=== PATIENT | female | born 2000 | race Caucasian/White ===

== ENCOUNTER → 2022-07-16 | Outpatient (CLI) | payer SELFPAY ==
[2022-07-16 16:18] LABS: Amphetamine Urine VISTA NEGATIVE (<1000 ng/mL); Barbiturate Urine VISTA NEGATIVE (< 200 ng/mL); Benzodiazepine Urine VISTA NEGATIVE (< 200 ng/mL); Cocaine Urine VISTA NEGATIVE (< 300 ng/mL); Ecstacy Urine VISTA NEGATIVE (< 500 ng/mL); Methadone Urine VISTA NEGATIVE (< 300 ng/mL); PCP Urine VISTA NEGATIVE (< 25 ng/mL); THC Urine VISTA NEGATIVE (< 50 ng/mL); Vista UDS pH Range 5
[2022-07-18 22:07] LABS: Chlamydia By Nucleic Acid AMP Negative (Negative)
[2022-07-19 08:54] LABS: Gonococcus By Nucleic Acid AMP Negative (Negative)
[2022-07-24 11:44] LABS: HPV Reflexed? NOT INDICATED
== END | disposition home or self-care (01) ==
LOC: LABSPEC 15:18
PROVIDERS: Referring Provider Obstetrics & Gynecology; Visit Provider Obstetrics & Gynecology
DX: Z34.90 Encounter for supervision of normal pregnancy, unspecified, unspecified trimester (principal)
CPT/HCPCS: 80307; 87086; 87088; 87491; 87591; 88175; G0145

== ENCOUNTER → 2022-07-27 | Outpatient (CLI) | payer SELFPAY ==
[2022-07-27 10:16] LABS: Absolute Neutrophil Count 6.4 X10^3/uL (2.0-7.7); Basophil# 0.04 X10^3/uL; Basophil% 0.4 % (0-1); Eosinophil# 0.06 X10^3/uL; Eosinophils% 0.6 % (0-5); Hematocrit 39.5 % (37-47); Hemoglobin 13.6 g/dL (12.0-15.0); Lymphocyte % 24.2 % (19-41); Mean Corp Hgb Conc 34.4 g/dL (32-36); Mean Corpuscular Hgb 31.3 pg (27.0-32.0); Mean Platelet Vol. 9.3 fl (6.2-12.0); Monocyte# 0.71 X10^3/uL; Monocyte% 7.5 % (0-10); NRBC Flagged by Analyzer 0 % (0-5); Neutrophil # 6.36 X10^3/uL (2.7-7.7); Neutrophil % 67.1 % (47-70); Platelet Count 326 K/mm3 (150-450); RBC Distribution Width CV 11.7 % (11.6-14.6); RBC Distribution Width SD 39.1 fl (35.1-43.9); Red Blood Count 4.34 M/mm3 (4.2-5.4); White Blood Count 9.5 K/mm3 (4.4-11.0)
[2022-07-27 10:27] LABS: NATERA MAILED SPECIMEN
[2022-07-27 11:17] LABS: HIV - WCH Non-Reactive (Nonreactive); Hepatitis B Surface Antigen Non-Reactive (Nonreactive); Hepatitis C Antibody Non-Reactive (Nonreactive); Rubella IgG Non-Reactive (Nonreactive); Syphilis Antibodies Non-reactive
== END | disposition home or self-care (01) ==
LOC: LAB 09:24
PROVIDERS: Referring Provider Obstetrics & Gynecology; Visit Provider Obstetrics & Gynecology
DX: Z34.81 Encounter for supervision of other normal pregnancy, first trimester (principal)
CPT/HCPCS: 36415; 85025; 86703; 86762; 86780; 86803; 86850; 86900; 86901; 87340

== ENCOUNTER → 2022-09-27 | Outpatient (CLI) | payer SELFPAY ==
--- NOTE | 2022-09-27 13:27 | US_ITS ---
EXAM: US SECOND OR THIRD TRIMESTER , TRANSABDOMINAL CLINICAL INDICATION: anatomy scan -- anatomy scan TECHNIQUE: Transabdominal obstetrical ultrasound of the maternal pelvis and a second or third trimester with image documentation. This report was created using [employer] report generation technology. COMPARISON: None. FINDINGS: FETUS: There is an intrauterine gestation. HEART RATE: heart rate is 157 bpm. PRESENTATION: The fetus is in variable position. PLACENTA: Placenta is fundal. No placenta previa. No abruption. AMNIOTIC FLUID: Largest fluid pocket is 3.8 cm. ANATOMY: Lateral ventricles, choroid plexus, cerebellum, cisterna magna and face were visualized. 4 chamber heart, diaphragm, stomach, three-vessel cord, cord insertion, kidneys and bladder, spine and extremities were all visualized. BIOMETRICS GESTATIONAL AGE: Gestational age is 19 weeks 0 days. XUAN: XUAN 02/21/2023. EFW: Estimated weight is 279 g, 56th percentile. BPD: Biparietal diameter 4.3 cm age 19 weeks 0 days, 49th percentile. HC: Head circumference 16.5 cm age 19 weeks 2 days, 55th percentile. AC: Abdominal circumference 14.1 cm age 19 weeks 3 days, 61st percentile. FL: Femur length 2.9 cm age 18 weeks 6 days, 41st percentile. MATERNAL: UTERUS: Unremarkable. No myometrial mass. CERVIX: Cervix measures 3.6 cm. ADNEXA: Unremarkable. No adnexal masses. FREE FLUID: None. US/OB Anatomy Scan IMPRESSION: Intrauterine gestation with an average ultrasound age 19 weeks 1 day and ultrasound estimated due date of 02/20/2023. heart rate is 157 bpm. Electronically Signed: Sarthak Kingston MD at 16:37 EST ,
== END | disposition home or self-care (01) ==
PROVIDERS: Referring Provider Obstetrics & Gynecology; Visit Provider Obstetrics & Gynecology
DX: Z34.90 Encounter for supervision of normal pregnancy, unspecified, unspecified trimester (principal)
CPT/HCPCS: 76805; 76817

== ENCOUNTER → 2022-11-29 | Outpatient (CLI) | payer SELFPAY ==
[2022-11-29 15:35] LABS: Absolute Lymphocyte Count 2.21 X10^3/uL (0.83-4.51); Absolute Neutrophil Count 10.1 X10^3/uL (2.0-7.7); Basophil# 0.04 X10^3/uL; Basophil% 0.3 % (0-1); Eosinophil# 0.09 X10^3/uL; Eosinophils% 0.7 % (0-5); Hematocrit 37.6 % (37-47); Hemoglobin 12.7 g/dL (12.0-15.0); Lymphocyte # 2.21 X10^3/ul (0.83-4.51); Lymphocyte % 16.4 % (19-41); Mean Corp Hgb Conc 33.8 g/dL (32-36); Mean Corpuscular Hgb 31.9 pg (27.0-32.0); Mean Corpuscular Volume 94.5 fL (81-99); Mean Platelet Vol. 9.1 fl (6.2-12.0); Monocyte% 6.7 % (0-10); NRBC Flagged by Analyzer 0 % (0-5); Neutrophil # 10.13 X10^3/uL (2.7-7.7); Neutrophil % 75.1 % (47-70); Platelet Count 309 K/mm3 (150-450); RBC Distribution Width SD 41.5 fl (35.1-43.9); Red Blood Count 3.98 M/mm3 (4.2-5.4); White Blood Count 13.5 K/mm3 (4.4-11.0)
[2022-11-29 16:02] LABS: Glucose Challenge Gest 1H 50g 125 mg/dL (70-140)
[2022-11-29 17:34] LABS: HIV - WCH Non-Reactive (Nonreactive); Syphilis Antibodies Non-reactive
== END | disposition home or self-care (01) ==
PROVIDERS: Referring Provider Registered Nurse; Visit Provider Registered Nurse
DX: Z34.01 Encounter for supervision of normal first pregnancy, first trimester (principal)
CPT/HCPCS: 36415; 82950; 85025; 86703; 86780

== ENCOUNTER → 2023-01-29 | Outpatient (CLI) | payer SELFPAY | END | disposition home or self-care (01) | PROVIDERS: Referring Provider Registered Nurse; Visit Provider Registered Nurse | DX: Z34.90 Encounter for supervision of normal pregnancy, unspecified, unspecified trimester (principal) | CPT/HCPCS: 87081 ==

== ENCOUNTER 2023-02-16 11:35 | Inpatient (IN) | payer SELFPAY ==
[2023-02-16] VITALS (53 sets, daily range): BP systolic 105–147; BP diastolic 58–94; PULSE 91–214; TEMP 36.2–37.3; O2SAT 97–100; BMI 32.9
[2023-02-16] MEDS: Lactated Ringers 1,000 ML 50 ML IV (11:20)
[2023-02-16] MEDS: LACTATED RINGERS 500 ML 999 ML IV (12:36)
[2023-02-16 12:52] LABS: Absolute Lymphocyte Count 1.68 X10^3/uL (0.83-4.51); Absolute Neutrophil Count 10.7 X10^3/uL (2.0-7.7); Basophil# 0.03 X10^3/uL; Basophil% 0.2 % (0-1); Eosinophil# 0.01 X10^3/uL; Eosinophils% 0.1 % (0-5); Hematocrit 37.7 % (37-47); Lymphocyte # 1.68 X10^3/ul (0.83-4.51); Lymphocyte % 12.7 % (19-41); Mean Corp Hgb Conc 34.5 g/dL (32-36); Mean Corpuscular Hgb 31.8 pg (27.0-32.0); Mean Corpuscular Volume 92.2 fL (81-99); Monocyte# 0.82 X10^3/uL; Monocyte% 6.2 % (0-10); NRBC Flagged by Analyzer 0 % (0-5); Neutrophil # 10.68 X10^3/uL (2.7-7.7); Neutrophil % 80.5 % (47-70); Platelet Count 266 K/mm3 (150-450); RBC Distribution Width CV 12.5 % (11.6-14.6); RBC Distribution Width SD 42.2 fl (35.1-43.9); Red Blood Count 4.09 M/mm3 (4.2-5.4); White Blood Count 13.3 K/mm3 (4.4-11.0)
--- NOTE | 2023-02-16 12:55 | HP.PCM.OB_ITS ---
HPI - General General Date of Admission: 02/16/23 Date of Service: 02/16/23 HPI Narrative DINORAH DOBBINS, is a 22 F at 39 weeks 2 days who presents in spontaneous labor. Maternal Data Information XUAN Calculator Estimated Delivery Date Method Current WG Current Estimate 02/21/23 LMP (Certain) 39w 2d Final XUAN: 02/21/23 Final XUAN Source: US >20 weeks Gestational age: 39 weeks 2 days PFSH PFSH Medical History no medical history no medical history Home Medications vits no.10-ferrous fumarate 65 mg iron-folic acid 1 mg tablet 1 tab PO DAILY 07/11/22 [History Last Taken 02/15/23 21:00 2 tablets] Allergy/AdvReac Type Severity Reaction Status Date / Time No Known Allergies Allergy Verified 02/12/23 09:56 no significant family history Surgical History no surgical history no surgical history Social History adopted: No household members: spouse housing: house current occupational status: employed current occupation: [employer] current occupational exposures/hazards: No pets and animals: No history of recent travel: No sexually active: Yes Smoking Status: Never smoker alcohol intake: never substance use type: does not use well-balanced diet: daily or most days caffeine: No eating out: rarely or never during the past year weight has: remained stable what type of physical activity do you participate in: walking frequency: 1-2 times per week duration: 15-30 minutes/day prabhu/samaritan: None seatbelt use: always do you feel safe at home: Yes additional social history: Spouse- [employer] History 1 Elective abortions Hx Para 0 Spontaneous abortions Hx # Term Pregnancies Ectopic pregnancies Hx # Pregnancies Multiple births # of living children Visit Details Expected Delivery Route/Plan Labor Preferences- CB/BF classes: [facility] labor support person: Ford( gets woozy) , and mom labor intervention preferences: limited intervention pain management options preferred: unmedicated cut cord/dad catch: will decline : plans PP control planned:NFP/ROBERTS/condoms discussed possible routes of delivery and associated risks: [] special requests: [] Plans Covid status: discussed Flu vaccine: discussed Tdap vaccine: declined Rhogam: n/a LARC form signed:completed Problem list reviewed and updated with the most current plan of care details and appropriate orders placed. Relevant counseling for the gestational age provided. Continue routine care and follow up unless otherwise noted in visit n otes/problem list details OB Flowsheet Initial Weight: Not Recorded Date -?-?-?-?-?-?-?-?-?-?--?-?- EGA Weight BP Urine Prot -?-?-?-?-?-?-?-?-?-?-?-?- Glucose FHR FuHt Pres Dilation -?-?-?-?-?-?-?-?-?-?-?-?- Effaced St Visit Note 07/16/22 -?-?-?-?-?-?-?-?-?-?-?-?- 8w 4d 134 lb 110/72 -?-?-?-?-?-?-?-?-?-?-?-?- 180 -?-?-?-?-?-?-?-?-?-?-?-?- SM- CRL cons wit h LMP SM- CRL 2.26cm cons with LMP 08/14/22 -?-?-?-?-?-?-?-?-?-?-?-?- 12w 5d 141 lb 123/76 Negative -?-?-?-?-?-?-?-?-?-?-?-?- Negative 155 -?-?-?-?-?-?-?-?-?-?-?-?- Sm- no vb cramp ing 09/11/22 -?-?-?-?-?-?-?-?-?-?-?-?- 16w 5d 150 lb 120/80 -?-?-?-?-?-?-?-?-?-?-?-?- 154 -?-?-?-?-?-?-?-?-?-?-?-?- Lc- no vb/crampi ng. discussed afp, declines. normal nob labs. has anatomy scan scheduled 09/27. 10/02/22 -?-?-?-?-?-?-?-?-?-?-?-?- 19w 5d 154 lb 109/72 109/72 Negative -?-?-?-?-?-?-?-?-?-?-?-?- Negative 150 20 -?-?-?-?-?-?-?-?-?-?-?-?- LC-no vb/crampin g. normal anatomy scan. feels well, denies complaints or concerns. 10/23/22 -?-?-?-?-?-?-?-?-?-?-?-?- 22w 5d 158 lb 114/79 Negative -?-?-?-?-?-?-?-?-?-?-?-?- Negative 143 23 -?-?-?-?-?-?-?-?-?-?-?-?- LC-no concerns. no vb/cramping.reviewed normal anatomy. 28 week labs ordered. 11/29/22 -?-?-?-?-?-?-?-?-?-?-?-?- 28w 0d 170 lb 126/83 Negative -?-?-?-?-?-?-?-?-?-?-?-?- Negative 165 28 -?-?-?-?-?-?-?-?-?-?-?-?- JV- normal cbc, glucola pending. no concerns or complaints. 12/13/22 -?-?-?-?-?-?-?-?-?-?-?-?- 30w 0d 172 lb 110/76 Negative -?-?-?-?-?-?-?-?-?-?-?-?- Negative 140 30 -?-?-?-?-?-?-?-?-?-?-?-?- LC- no concerns. no vb/ctx/lof. good fm. larc signed. passed glucola. 12/25/22 -?-?-?-?-?-?-?-?-?-?-?-?- 31w 5d 173 lb 134/87 122/78 Negative -?-?-?-?-?-?-?-?-?-?-?-?- Negative 140 31 -?-?-?-?-?-?-?-?-?-?-?-?- LC- no concerns. no lof/vb/ctx. good FM. 01/10/23 -?-?-?-?-?-?-?-?-?-?-?-?- 34w 0d 176 lb 118/80 118/80 Negative -?-?-?-?-?-?-?-?-?-?-?-?- Negative 135 33 -?-?-?-?-?-?-?--?-?-?-?-?- KW-no concerns. Good FM. no lof/vb/ctx. labor precautions discussed. declines Tdap. 01/22/23 -?-?-?-?-?-?-?-?-?-?-?-?- 35w 5d 178 lb 138/80 127/84 -?-?-?-?-?-?-?-?-?-?-?-?- 150 35 Cephalic -?-?-?-?-?-?-?-?-?-?-?-?- LC-had a tick bi te over the weekend, pulled out very quickly. small red area 2 inches 7oclock from umbilicus. no fevers. good fm, no ctx/lof/vb. is no longer working. LC-had a tick bite over the weekend, pulled out very quickly. small red area 2 inches 7oclock from umbilicus. no fevers. no erythema migrans. good fm, no ctx/lof/vb. is no longer working. 01/29/23 -?-?-?-?-?-?-?-?-?-?-?-?- 36w 5d 175 lb 110/78 Negative -?-?-?-?-?-?-?-?-?-?-?-?- Negative 140 36 Cephalic -?-?-?-?-?-?-?-?-?-?-?-?- LC- no lof/vb/ct x. good fm. tick bite has resolved. LC- no lof/vb/ctx. good fm. tick bite has resolved.gbs obtained today 02/05/23 -?-?-?-?-?-?-?-?-?-?-?-?- 37w 5d 182 lb 117/80 Negative -?-?-?-?-?-?-?-?-?-?-?-?- Negative 138 37 Cephalic -?-?-?-?-?-?-?-?-?-?-?-?- LC- no lof/vb/ct x. good fm. early labor comforts reviewed. declines VE. GBS neg 02/12/23 -?-?-?-?-?-?-?-?-?-?-?-?- 38w 5d 182 lb 120/86 Trace -?-?-?-?-?-?-?-?-?-?-?-?- Negative 140 38 Cephalic -?-?-?-?-?-?-?-?-?-?-?-?- LC- no lof/vb/ct x. good fm. reviewed r/b/a for membrane strip, will consider at next visit.ready for baby 02/16/23 -?-?-?-?-?-?-?-?-?-?-?-?- 39w 2d 180 lb 1.883 oz 142/ 94 142/94 119/79 119/79 119/72 119/72 -?-?-?-?-?-?-?-?-?-?-?-?- -?-?-?-?-?-?-?-?-?-?-?-?- NST FHR Rate Baby A Baseline: 140 Variability:: Moderate Accelerations:: 15 x 15 Decelerations:: None NST Reactive:: Yes FHR Category:: Category I Uterine Activity:: q4-5 minutes palpating moderate ROS Constitutional Constitutional: Denies change in weight, fatigue, fever(s), headache(s), poor appetite or weakness Eyes Eyes: Denies blurry vision, change in vision, floaters, seeing flashes or spots in vision ENT HEENT: Denies dizziness, headache(s), loss taste/smell or sore throat Cardiovascular Cardiovascular: Denies chest pain, dizziness, dyspnea, irregular heart rhythm, lightheadedness, palpitations or rapid heart rate Respiratory/Chest Respiratory/Chest: Denies change in mental status, chest tightness, cough, dyspnea or breast pain Gastrointestinal Gastrointestinal: Denies anorexia, chewing difficulty, constipation, diarrhea or weight changes Genitourinary Genitourinary: Denies difficulty urinating, dysuria, flank pain, genital pain, urinary frequency or urinary urgency Musculoskeletal Musculoskeletal: Denies back pain, difficulty walking, extremity pain, joint pain, muscle cramps or muscle weakness Integumentary Integumentary: Denies lesions or unusual bruising Neurologic Neurologic: Denies abnormal movements, abnormal speech, dizziness, numbness, seizure-like activity, syncope or weakness Psychiatric Psychiatric: Denies behavioral changes, change in appetite, confusion, depression, homicidal ideation, suicidal ideation or suicidal thoughts Endocrine Endocrinology: Denies excessive sweating, polydipsia or polyuria Hematologic/Lymphatic Hematologic/Lymphatic: Denies anemia Allergic/Immunologic Allergic/Immunologic: Denies itchy eyes, lip swelling, throat swelling, tongue swelling or wheezing Vital Signs Vital Signs Vital Signs: 02/16/23 10:02 02/16/23 10:02 02/16/23 10:00 Temperature Temperature Source Temporal Pulse Rate 110 H Blood Pressure 142/94 H BP Systolic 142 BP Diastolic 94 Pulse Ox 02/16/23 10:00 02/16/23 10:00 02/16/23 11:09 Temperature 99.0 F Temperature Source Pulse Rate Blood Pressure 142/94 H 119/79 BP Systolic 142 119 BP Diastolic 94 79 Pulse Ox 02/16/23 11:09 02/16/23 11:10 02/16/23 11:10 Temperature Temperature Source Pulse Rate 100 107 H Blood Pressure BP Systolic BP Diastolic Pulse Ox 97 02/16/23 11:10 02/16/23 11:10 02/16/23 11:10 Temperature Temperature Source Temporal Pulse Rate 102 H Blood Pressure 119/79 BP Systolic 119 BP Diastolic 79 Pulse Ox 02/16/23 11:10 02/16/23 11:10 02/16/23 12:39 Temperature 97.9 F Temperature Source Pulse Rate Blood Pressure 119/72 BP Systolic 119 BP Diastolic 72 Pulse Ox 98 02/16/23 12:39 02/16/23 12:39 02/16/23 12:39 Temperature Temperature Source Pulse Rate 113 H 117 H Blood Pressure BP Systolic BP Diastolic Pulse Ox 97 02/16/23 12:39 02/16/23 12:39 02/16/23 12:39 Temperature Temperature Source Temporal Pulse Rate 108 H Blood Pressure 119/72 BP Systolic 119 BP Diastolic 72 Pulse Ox 02/16/23 12:39 02/16/23 12:39 Temperature 97.9 F Temperature Source Pulse Rate Blood Pressure BP Systolic BP Diastolic Pulse Ox 97 Weight Weight: 180 lb 1.883 oz Body Mass Index (BMI) 32.9 Physical Exam Const alert, oriented x3 and no apparent distress General Appearance: cooperative Orientation / Consciousness: awake HEENT normocephalic Neck full ROM Lymph Lymphatic: no lymphadenopathy noted Resp normal respiratory effort and normal air movement Effort and Inspection: able to speak in complete sentences and symmetric chest movement GI soft to palpation and non-tender Inspection: gravid Palpation: soft; Negative for tender external exam normal Back/Spine normal to inspection Extremity normal to inspection and full ROM Skin no rashes or lesions noted Psych mental status grossly normal Appearance: grossly normal Speech: normal speech Labs Labs Labs: Blood Type A POSITIVE Antibody Screen NEGATIVE Hct 37.7 % (37-47) Hgb 13.0 g/dL (12.0-15.0) Obstetrics US Syphilis Total Ab Non-reactive Rubella IgG Antibody Non-Reactive (Nonreactive) Hep Bs Antigen Non-Reactive (Nonreactive) Chlamydia DNA (BRANDON) Negative (Negative) Neisseria gonorrhoeae DNA (BRANDON) Negative (Negative) HIV 1&2 Antibody Non-Reactive (Nonreactive) Glucose 1 Hr 50 gm 125 mg/dL (70-140) Assessment & Plan (1) Spontaneous onset of labor: PLAN: Patient presents IAL, plan expectant management for , pitocin/AROM PRN if needed. Pain management: plans epidural. GBS negative. Management of any complications: none I have reviewed the [facility] and made any clinically relevant updates. Reviewed plan with Dr. Lagunas, agrees with plan of care. (2) Supervision of normal first : QUALIFIERS: Trimester: first trimester Qualified Code(s): Z34.01 - Encounter for supervision of normal first , first trimester COMMENT: PRR , XUAN 02/21/23, boy! Ion Spouse Ford (3) : QUALIFIERS: Weeks of gestation: 32 weeks Qualified Code(s): Z3A.32 - 32 weeks gestation of COMMENT: GBS negative. nl anatomy, low risk NIPT & carrier neg. for 274/274
[2023-02-16 13:40] LABS: Syphilis Antibodies Non-reactive
[2023-02-16] MEDS: fentaNYL-bupivacaine (epidural) 100 ML BAG EPIDURAL ×2 (14:00→18:33)
--- NOTE | 2023-02-16 15:31 | PCM.PN.OB ---
Subjective Subjective Patient comfortable with epidural current tracing: FHT: 135 Moderate variability reactive no decelerations category I tracing [place]: Contractions q 4-6 minutes palpating moderate to strong AROM at 1503 for meconium fluid, peds notified and to be at delivery. SVE: /1 reviewed tracing abnormalities since last note: none noted, Cat 1 A/P: Continue current POC Continue position changes Anticipate Objective Data Objective Data Vital Signs: Vital Signs Temp Pulse BP Pulse Ox 97.1 F L 93 112/77 100 02/16/23 14:30 02/16/23 15:17 02/16/23 15:17 02/16/23 15:09 Weight: 180 lb 1.883 oz Body Mass Index (BMI) 32.9 Intake & Output: Intake and Output for Last 24 Hours 02/14/23 02/15/23 02/16/23 23:59 23:59 23:59 Intake Total 790.83 / 790.83 Output Total 100 / 100 Balance 690.83 / 690.83 Lab / Micro Data Result Diagrams: 02/16/23 11:20 Labs: Laboratory Results - last 24 hr 02/16/23 11:20: WBC 13.3 H, RBC 4.09 L, Hgb 13.0, Hct 37.7, MCV 92.2, MCH 31.8, MCHC 34.5, RDW Std Deviation 42.2, RDW Coeff of Bear 12.5, Plt Count 266, MPV 10.0, Immature Gran % (Auto) 0.300, Neut % (Auto) 80.5 H, Lymph % (Auto) 12.7 L, [place] % (Auto) 6.2, Eos % (Auto) 0.1, Baso % (Auto) 0.2, Absolute Neuts (auto) 10.7 H, Absolute Lymphs (auto) 1.68, Nucleated RBC % 0 02/16/23 11:20: Blood Type A POSITIVE, Antibody Screen NEGATIVE 02/16/23 11:20: Syphilis Total Ab Non-reactive Physical Exam Cardio regular rate and regular rhythm Cardio Narrative: orders for IV fluid bolus, consult anesthesia, EKG if needed Rate: tachycardic GI soft to palpation and non-tender Bladder / Kidney Exam: catheter in place urethral Amniotic Fluid: meconium-stained Charges/Coding Procedures Urinary/Genital [id number]: No Charge
[2023-02-16] MEDS: Oxytocin 15 Units/NS 250ml 15 UNITS/250 ML IV.SOLN 2 UNITS IV (16:21)
--- NOTE | 2023-02-16 17:27 | PCM.PN.OB ---
Subjective Subjective Patient comfortable with epidural current tracing: FHT: 145 Moderate variability reactive no decelerations category I tracing [place]: Contractions palpating moderate to strong q 3-5 minutes. AROM at 1503 for meconium SVE 5/-1 Pitocin augmentation -4mu reviewed tracing abnormalities since last note: Cat 1 A/P: continue POC frequent position changes increase pitocin per protocol Anticipate Objective Data Objective Data Vital Signs: Vital Signs Temp Pulse BP Pulse Ox 98.1 F 115 H 122/73 H 99 02/16/23 17:03 02/16/23 17:03 02/16/23 17:03 02/16/23 17:03 Weight: 180 lb 1.883 oz Body Mass Index (BMI) 32.9 Intake & Output: Intake and Output for Last 24 Hours 02/14/23 02/15/23 02/16/23 23:59 23:59 23:59 Intake Total 792.43 / 792.43 Output Total 100 / 100 Balance 692.43 / 692.43 Lab / Micro Data Result Diagrams: 02/16/23 11:20 Labs: Laboratory Results - last 24 hr 02/16/23 11:20: WBC 13.3 H, RBC 4.09 L, Hgb 13.0, Hct 37.7, MCV 92.2, MCH 31.8, MCHC 34.5, RDW Std Deviation 42.2, RDW Coeff of Bear 12.5, Plt Count 266, MPV 10.0, Immature Gran % (Auto) 0.300, Neut % (Auto) 80.5 H, Lymph % (Auto) 12.7 L, [place] % (Auto) 6.2, Eos % (Auto) 0.1, Baso % (Auto) 0.2, Absolute Neuts (auto) 10.7 H, Absolute Lymphs (auto) 1.68, Nucleated RBC % 0 02/16/23 11:20: Blood Type A POSITIVE, Antibody Screen NEGATIVE 02/16/23 11:20: Syphilis Total Ab Non-reactive Charges/Coding Procedures Urinary/Genital 52xxx-[id number]: No Charge
[2023-02-16] MEDS: Lactated Ringers 1,000 ML 200 ML IV (18:32)
--- NOTE | 2023-02-16 23:27 | OP.PCM_ITS ---
Assessment & Plan (1) Vaginal delivery: COMMENT: KW/SM 39.2 Active labor Boy Ion Maternal Data Information XUAN Calculator Estimated Delivery Date Method Current WG Current Estimate 02/21/23 LMP (Certain) 39w 2d Final XUAN: 02/21/23 Final XUAN Source: US >20 weeks Gestational age: 39 weeks 2 days Vaginal Delivery Maternal Presentation Maternal Presentation: Active Labor Operative Information Pre-Operative Diagnosis: Active labor Post-Operative Diagnosis: active labor Surgery / Procedure Performed: Spontaneous Vaginal Delivery bill board poster #1: Petra Lagunas Type of Anesthesia: Epidural Estimated Blood Loss: 300 Time of Delivery: 22:56 Findings Description of Procedure: Patient began pushing and delivered the head in the EVELYN presentation. The head was delivered atraumatically and no loose nuchal cord was identified. The ant erior and posterior shoulders delivered without complication followed by the rest of the infant and the infant was placed on the maternal abdomen. Delayed cord clamping was employed for approximately 90 seconds. Cord was clamped and cut and gentle traction was applied to the cord and the placenta delivered spontaneously immediately following it was noted to be intact with three-vessel cord. The perineum and vagina were inspected and noted to have second degree laceration. EBL was 300. Patient and tolerated delivery well. Apgars 8/9 Presentation: Vertex Amniotic Membrane Rupture Type: Artificial Time of Membrane Rupture: 1500 Amniotic Fluid Description: Lightly stained meconium Placental Delivery Description: Spontaneous Placenta Disposition: [facility] Cord Vessel Description: 3 Vessels Cord Entanglement: None Nuchal Cord Compression: Without compression Infant A Gender: Male (1 minute): 8 (5 minute): 9 Delayed Cord Clamping: Yes Post Vaginal Delivery Medications Given After Delivery: IV Pitocin Episiotomy Description: None Laceration: Perineal Extension/lac, Vaginal Extension/lac and 2nd degree Complication Complications: None Procedures Urinary/Genital [id number]: [id number] Vaginal Delivery [facility]
[2023-02-16] MEDS: Oxytocin 15 Units/NS 250ml 15 UNITS/250 ML IV.SOLN 83 UNITS IV (23:37)
--- NOTE | 2023-02-16 23:47 | DCINST_ITS ---
Discharge Instructions Diet Discharge Diet: No restrictions Activity Discharge Activity: Return to Normal Activity May resume sexual activity in: 6-8 weeks Weight Bearing Status: Weight bearing as tolerated Dressing / Incision Call your doctor if you observe: Fever of 101 or Higher, Coldness, Increased Pain, Change in Color, Inability to urinate, Inability to have a bowel movement, Using more than 1 pad per hour, Shortness of breath, Dizziness, Fainting spells, Swelling in the ankles, Chest pain, Calf discomfort and Uncontrolled pain Follow Up Care Please Follow Up With: Natividad Davenport CNM When: Please call to set up your check up in 6 weeks. If you have had high blood pressure, please call to set up a blood pressure check in 2 weeks Test Results: Test results from this visit will be discussed in further detail at your follow- up appointment, if applicable. Discharge Plan Admission Admit Date/Time: 02/16/23 11:35 Primary Reason for Your Visit: vaginal delivery Attending Provider: Natividad Davenport Primary Care Provider: Care Physician,No Primary Instructions Patient Instructions: After a Vaginal Discharge Orders/Prescriptions Prescriptions: No Action vit 10-iron fum-folic 65-1 mg tablet 1 tab PO DAILY Referrals / Follow Up: Care Physician,No Primary [Primary Care Provider] - Disposition Disposition (needs filled in before D/C Order can be placed): Home, Self Care
[2023-02-17] VITALS (29 sets, daily range): BP systolic 109–122; BP diastolic 65–84; PULSE 78–157; RESP 16–20; TEMP 36.3–37.1; O2SAT 96–98
[2023-02-17] MEDS: Naproxen 500 MG Tablet PO ×2 (02:27→13:09)
--- NOTE | 2023-02-17 08:22 | PCM.PN.OB ---
Subjective Subjective Patient doing well without complaints. Tolerating PO. Ambulating and voiding without difficulty. Feeding well. Denies chest pain, shortness of breath, calf pain/swelling, fevers, chills, lightheadedness. Objective Data Objective Data Vital Signs: Vital Signs Temp Pulse Resp BP Pulse Ox O2 Del Method 97.6 F L 115 H 16 111/67 96 Room Air 02/17/23 03:10 02/17/23 03:11 02/17/23 03:10 02/17/23 03:11 02/17/23 03:10 02/17/23 03:10 Oxygen Delivery Method Room Air Weight: 180 lb 1.883 oz Body Mass Index (BMI) 32.9 Intake & Output: Intake and Output for Last 24 Hours 02/15/23 02/16/23 02/17/23 23:59 23:59 23:59 Intake Total 2857.50 / 2857.50 250 / 250 Output Total 950 / 950 200 / 200 Balance 1907.50 / 1907.50 50 / 50 Lab / Micro Data Attestation: I reviewed the patient's lab results. Result Diagrams: 02/16/23 11:20 Labs: Laboratory Results - last 24 hr 02/16/23 11:20: WBC 13.3 H, RBC 4.09 L, Hgb 13.0, Hct 37.7, MCV 92.2, MCH 31.8, MCHC 34.5, RDW Std Deviation 42.2, RDW Coeff of Bear 12.5, Plt Count 266, MPV 10.0, Immature Gran % (Auto) 0.300, Neut % (Auto) 80.5 H, Lymph % (Auto) 12.7 L, [place] % (Auto) 6.2, Eos % (Auto) 0.1, Baso % (Auto) 0.2, Absolute Neuts (auto) 10.7 H, Absolute Lymphs (auto) 1.68, Nucleated RBC % 0 02/16/23 11:20: Blood Type A POSITIVE, Antibody Screen NEGATIVE 02/16/23 11:20: Syphilis Total Ab Non-reactive ROS Constitutional Constitutional: Reports systems reviewed and no addt'l complaints, except as documented; Denies anorexia or headache(s) Cardiovascular Cardiovascular: Reports systems reviewed and no addt'l complaints, except as documented; Denies dizziness, dyspnea, nausea or tachypnea Respiratory/Chest Respiratory/Chest: Reports systems reviewed and no addt'l complaints, except as documented; Denies cough, dyspnea, shortness of breath at rest or tachypnea Gastrointestinal Gastrointestinal: Reports systems reviewed and no addt'l complaints, except as documented; Denies abdominal pain, constipation or nausea Genitourinary Genitourinary: Reports systems reviewed and no addt'l complaints, except as documented; Denies burning urination, difficulty urinating, dysuria, urinary frequency or urinary incontinence Musculoskeletal Musculoskeletal: Reports systems reviewed and no addt'l complaints, except as documented Integumentary Integumentary: Reports systems reviewed and no addt'l complaints, except as documented Neurologic Neurologic: Reports systems reviewed and no addt'l complaints, except as documented; Denies abnormal speech, dizziness or headache(s) Psychiatric Psychiatric: Reports systems reviewed and no addt'l complaints, except as documented Endocrine Endocrinology: Reports systems reviewed and no addt'l complaints, except as documented Hematologic/Lymphatic Hematologic/Lymphatic: Reports systems reviewed and no addt'l complaints, except as documented Physical Exam Const alert, oriented x3 and no apparent distress Neck full ROM Chest inspection of chest normal Nipple/Areola: nipples/areola normal Resp normal respiratory effort, normal air movement and no retractions Effort and Inspection: able to speak in complete sentences and symmetric chest movement GI soft to palpation Bladder / Kidney Exam: bladder normal to palpation Uterus Palpation: uterus fundus firm (U1) Extremity normal to inspection and full ROM Psych mental status grossly normal, thought process normal and cooperative Assessment & Plan (1) Vaginal delivery: COMMENT: KW/SM 39.2 Active labor Boy [place] PLAN: s/p PPD # 1 1. routine post delivery care 2. breast feeding- support given 3. rh positive 4. rubella immune Charges/Coding Multi Select Codes Urinary/Genital Urinary/Genital CPT Codes: No Charge
[2023-02-17] MEDS: Prenatal Vits Tablet 1 TABLET PO (09:42)
[2023-02-17] MEDS: Acetaminophen 500 MG Tablet 1000 MG PO ×2 (09:42→18:18)
--- NOTE | 2023-02-17 21:01 | NURSING ---
Pt declines MMR vaccine for rubella nonimmune status.
[2023-02-18 03:00] VITALS: BP 118/76; PULSE 95; RESP 20; TEMP 36.2; O2SAT 96
[2023-02-18] MEDS: Naproxen 500 MG Tablet PO (06:21)
[2023-02-18 08:00] VITALS: BP 120/75; PULSE 90; RESP 16; TEMP 36.4
[2023-02-18 09:00] VITALS: PULSE 90; RESP 16
[2023-02-18] MEDS: Acetaminophen 500 MG Tablet 1000 MG PO (09:08)
[2023-02-18] MEDS: Prenatal Vits Tablet 1 TABLET PO (09:30)
[2023-02-18 14:00] VITALS: BP 113/69; PULSE 90; RESP 16; TEMP 36.8
== END 2023-02-18 14:30 | disposition home or self-care (01) | DRG 807 ==
LOC: WPOUT 11:38 → WP 11:39
PROVIDERS: Admitting Provider Advanced Practice Midwife; Referring Provider Advanced Practice Midwife; Visit Provider Advanced Practice Midwife
DX: O77.0 Labor and delivery complicated by meconium in amniotic fluid (principal); Z37.0 Single live birth; O70.1 Second degree perineal laceration during delivery; Z3A.39 39 weeks gestation of pregnancy
CPT/HCPCS: 59025; 59050; 85025; 86780; 86850; 86900; 86901; 99221; J7120; G0378

== ENCOUNTER → 2024-11-26 | Outpatient (CLI) | payer SELFPAY ==
[2024-11-30 06:06] LABS: Chlamydia By Nucleic Acid AMP Negative (Negative); Gonococcus By Nucleic Acid AMP Negative (Negative)
== END | disposition home or self-care (01) ==
LOC: LABSPEC 13:53
PROVIDERS: Referring Provider Advanced Practice Midwife; Visit Provider Advanced Practice Midwife
DX: Z34.90 Encounter for supervision of normal pregnancy, unspecified, unspecified trimester (principal)
CPT/HCPCS: 87086; 87088; 87491; 87591

== ENCOUNTER → 2024-12-07 | Outpatient (CLI) | payer SELFPAY ==
[2024-12-07 12:27] LABS: Absolute Lymphocyte Count 2.65 X10^3/uL (0.83-4.51); Absolute Neutrophil Count 6.3 X10^3/uL (2.0-7.7); Basophil# 0.04 X10^3/uL; Basophil% 0.4 % (0-1); Eosinophil# 0.07 X10^3/uL; Eosinophils% 0.7 % (0-5); Hematocrit 41.4 % (37-47); Hemoglobin 14.3 g/dL (12.0-15.0); Lymphocyte # 2.65 X10^3/ul (0.83-4.51); Lymphocyte % 26.6 % (19-41); Mean Corp Hgb Conc 34.5 g/dL (32-36); Mean Corpuscular Hgb 31.5 pg (27.0-32.0); Mean Corpuscular Volume 91.2 fL (81-99); Mean Platelet Vol. 9.6 fl (6.2-12.0); Monocyte# 0.87 X10^3/uL; Monocyte% 8.7 % (0-10); NRBC Flagged by Analyzer 0 % (0-5); Neutrophil # 6.29 X10^3/uL (2.7-7.7); Neutrophil % 63.3 % (47-70); Platelet Count 373 K/mm3 (150-450); RBC Distribution Width CV 11.9 % (11.6-14.6); RBC Distribution Width SD 39.3 fl (35.1-43.9); Red Blood Count 4.54 M/mm3 (4.2-5.4)
[2024-12-07 13:52] LABS: HIV - WCH Non-Reactive (Nonreactive); Hepatitis B Surface Antigen Non-Reactive (Nonreactive); Hepatitis C Antibody Non-Reactive (Nonreactive); Rubella IgG Non-Reactive (Nonreactive); Syphilis Antibodies Non-reactive
== END | disposition home or self-care (01) ==
LOC: BWCLAB 11:09
PROVIDERS: Referring Provider Advanced Practice Midwife; Visit Provider Advanced Practice Midwife
DX: Z34.90 Encounter for supervision of normal pregnancy, unspecified, unspecified trimester (principal)
CPT/HCPCS: 36415; 85025; 86703; 86762; 86780; 86803; 86850; 86900; 86901; 87340

== ENCOUNTER → 2025-02-10 | Outpatient (CLI) | payer SELFPAY ==
--- NOTE | 2025-02-10 15:37 | US_ITS ---
PROCEDURE: OB ANATOMY W/ TRANSVAGINAL 02/10/2025 REASON FOR EXAM: CERVICAL LENGTH/ANATOMY TECHNIQUE: High resolution obstetric ultrasound performed using a 2D transducer. Standard views obtained, including biometry, anatomy survey, and Doppler studies. FINDINGS Number: 1 Position: Cephalic presentation Placental Position: Anterior Placental Abnormalities: No abnormalities. No low-lying placenta or marginal previa DIMENSIONS: Biparietal Diameter: 4.95/21 weeks, 0 days Head Circumference: 17.99/20 weeks, 3 days Abdominal Circumference: 18.62/20 weeks, 5 days Femur Length: The 03/06 weeks, 5 days ESTIMATED WEIGHT: 351 g +/-53 g ESTIMATED WEIGHT PERCENTILE (24+ weeks): 68% ESTIMATED GESTATIONAL AGE: Baseline: 20 weeks, 0 days By Ultrasound: 20 weeks, 3 days ESTIMATED DATE OF DELIVERY: Baseline: 06/30/2025 By Ultrasound: 06/27/2025 BIOPHYSICAL ASSESSMENT: Amniotic Fluid Volume: Subjectively normal Amniotic Fluid Index: Subjectively normal. (8-24 cm normal range) Cardiac Motion: 158 beats per minute (average) Trunk and Limb Motion: Present. MATERNAL ANATOMY: Adnexa: Neither maternal ovary is successfully identified. Cervical Length (if measured): 4.9 cm ANATOMY: Spine: Visualize Cranium: Visualized Cerebellum: 2.1 cm Cisterna Magna: 0.3 cm Cavum Septum Pellucidi: N/A Lateral Ventricles: 0.66 Choroid Plexus: Visualized Falx: Midline. Upper Lip: Visualized Heart: 4 chambers Stomach: Visualized Kidneys: Visualized Bladder: Visualized Umbilical Cord: Three-vessel visualized Extremities: Upper and lower visualized US/OB Anatomy w/ Transvaginal IMPRESSION: Single live intrauterine and fused with heart rate of 158 beats per minute ESTIMATED GESTATIONAL AGE: Baseline: 20 weeks, 0 days By Ultrasound: 20 weeks, 3 days ESTIMATED DATE OF DELIVERY: Baseline: 06/30/2025 By Ultrasound: 06/27/2025 Reading [facility]
== END | disposition home or self-care (01) ==
LOC: US 15:28
PROVIDERS: Referring Provider Obstetrics & Gynecology; Visit Provider Obstetrics & Gynecology
DX: Z34.90 Encounter for supervision of normal pregnancy, unspecified, unspecified trimester (principal)
CPT/HCPCS: 76805; 76817

== ENCOUNTER → 2025-04-05 | Outpatient (CLI) | payer SELFPAY ==
[2025-04-05 12:44] LABS: Absolute Lymphocyte Count 1.74 X10^3/uL (0.83-4.51); Absolute Neutrophil Count 7.3 X10^3/uL (2.0-7.7); Basophil# 0.04 X10^3/uL; Basophil% 0.4 % (0-1); Eosinophil# 0.04 X10^3/uL; Eosinophils% 0.4 % (0-5); Hematocrit 40.1 % (37-47); Hemoglobin 13.7 g/dL (12.0-15.0); Lymphocyte # 1.74 X10^3/ul (0.83-4.51); Lymphocyte % 17.8 % (19-41); Mean Corp Hgb Conc 34.2 g/dL (32-36); Mean Corpuscular Hgb 32.1 pg (27.0-32.0); Mean Corpuscular Volume 93.9 fL (81-99); Mean Platelet Vol. 9.8 fl (6.2-12.0); Monocyte# 0.65 X10^3/uL; Monocyte% 6.6 % (0-10); NRBC Flagged by Analyzer 0 % (0-5); Neutrophil # 7.27 X10^3/uL (2.7-7.7); Neutrophil % 74.3 % (47-70); Platelet Count 353 K/mm3 (150-450); RBC Distribution Width CV 12.2 % (11.6-14.6); RBC Distribution Width SD 42.2 fl (35.1-43.9); Red Blood Count 4.27 M/mm3 (4.2-5.4); White Blood Count 9.8 K/mm3 (4.4-11.0)
[2025-04-05 13:57] LABS: Glucose Challenge Gest 1H 50g 95 mg/dL (70-140); HIV Nonreactive (Nonreactive); Syphilis Antibodies Nonreactive (Nonreactive)
== END | disposition home or self-care (01) ==
PROVIDERS: Referring Provider Advanced Practice Midwife; Visit Provider Advanced Practice Midwife
DX: Z34.90 Encounter for supervision of normal pregnancy, unspecified, unspecified trimester (principal)
CPT/HCPCS: 36415; 82950; 85025; 86703; 86780

== ENCOUNTER → 2025-06-03 | Outpatient (CLI) | payer SELFPAY ==
[2025-06-03 15:17] LABS: Hematocrit 36.1 % (37-47); Hemoglobin 12.1 g/dL (12.0-15.0); Immature Granulocytes Count 0.070 X10^3/uL (0.0-0.0); Mean Corp Hgb Conc 33.5 g/dL (32-36); Mean Corpuscular Volume 90.0 fL (81-99); Mean Platelet Vol. 9.3 fl (6.2-12.0); NRBC Flagged by Analyzer 0 % (0-5); Platelet Count 313 K/mm3 (150-450); RBC Distribution Width CV 12.3 % (11.6-14.6); RBC Distribution Width SD 40.1 fl (35.1-43.9); Red Blood Count 4.01 M/mm3 (4.2-5.4); White Blood Count 9.9 K/mm3 (4.4-11.0)
== END | disposition home or self-care (01) ==
PROVIDERS: Advanced Practice Midwife; Visit Provider Obstetrics & Gynecology
DX: Z34.93 Encounter for supervision of normal pregnancy, unspecified, third trimester (principal)
CPT/HCPCS: 36415; 85025; 87081

== ENCOUNTER 2025-06-20 16:28 | Inpatient (IN) | payer SELFPAY ==
[2025-06-20] VITALS (43 sets, daily range): BP systolic 107–128; BP diastolic 59–83; PULSE 91–154; RESP 16; TEMP 36.8–37.2; O2SAT 87–100; BMI 33.5
--- OUTSIDE RECORDS SUMMARY | 2025-06-20 15:24 | XMS RPT_ITS | CCD ---
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 Petra Lagunas Attending Provider [phone] Care Physician, No Primary Primary Care Provider Unavailable Care Physician, No Primary Referring Provider Un available Dr. Petra Lagunas Attending Provider [phone] LOUIS Alicia Attending Provider [phone] Care Physician, No Primary Primary Care Provider Unavailable Care Physician, No Primary Referring Provider Un available Dr. Petra Lagunas Attending Provider [phone] Dr. Rama Grant Attending Provider [phone] Care Physician, No Primary Primary Care Provider Unavailable Care Physician, No Primary Referring Provider Un available LOUIS Alicia Attending Provider [phone] Dr. Rama Grant Attending Provider [phone] LOUIS Davenport Attending Provider [phone] LOUIS Davenport Admit Provider [phone] LOUIS Davenport Referring Provider [phone] LOUIS Davenport Other Provider [phone] ROSALINDA TURCIOS Admitting Unavailable KAROLINAROSALINDA WOOD Attending Unavailable KAROLINAROSALINDA WOOD Primary Care Unavailable Care Physician, No Primary Primary Care Provider Unavailable Lexi Mendoza RN Attending Provider Unavailabl e Care Physician, No Primary Referring Provider Un available Natividad Davenport CNM Attending Provider [phone] Natividad Davenport CNM Referring Provider [phone] Dr. Petra Lagunas MD Attending Provider [phone] Dr. Rama Grant DO Attending Provider Dr. Rama Grant DO Referring Provider Care Physician, No Primary Primary Care Provider Unavailable Issac CNM, Natividad Attending Provider [phone] Issac CNM, Natividad Referring Provider [phone] Care Physician, No Primary Referring Provider Un available Care Physician, No Primary Primary Care Provider Unavailable Issac CNM, Natividad Attending Provider [phone] Issac CNM, Natividad Referring Provider [phone] Care Physician, No Primary Primary Care Provider Unavailable Care Physician, No Primary Referring Provider Un available Care Physician, No Primary Primary Care Provider Unavailable Care Physician, No Primary Referring Provider Un available Issac CNM, Natividad Attending Provider [phone] Care Physician, No Primary Primary Care Provider Unavailable Barydon Mata DO, Dr. Ontiveros Attending Provider Care Physician, No Primary Primary Care Unava ilable Natividad Davenport Referring Unavailable Natividad Davenport Attending Unavailable Care Physician, No Primary Primary Care Unava ilable Natividad Davenport Referring Unavailable Natividad Davenport Attending Unavailable Care Physician, No Primary Primary Care Unava ilable Care Physician, No Primary Referring Unava ilable Natividad Davenport Attending Unavailable Care Physician, No Primary Primary Care Unava ilable Care Physician, No Primary Referring Unava ilable Natividad Davenport Attending Unavailable Care Physician, No Primary Primary Care Unava ilable Rama Grant Attending Unavailabl e Care Physician, No Primary Primary Care Unava ilable Natividad Davenport Referring Unavailable Natividad Davenport Attending Unavailable Care Physician, No Primary Primary Care Unava ilable Rama Grant Referring Unavailabl e Rama Grant Attending Unavailabl e Care Physician, No Primary Primary Care Unava ilable Care Physician, No Primary Referring Unava ilable Natividad Davenport Attending Unavailable Care Physician, No Primary Primary Care Unava ilable Care Physician, No Primary Referring Unava ilable Natividad Davenport Attending Unavailable Care Physician, No Primary Primary Care Unava ilable Care Physician, No Primary Referring Unava ilable Natividad Davenport Attending Unavailable Care Physician, No Primary Referring Unava ilable Care Physician, No Primary Primary Care Unava ilable Natividad Davenport Attending Unavailable Care Physician, No Primary Referring Unava ilable Care Physician, No Primary Primary Care Unava ilable Rama Grant Attending [facility] Care Physician, No Primary Primary Care Unava ilable Care Physician, No Primary Referring Unava Natividad Avina Attending Unavailable Care Physician, No Primary Primary Care Unava ilable Lexi Mendoza Attending Unavailable Care Physician, No Primary Primary Care Unava ilable Care Physician, No Primary Referring Unava Natividad Avina Attending Unavailable Care Physician, No Primary Primary Care Unava ilable Care Physician, No Primary Referring Unava ilable Petra Lagunas Attending Unavailable Care Physician, No Primary Primary Care Unava ilable Care Physician, No Primary Referring Unava audiable Natividad Davenport Attending Unavailable Medications Current Medications Medication Drug Class(es) Dates Sig (Normalized) Sig (Original) Vit 10-Iron Fum-Folic (6 sources) Start: 07-11-2022 take 1 tablet by mouth once daily Vit 10-Iron Fum-Folic Active 1 TABLET PO DAILY July 10, 2022 11:00pm Start: 07-11-2022 take 1 tablet by michelle th once daily Vit 10-Iron Fum-Folic Active 1 TABLET PO DAILY July 11, 2022 12:00am Vit 10-Iron Fum-Fol ic 65-1 mg tablet (9 sources) Start: 07-11-2022 Vit 1 0-Iron Fum-Folic 65-1 mg tablet Active 1 {tbl} PO DAILY July 11, 2022 12:00am Completed/Discontinued Medications Medication Drug Class(es) Dates Sig (Normalized) Sig (Original) Desogestrel-Ethiny l Estradiol (9 sources) Progestin, Estrogen Start: 04-02-2023 End: 11-17-2024 take 0.15 tablet by mouth once daily Desogestrel-Ethinyl Estradiol (Apri) 0.15-0.03 mg tablet Discontinued 1 {tbl} PO DAILY 84 April 02, 2023 12:00am November 17, 2024 10:45am Encounter for contraceptive management Encounter for contraceptive management, unspecified Start: 04-02-2023 End: 11-17-2024 take 0.15 tablet by mouth once daily Desogestrel-Ethinyl Estradiol (Apri) 0.15-0.03 mg tablet Discontinued 1 {tbl} PO DAILY April 02, 2023 12:00am November 17, 2024 10:45am Problems Active Problems Problem Classification Problem Date Documented Date Episodic/Chronic Contraceptive and procreative management (9 sources) Patient encounter status; Translations: [Encounter for contraceptive management, unspecified] 11-17-2024 Episodic Other complications of (20 sources) Rubella non-immune; Translations: [Supervision of other high risk pregnancies, unspecified trimester] 12-07-2024 Episodic Comment on above: offer MMR pp Other complications of (1 source) Supervision of other high risk pregnancies, unspecified trimester; Translations: [Supervision of other high risk pregnancies, unspecified trimester] Onset: 06-16-2025 Episodic Other and delivery including normal (20 sources) Normal ; Translations: [Encounter for supervision of normal first , unspecified trimester] Onset: 06-08-2025 Episodic Comment on above: KW/SM 39.2 Active la bor Boy Una PRR , XUAN 02/21/23 , boy! Ion Spouse Ford PRR , XUAN , PC: Una, : Ford NIPT low risk (previ ously done carrier testing) GBS negative. nl debra audra, low risk NIPT & carrier neg. for 274/274 offer MMR pp neg GBS PRR , ED D 06/30/25, PC: Ion, : Ofrd neg GBS PRR , ED D 06/30/25, boy Vamshi PC: Ion, : Ford Residual codes; unclassified (1 source) 38 weeks gestation of ; Translations: [38 weeks gestation of ] Onset: 06-16-2025 Episodic Residual codes; unclassified (1 source) 37 weeks gestation of ; Translations: [37 weeks gestation of ] Onset: 06-09-2025 Episodic Residual codes; unclassified (1 source) 34 weeks gestation of ; Translations: [34 weeks gestation of ] Onset: 06-03-2025 Episodic Residual codes; unclassified (1 source) 30 weeks gestation of ; Translations: [30 weeks gestation of ] Onset: 04-21-2025 Episodic Residual codes; unclassified (1 source) 27 weeks gestation of ; Translations: [27 weeks gestation of ] Onset: 04-05-2025 Episodic Superficial injury; contusion (13 sources) Tick bite; Translations: [Insect bite (nonvenomous) of abdominal wall, initial encounter] 01-22-2023 Episodic Comment on above: no s/sx of lyme dise ase. reviewed symptoms. would treat if symptoms occur. Unclassified (1 source) Other underimmunization status; Translations: [Other underimmunization status] Onset: 06-16-2025 Past or Other Problems Problem Classification Problem Date Documented Da te Episodic/Chronic Immunizations and screening for infectious disease (3 sources) Contact with and (suspected) exposure to other viral communicable diseases; Translations: [Contact with and (suspected) exposure to other viral communicable diseases] Onset: 05-19-2020 Episodic Residual codes; unclassified (1 source) 22 weeks gestation of ; Translations: [22 weeks gestation of ] Onset: 02-24-2025 Episodic Residual codes; unclassified (1 source) 17 weeks gestation of ; Translations: [17 weeks gestation of ] Onset: 01-27-2025 Episodic Residual codes; unclassified (1 source) 9 weeks gestation of ; Translations: [9 weeks gestation of ] Onset: 11-26-2024 Episodic Unclassified (11 sources) Spontaneous onset of labor; Translations: [Spontaneous onset of labor] 02-16-2023 Results Test Name Value Interpretation Reference Range Facility Light Industrial Supervisor Office Visit Reporton 06-16-2025 Light Industrial Supervisor Office Visit Report [facility] [address], [address] [place] [address] OFFICE VISIT Date of Service: 06/16/25 MR#: [id number] Acct: [id number] Name: DINORAH DOBBINS Rep #: [id number] : 2000 Provider: LOUIS Freeman ams Age/Sex: 24/F Location: [facility] Status: Signed Intake Vital Signs 05/19/25 10:53 06/09/25 10:54 06/16/25 10:44 06/16/25 10:48 Height 5 ft 2 in 5 ft 2 in 5 ft 2 in 5 ft 2 in Weight: 184 lb BMI 33.6 BP 105/73 Intake Visit Reasons: 38 WK OB Gunite Mixer Required: No Is patient in pain?: No Allergies No Known Allergies Allergy (Verified 06/16/25 10:43) Medications ???Medication ???Instructions ???Recorded ???Confirmed ???Type vits no.10-ferrous 1 tab PO DAILY 07/11/22 06/16/25 H istory fumarate 65 mg iron-folic acid 1 mg tablet Last Menstrual Period: 09/23/24 : No PFSH PFSH Medical History Supervision of normal first Tick bite of abdomen Spontaneous onset of labor Vaginal delivery care and examination Contraception management Social History adopted: No household members: spouse and children housing: house number of children: 1 current occupational status: unemployed current occupation: [employer] current occupational exposures/hazards: No pets and animals: No history of recent travel: No sexually active: Yes Smoking Status: Never smoker alcohol intake: never substance use type: does not use well-balanced diet: about half the time caffeine: No eating out: 1-3 times/week during the past year weight has: increased > 10 lbs what type of physical activity do you participate in: walking and weight training frequency: 1-2 times per week duration: 15-30 minutes/day prabhu/nondenominational: Scientology seatbelt use: always do you feel safe at home: Yes 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 Date Name GA/Weeks Outcome Route Bth Weight Gen Labor Lgth Anesthesia Del Locatn Provider FOB 02/26/23 Una 39 live - full term 7lbs 6oz Male epidural [facility] Natividad Youngblood Delivery Date: 02/26/23 Last Updated by: Lexi Mendoza, RN See problem list for complications HPI 38 WK OB Details: DINORAH DOBBINS is a 24 year old who presents for routine OB visit. OB Visit XUAN Calculator Estimated Delivery Date Method Current WG Current Estimate 06/30/25 LMP (Certain) 38w 0d Other Estimates 06/30/25 Ultrasound #1 38w 0d Expected Delivery Route/Plan Labor Preferences- CB/BF classes: declines labor support person: mom and Ford labor intervention preferences: [] pain management options preferred: [] cut cord/dad catch: NO : [] PP control planned: [] discussed possible routes of delivery and associated risks: [] special requests: [] Specific Issue/Plans Covid status: [] Flu vaccine: [] Tdap vaccine: [] Rhogam: [] LARC form signed: [] Problem list reviewed and updated with the most current plan of care details and appropriate orders placed. Relevant counseling for the gestational age provided. Continue routine care and follow up unless otherwise noted in visit notes/problem list details Initial Weight: 153 lb Date -???-???-???-???-???-?? ?-???-???-???-???-???-? ??- EGA Weight BP Urine Prot -???-???-???-???-???-?? ?-???-???-???-???-???-? ??- Glucose FHR FuHt Pres Dilation -???-???-???-???-???-?? ?-???-???-???-???-???-? ??- Effaced St Visit Note 11/26/24 -???-???-???-???-???-?? ?-???-???-???-???-???-? ??- 9w 1d 153 lb (+0 oz) 121/84 -???-???-???-???-???-?? ?-???-???-???-???-???-? ??- 176 -???-???-???-???-???-?? ?-???-???-???-???-???-? ??- KW-CRL cons with dates. accepts NIPT. WOuld like wv hope appts 12/29/24 -???-???-???-???-???-?? ?-???-???-???-???-???-? ??- 13w 6d 157 lb 8 oz (+4 lb 8 oz) 127/88 Negative -???-???-???-???-???-?? ?-???-???-???-???-???-? ??- Negative 160 -???-???-???-???-???-?? ?-???-???-???-???-???-? ??- SM- no vb lo f cramping 01/27/25 -???-???-???-???-???-?? ?-???-???-???-???-???-? ??- 18w 0d 157 lb 8 oz (+4 lb 8 oz) 127/88 Negative -???-???-???-???-???-?? ?-???-???-???-???-???-? ??- Negative 150 -???-???-???-???-???-?? ?-???-???-???-???-???-? ??- KW- no vb/cr amping. + flutters. US for 02/10. 02/24/25 -???-???-???-???-???-?? ?-???-???-???-???-???-? ??- 22w 0d 166 lb (+13 lb) 103/66 Negative -???-???-???-???-???-?? ?-???-???-???-???-? (more content not included)... Normal [facility] Laboratory - Chemistry and C hemistry - challengeOrdered By: Natividad Davenport on 06-09-2025 Glucose Ql (U) Negative [facility] Laboratory - UrinalysisOrder ed By: Natividad Davenport on 06-09-2025 Protein Ql (U) Negative [facility] Light Industrial Supervisor Office Visit Reporton 06-09-2025 Light Industrial Supervisor Office Visit Report [facility] [address], [address] [place] [address] OFFICE VISIT Date of Service: 06/09/25 MR#: [id number] Acct: [id number] Name: DINORAH DOBBINS Rep #: [id number] : 2000 Provider: LOUIS Freeman ams Age/Sex: 24/F Location: [facility] Status: Signed Intake Vital Signs 06/03/25 15:07 06/09/25 10:53 06/09/25 10:54 Height 5 ft 2 in 5 ft 2 in 5 ft 2 in Weight: 184 lb 6 oz BMI 33.7 BP 112/75 Intake Visit Reasons: 37wk ob Gunite Mixer Required: No Is patient in pain?: No Allergies No Known Allergies Allergy (Verified 06/09/25 10:53) Medications ???Medication ???Instructions ???Recorded ???Confirmed ???Type vits no.10-ferrous 1 tab PO DAILY 07/11/22 06/09/25 H istory fumarate 65 mg iron-folic acid 1 mg tablet Last Menstrual Period: 09/23/24 : No PFSH PFSH Medical History Supervision of normal first Tick bite of abdomen Spontaneous onset of labor Vaginal delivery care and examination Contraception management Social History adopted: No household members: spouse and children housing: house number of children: 1 current occupational status: unemployed current occupation: [employer] current occupational exposures/hazards: No pets and animals: No history of recent travel: No sexually active: Yes Smoking Status: Never smoker alcohol intake: never substance use type: does not use well-balanced diet: about half the time caffeine: No eating out: 1-3 times/week during the past year weight has: increased > 10 lbs what type of physical activity do you participate in: walking and weight training frequency: 1-2 times per week duration: 15-30 minutes/day prabhu/nondenominational: Scientology seatbelt use: always do you feel safe at home: Yes 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 Date Name GA/Weeks Outcome Route Bth Weight Gen Labor Lgth Anesthesia Del Locatn Provider FOB 02/26/23 Una 39 live - full term 7lbs 6oz Male epidural [facility] Natividad Youngblood Delivery Date: 02/26/23 Last Updated by: Lexi Mendoza RN See problem list for complications HPI 37wk ob Details: DINORAH DOBBINS is a 24 year old who presents for routine OB visit. OB Visit XUAN Calculator Estimated Delivery Date Method Current WG Current Estimate 06/30/25 LMP (Certain) 37w 0d Other Estimates 06/30/25 Ultrasound #1 37w 0d Expected Delivery Route/Plan Labor Preferences- CB/BF classes: declines labor support person: mom and Ford labor intervention preferences: [] pain management options preferred: [] cut cord/dad catch: NO : [] PP control planned: [] discussed possible routes of delivery and associated risks: [] special requests: [] Specific Issue/Plans Covid status: [] Flu vaccine: [] Tdap vaccine: [] Rhogam: [] LARC form signed: [] Problem list reviewed and updated with the most current plan of care details and appropriate orders placed. Relevant counseling for the gestational age provided. Continue routine care and follow up unless otherwise noted in visit notes/problem list details Initial Weight: 153 lb Date -???-???-???-???-???-?? ?-???-???-???-???-???-? ??- EGA Weight BP Urine Prot -???-???-???-???-???-?? ?-???-???-???-???-???-? ??- Glucose FHR FuHt Pres Dilation -???-???-???-???-???-?? ?-???-???-???-???-???-? ??- Effaced St Visit Note 11/26/24 -???-???-???-???-???-?? ?-???-???-???-???-???-? ??- 9w 1d 153 lb (+0 oz) 121/84 -???-???-???-???-???-?? ?-???-???-???-???-???-? ??- 176 -???-???-???-???-???-?? ?-???-???-???-???-???-? ??- KW-CRL cons with dates. accepts NIPT. WOuld like mt hope appts 12/29/24 -???-???-???-???-???-?? ?-???-???-???-???-???-? ??- 13w 6d 157 lb 8 oz (+4 lb 8 oz) 127/88 Negative -???-???-???-???-???-?? ?-???-???-???-???-???-? ??- Negative 160 -???-???-???-???-???-?? ?-???-???-???-???-???-? ??- SM- no vb lo f cramping 01/27/25 -???-???-???-???-???-?? ?-???-???-???-???-???-? ??- 18w 0d 157 lb 8 oz (+4 lb 8 oz) 127/88 Negative -???-???-???-???-???-?? ?-???-???-???-???-???-? ??- Negative 150 -???-???-???-???-???-?? ?-???-???-???-???-???-? ??- KW- no vb/cr amping. + flutters. US for 02/10. /08/12 -???-???-???-???-???-?? ?-???-???-???-???-???-? ??- 22w 0d 166 lb (+13 lb) 103/66 Negative -???-???-???-???-???-?? ?-???-???-???-???-???-? ??- Negative 160 (more content not included)... Normal [facility] Rule out Beta Strep (Grp. B) on 06-05-2025 GERRI Group B Beta Streptococcus is not isolated. Normal [facility] Comment on above: Performed By: #### M 100.3400 ####[facility] [address] [place], [address] Absolute lymphocyte countOrd ered By: Natividad Davenport on 06-03-2025 Lymphocytes Auto (Unsp spec) [#/Vol] 2.00 10*3/uL 0.83-4.51 [facility] Absolute neutrophil countOrd ered By: Natividad Davenport on 06-03-2025 Neutrophils (Bld) [#/Vol] 7.1 10*3/uL 2.0-7.7 [facility] Automated lymphocyte count a s percentage of total leukocytesOrdered By: Natividad Davenport on 06-03-2025 Lymphocytes/100 WBC Auto (Unsp spec) 20.1 % 19-41 [facility] Basophil percentageOrdered B y: Naitvidad Davenport on 06-03-2025 Basophils/100 WBC (Bld) 0.3 % 0-1 [facility] CBC W/Diff, Automatedon 05-18 Absolute Lymph 2.00 X10 3/uL Normal 0.83-4.51 [facility] Comment on above: Performed By: #### L 100.0100 ####[facility] [address] [place], [address] Absolute Neut 7.1 X10 3/uL Normal 2.0-7.7 [facility] Comment on above: Performed By: #### L 100.0100 ####[facility] [address] [place], [address] Basophils/100 WBC (Bld) 0.3 % Normal 0-1 [facility] Comment on above: Performed By: #### L 100.0100 ####[facility] [address] [place], [address] Eosinophils/100 WBC (Bld) 0.4 % Normal 0-5 [facility] Comment on above: Performed By: #### L 100.0100 ####[facility] [address] [place], [address] Erythrocyte distribution width (RBC) [Ratio] 12.3 % Normal 11.6-14.6 [facility] Comment on above: Performed By: #### L 100.0100 ####[facility] [address] [place], [address] Hematocrit (Bld) [Volume fraction] 36.1 % Low 37-47 [facility] Comment on above: Performed By: #### L 100.0100 ####[facility] [address] [place], [address] Hemoglobin (Bld) [Mass/Vol] 12.1 g/dL Normal 12.0-15.0 [facility] Comment on above: Performed By: #### L 100.0100 ####[facility] [address] [place], [address] IG% 0.700 Normal 0.0-0.9 [facility] Comment on above: Result Comment: IG% - Immature Granulocytes (promyelocytes, myelocytes and metamyelocytes) > 1% indicates that a LEFT SHIFT is Present. Performed By: #### L 100.0100 ####[facility] [address] [place], [address] Lymphocytes/100 WBC (Bld) 20.1 % Normal 19-41 [facility] Comment on above: Performed By: #### L 100.0100 ####[facility] [address] [place], [address] MCH (RBC) [Entitic mass] 30.2 pg Normal 27.0-32.0 [facility] Comment on above: Performed By: #### L 100.0100 ####[facility] [address] [place], [address] MCHC (RBC) [Mass/Vol] 33.5 g/dL Normal 32-36 [facility] Comment on above: Performed By: #### L 100.0100 ####[facility] [address] [place], [address] MCV (RBC) [Entitic vol] 90.0 fL Normal 81-99 [facility] Comment on above: Performed By: #### L 100.0100 ####[facility] [address] [place], [address] Monocytes/100 WBC (Bld) 7.3 % Normal 0-10 [facility] Comment on above: Performed By: #### L 100.0100 ####[facility] [address] [place], [address] Neutrophils/100 WBC (Bld) 71.2 % High 47-70 [facility] Comment on above: Performed By: #### L 100.0100 ####[facility] [address] [place], [address] Nucleated RBC (Bld) [#/Vol] 0 10*3/uL Normal 0-5 [facility] Comment on above: Performed By: #### L 100.0100 ####[facility] [address] [place], [address] Platelet mean volume (Bld) [Entitic vol] 9.3 fL Normal 6.2-12.0 [facility] Comment on above: Performed By: #### L 100.0100 ####[facility] [address] [place], [address] Platelets (Bld) [#/Vol] 313 10*3/uL Normal 150-450 [facility] Comment on above: Performed By: #### L 100.0100 ####[facility] [address] [place], [address] RBC (Bld) [#/Vol] 4.01 10*6/uL Low 4.2-5.4 [facility] Comment on above: Performed By: #### L 100.0100 ####[facility] [address] [place], [address] RDW SD 40.1 fl Normal 35.1-43.9 [facility] Comment on above: Performed By: #### L 100.0100 ####[facility] [address] [place], [address] WBC (Bld) [#/Vol] 9.9 10*3/uL Normal 4.4-11.0 [facility] Comment on above: Performed By: #### L 100.0100 ####[facility] [id number] [place], [address] Eosinophil percentageOrdered By: Natividad Davenport on 06-03-2025 Eosinophils/100 WBC (Bld) 0.4 % 0-5 [facility] Erythrocyte distribution wid th ratioOrdered By: Natividad Davenport on 06-03-2025 Erythrocyte distribution width (RBC) [Ratio] 12.3 % 11.6-14.6 [facility] Erythrocyte distribution wid th standard deviationOrdered By: Natividad Davenport on 06-03-2025 Erythrocyte distribution width (RBC) [Ratio] 40.1 fl 35.1-43.9 [facility] Hematocrit Auto (Bld) [Volum e fraction]Ordered By: Natividad Davenport on 06-03-2025 Hematocrit (Bld) [Volume fraction] 36.1 % Low 37-47 [facility] Hemoglobin measurementOrdere d By: Natividad Davenport on 06-03-2025 Hemoglobin (Bld) [Mass/Vol] 12.1 g/dL 12.0-15.0 [facility] Immature granulocytes/100 WB C Auto (Bld)Ordered By: Natividad Davenport on 06-03-2025 Immature granulocytes/100 WBC (Bld) 0.700 % 0.0-0.9 [facility] Comment on above: IG% - Immature Granu locytes (promyelocytes, myelocytes and metamyelocytes) > 1% indicates that a LEFT SHIFT is Present. Laboratory - Chemistry and C hemistry - challengeOrdered By: Rama Mata on 06-03-2025 Glucose Ql (U) Negative [facility] Laboratory - UrinalysisOrder ed By: Rama Mata on 06-03-2025 Protein Ql (U) Negative [facility] MCV (mean corpuscular volume ) determinationOrdered By: Natividad Davenport on 06-03-2025 MCV (RBC) [Entitic vol] 90.0 fL 81-99 [facility] Mean corpuscular hemoglobin (MCH) determinationOrdered By: Natividad Davenport on 06-03-2025 MCH (RBC) [Entitic mass] 30.2 pg 27.0-32.0 [facility] Mean corpuscular hemoglobin concentration (MCHC) determinationOrdered By: Natividad Davenport on 06-03-2025 MCHC (RBC) [Mass/Vol] 33.5 g/dL 32-36 [facility] Mean platelet volume determi nationOrdered By: Natividad Davenport on 06-03-2025 Platelet mean volume (Bld) [Entitic vol] 9.3 fL 6.2-12.0 [facility] Monocyte percentageOrdered B y: Natividad Davenport on 06-03-2025 Monocytes/100 WBC (Bld) 7.3 % 0-10 [facility] Neutrophil percentageOrdered By: Natividad Davenport on 06-03-2025 Neutrophils/100 WBC (Bld) 71.2 % High 47-70 [facility] Nucleated red blood cell per centageOrdered By: Natividad Davenport on 06-03-2025 Nucleated RBC/100 WBC (Bld) [Ratio] 0 % 0-5 [facility] [employer] Office Visit Reporton 06-03-2025 [employer] Office Visit Report [facility] [address], [address] [place] [address] OFFICE VISIT Date of Service: 06/03/25 MR#: [id number] Acct: [id number] Name: DINORAH DOBBINS Rep #: [id number] : 2000 Provider: Dr. Rama Sotelo DO Age/Sex: 24/F Location: [facility] Status: Signed Intake Vital Signs 05/19/25 10:53 06/03/25 15:07 Height 5 ft 2 in 5 ft 2 in Weight: 184 lb 2 oz BMI 33.6 BP 122/82 H Intake Visit Reasons: 36 WK OB *NEEDS TO SCHEDULE 37 WK Gunite [employer]er Required: No Is patient in pain?: No Allergies No Known Allergies Allergy (Verified 06/03/25 15:06) Medications ???Medication ???Instructions ???Recorded ???Confirmed ???Type vits no.10-ferrous 1 tab PO DAILY 07/11/22 06/03/25 H istory fumarate 65 mg iron-folic acid 1 mg tablet Last Menstrual Period: 09/23/24 : No PFSH PFSH Medical History Supervision of normal first Tick bite of abdomen Spontaneous onset of labor Vaginal delivery care and examination Contraception management Social History adopted: No household members: spouse and children housing: house number of children: 1 current occupational status: unemployed current occupation: [employer] current occupational exposures/hazards: No pets and animals: No history of recent travel: No sexually active: Yes Smoking Status: Never smoker alcohol intake: never substance use type: does not use well-balanced diet: about half the time caffeine: No eating out: 1-3 times/week during the past year weight has: increased > 10 lbs what type of physical activity do you participate in: walking and weight training frequency: 1-2 times per week duration: 15-30 minutes/day prabhu/nondenominational: Scientology seatbelt use: always do you feel safe at home: Yes 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 Date Name GA/Weeks Outcome Route Bth Weight Gen Labor Lgth Anesthesia Del Locatn Provider FOB 02/26/23 Ion 39 live - full term 7lbs 6oz Male epidural [facility] Natividad Youngblood Delivery Date: 02/26/23 Last Updated by: Lexi Mendoza, RN See problem list for complications HPI 36 WK OB *NEEDS TO SCHEDULE 37 WK Details: DINORAH DOBBINS is a 24 year old who presents for routine OB visit. OB Visit XUAN Calculator Estimated Delivery Date Method Current WG Current Estimate 06/30/25 LMP (Certain) 36w 1d Other Estimates 06/30/25 Ultrasound #1 36w 1d Expected Delivery Route/Plan Labor Preferences- CB/BF classes: declines labor support person: mom and Ford labor intervention preferences: [] pain management options preferred: [] cut cord/dad catch: NO : [] PP control planned: [] discussed possible routes of delivery and associated risks: [] special requests: [] Specific Issue/Plans Covid status: [] Flu vaccine: [] Tdap vaccine: [] Rhogam: [] LARC form signed: [] Problem list reviewed and updated with the most current plan of care details and appropriate orders placed. Relevant counseling for the gestational age provided. Continue routine care and follow up unless otherwise noted in visit notes/problem list details Initial Weight: 153 lb Date -???-???-???-???-???-?? ?-???-???-???-???-???-? ??- EGA Weight BP Urine Prot -???-???-???-???-???-?? ?-???-???-???-???-???-? ??- Glucose FHR FuHt Pres Dilation -???-???-???-???-???-?? ?-???-???-???-???-???-? ??- Effaced St Visit Note 11/26/24 -???-???-???-???-???-?? ?-???-???-???-???-???-? ??- 9w 1d 153 lb (+0 oz) 121/84 -???-???-???-???-???-?? ?-???-???-???-???-???-? ??- 176 -???-???-???-???-???-?? ?-???-???-???-???-???-? ??- KW-CRL cons with dates. accepts NIPT. WOuld like mt hope appts 12/29/24 -???-???-???-???-???-?? ?-???-???-???-???-???-? ??- 13w 6d 157 lb 8 oz (+4 lb 8 oz) 127/88 Negative -???-???-???-???-???-?? ?-???-???-???-???-???-? ??- Negative 160 -???-???-???-???-???-?? ?-???-???-???-???-???-? ??- SM- no vb lo f cramping 01/27/25 -???-???-???-???-???-?? ?-???-???-???-???-???-? ??- 18w 0d 157 lb 8 oz (+4 lb 8 oz) 127/88 Negative -???-???-???-???-???-?? ?-???-???-???-???-???-? ??- Negative 150 -???-???-???-???-???-?? ?-???-???-???-???-???-? ??- KW- no vb/cr amping. + flutters. US for 02/10. /08/12 -???-???-???-???-???-?? ?-???-???-???-???-???-? ??- 22w 0d 166 lb (+13 lb) 103/66 Negative -???-???-???-???-???-?? ?-???- (more content not included)... Normal [facility] Platelet countOrdered By: Vadim Davenport on 06-03-2025 Platelets (Bld) [#/Vol] 313 10*3/uL 150-450 [facility] RBC Auto (Bld) [#/Vol]Ordere d By: Natividad Davenport on 06-03-2025 RBC (Bld) [#/Vol] 4.01 10*6/uL Low 4.2-5.4 [facility] Screening beta-hemolytic Str eptococcus cultureOrdered By: Rama Mata on 06-03-2025 Beta-hemolytic Streptococcus culture Group B Beta Streptococcus is not isolated. [facility] White blood cell (WBC) count Ordered By: Natividad Davenport on 06-03-2025 WBC (Bld) [#/Vol] 9.9 10*3/uL 4.4-11.0 [facility] Laboratory - Chemistry and C hemistry - challengeOrdered By: Natividad Davenport on 05-19-2025 Glucose Ql (U) Negative [facility] Laboratory - UrinalysisOrder ed By: Natividad Davenport on 05-19-2025 Protein Ql (U) Negative [facility] [employer] Super[employer] Office Visit Reporton 05-19-2025 Light [employer] Supervisor Office Visit Report [address], [address] [place] [address] OFFICE VISIT Date of Service: 05/19/25 MR#: [id number] Acct: [id number] Name: DINORAH DOBBINS Rep #: [id number] : 2000 Provider: LOUIS Freeman ams Age/Sex: 24/F Location: [facility] Status: Signed Intake Vital Signs 04/05/25 11:07 05/05/25 11:25 05/19/25 10:49 05/19/25 10:53 Height 5 ft 2 in 5 ft 2 in 5 ft 2 in 5 ft 2 in Weight: 180 lb 8 oz BMI 33.0 BP 111/78 Intake Visit Reasons: 32 wk ob Gunite Mixer Required: No Is patient in pain?: No Allergies No Known Allergies Allergy (Verified 05/19/25 10:48) Medications ???Medication ???Instructions ???Recorded ???Confirmed ???Type vits no.10-ferrous 1 tab PO DAILY 07/11/22 05/19/25 H istory fumarate 65 mg iron-folic acid 1 mg tablet Last Menstrual Period: 09/23/24 : No PFSH PFSH Medical History Supervision of normal first Tick bite of abdomen Spontaneous onset of labor Vaginal delivery care and examination Contraception management Social History adopted: No household members: spouse and children housing: house number of children: 1 current occupational status: unemployed current occupation: [employer] current occupational exposures/hazards: No pets and animals: No history of recent travel: No sexually active: Yes Smoking Status: Never smoker alcohol intake: never substance use type: does not use well-balanced diet: about half the time caffeine: No eating out: 1-3 times/week during the past year weight has: increased > 10 lbs what type of physical activity do you participate in: walking and weight training frequency: 1-2 times per week duration: 15-30 minutes/day prabhu/nondenominational: Scientology seatbelt use: always do you feel safe at home: Yes 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 Date Name GA/Weeks Outcome Route Bth Weight Gen Labor Lgth Anesthesia Del Locatn Provider FOB 02/26/23 Una 39 live - full term 7lbs 6oz Male epidural [facility] Natividad Youngblood Delivery Date: 02/26/23 Last Updated by: Lexi Mendoza RN See problem list for complications HPI 32 wk ob Details: DINORAH DOBBINS is a 24 year old who presents for routine OB visit. OB Visit XUAN Calculator Estimated Delivery Date Method Current WG Current Estimate 06/30/25 LMP (Certain) 34w 0d Other Estimates 06/30/25 Ultrasound #1 34w 0d Expected Delivery Route/Plan Labor Preferences- CB/BF classes: declines labor support person: mom and [employer] labor intervention preferences: [] pain management options preferred: [] cut cord/dad catch: NO : [] PP control planned: [] discussed possible routes of delivery and associated risks: [] special requests: [] Specific Issue/Plans Covid status: [] Flu vaccine: [] Tdap vaccine: [] Rhogam: [] LARC form signed: [] Problem list reviewed and updated with the most current plan of care details and appropriate orders placed. Relevant counseling for the gestational age provided. Continue routine care and follow up unless otherwise noted in visit notes/problem list details Initial Weight: 153 lb Date -???-???-???-???-???-?? ?-???-???-???-???-???-? ??- EGA Weight BP Urine Prot -???-???-???-???-???-?? ?-???-???-???-???-???-? ??- Glucose FHR FuHt Pres Dilation -???-???-???-???-???-?? ?-???-???-???-???-???-? ??- Effaced St Visit Note 11/26/24 -???-???-???-???-???-?? ?-???-???-???-???-???-? ??- 9w 1d 153 lb (+0 oz) 121/84 -???-???-???-???-???-?? ?-???-???-???-???-???-? ??- 176 -???-???-???-???-???-?? ?-???-???-???-???-???-? ??- KW-CRL cons with dates. accepts NIPT. WOuld like mt hope appts 12/29/24 -???-???-???-???-???-?? ?-???-???-???-???-???-? ??- 13w 6d 157 lb 8 oz (+4 lb 8 oz) 127/88 Negative -???-???-???-???-???-?? ?-???-???-???-???-???-? ??- Negative 160 -???-???-???-???-???-?? ?-???-???-???-???-???-? ??- SM- no vb lo f cramping 01/27/25 -???-???-???-???-???-?? ?-???-???-???-???-???-? ??- 18w 0d 157 lb 8 oz (+4 lb 8 oz) 127/88 Negative -???-???-???-???-???-?? ?-???-???-???-???-???-? ??- Negative 150 -???-???-???-???-???-?? ?-???-???-???-???-???-? ??- KW- no vb/cr amping. + flutters. US for 02/10. 02/24/25 -???-???-???-???-???-?? ?-???-???-???-???-???-? ??- 22w 0d 166 lb (+13 lb) 103/66 Negative -???-???-???-???-???-?? ?-???-???-???- (more content not included)... Normal [facility] Laboratory - Chemistry and C hemistry - challengeOrdered By: Natividad Davenport on 05-05-2025 Glucose Ql (U) Negative [facility] Laboratory - UrinalysisOrder ed By: Natividad Davenport on 05-05-2025 Protein Ql (U) Trace [facility] [employer] Supervisor Office Visit Reporton 05-05-2025 Light Industrial Supervisor Office Visit Report [facility] [address], [address] [place] [address] OFFICE VISIT Date of Service: 05/05/25 MR#: [id number] Acct: [id number] Name: DINORAH DOBBINS Rep #: [id number] : 2000 Provider: LOUIS Freeman ams Age/Sex: 24/F Location: [facility] Status: Signed Intake Vital Signs 04/05/25 11:07 04/21/25 09:49 05/05/25 11:21 05/05/25 11:25 Height 5 ft 2 in 5 ft 2 in 5 ft 2 in 5 ft 2 in Weight: 179 lb BMI 32.7 BP 111/74 Intake Visit Reasons: 30 wk ob Gunite Mixer Required: No Is patient in pain?: No Allergies No Known Allergies Allergy (Verified 05/05/25 11:20) Medications ???Medication ???Instructions ???Recorded ???Confirmed ???Type vits no.10-ferrous 1 tab PO DAILY 07/11/22 05/05/25 H istory fumarate 65 mg iron-folic acid 1 mg tablet Last Menstrual Period: 09/23/24 : No PFSH PFSH Medical History Supervision of normal first Tick bite of abdomen Spontaneous onset of labor Vaginal delivery care and examination Contraception management Social History adopted: No household members: spouse and children housing: house number of children: 1 current occupational status: unemployed current occupation: [employer] current occupational exposures/hazards: No pets and animals: No history of recent travel: No sexually active: Yes Smoking Status: Never smoker alcohol intake: never substance use type: does not use well-balanced diet: about half the time caffeine: No eating out: 1-3 times/week during the past year weight has: increased > 10 lbs what type of physical activity do you participate in: walking and weight training frequency: 1-2 times per week duration: 15-30 minutes/day prabhu/nondenominational: Scientology seatbelt use: always do you feel safe at home: Yes 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 Date Name GA/Weeks Outcome Route Bth Weight Gen Labor Lgth Anesthesia Del Locatn Provider FOB 02/26/23 Ion 39 live - full term 7lbs 6oz Male epidural WC Natividad Davenport [place] Delivery Date: 02/26/23 Last Updated by: Lexi Mendoza RN See problem list for complications HPI 30 wk ob Details: DINORAH DOBBINS is a 24 year old who presents for routine OB visit. OB Visit XUAN Calculator Estimated Delivery Date Method Current WG Current Estimate 06/30/25 LMP (Certain) 32w 0d Other Estimates 06/30/25 Ultrasound #1 32w 0d Expected Delivery Route/Plan Labor Preferences- CB/BF classes: declines labor support person: mom and Ford labor intervention preferences: [] pain management options preferred: [] cut cord/dad catch: NO : [] PP control planned: [] discussed possible routes of delivery and associated risks: [] special requests: [] Specific Issue/Plans Covid status: [] Flu vaccine: [] Tdap vaccine: [] Rhogam: [] LARC form signed: [] Problem list reviewed and updated with the most current plan of care details and appropriate orders placed. Relevant counseling for the gestational age provided. Continue routine care and follow up unless otherwise noted in visit notes/problem list details Initial Weight: 153 lb Date -???-???-???-???-???-?? ?-???-???-???-???-???-? ??- EGA Weight BP Urine Prot -???-???-???-???-???-?? ?-???-???-???-???-???-? ??- Glucose FHR FuHt Pres Dilation -???-???-???-???-???-?? ?-???-???-???-???-???-? ??- Effaced St Visit Note 11/26/24 -???-???-???-???-???-?? ?-???-???-???-???-???-? ??- 9w 1d 153 lb (+0 oz) 121/84 -???-???-???-???-???-?? ?-???-???-???-???-???-? ??- 176 -???-???-???-???-???-?? ?-???-???-???-???-???-? ??- KW-CRL cons with dates. accepts NIPT. WOuld like wv hope appts 12/29/24 -???-???-???-???-???-?? ?-???-???-???-???-???-? ??- 13w 6d 157 lb 8 oz (+4 lb 8 oz) 127/88 Negative -???-???-???-???-???-?? ?-???-???-???-???-???-? ??- Negative 160 -???-???-???-???-???-?? ?-???-???-???-???-???-? ??- SM- no vb lo f cramping 01/27/25 -???-???-???-???-???-?? ?-???-???-???-???-???-? ??- 18w 0d 157 lb 8 oz (+4 lb 8 oz) 127/88 Negative -???-???-???-???-???-?? ?-???-???-???-???-???-? ??- Negative 150 -???-???-???-???-???-?? ?-???-???-???-???-???-? ??- KW- no vb/cr amping. + flutters. US for 02/10. 02/24/25 -???-???-???-???-???-?? ?-???-???-???-???-???-? ??- 22w 0d 166 lb (+13 lb) 103/66 Negative -???-???-???-???-???-?? ?-???-???-???-???-? (more content not included)... Normal [facility] Laboratory - Chemistry and C hemistry - challengeOrdered By: Natividad Davenport on 04-21-2025 Glucose Ql (U) Negative [facility] Laboratory - UrinalysisOrder ed By: Natividad Davenport on 04-21-2025 Protein Ql (U) Negative [facility] [employer] Supervisor Office Visit Reporton 04-21-2025 Light Industrial Supervisor Office Visit Report [address], [address] [place] [address] OFFICE VISIT Date of Service: 04/21/25 MR#: [id number] Acct: [id number] Name: DINORAH DOBBINS Rep #: [id number] : 2000 Provider: LOUIS Freeman ams Age/Sex: 24/F Location: [facility] Status: Signed Intake Vital Signs 04/05/25 11:07 04/21/25 09:49 Height 5 ft 2 in 5 ft 2 in Weight: 175 lb 4 oz BMI 32.0 BP 106/71 Intake Visit Reasons: 28 wk ob Gunite Mixer Required: No Is patient in pain?: No Allergies No Known Allergies Allergy (Verified 04/21/25 09:48) Medications ???Medication ???Instructions ???Recorded ???Confirmed ???Type vits no.10-ferrous 1 tab PO DAILY 07/11/22 04/21/25 H istory fumarate 65 mg iron-folic acid 1 mg tablet Last Menstrual Period: 09/23/24 Zika: Zika virus screening: Negative : No PFSH PFSH Medical History Supervision of normal first Tick bite of abdomen Spontaneous onset of labor Vaginal delivery care and examination Contraception management Social History adopted: No household members: spouse and children housing: house number of children: 1 current occupational status: unemployed current occupation: [employer] current occupational exposures/hazards: No pets and animals: No history of recent travel: No sexually active: Yes Smoking Status: Never smoker alcohol intake: never substance use type: does not use well-balanced diet: about half the time caffeine: No eating out: 1-3 times/week during the past year weight has: increased > 10 lbs what type of physical activity do you participate in: walking and weight training frequency: 1-2 times per week duration: 15-30 minutes/day prabhu/nondenominational: Scientology seatbelt use: always do you feel safe at home: Yes 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 Date Name GA/Weeks Outcome Route Bth Weight Infant Gen Labor Lgth Anesthesia Del Locatn Provider FOB 02/26/23 Ion 39 live - full term 7lbs 6oz Male epidural [facility] Natividad Youngblood Delivery Date: 02/26/23 Last Updated by: Lexi Mendoza RN See problem list for complications HPI 28 wk ob Details: DINORAH DOBBINS is a 24 year old who presents for routine OB visit. OB Visit XUAN Calculator Estimated Delivery Date Method Current WG Current Estimate 06/30/25 LMP (Certain) 30w 0d Other Estimates 06/30/25 Ultrasound #1 30w 0d Expected Delivery Route/Plan Labor Preferences- CB/BF classes: [] labor support person: [] labor intervention preferences: [] pain management options preferred: [] cut cord/dad catch: [] : [] PP control planned: [] discussed possible routes of delivery and associated risks: [] special requests: [] Specific Issue/Plans Covid status: [] Flu vaccine: [] Tdap vaccine: [] Rhogam: [] LARC form signed: [] Problem list reviewed and updated with the most current plan of care details and appropriate orders placed. Relevant counseling for the gestational age provided. Continue routine care and follow up unless otherwise noted in visit notes/problem list details Initial Weight: 153 lb Date -???-???-???-???-???-?? ?-???-???-???-???-???-? ??- EGA Weight BP Urine Prot -???-???-???-???-???-?? ?-???-???-???-???-???-? ??- Glucose FHR FuHt Pres Dilation -???-???-???-???-???-?? ?-???-???-???-???-???-? ??- Effaced St Visit Note 11/26/24 -???-???-???-???-???-?? ?-???-???-???-???-???-? ??- 9w 1d 153 lb (+0 oz) 121/84 -???-???-???-???-???-?? ?-???-???-???-???-???-? ??- 176 -???-???-???-???-???-?? ?-???-???-???-???-???-? ??- KW-CRL cons with dates. accepts NIPT. WOuld like wv hope appts 12/29/24 -???-???-???-???-???-?? ?-???-???-???-???-???-? ??- 13w 6d 157 lb 8 oz (+4 lb 8 oz) 127/88 Negative -???-???-???-???-???-?? ?-???-???-???-???-???-? ??- Negative 160 -???-???-???-???-???-?? ?-???-???-???-???-???-? ??- SM- no vb lo f cramping 01/27/25 -???-???-???-???-???-?? ?-???-???-???-???-???-? ??- 18w 0d 157 lb 8 oz (+4 lb 8 oz) 127/88 Negative -???-???-???-???-???-?? ?-???-???-???-???-???-? ??- Negative 150 -???-???-???-???-???-?? ?-???-???-???-???-???-? ??- KW- no vb/cr amping. + flutters. US for 02/10. 02/24/25 -???-???-???-???-???-?? ?-???-???-???-???-???-? ??- 22w 0d 166 lb (+13 lb) 103/66 Negative -???-???-???-???-???-?? ?-???-???-???-???-???-? ??- Negative 160 - (more content not included)... Normal [facility] Absolute lymphocyte countOrd ered By: Natividad Davenport on 04-05-2025 Lymphocytes Auto (Unsp spec) [#/Vol] 1.74 10*3/uL 0.83-4.51 [facility] Absolute neutrophil countOrd ered By: Natividad Davenport on 04-05-2025 Neutrophils (Bld) [#/Vol] 7.3 10*3/uL 2.0-7.7 [facility] Automated lymphocyte count a s percentage of total leukocytesOrdered By: Natividad Davenport on 04-05-2025 Lymphocytes/100 WBC Auto (Unsp spec) 17.8 % Low - [facility] Basophil percentageOrdered B y: Natividad Davenport on 04-05-2025 Basophils/100 WBC (Bld) 0.4 % 0-1 [facility] CBC W/Diff, Automatedon 03-18 Absolute Lymph 1.74 X10 3/uL Normal 0.83-4.51 [facility] Comment on above: Performed By: #### L 501.0250, L100.0100, L3890.6006, L509.8002 ####[facility] [id number] [place], [address] Absolute Neut 7.3 X10 3/uL Normal 2.0-7.7 [facility] Comment on above: Performed By: #### L 501.0250, L100.0100, L3890.6006, L509.8002 ####[facility] [id number] [place], [address] Basophils/100 WBC (Bld) 0.4 % Normal 0-1 [facility] Comment on above: Performed By: #### L 501.0250, L100.0100, L3890.6006, L509.8002 ####[facility] [id number] [place], [place], [id number] Eosinophils/100 WBC (Bld) 0.4 % Normal 0-5 [facility] Comment on above: Performed By: #### L 501.0250, L100.0100, L3890.6006, L509.8002 ####[facility] [address] [place], [address] Erythrocyte distribution width (RBC) [Ratio] 12.2 % Normal 11.6-14.6 [facility] Comment on above: Performed By: #### L 501.0250, L100.0100, L3890.6006, L509.8002 ####[facility] [address] [place], [address] Hematocrit (Bld) [Volume fraction] 40.1 % Normal 37-47 [facility] Comment on above: Performed By: #### L 501.0250, L100.0100, L3890.6006, L509.8002 ####[facility] [address] [place], [address] Hemoglobin (Bld) [Mass/Vol] 13.7 g/dL Normal 12.0-15.0 [facility] Comment on above: Performed By: #### L 501.0250, L100.0100, L3890.6006, L509.8002 ####[facility] [address] [place], [address] IG% 0.500 Normal 0.0-0.9 [facility] Comment on above: Result Comment: IG% - Immature Granulocytes (promyelocytes, myelocytes and metamyelocytes) > 1% indicates that a LEFT SHIFT is Present. Performed By: #### L 501.0250, L100.0100, L3890.6006, L509.8002 ####[facility] [address] [place], [address] Lymphocytes/100 WBC (Bld) 17.8 % Low 19-41 [facility] Comment on above: Performed By: #### L 501.0250, L100.0100, L3890.6006, L509.8002 ####[facility] [address] [place], [address] MCH (RBC) [Entitic mass] 32.1 pg High 27.0-32.0 [facility] Comment on above: Performed By: #### L 501.0250, L100.0100, L3890.6006, L509.8002 ####[facility] [address] [place], [address] MCHC (RBC) [Mass/Vol] 34.2 g/dL Normal 32-36 [facility] Comment on above: Performed By: #### L 501.0250, L100.0100, L3890.6006, L509.8002 ####[facility] [address] [place], [address] MCV (RBC) [Entitic vol] 93.9 fL Normal 81-99 [facility] Comment on above: Performed By: #### L 501.0250, L100.0100, L3890.6006, L509.8002 ####[facility] [address] [place], [address] Monocytes/100 WBC (Bld) 6.6 % Normal 0-10 [facility] Comment on above: Performed By: #### L 501.0250, L100.0100, L3890.6006, L509.8002 ####[facility] [address] [place], [address] Neutrophils/100 WBC (Bld) 74.3 % High 47-70 [facility] Comment on above: Performed By: #### L 501.0250, L100.0100, L3890.6006, L509.8002 ####[facility] [address] [place], [address] Nucleated RBC (Bld) [#/Vol] 0 10*3/uL Normal 0-5 [facility] Comment on above: Performed By: #### L 501.0250, L100.0100, L3890.6006, L509.8002 ####[facility] [address] [place], [address] Platelet mean volume (Bld) [Entitic vol] 9.8 fL Normal 6.2-12.0 [facility] Comment on above: Performed By: #### L 501.0250, L100.0100, L3890.6006, L509.8002 ####[facility] [address] [place], [address] Platelets (Bld) [#/Vol] 353 10*3/uL Normal 150-450 [facility] Comment on above: Performed By: #### L 501.0250, L100.0100, L3890.6006, L509.8002 ####[facility] [address] [place], [address] RBC (Bld) [#/Vol] 4.27 10*6/uL Normal 4.2-5.4 [facility] Comment on above: Performed By: #### L 501.0250, L100.0100, L3890.6006, L509.8002 ####[facility] [address] [place], [address] RDW SD 42.2 fl Normal 35.1-43.9 [facility] Comment on above: Performed By: #### L 501.0250, L100.0100, L3890.6006, L509.8002 ####[facility] [address] [place], [place], [id number] WBC (Bld) [#/Vol] 9.8 10*3/uL Normal 4.4-11.0 [facility] Comment on above: Performed By: #### L 501.0250, L100.0100, L3890.6006, L509.8002 ####[facility] [address] [place], [place], [id number] Eosinophil percentageOrdered By: Natividad Davenport on 04-05-2025 Eosinophils/100 WBC (Bld) 0.4 % 0-5 [facility] Erythrocyte distribution wid th ratioOrdered By: Natividad Davenport on 04-05-2025 Erythrocyte distribution width (RBC) [Ratio] 12.2 % 11.6-14.6 [facility] Erythrocyte distribution wid th standard deviationOrdered By: Natividad Davenport on 04-05-2025 Erythrocyte distribution width (RBC) [Ratio] 42.2 fl 35.1-43.9 [facility] Glucose Challenge Gest 1H 50 tiffanie 04-05-2025 GLU GEST 50g 1H 95 mg/dL Normal 70-140 [facility] Comment on above: Performed By: #### L 501.0250, L100.0100, L3890.6006, L509.8002 ####[facility] [address] [place], [place], [id number] Glucose measurement at 2 tiffany rs post-dose gestational glucose tolerance testOrdered By: Natividad Davenport on 04-05-2025 Glucose [Mass/Vol] 95 mg/dL 70-140 [facility] HIVon 04-05-2025 HIV Non-Reactive Normal Nonreactive [facility] Comment on above: Result Comment: Non- Reactive Reactive Repeatedly reactive samples must be confirmed according to CDC recommended confirmatory algorithms. The subresults for either HIVAG or AHIV can be used as an aid in the selection of the confirmation algorithm for reactive samples. Send out specimens with Reactive results to [facility] for confirmation. Order the HIV antibody detection and differentiation: lc#[id number] Performed By: #### L 501.0250, L100.0100, L3890.6006, L509.8002 ####[facility] [address] [place], [address] Hematocrit Auto (Bld) [Volum e fraction]Ordered By: Natividad Davenport on 04-05-2025 Hematocrit (Bld) [Volume fraction] 40.1 % 37-47 [facility] Hemoglobin measurementOrdere d By: Natividad Davenport on 04-05-2025 Hemoglobin (Bld) [Mass/Vol] 13.7 g/dL 12.0-15.0 [facility] Immature granulocytes/100 WB C Auto (Bld)Ordered By: Natividad Davenport on 04-05-2025 Immature granulocytes/100 WBC (Bld) 0.500 % 0.0-0.9 [facility] Comment on above: IG% - Immature Granu locytes (promyelocytes, myelocytes and metamyelocytes) > 1% indicates that a LEFT SHIFT is Present. Laboratory - Chemistry and C hemistry - challengeOrdered By: Natividad Davenport on 04-05-2025 Glucose Ql (U) Negative [facility] Laboratory - UrinalysisOrder ed By: Natividad Davenport on 04-05-2025 Protein Ql (U) Negative [facility] MCV (mean corpuscular volume ) determinationOrdered By: Natividad Davenport on 04-05-2025 MCV (RBC) [Entitic vol] 93.9 fL 81-99 [facility] Mean corpuscular hemoglobin (MCH) determinationOrdered By: Natividad Davenport on 04-05-2025 MCH (RBC) [Entitic mass] 32.1 pg High 27.0-32.0 [facility] Mean corpuscular hemoglobin concentration (MCHC) determinationOrdered By: Natividad Davenport on 04-05-2025 MCHC (RBC) [Mass/Vol] 34.2 g/dL 32-36 [facility] Mean platelet volume determi nationOrdered By: Natividad Davenport on 04-05-2025 Platelet mean volume (Bld) [Entitic vol] 9.8 fL 6.2-12.0 [facility] Monocyte percentageOrdered B y: Natividad Davenport on 04-05-2025 Monocytes/100 WBC (Bld) 6.6 % 0-10 [facility] Neutrophil percentageOrdered By: Natividad Davenport on 04-05-2025 Neutrophils/100 WBC (Bld) 74.3 % High 47-70 [facility] No Panel InformationOrdered By: Natividad Davenport on 04-05-2025 HIV (1&2) Antibody Non-Reactive Nonreactive [facility] Comment on above: Non-ReactiveReactive Repeatedly reactive samples must be confirmed according to CDC recommended confirmatory algorithms. The subresults for either HIVAG or AHIV can be used as an aid in the selection of the confirmation algorithm for reactive samples.Send out specimens with Reactive results to [facility] for confirmation.Order the HIV antibody detection and differentiation: #[id number] Nucleated red blood cell per centageOrdered By: Natividad Davenport on 04-05-2025 Nucleated RBC/100 WBC (Bld) [Ratio] 0 % 0-5 [facility] [employer] Office Visit Reporton 04-05-2025 Light [employer] Supervisor Office Visit Report [facility] [address], [address] [place] [address] OFFICE VISIT Date of Service: 04/05/25 MR#: [id number] Acct: [id number] Name: DINORAH DOBBINS Rep #: [id number] : 2000 Provider: LOUIS Freeman ams Age/Sex: 24/F Location: [facility] Status: Signed Intake Vital Signs 02/24/25 09:50 04/05/25 11:07 Height 5 ft 2 in 5 ft 2 in Weight: 171 lb 6 oz BMI 31.3 BP 120/81 H Intake Visit Reasons: 26 wk ob Chief Complaint: 26wk OB Gunite Mixer Required: No Is patient in pain?: No Allergies No Known Allergies Allergy (Verified 04/05/25 11:04) Medications ???Medication ???Instructions ???Recorded ???Confirmed ???Type vits no.10-ferrous 1 tab PO DAILY 07/11/22 04/05/25 H istory fumarate 65 mg iron-folic acid 1 mg tablet Last Menstrual Period: 09/23/24 : No PFSH PFSH Medical History Supervision of normal first Tick bite of abdomen Spontaneous onset of labor Vaginal delivery care and examination Contraception management Social History adopted: No household members: spouse and children housing: house number of children: 1 current occupational status: unemployed current occupation: [employer] current occupational exposures/hazards: No pets and animals: No history of recent travel: No sexually active: Yes Smoking Status: Never smoker alcohol intake: never substance use type: does not use well-balanced diet: about half the time caffeine: No eating out: 1-3 times/week during the past year weight has: increased > 10 lbs what type of physical activity do you participate in: walking and weight training frequency: 1-2 times per week duration: 15-30 minutes/day prabhu/nondenominational: Scientology seatbelt use: always do you feel safe at home: Yes 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 Date Name GA/Weeks Outcome Route Bth Weight Gen Labor Lgth Anesthesia Del Locatn Provider FOB 02/26/23 Ion 39 live - full term 7lbs 6oz Male epidural [facility] Natividad Youngblood Delivery Date: 02/26/23 Last Updated by: Lexi Mendoza RN See problem list for complications HPI 26 wk ob Details: DINORAH DOBBINS is a 24 year old who presents for routine OB visit. OB Visit XUAN Calculator Estimated Delivery Date Method Current Current Estimate 06/30/25 LMP (Certain) 27w 5d Other Estimates 06/30/25 Ultrasound #1 27w 5d Expected Delivery Route/Plan Labor Preferences- CB/BF classes: [] labor support person: [] labor intervention preferences: [] pain management options preferred: [] cut cord/dad catch: [] : [] PP control planned: [] discussed possible routes of delivery and associated risks: [] special requests: [] Specific Issue/Plans Covid status: [] Flu vaccine: [] Tdap vaccine: [] Rhogam: [] LARC form signed: [] Problem list reviewed and updated with the most current plan of care details and appropriate orders placed. Relevant counseling for the gestational age provided. Continue routine care and follow up unless otherwise noted in visit notes/problem list details Initial Weight: 153 lb Date -???-???-???-???-???-?? ?-???-???-???-???-???-? ??- EGA Weight BP Urine Prot -???-???-???-???-???-?? ?-???-???-???-???-???-? ??- Glucose FHR FuHt Pres Dilation -???-???-???-???-???-?? ?-???-???-???-???-???-? ??- Effaced St Visit Note 11/26/24 -???-???-???-???-???-?? ?-???-???-???-???-???-? ??- 9w 1d 153 lb (+0 oz) 121/84 -???-???-???-???-???-?? ?-???-???-???-???-???-? ??- 176 -???-???-???-???-???-?? ?-???-???-???-???-???-? ??- KW-CRL cons with dates. accepts NIPT. WOuld like wv hope appts 12/29/24 -???-???-???-???-???-?? ?-???-???-???-???-???-? ??- 13w 6d 157 lb 8 oz (+4 lb 8 oz) 127/88 Negative -???-???-???-???-???-?? ?-???-???-???-???-???-? ??- Negative 160 -???-???-???-???-???-?? ?-???-???-???-???-???-? ??- SM- no vb lo f cramping 01/27/25 -???-???-???-???-???-?? ?-???-???-???-???-???-? ??- 18w 0d 157 lb 8 oz (+4 lb 8 oz) 127/88 Negative -???-???-???-???-???-?? ?-???-???-???-???-???-? ??- Negative 150 -???-???-???-???-???-?? ?-???-???-???-???-???-? ??- KW- no vb/cr amping. + flutters. US for 02/10. 02/24/25 -???-???-???-???-???-?? ?-???-???-???-???-???-? ??- 22w 0d 166 lb (+13 lb) 103/66 Negative -???-???-???-???-???-?? ?-???-???-???-???-???-? ??- Negative 160 -???-???-?? (more content not included)... Normal [facility] Platelet countOrdered By: Vadim Davenport on 04-05-2025 Platelets (d) [#/Vol] 353 10*3/uL 150-450 [facility] RBC Auto (d) [#/Vol]Ordere d By: Natividad Davenport on 04-05-2025 RBC (Bld) [#/Vol] 4.27 10*6/uL 4.2-5.4 [facility] Syphilis Antibodieson 2024 Syphilis Abs Non-Reactive Normal Nonreactive [facility] Comment on above: Performed By: #### L 501.0250, L100.0100, L3890.6006, L509.8002 ####[facility] [address] [place], [address] White blood cell (WBC) count Ordered By: Natividad Davenport on 04-05-2025 WBC (Bld) [#/Vol] 9.8 10*3/uL 4.4-11.0 [facility] Laboratory - Chemistry and C hemistry - challengeOrdered By: Natividad Davenport on 02-24-2025 Glucose Ql (U) Negative [facility] Laboratory - UrinalysisOrder ed By: Natividad Davenport on 02-24-2025 Protein Ql (U) Negative [facility] Light [employer] Supervisor Office Visit Reporton 02-24-2025 Light Industrial Supervisor Office Visit Report [facility] [address], [address] [place] [address] OFFICE VISIT Date of Service: 02/24/25 MR#: [id number] Acct: [id number] Name: DINORAH DOBBINS Rep #: [id number] : 2000 Provider: LOUIS Freeman ams Age/Sex: 24/F Location: [facility] Status: Signed Intake Vital Signs 01/27/25 11:35 02/24/25 09:49 02/24/25 09:50 Height 5 ft 2 in 5 ft 2 in 5 ft 2 in Weight: 166 lb BMI 30.3 BP 103/66 Intake Visit Reasons: 22 WEEK OB Gunite Mixer Required: No Is patient in pain?: No Allergies No Known Allergies Allergy (Verified 02/24/25 09:50) Medications ???Medication ???Instructions ???Recorded ???Confirmed ???Type vits no.10-ferrous 1 tab PO DAILY 07/11/22 02/24/25 H istory fumarate 65 mg iron-folic acid 1 mg tablet Last Menstrual Period: 09/23/24 Zika: Zika virus screening: Negative : No PFSH PFSH Medical History Supervision of normal first Tick bite of abdomen Spontaneous onset of labor Vaginal delivery care and examination Contraception management Social History adopted: No household members: spouse and children housing: house number of children: 1 current occupational status: unemployed current occupation: [employer] current occupational exposures/hazards: No pets and animals: No history of recent travel: No sexually active: Yes Smoking Status: Never smoker alcohol intake: never substance use type: does not use well-balanced diet: about half the time caffeine: No eating out: 1-3 times/week during the past year weight has: increased > 10 lbs what type of physical activity do you participate in: walking and weight training frequency: 1-2 times per week duration: 15-30 minutes/day prabhu/nondenominational: Scientology seatbelt use: always do you feel safe at home: Yes 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 Date Name GA/Weeks Outcome Route Bth Weight Infant Gen Labor Lgth Anesthesia Del Locatn Provider FOB 02/26/23 Ion 39 live - full term 7lbs 6oz Male epidural [facility] Natividad Youngblood Delivery Date: 02/26/23 Last Updated by: Lexi Mendoza RN See problem list for complications HPI 22 WEEK OB Details: DINORAH DOBBINS is a 24 year old who presents for routine OB visit. OB Visit XUAN Calculator Estimated Delivery Date Method Current WG Current Estimate 06/30/25 LMP (Certain) 22w 0d Other Estimates 06/30/25 Ultrasound #1 22w 0d Expected Delivery Route/Plan Labor Preferences- CB/BF classes: [] labor support person: [] labor intervention preferences: [] pain management options preferred: [] cut cord/dad catch: [] : [] PP control planned: [] discussed possible routes of delivery and associated risks: [] special requests: [] Specific Issue/Plans Covid status: [] Flu vaccine: [] Tdap vaccine: [] Rhogam: [] LARC form signed: [] Problem list reviewed and updated with the most current plan of care details and appropriate orders placed. Relevant counseling for the gestational age provided. Continue routine care and follow up unless otherwise noted in visit notes/problem list details Initial Weight: 153 lb Date -???-???-???-???-???-?? ?-???-???-???-???-???-? ??- EGA Weight BP Urine Prot -???-???-???-???-???-?? ?-???-???-???-???-???-? ??- Glucose FHR FuHt Pres Dilation -???-???-???-???-???-?? ?-???-???-???-???-???-? ??- Effaced St Visit Note 11/26/24 -???-???-???-???-???-?? ?-???-???-???-???-???-? ??- 9w 1d 153 lb (+0 oz) 121/84 -???-???-???-???-???-?? ?-???-???-???-???-???-? ??- 176 -???-???-???-???-???-?? ?-???-???-???-???-???-? ??- KW-CRL cons with dates. accepts NIPT. WOuld like wv hope appts 12/29/24 -???-???-???-???-???-?? ?-???-???-???-???-???-? ??- 13w 6d 157 lb 8 oz (+4 lb 8 oz) 127/88 Negative -???-???-???-???-???-?? ?-???-???-???-???-???-? ??- Negative 160 -???-???-???-???-???-?? ?-???-???-???-???-???-? ??- SM- no vb lo f cramping 01/27/25 -???-???-???-???-???-?? ?-???-???-???-???-???-? ??- 18w 0d 157 lb 8 oz (+4 lb 8 oz) 127/88 Negative -???-???-???-???-???-?? ?-???-???-???-???-???-? ??- Negative 150 -???-???-???-???-???-?? ?-???-???-???-???-???-? ??- KW- no vb/cr amping. + flutters. US for 02/10. 02/24/25 -???-???-???-???-???-?? ?-???-???-???-???-???-? ??- 22w 0d 166 lb (+13 lb) 103/66 Negative -???-???-???-???-???-?? ?-???-???-???-???-? (more content not included)... Normal [facility] OB Anatomy w/ Transvaginalon 02-10-2025 OB Anatomy w/ Transvaginal [facility] Imaging Services [address] [place] [address] OB Anatomy w/ Transvaginal MR#: [id number] Acct: [id number] Name: DINORAH DOBBINS Rep #: [id number] : 2000 F 24 From: Vince Causey DO PCP: Care Physician,No Primary Status: DEP CLI Study: OB Anatomy w/ Transvaginal Date of Exam: 02/10 Exam# [id number] Ordering Dr: Rama Grant DO PROCEDURE: OB ANATOMY W/ TRANSVAGINAL 02/10/2025 REASON FOR EXAM: CERVICAL LENGTH/ANATOMY TECHNIQUE: High resolution obstetric ultrasound performed using a 2D transducer. Standard views obtained, including biometry, anatomy survey, and Doppler studies. FINDINGS Number: 1 Position: Cephalic presentation Placental Position: Anterior Placental Abnormalities: No abnormalities. No low-lying placenta or marginal previa DIMENSIONS: Biparietal Diameter: 4.95/21 weeks, 0 days Head Circumference: 17.99/20 weeks, 3 days Abdominal Circumference: 18.62/20 weeks, 5 days Femur Length: The 4/19 weeks, 5 days ESTIMATED WEIGHT: 351 g +/-53 g ESTIMATED WEIGHT PERCENTILE (24+ weeks): 68% ESTIMATED GESTATIONAL AGE: Baseline: 20 weeks, 0 days By Ultrasound: 20 weeks, 3 days ESTIMATED DATE OF DELIVERY: Baseline: 06/30/2025 By Ultrasound: 06/27/2025 BIOPHYSICAL ASSESSMENT: Amniotic Fluid Volume: Subjectively normal Amniotic Fluid Index: Subjectively normal. (8-24 cm normal range) Cardiac Motion: 158 beats per minute (average) Trunk and Limb Motion: Present. MATERNAL ANATOMY: Adnexa: Neither maternal ovary is successfully identified. Cervical Length (if measured): 4.9 cm ANATOMY: Spine: Visualize Cranium: Visualized Cerebellum: 2.1 cm Cisterna Magna: 0.3 cm Cavum Septum Pellucidi: N/A Lateral Ventricles: 0.66 Choroid Plexus: Visualized Falx: Midline. Upper Lip: Visualized Heart: 4 chambers Stomach: Visualized Kidneys: Visualized Bladder: Visualized Umbilical Cord: Three-vessel visualized Extremities: Upper and lower visualized US/OB Anatomy w/ Transvaginal IMPRESSION: Single live intrauterine and fused with heart rate of 158 beats per minute ESTIMATED GESTATIONAL AGE: Baseline: 20 weeks, 0 days By Ultrasound: 20 weeks, 3 days ESTIMATED DATE OF DELIVERY: Baseline: 06/30/2025 By Ultrasound: 06/27/2025 [facility] CC: Dr. Rama Grant DO; No Primary Care Physician Web Design Instructor: Signed Normal [facility] Laboratory - Chemistry and C hemistry - challengeOrdered By: Natividad Davenport on 01-27-2025 Glucose Ql (U) Negative [facility] Laboratory - UrinalysisOrder ed By: Natividad Davenport on 01-27-2025 Protein Ql (U) Negative [facility] Light Industrial Supervisor Office Visit Reporton 01-27-2025 Light Industrial Supervisor Office Visit Report [facility] [place] [facility] [address], [address] [place] [address] OFFICE VISIT Date of Service: 01/27/25 MR#: [id number] Acct: [id number] Name: DINORAH DOBBINS Rep #: [id number] : 2000 Provider: LOUIS Freeman ams Age/Sex: 24/F [facility] Status: Signed Intake Vital Signs 12/29/24 13:04 01/27/25 11:33 01/27/25 11:35 Height 5 ft 2 in 5 ft 2 in 5 ft 2 in Weight: 157 lb 8 oz BMI 28.8 BP 127/88 H Intake Visit Reasons: 18 WK OB Gunite Mixer Required: No Is patient in pain?: No Allergies No Known Allergies Allergy (Verified 01/27/25 11:34) Medications ???Medication ???Instructions ???Recorded ???Confirmed ???Type vits no.10-ferrous 1 tab PO DAILY 07/11/22 01/27/25 H istory fumarate 65 mg iron-folic acid 1 mg tablet Last Menstrual Period: 09/23/24 Zika: Zika virus screening: Negative : No PFSH PFSH Medical History Supervision of normal first Tick bite of abdomen Spontaneous onset of labor Vaginal delivery care and examination Contraception management Social History adopted: No household members: spouse and children housing: house number of children: 1 current occupational status: unemployed current occupation: [employer] current occupational exposures/hazards: No pets and animals: No history of recent travel: No sexually active: Yes Smoking Status: Never smoker alcohol intake: never substance use type: does not use well-balanced diet: about half the time caffeine: No eating out: 1-3 times/week during the past year weight has: increased > 10 lbs what type of physical activity do you participate in: walking and weight training frequency: 1-2 times per week duration: 15-30 minutes/day prabhu/nondenominational: Scientology seatbelt use: always do you feel safe at home: Yes 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 Date Name GA/Weeks Outcome Route Bth Weight Infant Gen Labor Lgth Anesthesia Del Locatn Provider FOB 02/26/23 Ion 39 live - full term 7lbs 6oz Male epidural [facility] Natividad Issac [place] Delivery Date: 02/26/23 Last Updated by: Lexi Mendoza RN See problem list for complications HPI 18 WK OB Details: DINORAH DOBBINS is a 24 year old who presents for routine OB visit. OB Visit XUAN Calculator Estimated Delivery Date Method Current WG Current Estimate 06/30/25 LMP (Certain) 18w 0d Other Estimates 06/30/25 Ultrasound #1 18w 0d Expected Delivery Route/Plan Labor Preferences- CB/BF classes: [] labor support person: [] labor intervention preferences: [] pain management options preferred: [] cut cord/dad catch: [] : [] PP control planned: [] discussed possible routes of delivery and associated risks: [] special requests: [] Specific Issue/Plans Covid status: [] Flu vaccine: [] Tdap vaccine: [] Rhogam: [] LARC form signed: [] Problem list reviewed and updated with the most current plan of care details and appropriate orders placed. Relevant counseling for the gestational age provided. Continue routine care and follow up unless otherwise noted in visit notes/problem list details Initial Weight: 153 lb Date -???-???-???-???-???-?? ?-???-???-???-???-???-? ??- EGA Weight BP Urine Prot -???-???-???-???-???-?? ?-???-???-???-???-???-? ??- Glucose FHR FuHt Pres Dilation -???-???-???-???-???-?? ?-???-???-???-???-???-? ??- Effaced St Visit Note 11/26/24 -???-???-???-???-???-?? ?-???-???-???-???-???-? ??- 9w 1d 153 lb (+0 oz) 121/84 -???-???-???-???-???-?? ?-???-???-???-???-???-? ??- 176 -???-???-???-???-???-?? ?-???-???-???-???-???-? ??- KW-CRL cons with dates. accepts NIPT. WOuld like mt hope appts 12/29/24 -???-???-???-???-???-?? ?-???-???-???-???-???-? ??- 13w 6d 157 lb 8 oz (+4 lb 8 oz) 127/88 Negative -???-???-???-???-???-?? ?-???-???-???-???-???-? ??- Negative 160 -???-???-???-???-???-?? ?-???-???-???-???-???-? ??- SM- no vb lo f cramping 01/27/25 -???-???-???-???-???-?? ?-???-???-???-???-???-? ??- 18w 0d 157 lb 8 oz (+4 lb 8 oz) 127/88 -???-???-???-???-???-?? ?-???-???-???-???-???-? ??- 150 -???-???-???-???-???-?? ?-???-???-???-???-???-? ??- KW- no vb/cr amping. + flutters. US for 02/10. ACOG First Trimester First Trimester: Desire for , Alcohol, Tobacco Cessation, Illicit/Recreational Drug/Substance Use, Intimate Partn (more content not included)... Normal [facility] Laboratory - Chemistry and C hemistry - challengeOrdered By: Petra Lagunas on 12-29-2024 Glucose Ql (U) Negative [facility] Laboratory - UrinalysisOrder ed By: Petra Lagunas on 12-29-2024 Protein Ql (U) Negative [facility] [employer] Office Visit Reporton 12-29-2024 Light Industrial Supervisor Office Visit Report [facility]'s [address], [address] [place] [address] OFFICE VISIT Date of Service: 12/29/24 MR#: [id number] Acct: [id number] Name: DINORAH DOBBINS Rep #: [id number] : 2000 Provider: Dr. Petra avila MD Age/Sex: 24/F Location: [facility] Status: Signed Intake Vital Signs 04/02/23 11:41 11/26/24 12:57 12/29/24 13:02 12/29/24 13:04 Height 5 ft 2 in 5 ft 2 in 5 ft 2 in 5 ft 2 in Weight: 157 lb 8 oz BMI 28.8 BP 127/88 H Intake Visit Reasons: 13wk OB Gunite Mixer Required: No Is patient in pain?: No Allergies No Known Allergies Allergy (Verified 12/29/24 13:01) Medications ???Medication ???Instructions ???Recorded ???Confirmed ???Type vits no.10-ferrous 1 tab PO DAILY 07/11/22 12/29/24 H istory fumarate 65 mg iron-folic acid 1 mg tablet Last Menstrual Period: 09/23/24 Zika: Zika virus screening: Negative : No PFSH PFSH Medical History Supervision of normal first Tick bite of abdomen Spontaneous onset of labor Vaginal delivery care and examination Contraception management Social History adopted: No household members: spouse and children housing: house number of children: 1 current occupational status: unemployed current occupation: [employer] current occupational exposures/hazards: No pets and animals: No history of recent travel: No sexually active: Yes Smoking Status: Never smoker alcohol intake: never substance use type: does not use well-balanced diet: about half the time caffeine: No eating out: 1-3 times/week during the past year weight has: increased > 10 lbs what type of physical activity do you participate in: walking and weight training frequency: 1-2 times per week duration: 15-30 minutes/day prabhu/nondenominational: [employer] seatbelt use: always do you feel safe at home: Yes 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 Date Name GA/Weeks Outcome Route Bth Weight Infant Gen Labor Lgth Anesthesia Del Locatn Provider FOB 02/26/23 Una 39 live - full term 7lbs 6oz Male epidural WC Nativiadd [place]en[place] Delivery Date: 02/26/23 Last Updated by: Lexi Mendoza RN See problem list for complications HPI 13wk OB Details: DINORAH DOBBINS is a 24 year old who presents for routine OB visit. OB Visit XUAN Calculator Estimated Delivery Date Method Current WG Current Estimate 06/30/25 LMP (Certain) 13w 6d Other Estimates 06/30/25 Ultrasound #1 13w 6d Expected Delivery Route/Plan Labor Preferences- CB/BF classes: [] labor support person: [] labor intervention preferences: [] pain management options preferred: [] cut cord/dad catch: [] : [] PP control planned: [] discussed possible routes of delivery and associated risks: [] special requests: [] Specific Issue/Plans Covid status: [] Flu vaccine: [] Tdap vaccine: [] Rhogam: [] LARC form signed: [] Problem list reviewed and updated with the most current plan of care details and appropriate orders placed. Relevant counseling for the gestational age provided. Continue routine care and follow up unless otherwise noted in visit notes/problem list details Initial Weight: 153 lb Date -???-???-???-???-???-?? ?-???-???-???-???-???-? ??- EGA Weight BP Urine Prot -???-???-???-???-???-?? ?-???-???-???-???-???-? ??- Glucose FHR FuHt Pres Dilation -???-???-???-???-???-?? ?-???-???-???-???-???-? ??- Effaced St Visit Note 11/26/24 -???-???-???-???-???-?? ?-???-???-???-???-???-? ??- 9w 1d 153 lb (+0 oz) 121/84 -???-???-???-???-???-?? ?-???-???-???-???-???-? ??- 176 -???-???-???-???-???-?? ?-???-???-???-???-???-? ??- KW-CRL cons with dates. accepts NIPT. WOuld like wv hope appts 12/29/24 -???-???-???-???-???-?? ?-???-???-???-???-???-? ??- 13w 6d 157 lb 8 oz (+4 lb 8 oz) 127/88 Negative -???-???-???-???-???-?? ?-???-???-???-???-???-? ??- Negative 160 -???-???-???-???-???-?? ?-???-???-???-???-???-? ??- SM- no vb lo f cramping ACOG First Trimester First Trimester: Desire for , Alcohol, Tobacco Cessation, Illicit/Recreational Drug/Substance Use, Intimate Partner Violence, Barriers to care, Unstable Housing, Communication Barriers, Environmental/Work Hazards, Anticipated Course of Care, Toxoplasmosis Precations, Use of Any medications, Sexual activity, Exercise, Dental Care, Melody (more content not included)... Normal [facility] Absolute lymphocyte countOrd ered By: Natividad Davenport on 12-07-2024 Lymphocytes Auto (Unsp spec) [#/Vol] 2.65 10*3/uL 0.83-4.51 [facility] Absolute neutrophil countOrd ered By: Natividad Davenport on 12-07-2024 Neutrophils (Bld) [#/Vol] 6.3 10*3/uL 2.0-7.7 [facility] Automated lymphocyte count a s percentage of total leukocytesOrdered By: Natividad Davenport on 12-07-2024 Lymphocytes/100 WBC Auto (Unsp spec) 26.6 % 19-41 [facility] Basophil percentageOrdered B y: Natividad Davenport on 12-07-2024 Basophils/100 WBC (Bld) 0.4 % 0-1 [facility] CBC W/Diff, Automatedon 11-19 Absolute Lymph 2.65 X10 3/uL Normal 0.83-4.51 [facility] Comment on above: Performed By: #### L 3890.6100, L3890.6005, L100.0100, L3890.6300, BTS, L509.8000, L509.4005 #### [facility] Laboratory [address] [place], [address] Absolute Neut 6.3 X10 3/uL Normal 2.0-7.7 [facility] Comment on above: Performed By: #### L 3890.6100, L3890.6005, L100.0100, L3890.6300, BTS, L509.8000, L509.4005 #### [facility] [address] [place], [address] Basophils/100 WBC (Bld) 0.4 % Normal 0-1 [facility] Comment on above: Performed By: #### L 3890.6100, L3890.6005, L100.0100, L3890.6300, BTS, L509.8000, L509.4005 #### [facility] [address] [place], [address] Eosinophils/100 WBC (Bld) 0.7 % Normal 0-5 [facility] Comment on above: Performed By: #### L 3890.6100, L3890.6005, L100.0100, L3890.6300, BTS, L509.8000, L509.4005 #### [facility] [address] [place], [address] Erythrocyte distribution width (RBC) [Ratio] 11.9 % Normal 11.6-14.6 [facility] Comment on above: Performed By: #### L 3890.6100, L3890.6005, L100.0100, L3890.6300, BTS, L509.8000, L509.4005 #### [facility] [address] [place], [address] Hematocrit (Bld) [Volume fraction] 41.4 % Normal 37-47 [facility] Comment on above: Performed By: #### L 3890.6100, L3890.6005, L100.0100, L3890.6300, BTS, L509.8000, L509.4005 #### [facility] [address] [place], [address] Hemoglobin (Bld) [Mass/Vol] 14.3 g/dL Normal 12.0-15.0 [facility] Comment on above: Performed By: #### L 3890.6100, L3890.6005, L100.0100, L3890.6300, BTS, L509.8000, L509.4005 #### [facility] [address] [place], [address] IG% 0.300 Normal 0.0-0.9 [facility] Comment on above: Result Comment: IG% - Immature Granulocytes (promyelocytes, myelocytes and metamyelocytes) > 1% indicates that a LEFT SHIFT is Present. Performed By: #### L 3890.6100, L3890.6005, L100.0100, L3890.6300, BTS, L509.8000, L509.4005 #### [facility] [address] [place], [address] Lymphocytes/100 WBC (Bld) 26.6 % Normal 19-41 [facility] Comment on above: Performed By: #### L 3890.6100, L3890.6005, L100.0100, L3890.6300, BTS, L509.8000, L509.4005 #### [facility] [address] [place], [address] MCH (RBC) [Entitic mass] 31.5 pg Normal 27.0-32.0 [facility] Comment on above: Performed By: #### L 3890.6100, L3890.6005, L100.0100, L3890.6300, BTS, L509.8000, L509.4005 #### [facility] [address] [place], [address] MCHC (RBC) [Mass/Vol] 34.5 g/dL Normal 32-36 [facility] Comment on above: Performed By: #### L 3890.6100, L3890.6005, L100.0100, L3890.6300, BTS, L509.8000, L509.4005 #### [facility] [address] [place], [address] MCV (RBC) [Entitic vol] 91.2 fL Normal 81-99 [facility] Comment on above: Performed By: #### L 3890.6100, L3890.6005, L100.0100, L3890.6300, BTS, L509.8000, L509.4005 #### [facility] [address] [place], [address] Monocytes/100 WBC (Bld) 8.7 % Normal 0-10 [facility] Comment on above: Performed By: #### L 3890.6100, L3890.6005, L100.0100, L3890.6300, BTS, L509.8000, L509.4005 #### [facility] [address] [place], [address] Neutrophils/100 WBC (Bld) 63.3 % Normal 47-70 [facility] Comment on above: Performed By: #### L 3890.6100, L3890.6005, L100.0100, L3890.6300, BTS, L509.8000, L509.4005 #### [facility] [address] [place], [address] Nucleated RBC (Bld) [#/Vol] 0 10*3/uL Normal 0-5 [facility] Comment on above: Performed By: #### L 3890.6100, L3890.6005, L100.0100, L3890.6300, BTS, L509.8000, L509.4005 #### [facility] [address] [place], [address] Platelet mean volume (Bld) [Entitic vol] 9.6 fL Normal 6.2-12.0 [facility] Comment on above: Performed By: #### L 3890.6100, L3890.6005, L100.0100, L3890.6300, BTS, L509.8000, L509.4005 #### [facility] [address] [place], [address] Platelets (Bld) [#/Vol] 373 10*3/uL Normal 150-450 [facility] Comment on above: Performed By: #### L 3890.6100, L3890.6005, L100.0100, L3890.6300, BTS, L509.8000, L509.4005 #### [facility] [address] [place], [address] RBC (Bld) [#/Vol] 4.54 10*6/uL Normal 4.2-5.4 [facility] Comment on above: Performed By: #### L 3890.6100, L3890.6005, L100.0100, L3890.6300, BTS, L509.8000, L509.4005 #### [facility] [address] [place], [address] RDW SD 39.3 fl Normal 35.1-43.9 [facility] Comment on above: Performed By: #### L 3890.6100, L3890.6005, L100.0100, L3890.6300, BTS, L509.8000, L509.4005 #### [facility] [address] [place], [address] WBC (Bld) [#/Vol] 10.0 10*3/uL Normal 4.4-11.0 [facility] Comment on above: Performed By: #### L 3890.6100, L3890.6005, L100.0100, L3890.6300, BTS, L509.8000, L509.4005 #### [facility] [address] [place], [address] Eosinophil percentageOrdered By: Natividad Davenport on 12-07-2024 Eosinophils/100 WBC (Bld) 0.7 % 0-5 [facility] Erythrocyte distribution wid th ratioOrdered By: Natividad Davenport on 12-07-2024 Erythrocyte distribution width (RBC) [Ratio] 11.9 % 11.6-14.6 [facility] Erythrocyte distribution wid th standard deviationOrdered By: Natividad Davenport on 12-07-2024 Erythrocyte distribution width (RBC) [Entitic vol] 39.3 fL 35.1-43.9 [facility] Erythrocyte distribution width (RBC) [Ratio] 39.3 fl 35.1-43.9 [facility] HIV - WCHon 12-07-2024 HIV Non-Reactive Normal Nonreactive [facility] Comment on above: Order Comment: Reaso n for Exam: Performed By: #### L 3890.6100, L3890.6005, L100.0100, L3890.6300, BTS, L509.8000, L509.4005 ####[facility] [id number] [place], [place], [id number] HIV 1 and HIV-2 antibody ass ay with HIV-1 p24 antigen detectionOrdered By: Natividad Davenport on 12-07-2024 HIV 1+2 Ab+HIV1 p24 Ag IA Ql Non-Reactive Nonreactive [facility] HIV 1+2 Ab+HIV1 p24 Ag IA Ql Ordered By: Natividad Davenport on 12-07-2024 HIV (1&2) Antibody Non-Reactive Nonreactive [facility] Hematocrit Auto (Bld) [Volum e fraction]Ordered By: Natividad Davenport on 12-07-2024 Hematocrit (Bld) [Volume fraction] 41.4 % 37-47 [facility] Hemoglobin measurementOrdere d By: Natividad Davenport on 12-07-2024 Hemoglobin (Bld) [Mass/Vol] 14.3 g/dL 12.0-15.0 [facility] Hepatitis B Surface Antigeno n 12-07-2024 HEP B Surf Ag Non-Reactive Normal Nonreactive [facility] Comment on above: Order Comment: Reaso n for Exam: Performed By: #### L 3890.6100, L3890.6005, L100.0100, L3890.6300, BTS, L509.8000, L509.4005 ####[facility] [address] [place], [address] Hepatitis B surface antigen detectionOrdered By: Natividad Davenport on 12-07-2024 Hepatitis B Surface Antigen Non-Reactive Nonreactive [facility] Hepatitis C Antibodyon 12-07 Hepatitis C AB Non-Reactive Normal Nonreactive [facility] Comment on above: Order Comment: Reaso n for Exam: Result Comment: Non Reactive: < 0.8 Equivocal: >/= 0.8 to < 1.0 Reactive: >/= 1.0 The [facility] requires that a reactive/equivocal HCV antibody result be sent out for confirmation. HCV Quant by PCR testing. Performed By: #### L 3890.6100, L3890.6005, L100.0100, L3890.6300, BTS, L509.8000, L509.4005 ####[facility] [address] [place], [address] Hepatitis C virus antibody a ssayOrdered By: Natividad Davenport on 12-07-2024 Hepatitis C Antibody Non-Reactive Nonreactive [facility] Comment on above: Non Reactive: < 0.8 Equivocal: >/= 0.8 to < 1.0 Reactive: >/= 1.0The [facility] requires that a reactive/equivocal HCV antibody result be sent out for confirmation. HCV Quant by PCR testing. Immature granulocytes/100 WB C Auto (Bld)Ordered By: Natividad Davenport on 12-07-2024 Immature granulocytes/100 WBC (Bld) 0.300 % 0.0-0.9 [facility] Comment on above: IG% - Immature Granu locytes (promyelocytes, myelocytes and metamyelocytes) > 1% indicates that a LEFT SHIFT is Present. L509.8000on 12-07-2024 Syphilis Abs Non-Reactive Normal [facility] Comment on above: Order Comment: Reaso n for Exam: Performed By: #### L 3890.6100, L3890.6005, L100.0100, L3890.6300, BTS, L509.8000, L509.4005 ####[facility] [address] [place], [address] Lymphocytes Auto (Unsp spec) [#/Vol]Ordered By: Natividad Davenport on 12-07-2024 Lymphocytes (Bld) [#/Vol] 2.65 10*3/uL 0.83-4.51 [facility] Lymphocytes/100 WBC Auto (Un sp spec)Ordered By: Natividad Davenport on 12-07-2024 Lymphocytes/100 WBC (Bld) 26.6 % 19-41 [facility] MCV (mean corpuscular volume ) determinationOrdered By: Natividad Davenport on 12-07-2024 MCV (RBC) [Entitic vol] 91.2 fL 81-99 [facility] Mean corpuscular hemoglobin (MCH) determinationOrdered By: Natividad Davenport on 12-07-2024 MCH (RBC) [Entitic mass] 31.5 pg 27.0-32.0 [facility] Mean corpuscular hemoglobin concentration (MCHC) determinationOrdered By: Natividad Davenport on 12-07-2024 MCHC (RBC) [Mass/Vol] 34.5 g/dL 32-36 [facility] Mean platelet volume determi nationOrdered By: Natividad Davenport on 12-07-2024 Platelet mean volume (Bld) [Entitic vol] 9.6 fL 6.2-12.0 [facility] Miscellaneous procedureOrder ed By: Natividad Davenport on 12-07-2024 Miscellaneous Test Comment SEE SCANNED REPORT [facility] Monocyte percentageOrdered B y: Natividad Davenport on 12-07-2024 Monocytes/100 WBC (Bld) 8.7 % 0-10 [facility] NATERAon 12-07-2024 NATURA SEE SCANNED REPORT Normal [facility] Comment on above: Performed By: #### L 900.0098 ####[facility] [address] [place], [address] Neutrophil percentageOrdered By: Natividad Davenport on 12-07-2024 Neutrophils/100 WBC (Bld) 63.3 % 47-70 [facility] Nucleated red blood cell per centageOrdered By: Natividad Davenport on 12-07-2024 Nucleated RBC/100 WBC (Bld) [Ratio] 0 % 0-5 [facility] Platelet countOrdered By: Vadim Davenport on 12-07-2024 Platelets (Bld) [#/Vol] 373 10*3/uL 150-450 [facility] RBC Auto (Bld) [#/Vol]Ordere d By: Natividad Davenport on 12-07-2024 RBC (Bld) [#/Vol] 4.54 10*6/uL 4.2-5.4 [facility] Rubella IgGon 12-07-2024 Rubella IgG Non-Reactive Normal Nonreactive [facility] Comment on above: Order Comment: Reaso n for Exam: Result Comment: Anti body Results Interpretation of Immune Status Non Reactive Presumed Non-Immune Equivocal Equivocal Reactive Presumed Immune Performed By: #### L 3890.6100, L3890.6005, L100.0100, L3890.6300, BTS, L509.8000, L509.4005 ####[facility] [id number] [place], [place], [id number] Rubella immune status IgGOrd ered By: Natividad Davenport on 12-07-2024 Rubella IgG Antibody Non-Reactive Nonreactive [facility] Comment on above: Antibody Results Int erpretation of Immune Status Non Reactive Presumed Non-Immune Equivocal Equivocal Reactive Presumed Immune Serum Treponema species anti body detectionOrdered By: Natividad Davenport on 12-07-2024 Treponema sp Ab Ql (S) Non-Reactive [facility] Treponema sp Ab Ql (S)Ordere d By: Natividad Davenport on 12-07-2024 Syphilis Total Antibody Non-Reactive [facility] Type AND Screenon 12-07-2024 Ab SCREEN GEL Negative Normal [facility] Comment on above: Order Comment: PN Performed By: #### L 3890.6100, L3890.6005, L100.0100, L3890.6300, BTS, L509.8000, L509.4005 #### [facility] [address] [place], [address] (425) White blood cell (WBC) count Ordered By: Natividad Davenport on 12-07-2024 WBC (Bld) [#/Vol] 10.0 10*3/uL 4.4-11.0 [facility] Chlamydia/GC BRANDON aptimaon CHLAMY,NUC ACID Negative Normal Negative [facility] Comment on above: Performed By: #### M 100.2200, L7000.1800 #### [facility] [address] [place], [address] GC BY NUC ACID Negative Normal Negative [facility] Comment on above: Result Comment: Perf ormed at: =G - [facility] [address] [id number] [employer] Professional: Serene De Leon MD, Phone: [phone] Performed By: #### M 100.2200, L7000.1800 #### [facility] [address] [place], [address] Urine Cultureon 11-28-2024 [facility] Mixed Gram Positive Organisms [place] Count 11,000-25,000 [facility] Mixed contaminants. Submit a new specimen if indicated. Normal [facility] Comment on above: Performed By: #### M 100.2200, L7000.1800 #### [facility] [address] [place], [address] C. trachomatis rRNA BRANDON+prob e Ql (Unsp spec)Ordered By: Natividad Davenport on 11-26-2024 Chlamydia DNA (BRANDON) Negative Negative [facility] Neisseria gonorrhoeae nuclei c acid detection by amplified probe techniqueOrdered By: Natividad Davenport on 11-26-2024 N. gonorrhoeae DNA BRANDON+probe Ql (Unsp spec) Negative Negative [facility] Comment on above: Performed at: =G - [facility] [address] [id number] Director: Serene De Leon MD, Phone: [phone] [employer] Office Visit Reporton 11-26-2024 [employer] Supervisor Office Visit Report [facility] [address], [address] [place] [address] OFFICE VISIT Date of Service: 11/26/24 MR#: [id number] Acct: [id number] Name: DEBORA DOBBINSA Rep #: [id number] : 2000 Provider: LOUIS Freeman ams Age/Sex: 24/F Location: [facility] Status: Signed Intake Vital Signs 04/02/23 11:41 11/26/24 12:57 Height 5 ft 2 in 5 ft 2 in Weight: 153 lb BMI 28.0 BP 121/84 H Intake Visit Reasons: New OB, LMP 09/23 XUAN 06/30 [employer] Required: No Is patient in pain?: No Allergies No Known Allergies Allergy (Verified 11/26/24 12:59) Medications ???Medication ???Instructions ???Recorded ???Confirmed ???Type vits no.10-ferrous 1 tab PO DAILY 07/11/22 11/26/24 History fumarate 65 mg iron-folic acid 1 mg tablet Last Menstrual Period: 09/23/24 Zika: Zika virus screening: Negative : No Have you fallen in the past year?: No PFSH [facility] Medical History Supervision of normal first Tick bite of abdomen Spontaneous onset of labor Vaginal delivery care and examination Contraception management Social History adopted: No household members: spouse and children housing: house number of children: 1 current occupational status: unemployed current occupation: [employer] current occupational exposures/hazards: No pets and animals: No history of recent travel: No sexually active: Yes Smoking Status: Never smoker alcohol intake: never substance use type: does not use well-balanced diet: about half the time caffeine: No eating out: 1-3 times/week during the past year weight has: increased > 10 lbs what type of physical activity do you participate in: walking and weight training frequency: 1-2 times per week duration: 15-30 minutes/day prabhu/nondenominational: Scientology seatbelt use: always do you feel safe at home: Yes 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 Date Name GA/Weeks Outcome Route Bth Weight Gen Labor Lgth Anesthesia Del Locatn Provider FOB 02/26/23 Ion 39 live - full term 7lbs 6oz Male epidural [facility] Natividad Davenport [place] Delivery Date: 02/26/23 Last Updated by: Lexi Mendoza, RN See problem list for complications HPI New OB, LMP 09/23 XUAN 06/30 Details: DINORAH DOBBINS is a 24 year old who presents for New OB visit. OB Visit XUAN Calculator Estimated Delivery Date Method Current WG Current Estimate 06/30/25 LMP (Certain) 9w 1d Other Estimates 06/30/25 Ultrasound #1 9w 1d Estimated Due Date: 06/30/25 Expected Delivery Route/Plan Labor Preferences- CB/BF classes: [] labor support person: [] labor intervention preferences: [] pain management options preferred: [] cut cord/dad catch: [] : [] PP control planned: [] discussed possible routes of delivery and associated risks: [] special requests: [] Specific Issue/Plans Covid status: [] Flu vaccine: [] Tdap vaccine: [] Rhogam: [] LARC form signed: [] Problem list reviewed and updated with the most current plan of care details and appropriate orders placed. Relevant counseling for the gestational age provided. Continue routine care and follow up unless otherwise noted in visit notes/problem list details Initial Weight: 153 lb Date -???-???-???-???-???-?? ?-???-???-???-???-???-? ??- EGA Weight BP Urine Prot -???-???-???-???-???-?? ?-???-???-???-???-???-? ??- Glucose FHR FuHt Pres Dilation -???-???-???-???-???-?? ?-???-???-???-???-???-? ??- Effaced St Visit Note 11/26/24 -???-???-???-???-???-?? ?-???-???-???-???-???-? ??- 9w 1d 153 lb (+0 oz) 121/84 -???-???-???-???-???-?? ?-???-???-???-???-???-? ??- 176 -???-???-???-???-???-?? ?-???-???-???-???-???-? ??- KW-CRL cons with dates. accepts NIPT. WOuld like mt hope appts Menstrual History Last Menstrual Period: 09/23/24 Reported LMP: definite Normal amount/duration: Yes Frequency in days: 25 On hormonal BC at conception: No hCG+: 10/21/24 Antepartum Record Genetic Screening: Congenital Heart Defect: Other, Neural Tube Defect: Other, Hemoglobinopathy Or Carrier: Other, Cystic Fibrosis: Other, Chromosome Abnormality: Other, Floyd-Sachs: Other, Hemophilia: Other, Intellectual Disability/Autism: Other, Recurrent Loss/Stillbirth: Other, Other Structural Defect: Other, Other Genetic Disease: Other and Maternal Metabolic Disorder: Other Infec (more content not included)... Normal [facility] Urine cultureOrdered By: Eduardo Davenport on 11-26-2024 Bacteria identified Cx Nom (U) Positive Abnormal [facility] LYME DISEASE AB W/REFL TO BL OT (IGG, IGM)on 03-07-2023 LYME AB SCREEN <0.90 Normal [facility] Comment on above: Result Comment: Inde x Interpretation ----- < 0.90 Negative 0.90-1.09 Equivocal > 1.09 Positive As recommended by the Food and Drug Administration (FDA), all samples with positive or equivocal results in a Borrelia burgdorferi antibody screen will be tested using a blot method. Positive or equivocal screening test results should not be interpreted as truly positive until verified as such using a supplemental assay (e.g., B. burgdorferi blot). The screening test and/or blot for B. burgdorferi antibodies may be falsely negative in early stages of Lyme disease, including the period when erythema migrans is apparent. Performed By: #### [id number] #### [facility] [address], [address] [place] [id number] Milking Machine Mechanic: Richie Gamboa MD Absolute lymphocyte countOrd ered By: Natividad Davenport on 02-16-2023 Lymphocytes Auto (Unsp spec) [#/Vol] 1.68 10*3/uL 0.83-4.51 [facility] Basophil percentageOrdered B y: Natividad Davenport on 02-16-2023 Basophils/100 WBC (Bld) 0.2 % 0-1 [facility] Eosinophils/100 WBC (Bld) 0.1 % 0-5 [facility] Neutrophils (Bld) [#/Vol] 10.7 10*3/uL 2.0-7.7 [facility] Neutrophils/100 WBC (Bld) 80.5 % 47-70 [facility] WBC (Bld) [#/Vol] 13.3 10*3/uL 4.4-11.0 [facility] Blood erythrocytes count (nu mber/volume)Ordered By: Natividad Davenport on 02-16-2023 RBC (Bld) [#/Vol] 4.09 10*6/uL 4.2-5.4 [facility] Blood hemoglobin measurement (mass/volume)Ordered By: Natividad Davenport on 02-16-2023 Hemoglobin (Bld) [Mass/Vol] 13.0 g/dL 12.0-15.0 [facility] Blood lymphocytes/100 leukoc ytesOrdered By: Natividad Davenport on 02-16-2023 Lymphocytes/100 WBC (Bld) 12.7 % 19-41 [facility] Blood monocytes/100 leukocyt esOrdered By: Natividad Davenport on 02-16-2023 Monocytes/100 WBC (Bld) 6.2 % 0-10 [facility] Blood platelet mean volumeOr dered By: Natividad Davenport on 02-16-2023 Platelet mean volume (Bld) [Entitic vol] 10.0 fL 6.2-12.0 [facility] Determination of erythrocyte mean corpuscular volume (MCV)Ordered By: Natividad Davenport on 02-16-2023 MCV (RBC) [Entitic vol] 92.2 fL 81-99 [facility] Hematocrit Auto (Bld) [Volum e fraction]Ordered By: Natividad Davenport on 02-16-2023 Hematocrit (Bld) [Volume fraction] 37.7 % 37-47 [facility] Laboratory - Hematology and Cell countsOrdered By: Natividad Davenport on 02-16-2023 Erythrocyte distribution width (RBC) [Entitic vol] 42.2 fL 35.1-43.9 [facility] Erythrocyte distribution width (RBC) [Ratio] 12.5 % 11.6-14.6 [facility] Immature granulocytes/100 WBC (Bld) 0.300 % 0.0-0.9 [facility] Comment on above: IG% - Immature Granu locytes (promyelocytes, myelocytes and metamyelocytes) > 1% indicates that a LEFT SHIFT is Present. MCH (RBC) [Entitic mass] 31.8 pg 27.0-32.0 [facility] Nucleated RBC/100 WBC (Bld) [Ratio] 0 % 0-5 [facility] MCHC Auto (RBC) [Mass/Vol]Or dered By: Natividad Davenport on 02-16-2023 MCHC (RBC) [Mass/Vol] 34.5 g/dL 32-36 [facility] Platelets bldOrdered By: Eduardo Davenport on 02-16-2023 Platelets (Bld) [#/Vol] 266 10*3/uL 150-450 [facility] Serum Treponema species anti body detectionOrdered By: Natividad Davenport on 02-16-2023 Treponema sp Ab Ql (S) Non-Reactive [facility] Laboratory - Chemistry and C hemistry - challengeon 02-12-2023 Glucose Ql (U) Negative [facility] Laboratory - Urinalysison Protein Ql (U) Trace [facility] Laboratory - Chemistry and C hemistry - challengeon 02-05-2023 Glucose Ql (U) Negative [facility] Laboratory - Urinalysison Protein Ql (U) Negative [facility] No Panel InformationOrdered By: Bria Alicia on 02-01-2023 Group B Streptococcus Culture Group B Beta Streptococcus is not isolated. [facility] Laboratory - Chemistry and C hemistry - challengeon 01-29-2023 Glucose Ql (U) Negative [facility] Laboratory - Urinalysison Protein Ql (U) Negative [facility] Laboratory - Chemistry and C hemistry - challengeon 01-10-2023 Glucose Ql (U) Negative [facility] Laboratory - Urinalysison Protein Ql (U) Negative [facility] Laboratory - Chemistry and C hemistry - challengeon 12-25-2022 Glucose Ql (U) Negative [facility] Laboratory - Urinalysison Protein Ql (U) Negative [facility] Laboratory - Chemistry and C hemistry - challengeon 12-13-2022 Glucose Ql (U) Negative [facility] Laboratory - Urinalysison Protein Ql (U) Negative [facility] Absolute lymphocyte countOrd ered By: Bria Alicia on 11-29-2022 Lymphocytes Auto (Unsp spec) [#/Vol] 2.21 10*3/uL 0.83-4.51 [facility] Basophil percentageOrdered B y: Bria Alicia on 11-29-2022 Basophils/100 WBC (Bld) 0.3 % 0-1 [facility] Eosinophils/100 WBC (Bld) 0.7 % 0-5 [facility] Neutrophils (Bld) [#/Vol] 10.1 10*3/uL 2.0-7.7 [facility] Neutrophils/100 WBC (Bld) 75.1 % 47-70 [facility] WBC (Bld) [#/Vol] 13.5 10*3/uL 4.4-11.0 [facility] Blood erythrocytes count (nu mber/volume)Ordered By: Bria Alicia on 11-29-2022 RBC (Bld) [#/Vol] 3.98 10*6/uL 4.2-5.4 [facility] Blood hemoglobin measurement (mass/volume)Ordered By: Bria Alicia on 11-29-2022 Hemoglobin (Bld) [Mass/Vol] 12.7 g/dL 12.0-15.0 [facility] Blood lymphocytes/100 leukoc ytesOrdered By: Bria Alicia on 11-29-2022 Lymphocytes/100 WBC (Bld) 16.4 % 19-41 [facility] Blood monocytes/100 leukocyt esOrdered By: Bria Alicia on 11-29-2022 Monocytes/100 WBC (Bld) 6.7 % 0-10 [facility] Blood platelet mean volumeOr dered By: Bria Alicia on 11-29-2022 Platelet mean volume (Bld) [Entitic vol] 9.1 fL 6.2-12.0 [facility] Determination of erythrocyte mean corpuscular volume (MCV)Ordered By: Bria Alicia on 11-29-2022 MCV (RBC) [Entitic vol] 94.5 fL 81-99 [facility] Gestational diabetes screen 1-hour screen with 50g oral glucose loadOrdered By: Bria Alicia on 11-29-2022 Glucose 1 Hr post 50 g glucose PO [Mass/Vol] 125 mg/dL 70-140 [facility] HIV 1 and HIV-2 antibody ass ay with HIV-1 p24 antigen detectionOrdered By: Bria Alicia on 11-29-2022 HIV 1+2 Ab+HIV1 p24 Ag IA Ql Non-Reactive Nonreactive [facility] Hematocrit Auto (Bld) [Volum e fraction]Ordered By: Bria Alicia on 11-29-2022 Hematocrit (Bld) [Volume fraction] 37.6 % 37-47 [facility] Laboratory - Chemistry and C hemistry - challengeon 11-29-2022 Glucose Ql (U) Negative [facility] Laboratory - Hematology and Cell countsOrdered By: Bria Alicia on 11-29-2022 Erythrocyte distribution width (RBC) [Entitic vol] 41.5 fL 35.1-43.9 [facility] Erythrocyte distribution width (RBC) [Ratio] 12.0 % 11.6-14.6 [facility] Immature granulocytes/100 WBC (Bld) 0.800 % 0.0-0.9 [facility] Comment on above: IG% - Immature Granu locytes (promyelocytes, myelocytes and metamyelocytes) > 1% indicates that a LEFT SHIFT is Present. MCH (RBC) [Entitic mass] 31.9 pg 27.0-32.0 [facility] Nucleated RBC/100 WBC (Bld) [Ratio] 0 % 0-5 [facility] Laboratory - Urinalysison Protein Ql (U) Negative [facility] MCHC Auto (RBC) [Mass/Vol]Or dered By: Bria Alicia on 11-29-2022 MCHC (RBC) [Mass/Vol] 33.8 g/dL 32-36 [facility] Platelets bldOrdered By: Gricelda Alicia on 11-29-2022 Platelets (Bld) [#/Vol] 309 10*3/uL 150-450 [facility] Serum Treponema species anti body detectionOrdered By: Bria Alicia on 11-29-2022 Treponema sp Ab Ql (S) Non-Reactive [facility] Laboratory - Chemistry and C hemistry - challengeon 10-23-2022 Glucose Ql (U) Negative [facility] Laboratory - Urinalysison Protein Ql (U) Negative [facility] Laboratory - Chemistry and C hemistry - challengeon 10-02-2022 Glucose Ql (U) Negative [facility] Laboratory - Urinalysison Protein Ql (U) Negative [facility] Laboratory - Chemistry and C hemistry - challengeon 08-14-2022 Glucose Ql (U) Negative [facility] Laboratory - Urinalysison Protein Ql (U) Negative [facility] Absolute lymphocyte counton 07-27-2022 Lymphocytes Auto (Unsp spec) [#/Vol] 2.30 10*3/uL 0.83-4.51 [facility] Work Phone: Basophil percentageon 2021 Basophils/100 WBC (Bld) 0.4 % 0-1 [facility] Work Phone: Eosinophils/100 WBC (Bld) 0.6 % 0-5 [facility] Work Phone: Neutrophils (Bld) [#/Vol] 6.4 10*3/uL 2.0-7.7 [facility] Work Phone: Neutrophils/100 WBC (Bld) 67.1 % 47-70 [facility] Work Phone: WBC (Bld) [#/Vol] 9.5 10*3/uL 4.4-11.0 [facility] Work Phone: Blood erythrocytes count (nu mber/volume)on 07-27-2022 RBC (Bld) [#/Vol] 4.34 10*6/uL 4.2-5.4 [facility] Work Phone: Blood hemoglobin measurement (mass/volume)on 07-27-2022 Hemoglobin (Bld) [Mass/Vol] 13.6 g/dL 12.0-15.0 [facility] Work Phone: Blood lymphocytes/100 leukoc yteson 07-27-2022 Lymphocytes/100 WBC (Bld) 24.2 % 19-41 [facility] Work Phone: Blood monocytes/100 leukocyt eson 07-27-2022 Monocytes/100 WBC (Bld) 7.5 % 0-10 [facility] Work Phone: [phone] Blood platelet mean volumeon 07-27-2022 Platelet mean volume (Bld) [Entitic vol] 9.3 fL 6.2-12.0 [facility] Work Phone: Determination of erythrocyte mean corpuscular volume (MCV)on 07-27-2022 MCV (RBC) [Entitic vol] 91.0 fL 81-99 [facility] Work Phone: HIV 1 and HIV-2 antibody ass ay with HIV-1 p24 antigen detectionon 07-27-2022 HIV 1+2 Ab+HIV1 p24 Ag IA Ql Non-Reactive Nonreactive [facility] Work Phone: [phone] Hematocrit Auto (Bld) [Volum e fraction]on 07-27-2022 Hematocrit (Bld) [Volume fraction] 39.5 % 37-47 [facility] Work Phone: Laboratory - Hematology and Cell countson 07-27-2022 Erythrocyte distribution width (RBC) [Entitic vol] 39.1 fL 35.1-43.9 [facility] Work Phone: [phone] Erythrocyte distribution width (RBC) [Ratio] 11.7 % 11.6-14.6 [facility] Work Phone: [phone] Immature granulocytes/100 WBC (Bld) 0.200 % 0.0-0.9 [facility] Work Phone: Comment on above: IG% - Immature Granu locytes (promyelocytes, myelocytes and metamyelocytes) > 1% indicates that a LEFT SHIFT is Present. MCH (RBC) [Entitic mass] 31.3 pg 27.0-32.0 [facility] Work Phone: [phone] Nucleated RBC/100 WBC (Bld) [Ratio] 0 % 0-5 [facility] Work Phone: [phone] MCHC Auto (RBC) [Mass/Vol]on 07-27-2022 MCHC (RBC) [Mass/Vol] 34.4 g/dL 32-36 [facility] Work Phone: [phone] No Panel Informationon 07-27 Miscellaneous Test Comment MAILED SPECIMEN [facility] Work Phone: [phone] Hepatitis B Surface Antigen Non-Reactive Nonreactive [facility] Work Phone: [phone] Hepatitis C Antibody Non-Reactive Nonreactive [facility] Work Phone: [phone] Comment on above: Non Reactive: < 0.8 Equivocal: >/= 0.8 to < 1.0 Reactive: >/= 1.0The CDC recommends that a reactive/equivocal HCV antibody result be followed up by the HCV Nucleic Acid Amplificationtest (027878) Rubella IgG Antibody Non-Reactive Nonreactive [facility] Work Phone: [phone] Comment on above: Antibody Results Int erpretation of Immune Status Non Reactive Presumed Non-Immune Equivocal Equivocal Reactive Presumed Immune Platelets bldon 07-27-2022 Platelets (Bld) [#/Vol] 326 10*3/uL 150-450 [facility] Work Phone: [phone] Serum Treponema species anti body detectionon 07-27-2022 Treponema sp Ab Ql (S) Non-Reactive [facility] Work Phone: [phone] Cervical or vagninal specime n microscopic examination by cytology stain (reported ason 07-16-2022 Cytology report Cyto stain Doc (Cvx/Vag) Comment . [facility] Work Phone: [phone] Comment on above: The Pap smear is a s creening test designed to aid in thedetection of premalignant and malignant conditions of theuterine cervix. It is not a diagnostic procedure andshould not be used as the sole means of detecting cervicalcancer. Both false-positive and false-negative reports dooccur. Chlamydia trachomatis rRNA d etection by probe and target amplification methodon 07-16-2022 C. trachomatis rRNA BRANDON+probe Ql (Unsp spec) Negative Negative [facility] Work Phone: Laboratory - Cytologyon 06-19 Tire Stripper Cyto stain Nom (Cvx/Vag) [ID] Comment . [facility] Work Phone: Comment on above: Laurita Woodruff Cyto technologist (ASCP) Laboratory - Drug toxicology on 07-16-2022 Amphetamines Ql (U) Negative <1000 ng/mL [facility] Work Phone: [phone] Benzodiazepines Ql (U) Negative < 200 ng/mL [facility] Work Phone: [phone] Cannabinoids Screen Ql (U) Negative < 50 ng/mL [facility] Work Phone: [phone] Cocaine Ql (U) Negative < 300 ng/mL [facility] Work Phone: [phone] Opiates Ql (U) Negative < 300 ng/mL [facility] Work Phone: [phone] Laboratory - Microbiology an d Antimicrobial susceptibilityon 07-16-2022 N. gonorrhoeae DNA BRANDON+probe Ql (Unsp spec) Negative Negative [facility] Work Phone: Comment on above: Performed at: =[address] [id number] Director: Serene De Leon MD, Phone: [phone] Laboratory - Miscellaneous t estson 07-16-2022 Service comment (Unsp spec) [Interp] Comment . [facility] Work Phone: Comment on above: This liquid based Th inPrep(R) pap test was screened withthe use of an image guided system. Service comment (Unsp spec) [Interp] . . [facility] Work Phone: No Panel Informationon 07-16 Human Papillomavirus Screen Comment . [facility] Work Phone: Comment on above: The HPV DNA reflex c riteria were not met with this specimenresult therefore, no HPV testing was performed.Performed at: [address] [place] [id number] Director: Serene De Leon MD, Phone: [phone] MDMA (Ecstasy) Screen Negative < 500 ng/mL [facility] Work Phone: [phone] Pathology report final diagnosis Narrative Comment . [facility] Work Phone: Comment on above: NEGATIVE FOR INTRAEP ITHELIAL LESION OR MALIGNANCY. Urine Barbiturates Screen Negative < 200 ng/mL [facility] Work Phone: Urine Drug Screen Comment [facility] Work Phone: [phone] Comment on above: CONFIRMATORY TESTING FOR ALL POSITIVE URINE DRUG SCREENRESULTS WILL ONLY BE SENT OUT UPON PHYSICIAN ORDER. VISTA Urine Drug Screen methods provide only preliminaryanalytical test results. A more specific alternate chemicalmethod must be used in order to obtain a confirmedanalytical result. Gas chromatography/mass spectrometery(GC/MS) is the preferred confirmatory method. Clinicalconsideration and professional judgement should be appliedto any drug of abuse test result, particularly whenpreliminary positive results are used. URINE TCA TESTING MUST BE ORDERED SEPARATELY. USE TESTMNEMONIC: [facility] Urine Methadone Screen Negative < 300 ng/mL [facility] Work Phone: Urine phencyclidine (PCP) de tectionon 07-16-2022 Phencyclidine Ql (U) Negative < 25 ng/mL [facility] Work Phone: Coronavirus 2019on 0 COVID 19 Result CREDIT COUNSELOR Normal Negative for COVID19 (SARS CoV2) by PCR. [facility] Comment on above: Result Comment: Nega tikitty for This test was developed and its performance characteristics determined by [facility]'s [facility] [place]. This test has been authorized by FDA under an Emergency Use Authorization (EUA). This test has been validated in accordance with the FDA's Guidance Document "Policy for Diagnostics Testing in Laboratories Certified to Perform High Complexity Testing under CLIA prior to Emergency use Authorization for Coronavirus Disease 2019 during the Public Health Emergency" issued on January 16, 2020. COVID19 (SARS This test was developed and its performance characteristics determined by [facility]'s [facility] [place]. This test has been authorized by FDA under an Emergency Use Authorization (EUA). This test has been validated in accordance with the FDA's Guidance Document "Policy for Diagnostics Testing in Laboratories Certified to Perform High Complexity Testing under CLIA prior to Emergency use Authorization for Coronavirus Disease 2019 during the Public Health Emergency" issued on January 16, 2020. CoV2) by PCR. This test was developed and its performance characteristics determined by [facility]'s [facility] [place]. This test has been authorized by FDA under an Emergency Use Authorization (EUA). This test has been validated in accordance with the FDA's Guidance Document "Policy for Diagnostics Testing in Laboratories Certified to Perform High Complexity Testing under CLIA prior to Emergency use Authorization for Coronavirus Disease 2019 during the Public Health Emergency" issued on January 16, 2020. COVID 19 Source CREDIT COUNSELOR Normal [facility] Comment on above: Result Comment: Naso pharyngeal Corrected on 05/20 AT 0003: Previously reported as CREDIT COUNSELOR SWAB Swab Corrected on 05/20 AT 0003: Previously reported as CREDIT COUNSELOR SWAB Culture, urine Bacteria identified Cx Nom (U) Positive [facility] Work Phone: Vital Signs Date Time Vital Sign Value Performing Clinician Jhony luu 06-16-2025 10:48-0400 Body height 157.48 cm No Primary Care Physician [facility] 06-16-2025 10:44-0400 Body mass index (BMI) [Ratio] 33.6 kg/m2 No Primary Care Physician [facility] 06-16-2025 10:44-0400 Body weight 83.46 kg No Primary Care Physician [facility] 06-16-2025 10:44-0400 Diastolic blood pressure 73 mm[Hg] No Primary Care Physician [facility] 06-16-2025 10:44-0400 Systolic blood pressure 105 mm[Hg] No Primary Care Physician [facility] 06-09-2025 10:54-0400 Body height 157.48 cm No Primary Care Physician [facility] 06-09-2025 10:53-0400 Body mass index (BMI) [Ratio] 33.7 kg/m2 No Primary Care Physician [facility] 06-09-2025 10:53-0400 Body weight 83.63 kg No Primary Care Physician [facility] 06-09-2025 10:53-0400 Diastolic blood pressure 75 mm[Hg] No Primary Care Physician [facility] 06-09-2025 10:53-0400 Systolic blood pressure 112 mm[Hg] No Primary Care Physician [facility] 06-03-2025 15:07-0400 Body height 157.48 cm No Primary Care Physician [facility] 06-03-2025 15:07-0400 Body mass index (BMI) [Ratio] 33.6 kg/m2 No Primary Care Physician [facility] 06-03-2025 15:07-0400 Body weight 83.51 kg No Primary Care Physician [facility] 06-03-2025 15:07-0400 Diastolic blood pressure 82 mm[Hg] No Primary Care Physician [facility] 06-03-2025 15:07-0400 Systolic blood pressure 122 mm[Hg] No Primary Care Physician [facility] 05-19-2025 10:53-0400 Body height 157.48 cm No Primary Care Physician [facility] 05-19-2025 10:49-0400 Body mass index (BMI) [Ratio] 33 kg/m2 No Primary Care Physician [facility] 05-19-2025 10:49-0400 Body weight 81.87 kg No Primary Care Physician [facility] 05-19-2025 10:49-0400 Diastolic blood pressure 78 mm[Hg] No Primary Care Physician [facility] 05-19-2025 10:49-0400 Systolic blood pressure 111 mm[Hg] No Primary Care Physician [facility] 05-05-2025 11:25-0400 Body height 157.48 cm No Primary Care Physician [facility] 05-05-2025 11:21-0400 Body mass index (BMI) [Ratio] 32.7 kg/m2 No Primary Care Physician [facility] 05-05-2025 11:21-0400 Body weight 81.19 kg No Primary Care Physician [facility] 05-05-2025 11:21-0400 Diastolic blood pressure 74 mm[Hg] No Primary Care Physician [facility] 05-05-2025 11:21-0400 Systolic blood pressure 111 mm[Hg] No Primary Care Physician [facility] 04-21-2025 09:49-0400 Body height 157.48 cm No Primary Care Physician [facility] 04-21-2025 09:49-0400 Body mass index (BMI) [Ratio] 32 kg/m2 No Primary Care Physician [facility] 04-21-2025 09:49-0400 Body weight 79.49 kg No Primary Care Physician [facility] 04-21-2025 09:49-0400 Diastolic blood pressure 71 mm[Hg] No Primary Care Physician [facility] 04-21-2025 09:49-0400 Systolic blood pressure 106 mm[Hg] No Primary Care Physician [facility] 04-05-2025 11:07-0400 Body height 157.48 cm No Primary Care Physician [facility] 04-05-2025 11:07-0400 Body mass index (BMI) [Ratio] 31.3 kg/m2 No Primary Care Physician [facility] 04-05-2025 11:07-0400 Body weight 77.73 kg No Primary Care Physician [facility] 04-05-2025 11:07-0400 Diastolic blood pressure 81 mm[Hg] No Primary Care Physician [facility] 04-05-2025 11:07-0400 Systolic blood pressure 120 mm[Hg] No Primary Care Physician [facility] 02-24-2025 09:49-0400 Body mass index (BMI) [Ratio] 30.3 kg/m2 No Primary Care Physician [facility] 02-24-2025 09:49-0400 Body weight 75.29 kg No Primary Care Physician [facility] 02-24-2025 09:49-0400 Diastolic blood pressure 66 mm[Hg] No Primary Care Physician [facility] 02-24-2025 09:49-0400 Systolic blood pressure 103 mm[Hg] No Primary Care Physician [facility] 01-27-2025 11:35-0400 Body height 157.48 cm No Primary Care Physician [facility] 01-27-2025 11:33-0400 Body mass index (BMI) [Ratio] 28.8 kg/m2 No Primary Care Physician [facility] 01-27-2025 11:33-0400 Body weight 71.44 kg No Primary Care Physician [facility] 01-27-2025 11:33-0400 Diastolic blood pressure 88 mm[Hg] No Primary Care Physician [facility] 01-27-2025 11:33-0400 Systolic blood pressure 127 mm[Hg] No Primary Care Physician [facility] 12-29-2024 13:02-0500 Body mass index (BMI) [Ratio] 28.8 kg/m2 No Primary Care Physician [facility] 12-29-2024 13:02-0500 Body weight 71.44 kg No Primary Care Physician [facility] 12-29-2024 13:02-0500 Diastolic blood pressure 88 mm[Hg] No Primary Care Physician [facility] 12-29-2024 13:02-0500 Systolic blood pressure 127 mm[Hg] No Primary Care Physician [facility] 11-26-2024 12:57-0500 Body mass index (BMI) [Ratio] 28 kg/m2 No Primary Care Physician [facility] 11-26-2024 12:57-0500 Body weight 69.39 kg No Primary Care Physician [facility] 11-26-2024 12:57-0500 Diastolic blood pressure 84 mm[Hg] No Primary Care Physician [facility] 11-26-2024 12:57-0500 Systolic blood pressure 121 mm[Hg] No Primary Care Physician [facility] 02-18-2023 14:00-0400 Body temperature 98.3 [degF] No Primary Care Physician [facility] 02-18-2023 14:00-0400 Diastolic blood pressure 69 mm[Hg] No Primary Care Physician [facility] 02-18-2023 14:00-0400 Heart rate 90 /min No Primary Care Physician [facility] 02-18-2023 14:00-0400 Respiratory rate 16 /min No Primary Care Physician [facility] 02-18-2023 14:00-0400 Systolic blood pressure 113 mm[Hg] No Primary Care Physician [facility] 02-18-2023 03:00-0400 SaO2% (BldA) [Mass fraction] 96 % No Primary Care Physician [facility] 02-16-2023 10:13-0400 Body height 157.48 cm No Primary Care Physician [facility] 02-16-2023 10:13-0400 Body mass index (BMI) [Ratio] 32.9 kg/m2 No Primary Care Physician [facility] 02-16-2023 10:13-0400 Body weight 81.7 kg No Primary Care Physician [facility] 02-12-2023 09:55-0400 Body mass index (BMI) [Ratio] 33.3 kg/m2 No Primary Care Physician [facility] 02-12-2023 09:55-0400 Body weight 82.55 kg No Primary Care Physician [facility] 02-12-2023 09:55-0400 Diastolic blood pressure 86 mm[Hg] No Primary Care Physician [facility] 02-12-2023 09:55-0400 Heart rate 103 /min No Primary Care Physician [facility] 02-12-2023 09:55-0400 Systolic blood pressure 120 mm[Hg] No Primary Care Physician [facility] 02-05-2023 08:53-0400 Body weight 82.55 kg No Primary Care Physician [facility] 02-05-2023 08:53-0400 Diastolic blood pressure 80 mm[Hg] No Primary Care Physician [facility] 02-05-2023 08:53-0400 Systolic blood pressure 117 mm[Hg] No Primary Care Physician [facility] 01-29-2023 10:07-0400 Body height 157.48 cm No Primary Care Physician [facility] 01-29-2023 10:07-0400 Body mass index (BMI) [Ratio] 32 kg/m2 No Primary Care Physician [facility] 01-29-2023 10:07-0400 Body weight 79.37 kg No Primary Care Physician [facility] 01-29-2023 10:07-0400 Diastolic blood pressure 78 mm[Hg] No Primary Care Physician [facility] 01-29-2023 10:07-0400 Heart rate 94 /min No Primary Care Physician [facility] 01-29-2023 10:07-0400 Systolic blood pressure 110 mm[Hg] No Primary Care Physician [facility] 01-22-2023 09:13-0500 Diastolic blood pressure 84 mm[Hg] No Primary Care Physician [facility] 01-22-2023 09:13-0500 Systolic blood pressure 127 mm[Hg] No Primary Care Physician [facility] 01-22-2023 08:55-0500 Body mass index (BMI) [Ratio] 32.5 kg/m2 No Primary Care Physician [facility] 01-22-2023 08:55-0500 Body weight 80.73 kg No Primary Care Physician [facility] 01-10-2023 08:27-0500 Body mass index (BMI) [Ratio] 32.1 kg/m2 No Primary Care Physician [facility] 01-10-2023 08:27-0500 Diastolic blood pressure 80 mm[Hg] No Primary Care Physician [facility] 01-10-2023 08:27-0500 Systolic blood pressure 118 mm[Hg] No Primary Care Physician [facility] 01-10-2023 07:54-0500 Body weight 79.83 kg No Primary Care Physician [facility] 12-25-2022 08:22-0500 Diastolic blood pressure 78 mm[Hg] No Primary Care Physician [facility] 12-25-2022 08:22-0500 Systolic blood pressure 122 mm[Hg] No Primary Care Physician [facility] 12-25-2022 07:59-0500 Body mass index (BMI) [Ratio] 31.6 kg/m2 No Primary Care Physician [facility] 12-25-2022 07:59-0500 Body weight 78.47 kg No Primary Care Physician [facility] 12-25-2022 07:59-0500 Heart rate 90 /min No Primary Care Physician [facility] 12-13-2022 09:58-0500 Body mass index (BMI) [Ratio] 31.4 kg/m2 No Primary Care Physician [facility] 12-13-2022 09:58-0500 Body weight 78.01 kg No Primary Care Physician [facility] 12-13-2022 09:58-0500 Diastolic blood pressure 76 mm[Hg] No Primary Care Physician [facility] 12-13-2022 09:58-0500 Heart rate 80 /min No Primary Care Physician [facility] 12-13-2022 09:58-0500 Systolic blood pressure 110 mm[Hg] No Primary Care Physician [facility] 11-29-2022 15:40-0500 Body height 157.48 cm No Primary Care Physician [facility] 11-29-2022 15:39-0500 Body mass index (BMI) [Ratio] 31.1 kg/m2 No Primary Care Physician [facility] 11-29-2022 15:39-0500 Body weight 77.11 kg No Primary Care Physician [facility] 11-29-2022 15:39-0500 Diastolic blood pressure 83 mm[Hg] No Primary Care Physician [facility] 11-29-2022 15:39-0500 Systolic blood pressure 126 mm[Hg] No Primary Care Physician [facility] 10-29-2022 08:39-0500 Body mass index (BMI) [Ratio] 28.1 kg/m2 No Primary Care Physician [facility] 10-29-2022 08:39-0500 Diastolic blood pressure 72 mm[Hg] No Primary Care Physician [facility] 10-29-2022 08:39-0500 Systolic blood pressure 109 mm[Hg] No Primary Care Physician [facility] 10-23-2022 10:33-0500 Body mass index (BMI) [Ratio] 28.9 kg/m2 No Primary Care Physician [facility] 10-23-2022 10:33-0500 Body weight 71.66 kg No Primary Care Physician [facility] 10-23-2022 10:33-0500 Diastolic blood pressure 79 mm[Hg] No Primary Care Physician [facility] 10-23-2022 10:33-0500 Heart rate 87 /min No Primary Care Physician [facility] 10-23-2022 10:33-0500 Systolic blood pressure 114 mm[Hg] No Primary Care Physician [facility] 10-02-2022 10:23-0500 Body weight 69.85 kg No Primary Care Physician [facility] 10-02-2022 10:23-0500 Heart rate 81 /min No Primary Care Physician [facility] 09-11-2022 13:05-0400 Body height 157.48 cm No Primary Care Physician [facility] Work Phone: 09-11-2022 13:05-0400 Body temperature 99 [degF] No Primary Care Physician [facility] 09-11-2022 13:05-0400 Body weight 68.03 kg No Primary Care Physician [facility] 09-11-2022 13:05-0400 Diastolic blood pressure 80 mm[Hg] No Primary Care Physician [facility] 09-11-2022 13:05-0400 Heart rate 82 /min No Primary Care Physician [facility] 09-11-2022 13:05-0400 Respiratory rate 12 /min No Primary Care Physician [facility] 09-11-2022 13:05-0400 Systolic blood pressure 120 mm[Hg] No Primary Care Physician [facility] 08-14-2022 08:41-0400 Body mass index (BMI) [Ratio] 25.7 kg/m2 No Primary Care Physician [facility] 08-14-2022 08:41-0400 Body weight 63.95 kg No Primary Care Physician [facility] 08-14-2022 08:41-0400 Diastolic blood pressure 76 mm[Hg] No Primary Care Physician [facility] 08-14-2022 08:41-0400 Systolic blood pressure 123 mm[Hg] No Primary Care Physician [facility] 07-16-2022 13:16-0400 Body height 157.48 cm No Primary Care Physician [facility] Work Phone: 07-16-2022 13:16-0400 Body mass index (BMI) [Ratio] 24.5 kg/m2 No Primary Care Physician [facility] Work Phone: 07-16-2022 13:16-0400 Body weight 60.78 kg No Primary Care Physician [facility] Work Phone: 07-16-2022 13:16-0400 Diastolic blood pressure 72 mm[Hg] No Primary Care Physician [facility] Work Phone: 07-16-2022 13:16-0400 Systolic blood pressure 110 mm[Hg] No Primary Care Physician [facility] Work Phone: Encounters Encounter Date Encounter Type Care Provider Facility Start: 06-16-2025 End: 06-16-2025 Patient encounter procedure Natividad Davenport CNM -[facility] @ Start: 06-16-2025 End: 06-16-2025 ambulatory No Primary Care Physician -[facility] @ Start: 06-09-2025 End: 06-09-2025 Patient encounter procedure Natividad Davenport CNM [facility] @ Start: 06-09-2025 End: 06-09-2025 ambulatory No Primary Care Physician -[facility] @ Start: 06-03-2025 End: 06-03-[address] Rama Grant DO -[facility] Work Phone: Start: 06-03-2025 End: 06-03-2025 ambulatory No Primary Care Physician -[facility] Start: 06-03-2025 End: 06-03-2025 ambulatory No Primary Care Physician Facility:[facility] Start: 05-19-2025 End: 05-19-2025 Patient encounter procedure Natividad ROSEN -[facility] @ Start: 05-19-2025 End: 05-19-2025 ambulatory No Primary Care Physician -[facility] @ Start: 05-05-2025 End: 05-05-2025 ambulatory No Primary Care Physician [facility] Work Phone: Start: 05-05-2025 End: 05-05-2025 Patient encounter procedure Natividad ROSEN -[facility] @ Start: 04-21-2025 End: 04-21-2025 Patient encounter procedure Natividad ROSEN -[facility] @ Start: 04-21-2025 End: 04-21-2025 ambulatory No Primary Care Physician [facility] Work Phone: Start: 04-05-2025 End: 04-05-2025 [facility] Work Phone: Start: 04-05-2025 End: 04-05-2025 ambulatory No Primary Care Physician [facility] Work Phone: Start: 04-05-2025 End: 04-05-2025 ambulatory No Primary Care Physician Facility:[facility] Start: 02-24-2025 End: 02-24-2025 Patient encounter procedure Natividad ROSEN -[facility] @ Start: 02-24-2025 End: 02-24-2025 ambulatory No Primary Care Physician Facility:[facility] Start: 02-10-2025 End: 02-10-2025 ambulatory No Primary Care Physician [facility] Work Phone: Start: 02-10-2025 End: 02-10-[address] Rama Grant DO -Ultrasound, [facility] Work Phone: Start: 02-10-2025 End: 02-10-2025 ambulatory No Primary Care Physician Facility:[facility] Start: 01-27-2025 End: 01-27-2025 Patient encounter procedure Natividad Davenport CNM -[facility] @ Start: 01-27-2025 End: 01-27-2025 ambulatory No Primary Care Physician Facility:[facility] Start: 12-29-2024 End: 12-29-[address] Petra Lagunas MD -[facility] Work Phone: Start: 12-29-2024 End: 12-29-2024 ambulatory No Primary Care Physician Facility:[facility] Start: 12-07-2024 End: 12-07-2024 Patient encounter procedure Natividad Davenport CNM -Lab, [facility] Start: 12-07-2024 End: 12-07-2024 ambulatory No Primary Care Physician Facility:[facility] Start: 11-26-2024 End: 11-26-2024 Patient encounter procedure Natividad Davenport CNM -Laboratory, [facility] Work Phone: Start: 11-26-2024 End: 11-26-2024 Patient encounter procedure Natividad Davenport CNM -[facility] Work Phone: Start: 11-26-2024 End: 11-26-2024 ambulatory No Primary Care Physician Facility:[facility] Start: 11-26-2024 End: 11-26-2024 ambulatory No Primary Care Physician Facility:[facility] Start: 11-17-2024 Non-patient / Non-visit Lexi Mendoza RN -[facility] Work Phone: Start: 11-17-2024 ambulatory No Primary Car e Physician Facility:[facility] Start: 02-17-2023 Non-patient / Non-visit [facility] Start: 02-16-2023 Non-patient / Non-visit No Primary Care Physician [facility] Start: 02-16-2023 End: 02-18-2023 Evaluation and management of inpatient No Primary Care Physician [facility] Start: 02-12-2023 End: 02-12-2023 Patient encounter procedure No Primary Care Physician [facility] @ Start: 02-05-2023 End: 02-05-2023 Patient encounter procedure No Primary Care Physician [facility] @ Start: 01-29-2023 End: 01-29-2023 ambulatory No Primary Care Physician [facility] Work Phone: Start: 01-29-2023 End: 01-29-2023 Patient encounter procedure No Primary Care Physician [facility]-Laboratory, [facility] Start: 01-29-2023 End: 01-29-2023 Patient encounter procedure No Primary Care Physician [facility] @ Start: 01-22-2023 End: 01-22-2023 Patient encounter procedure No Primary Care Physician [facility] @ Start: 01-10-2023 End: 01-10-2023 Patient encounter procedure No Primary Care Physician [facility] @ Start: 12-25-2022 End: 12-25-2022 Patient encounter procedure No Primary Care Physician [facility] @ Start: 12-13-2022 End: 12-13-2022 Patient encounter procedure No Primary Care Physician [facility] Start: 11-29-2022 End: 11-29-2022 ambulatory No Primary Care Physician [facility] Work Phone: Start: 11-29-2022 End: 11-29-2022 Patient encounter procedure No Primary Care Physician [facility] Start: 10-23-2022 End: 10-23-2022 Patient encounter procedure No Primary Care Physician [facility] @ Start: 10-02-2022 End: 10-02-2022 Patient encounter procedure No Primary Care Physician [facility] @ Start: 09-27-2022 End: 09-27-2022 ambulatory No Primary Care Physician [facility] Work Phone: Start: 09-27-2022 End: 09-27-2022 Patient encounter procedure No Primary Care Physician [facility] Ul[facility]ound Start: 09-11-2022 End: 09-11-2022 Patient encounter procedure No Primary Care Physician [facility] @ Start: 08-14-2022 End: 08-14-2022 Patient encounter procedure No Primary Care Physician [facility] Start: 07-27-2022 End: 07-27-2022 ambulatory No Primary Care Physician [facility] Work Phone: Start: 07-27-2022 End: 07-27-2022 Patient encounter procedure No Primary Care Physician [facility] Start: 07-16-2022 End: 07-16-2022 ambulatory No Primary Care Physician [facility] Work Phone: Start: 07-16-2022 End: 07-16-2022 Patient encounter procedure No Primary Care Physician [facility]Laboratory, Specimen Start: 07-16-2022 End: 07-16-2022 Patient encounter procedure No Primary Care Physician [facility] Start: 05-19-2020 End: 05-19-2020 [facility] Procedures Date Procedure Procedure Detail Performing Clinician Start: 06-03-2025 Beta-hemolytic Strep tococcus culture No Primary Care Physician Start: 04-05-2025 Serologic test for syphilis No Primary Care Physician Start: 02-10-2025 Ultrasonography in f irst trimester No Primary Care Physician Start: 12-07-2024 Procedure No Primary Care Physician Start: 12-07-2024 Hepatitis B surface antigen measurement No Primary Care Physician Start: 12-07-2024 Hepatitis C antibody measurement No Primary Care Physician Comment on above: Non Reactive: < 0.8 Equivocal: >/= 0.8 to < 1.0 Reactive: >/= 1.0The CDC requires that a reactive/equivocal HCV antibody result be sent out for confirmation. HCV Quant by PCR testing. Start: 12-07-2024 Rubella IgG measurement No Primary Care Physician Comment on above: Antibody Results Int erpretation of Immune Status Non Reactive Presumed Non-Immune Equivocal Equivocal Reactive Presumed Immune Start: 11-26-2024 Urine culture No Primar y Care Physician Start: 09-27-2022 anatomy study No Primary Care Physician Group B Streptococcu s Culture No Primary Care Physician Urine culture No Primary Car e Physician Plan of Treatment Date Care Activity Detail Author Start: 04-05-2025 CBC W Auto Differential panel - Blood [facility] Start: 04-05-2025 Measurement of glucose 2 hours after glucose challenge for glucose tolerance test [facility] Start: 04-05-2025 Serologic test for syphilis [facility] Start: 04-05-2025 [facility] Start: 02-10-2025 Ultrasonography in first trimester OB Anatomy w/ Transvaginal [facility] Start: 02-18-2023 Patient discharge [facility] Start: 02-16-2023 Administration of medication [facility] Start: 02-16-2023 Application of ice collar, cap or bag [facility] Start: 02-16-2023 Catheterization of vein [facility] Start: 02-16-2023 Introduction of urinary catheter [facility] Start: 02-16-2023 Measuring intake and output [facility] Start: 02-16-2023 Notification of physician [facility] Start: 02-16-2023 Procedure discontinued [facility] Start: 02-16-2023 Provision of activity privileges [facility] Start: 02-16-2023 Vital signs measurements [facility] Start: 02-16-2023 [facility] Start: 02-16-2023 Admission procedure [facility] Start: 07-16-2022 Liquid based cervical cytology screening [facility] Work Phone: CBC W Auto Different ial panel - Blood [facility] Work Phone: CBC W Auto Different ial panel - Blood [facility] Erythrocyte mean corpuscular volume determination [facility] Hematocrit [Volume Fraction] of Blood [facility] Hemoglobin [Mass/vol ume] in Blood [facility] Hepatitis B surface antigen measurement [facility] Work Phone: Hepatitis C antibody measurement [facility] Work Phone: HIV 1+2 Ab+HIV1 p24 Ag [Presence] in Serum or Plasma by Immunoassay [facility] Work Phone: Leukocytes [#/volume ] in Blood [facility] Mean corpuscular hemoglobin concentration determination [facility] Mean corpuscular hemoglobin determination [facility] Neutrophil count [facility] Neutrophil percent differential count [facility] Path report.final Dx Spec [facility] Work Phone: Patient Education After a Vaginal [facility] Work Phone: Patient referral [facility] Work Phone: Platelets [#/volume] in Blood [facility] Red blood cell count [facility] Red cell distributio n width determination [facility] Rubella IgG measurement [facility] Work Phone: Streptococcus agalac tiae [Presence] in Unspecified specimen by Organism specific culture [facility] Treponema sp Ab [Pre sence] in Serum [facility] Work Phone: [facility] Payers Date Payer Category Payer Unknown [id number] 2024 Self-pay 2024 Unknown [id number] 2000 Unknown [id number] 2.16.84 [id number] Unknown [id number] Unknown [id number] 2.16.8 40.1.626729.3.579.2.462 Unknown [id number] 2.16.8 40.1.249866.3.579.2.462 Unknown [id number] 2.16.8 40.1.803849.3.579.2.462 Unknown [id number] 2.16.8 40.1.204983.3.579.2.462 Unknown [id number] 2.16.8 40.1.414162.3.579.2.462 Unknown [id number] 2.16.8 40.1.524261.3.579.2.462 Unknown [id number] 2.16.8 40.1.546540.3.579.2.462 Unknown [id number] 2.16.8 40.1.650868.3.579.2.462 Unknown [id number] 2.16.8 40.1.447011.3.579.2.462 Unknown [id number] 2.16.8 40.1.384339.3.579.2.462 Unknown [id number] 2.16.8 40.1.961613.3.579.2.462 Unknown [id number] 2.16.8 40.1.415971.3.579.2.462 Unknown [id number] 2.16.8 40.1.473687.3.579.2.462 Unknown [id number] 2.16.8 40.1.483431.3.579.2.462 Unknown [id number] 2.16.8 40.1.067101.3.579.2.462 Unknown [id number] 2.16.8 40.1.449480.3.579.2.462 Unknown [id number] 2.16.8 40.1.948368.3.579.2.462 Social History Date Type Detail Facility Start: 07-16-2022 End: 02-16-2023 Tobacco smoking status NHIS Unknown if ever smoked [facility] Start: 2000 Sex Assigned At Female [facility] Start: 11-17-2024 Tobacco smoking stat us MDIS Never smoked tobacco (finding) [facility] Start: 02-14-2025 Sex Female (finding) [facility] Goals Date Patient Goal Desired Activity /State Mental Status Date Assessment Result Facility 02-18-2023 Cognitive function Awake;Alert;Appropriat e [facility] Work Phone: Clinical Notes 07-16-2022 to 06-16-2025 Note Date & Type Note Facility 06-16-2025 Progress note [facility] 06-09-2025 Progress note [facility] 05-19-2025 Progress note [facility] 05-05-2025 Progress note [facility] 04-21-2025 Progress note [facility] 04-05-2025 Progress note [facility] 02-24-2025 Evaluation note Diagnosis Onset Date Resolution acute February 24 9:34am Rubella non-immune status, antepartum acute February 24 9:34am Supervision of normal acute February 24, 2025 9:34am acute April 05, 2025 11:03am Rubella non-immune status, antepartum acute April 05 11:03am Supervision of normal acute April 05, 2025 11:03am acute April 21, 2025 9:26am Rubella non-immune status, antepartum acute April 21 9:26am Supervision of normal acute April 21, 2025 9 :26am acute May 05 11:13am Rubella non-immune status, antepartum acute May 05 11:13am Supervision of normal acute May 05, 2025 11:13am acute May 19, 2025 10:45am Rubella non-immune status, antepartum acute May 19 10:45am Supervision of normal acute May 19, 2025 10:45am acute June 03 3:02pm Rubella non-immune status, antepartum acute June 03 3:02pm Supervision of normal acute June 03, 2025 3:02pm [facility] Work Phone: 1(111) 419-725904-09-2025 Evaluation note* Diagnosis Onset Date Resolution Status Admit Date acute February 24 9:34am Rubella non-immune status, antepartum acute February 24, 2025 9:34am Supervision of normal acut e February 24, 2025 9:34am acute April 05, 2025 11:03am Rubella non-immune status, antepartum acute April 05, 2025 1 1:03am Supervision of normal acut e April 05, 2025 11:03am acute April 21, 2025 9:26am Rubella non-immune status, antepartum acute April 21, 2025 9 :26am Supervision of normal acut e April 21, 2025 9:26am acute May 05 11:13am Rubella non-immune status, antepartum acute May 05, 2025 11:13am Supervision of normal acut e May 05, 2025 11:13am acute May 19, 2025 10:45am Rubella non-immune status, antepartum acute May 19, 2025 1 0:45am Supervision of normal acut e May 19, 2025 10:45am acute June 03 3:02pm Rubella non-immune status, antepartum acute June 03, 2025 3:02pm Supervision of normal acut e June 03, 2025 3:02pm acute June 09 10:46am Rubella non-immune status, antepartum acute June 09, 2025 10:46am Supervision of normal acut e June 09, 2025 10:46am [facility] Work Phone: 1(113) 370-971904-09-2025 Evaluation note* Diagnosis Onset Date Resolution Status Admit Date acute February 24 9:34am Rubella non-immune status, antepartum acute February 24, 2025 9:34am Supervision of normal acut e February 24, 2025 9:34am acute April 05, 2025 11:03am Rubella non-immune status, antepartum acute April 05, 2025 1 1:03am Supervision of normal acut e April 05, 2025 11:03am acute April 21, 2025 9:26am Rubella non-immune status, antepartum acute April 21, 2025 9 :26am Supervision of normal acut e April 21, 2025 9:26am acute May 05 11:13am Rubella non-immune status, antepartum acute May 05, 2025 11:13am Supervision of normal acut e May 05, 2025 11:13am acute May 19, 2025 10:45am Rubella non-immune status, antepartum acute May 19, 2025 1 0:45am Supervision of normal acut e May 19, 2025 10:45am acute June 03 3:02pm Rubella non-immune status, antepartum acute June 03, 2025 3:02pm Supervision of normal acut e June 03, 2025 3:02pm acute June 09 10:46am Rubella non-immune status, antepartum acute June 09, 2025 10:46am Supervision of normal acut e June 09, 2025 10:46am acute June 16 10:41am Rubella non-immune status, antepartum acute June 16, 2025 10:41am Supervision of normal acut e June 16, 2025 10:41am [place] [address] [facility] Work Phone: 1(395) 862-880703-12-2025 Evaluation note* Diagnosis Onset Date Resolution Status Admit Date acute January 27 11:09am Rubella non-immune status, antepartum acute January 27, 2025 11:09am Supervision of normal acut e January 27, 2025 11:09am acute February 24 9:34am Rubella non-immune status, antepartum acute February 24, 2025 9:34am Supervision of normal acut e February 24, 2025 9:34am acute April 05, 2025 11:03am Rubella non-immune status, antepartum acute April 05, 2025 1 1:03am Supervision of normal acut e April 05, 2025 11:03am acute April 21, 2025 9:26am Rubella non-immune status, antepartum acute April 21, 2025 9 :26am Supervision of normal acut e April 21, 2025 9:26am acute May 05 11:13am Rubella non-immune status, antepartum acute May 05, 2025 11:13am Supervision of normal acut e May 05, 2025 11:13am [place] [employer] Work Phone: 1(928) 412-790503-12-2025 Evaluation note* Diagnosis Onset Date Resolution Status Admit Date acute January 27 11:09am Rubella non-immune status, antepartum acute January 27, 2025 11:09am Supervision of normal acut e January 27, 2025 11:09am acute February 24 9:34am Rubella non-immune status, antepartum acute February 24, 2025 9:34am Supervision of normal acut e February 24, 2025 9:34am acute April 05, 2025 11:03am Rubella non-immune status, antepartum acute April 05, 2025 1 1:03am Supervision of normal acut e April 05, 2025 11:03am acute April 21, 2025 9:26am Rubella non-immune status, antepartum acute April 21, 2025 9 :26am Supervision of normal acut e April 21, 2025 9:26am acute May 05 11:13am Rubella non-immune status, antepartum acute May 05, 2025 11:13am Supervision of normal acut e May 05, 2025 11:13am acute May 19, 2025 10:45am Rubella non-immune status, antepartum acute May 19, 2025 1 0:45am Supervision of normal acut e May 19, 2025 10:45am [facility] Work Phone: 1(455) 215-667102-11-2025 Evaluation note* Diagnosis Onset Date Resolution Status Admit Date acute December 29, 2024 12:54pm Rubella non-immune status, antepartum acute December 29, 025 12:54pm Supervision of normal acute December 29 025 12:54pm acute January 27 11:09am Rubella non-immune status, antepartum acute January 27, 2025 11:09am Supervision of normal acute January 27, 2025 11:09am acute February 24 9:34am Rubella non-immune status, antepartum acute February 24, 2025 9:34am Supervision of normal acute February 24, 2025 9:34am acute April 05, 2025 11:03am Rubella non-immune status, antepartum acute April 05, 2025 1 1:03am Supervision of normal acute April 05, 2025 1 1:03am [facility] Work Phone: 1([phone]) [phone] Evaluation note* Diagnosis Onset Date Resolution Status Admit Date acute December 29, 2024 12:54pm Rubella non-immune status, antepartum acute December 29, 025 12:54pm Supervision of normal acute December 29 025 12:54pm acute January 27 11:09am Rubella non-immune status, antepartum acute January 27, 2025 11:09am Supervision of normal acute January 27, 2025 11:09am acute February 24 9:34am Rubella non-immune status, antepartum acute February 24, 2025 9:34am Supervision of normal acute February 24, 2025 9:34am acute April 05, 2025 11:03am Rubella non-immune status, antepartum acute April 05, 2025 1 1:03am Supervision of normal acute April 05, 2025 1 1:03am acute April 21, 2025 9:26am Rubella non-immune status, antepartum acute April 21, 2025 9 :26am Supervision of normal acute April 21, 2025 9 :26am [facility] Work Phone: 1([phone]) 371-3542757359-43-8701 Evaluation note* Diagnosis Onset Date Resolution Status Admit Date acute November 26, 025 12:43pm Supervision of normal acute November 26 12:43pm acute December 29, 2024 12:54pm Rubella non-immune status, antepartum acute December 29 025 12:54pm Supervision of normal acute December 29 025 12:54pm acute January 27 11:09am Rubella non-immune status, antepartum acute January 27, 2025 11:09am Supervision of normal acute January 27, 2025 11:09am [facility] Work Phone: 1(896) 852-508004-02-2023 Progress note Author Natividad Davenport [facility] February 17, 2023 8:24am Note Date/Time February 17, 2023 8:24 am [facility] Medical Records Department [address] [place] [address] Progress Note - OBGYN 02/17/23 0822 MR#: [id number] Acct: [id number] Name: DINORAH DOBBINS Rep #:[id number] : 2000 From: Natividad Davenport CNM PCP: Care Physician,No Primary Status :ADM IN Location: [place] [address]-1 Subjective Subjective Patient doing well without complaints. Tolerating PO. Ambulating and voiding without difficulty. Feeding well. Denies chest pain, shortness of breath, calf pain/swelling, fevers, chills, lightheadedness. Objective Data Objective Data Vital Signs: Vital Signs Temp Pulse Resp BP Pulse Ox O2 Del Method 97.6 F L 115 H 16 111/67 96 Room Air 02/17/23 03:10 02/17/23 03:11 02/17/23 03:10 02/17/23 03:11 02/17/23 03:10 02/17/23 03:10 Oxygen Delivery Method Room Air Weight: 180 lb 1.883 oz Body Mass Index (BMI) 32.9 Intake & Output: Intake and Output for Last 24 Hours 02/15/23 02/16/23 02/17/23 23:59 23:59 23:59 Intake Total 2857.50 / 2857.50 250 / 250 Output Total 950 / 950 200 / 200 Balance 1907.50 / 1907.50 50 / 50 Lab / Micro Data Attestation: I reviewed the patient's lab results. Result Diagrams: 02/16/23 11:20 Labs: Laboratory Results - last 24 hr 02/16/23 11:20: WBC 13.3 H, RBC 4.09 L, Hgb 13.0, Hct 37.7, MCV 92.2, MCH 31.8, MCHC 34.5, RDW Std Deviation 42.2, RDW Coeff of Bear 12.5, Plt Count 266, MPV 10.0, Immature Gran % (Auto) 0.300, Neut % (Auto) 80.5 H, Lymph % (Auto) 12.7 L,Dakota % (Auto) 6.2, Eos % (Auto) 0.1, Baso % (Auto) 0.2, Absolute Neuts (auto) 10.7 H, Absolute Lymphs (auto) 1.68, Nucleated RBC % 0 02/16/23 11:20: Blood Type A POSITIVE, Antibody Screen NEGATIVE 02/16/23 11:20: Syphilis Total Ab Non-reactive ROS Constitutional Constitutional: Reports systems reviewed and no addt'l complaints, except as documented; Denies anorexia or headache(s) Cardiovascular Cardiovascular: Reports systems reviewed and no addt'l complaints, except as documented; Denies dizziness, dyspnea, nausea or tachypnea Respiratory/Chest Respiratory/Chest: Reports systems reviewed and no addt'l complaints, except as documented; Denies cough, dyspnea, shortness of breath at rest or tachypnea Gastrointestinal Gastrointestinal: Reports systems reviewed and no addt'l complaints, except as documented; Denies abdominal pain, constipation or nausea Genitourinary Genitourinary: Reports systems reviewed and no addt'l complaints, except as documented; Denies burning urination, difficulty urinating, dysuria, urinary frequency or urinary incontinence Musculoskeletal Musculoskeletal: Reports systems reviewed and no addt'l complaints, except as documented Integumentary Integumentary: Reports systems reviewed and no addt'l complaints, except as documented Neurologic Neurologic: Reports systems reviewed and no addt'l complaints, except as documented; Denies abnormal speech, dizziness or headache(s) Psychiatric Psychiatric: Reports systems reviewed and no addt'l complaints, except as documented Endocrine Endocrinology: Reports systems reviewed and no addt'l complaints, except as documented Hematologic/Lymphatic Hematologic/Lymphatic: Reports systems reviewed and no addt'l complaints, exceptas documented Physical Exam Const alert, oriented x3 and no apparent distress Neck full ROM Chest inspection of chest normal Nipple/Areola: nipples/areola normal Resp normal respiratory effort, normal air movement and no retractions Effort and Inspection: able to speak in complete sentences and symmetric chest movement GI soft to palpation Bladder / Kidney Exam: bladder normal to palpation Uterus Palpation: uterus fundus firm (U1) Extremity normal to inspection and full ROM Psych mental status grossly normal, thought process normal and cooperative Assessment & Plan (1) Vaginal delivery: COMMENT: KW/SM 39.2 Active labor Boy Una PLAN: s/p PPD # 1 1. routine post delivery care 2. breast feeding- support given 3. rh positive 4. rubella immune Charges/Coding Multi Select Codes Urinary/Genital Urinary/Genital CPT Codes: No Charge 02/17/23 4300 <Electronically signed by Natividad Davenport CNM> Cosigner Signature (if applicable): CC: ~ Signed [facility] Work Phone: 1(273) 999-622004-02-2023 Discharge summary Author Natividad Davenport [facility] February 16, 2023 11:50pm Note Date/Time February 16, 2023 11:5 0pm [facility] Medical Records Department [address] [place] [address] Instructions for Home/Discharge Instructions 02/16/23 2347 MR#: [id number] Acct: [id number] Name: DINORAH DOBBINS Rep #:[id number] : 2000 From: Natividad Davenport CNM PCP: Care Physician,No Primary Status :ADM IN Discharge Instructions Diet Discharge Diet: No restrictions Activity Discharge Activity: Return to Normal Activity May resume sexual activity in: 6-8 weeks Weight Bearing Status: Weight bearing as tolerated Dressing / Incision Call your doctor if you observe: Fever of 101 or Higher, Coldness, Increased Pain, Change in Color, Inability to urinate, Inability to have a bowel movement,Using more than 1 pad per hour, Shortness of breath, Dizziness, Fainting spells,Swelling in the ankles, Chest pain, Calf discomfort and Uncontrolled pain Follow Up Care Please Follow Up With: Natividad Davenport CNM When: Please call to set up your check up in 6 weeks. If you have hadhigh blood pressure, please call to set up a blood pressure check in 2 weeks Test Results: Test results from this visit will be discussed in further detail at your follow- up appointment, if applicable. Discharge Plan Admission Admit Date/Time: 02/16/23 11:35 Primary Reason for Your Visit: vaginal delivery Attending Provider: Natividad Davenport Primary Care Provider: Care Physician,No Primary Instructions Patient Instructions: After a Vaginal Discharge Orders/Prescriptions Prescriptions: No Action vit 10-iron fum-folic 65-1 mg tablet 1 tab PO DAILY Referrals / Follow Up: Care Physician,No Primary [Primary Care Provider] - Disposition Disposition (needs filled in before D/C Order can be placed): Home, Self Care 02/16/230<Electronically signed by Natividad Davenport CNM>Natividad Davenport CNM CC: No Primary Care Physician ~ Signed [facility] Work Phone: 1(288) 133-187504-01-2023 Procedure [facility] 02-16-2023 Progress note Author Natividad Issac [facility] February 16, 2023 5:33pm Note Date/Time February 16, 2023 5:[address] [facility] Medical Records Department [address] [place] [address] Progress Note - OBGYN 02/16/23 1727 MR#: [id number] Acct: [id number] Name: DINORAH DOBBINS Rep #:[id number] : 2000 22 From: Natividad Davenport CNHailey PCP: Care Physician,No Primary Status :ADM IN Location: [place] [address]-1 Subjective Subjective Patient comfortable with epidural current tracing: FHT: 145 Moderate variability reactive no decelerations category I tracing [place]: Contractions palpating moderate to strong q 3-5 minutes. AROM at 1503 for meconium SVE /-1 Pitocin augmentation -4mu reviewed tracing abnormalities since last note: Cat 1 A/P: continue POC frequent position changes increase pitocin per protocol Anticipate Objective Data Objective Data Vital Signs: Vital Signs Temp Pulse BP Pulse Ox 98.1 F 115 H 122/73 H 99 02/16/23 17:03 02/16/23 17:03 02/16/23 17:03 02/16/23 17:03 Weight: 180 lb 1.883 oz Body Mass Index (BMI) 32.9 Intake & Output: Intake and Output for Last 24 Hours 02/14/23 02/15/23 02/16/23 23:59 23:59 23:59 Intake Total 792.43 / 792.43 Output Total 100 / 100 Balance 692.43 / 692.43 Lab / Micro Data Result Diagrams: 02/16/23 11:20 Labs: Laboratory Results - last 24 hr 02/16/23 11:20: WBC 13.3 H, RBC 4.09 L, Hgb 13.0, Hct 37.7, MCV 92.2, MCH 31.8, MCHC 34.5, RDW Std Deviation 42.2, RDW Coeff of Bear 12.5, Plt Count 266, MPV 10.0, Immature Gran % (Auto) 0.300, Neut % (Auto) 80.5 H, Lymph % (Auto) 12.7 L,Dakota % (Auto) 6.2, Eos % (Auto) 0.1, Baso % (Auto) 0.2, Absolute Neuts (auto) 10.7 H, Absolute Lymphs (auto) 1.68, Nucleated RBC % 0 02/16/23 11:20: Blood Type A POSITIVE, Antibody Screen NEGATIVE 02/16/23 11:20: Syphilis Total Ab Non-reactive Charges/Coding Procedures Urinary/Genital 52xxx-59xxx: No Charge 02/16/23 1733 <Electronically signed by Natividad Davenport CNM> Cosigner Signature (if applicable): CC: ~ Signed [facility] Work Phone: 1(431) 248-956804-01-2023 Progress note Author Natividad Davenport [facility] February 16, 2023 3:37pm Note Date/Time February 16, 2023 3:37 pm [facility] Medical Records Department [address] [place] [address] Progress Note - OBGYN 02/16/23 1531 MR#: [id number] Acct: [id number] Name: DINORAH DOBBINS Rep #:[id number] : 2000 From: Natividad Davenport CNM PCP: Care Physician,No Primary Status :ADM IN Location: [place] [address] Subjective Subjective Patient comfortable with epidural current tracing: FHT: 135 Moderate variability reactive no decelerations category I tracing [place]: Contractions q 4-6 minutes palpating moderate to strong AROM at 1503 for meconium fluid, peds notified and to be at delivery. SVE: /-1 reviewed tracing abnormalities since last note: none noted, Cat 1 A/P: Continue current POC Continue position changes Anticipate Objective Data Objective Data Vital Signs: Vital Signs Temp Pulse BP Pulse Ox 97.1 F L 93 112/77 100 02/16/23 14:30 02/16/23 15:17 02/16/23 15:17 02/16/23 15:09 Weight: 180 lb 1.883 oz Body Mass Index (BMI) 32.9 Intake & Output: Intake and Output for Last 24 Hours 02/14/23 02/15/23 02/16/23 23:59 23:59 23:59 Intake Total 790.83 / 790.83 Output Total 100 / 100 Balance 690.83 / 690.83 Lab / Micro Data Result Diagrams: 02/16/23 11:20 Labs: Laboratory Results - last 24 hr 02/16/23 11:20: WBC 13.3 H, RBC 4.09 L, Hgb 13.0, Hct 37.7, MCV 92.2, MCH 31.8, MCHC 34.5, RDW Std Deviation 42.2, RDW Coeff of Bear 12.5, Plt Count 266, MPV 10.0, Immature Gran % (Auto) 0.300, Neut % (Auto) 80.5 H, Lymph % (Auto) 12.7 L,Dakota % (Auto) 6.2, Eos % (Auto) 0.1, Baso % (Auto) 0.2, Absolute Neuts (auto) 10.7 H, Absolute Lymphs (auto) 1.68, Nucleated RBC % 0 02/16/23 11:20: Blood Type A POSITIVE, Antibody Screen NEGATIVE 02/16/23 11:20: Syphilis Total Ab Non-reactive Physical Exam Cardio regular rate and regular rhythm Cardio Narrative: orders for IV fluid bolus, consult anesthesia, EKG if needed Rate: tachycardic GI soft to palpation and non-tender Bladder / Kidney Exam: catheter in place urethral Amniotic Fluid: meconium-stained Charges/Coding Procedures Urinary/Genital 52xxx-59xxx: No Charge 02/16/23 1537 <Electronically signed by Natividad Davenport CNM> Cosigner Signature (if applicable): CC: ~ Signed [facility] Work Phone: 1(601) 886-515904-01-2023 History and physical note Author Natividad Davenport [facility] February 16, 2023 1:03pm Note Date/Time February 16, 2023 1:03 pm [facility] Medical Records Department [address] [place] [id number] H&P Exam - 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 Maternal Data Information XUAN Calculator Estimated Delivery Date Method Current WG Current Estimate 02/21/23 LMP (Certain) 39w 2d Final XUAN: 02/21/23 Final XUAN Source: US >20 weeks Gestational age: 39 weeks 2 days PFSH PFSH Medical History no medical history no medical history Home Medications vits no.10-ferrous fumarate 65 mg iron-folic acid 1 mg tablet 1 tab PO DAILY 07/11/22 [History Last Taken 02/15/23 21:00 2 tablets] Allergy/AdvReac Type Severity Reaction Status Date / Time No Known Allergies Allergy Verified 02/12/23 09:56 no significant family history Surgical History no surgical history no surgical history Social History adopted: No household members: spouse housing: house current occupational status: employed current occupation: [employer] current occupational exposures/hazards: No pets and animals: No history of recent travel: No sexually active: Yes Smoking Status: Never smoker alcohol intake: never substance use type: does not use well-balanced diet: daily or most days caffeine: No eating out: rarely or never during the past year weight has: remained stable what type of physical activity do you participate in: walking frequency: 1-2 times per week duration: 15-30 minutes/day prabhu/nondenominational: None seatbelt use: always do you feel safe at home: Yes additional social history: Spouse- [employer] History 1 Elective abortions Hx Para 0 Spontaneous abortions Hx # Term Pregnancies Ectopic pregnancies Hx # Pregnancies Multiple births # of living children Visit Details Expected Delivery Route/Plan Labor Preferences- CB/BF classes: [facility] labor support person: Ford( gets woozy) , and mom labor intervention preferences: limited intervention pain management options preferred: unmedicated cut cord/dad catch: will decline : plans PP control planned:NFP/ROBERTS/condoms discussed possible routes of delivery and associated risks: [] special requests: [] Plans Covid status: discussed Flu vaccine: discussed Tdap vaccine: declined Rhogam: n/a LARC form signed:completed Problem list reviewed and updated with the most current plan of care details and appropriate orders placed. Relevant counseling for the gestational age provided. Continue routine care and follow up unless otherwise noted in visit notes/problem list details OB Flowsheet Initial Weight: Not Recorded Date -?-?-?-?-?-?-?-?-?-?-?-?- EGA Weight BP Urine Prot -?-?-?-?-?-?-?-?-?-?-?-?- Glucose FHR FuHt Pres Dilation -?-?-?-?-?-?-?-?-?-?-?-?- Effaced St Visit Note 07/16/22 -?-?-?-?-?-?-?-?-?-?-?-?- 8w 4d 134 lb 110/72 -?-?-?-?-?-?-?-?-?-?-?-?- 180 -?-?-?-?-?-?-?-?-?-?-?-?- SM- CRL cons wit h LMP SM- CRL 2.26cm cons with LMP 08/14/22 -?-?-?-?-?-?-?-?-?-?-?-?- 12w 5d 141 lb 123/76 Negative -?-?-?-?-?-?-?-?-?-?-?-?- Negative 155 -?-?-?-?-?-?-?-?-?-?-?-?- Sm- no vb cramp ing 09/11/22 -?-?-?-?-?-?-?-?-?-?-?-?- 16w 5d 150 lb 120/80 -?-?-?-?-?-?-?-?-?-?-?-?- 154 -?-?-?-?-?-?-?-?-?-?-?-?- Lc- no vb/crampi ng. discussed afp, declines. normal nob labs. has anatomy scan scheduled 09/27. 10/02/22 -?-?-?-?-?-?-?-?-?-?-?-?- 19w 5d 154 lb 109/72 109/72 Negative -?-?-?-?-?-?-?-?-?-?-?-?- Negative 150 20 -?-?-?-?-?-?-?-?-?-?-?-?- LC-no vb/crampin g. normal anatomy scan. feels well, denies complaints or concerns. 10/23/22 -?-?-?-?-?-?-?-?-?-?-?-?- 22w 5d 158 lb 114/79 Negative -?-?-?-?-?-?-?-?-?-?-?-?- Negative 143 23 -?-?-?-?-?-?-?-?-?-?-?-?- LC-no concerns. no vb/cramping.reviewed normal anatomy. 28 week labs ordered. 11/29/22 -?-?-?-?-?-?-?-?-?-?-?-?- 28w 0d 170 lb 126/83 Negative -?-?-?-?-?-?-?-?-?-?-?-?- Negative 165 28 -?-?-?-?-?-?-?-?-?-?-?-?- JV- normal cbc, glucola pending. no concerns or complaints. 12/13/22 -?-?-?-?-?-?-?-?-?-?-?-?- 30w 0d 172 lb 110/76 Negative -?-?-?-?-?-?-?-?-?-?-?-?- Negative 140 30 -?-?-?-?-?-?-?-?-?-?-?-?- LC- no concerns. no vb/ctx/lof. good fm. larc signed. passed glucola. 12/25/22 -?-?-?-?-?-?-?-?-?-?-?-?- 31w 5d 173 lb 134/87 122/78 Negative -?-?-?-?-?-?-?-?-?-?-?-?- Negative 140 31 -?-?-?-?-?-?-?-?-?-?-?-?- LC- no concerns. no lof/vb/ctx. good FM. 01/10/23 -?-?-?-?-?-?-?-?-?-?-?-?- 34w 0d 176 lb 118/80 118/80 Negative -?-?-?-?-?-?-?-?-?-?-?-?- Negative 135 33 -?-?-?-?-?-?-?-?-?-?--?-?- KW-no concerns. Good FM. no lof/vb/ctx. labor precautions discussed. declines Tdap. 01/22/23 -?-?-?-?-?-?-?-?-?-?-?-?- 35w 5d 178 lb 138/80 127/84 -?-?-?-?-?-?-?-?-?-?-?-?- 150 35 Cephalic -?-?-?-?-?-?-?-?-?-?-?-?- LC-had a tick bi te over the weekend, pulled out very quickly. small red area 2 inches 7oclock from umbilicus. no fevers. good fm, no ctx/lof/vb. is no longer working. LC-had a tick bite over the weekend, pulled out very quickly. small red area 2 inches 7oclock from umbilicus. no fevers. no erythema migrans. good fm, no ctx/lof/vb. is no longer working. 01/29/23 -?-?-?-?-?-?-?-?-?-?-?-?- 36w 5d 175 lb 110/78 Negative -?-?-?-?-?-?-?-?-?-?-?-?- Negative 140 36 Cephalic -?-?-?-?-?-?-?-?-?-?-?-?- LC- no lof/vb/ct x. good fm. tick bite has resolved. LC- no lof/vb/ctx. good fm. tick bite has resolved.gbs obtained today 02/05/23 -?-?-?-?-?-?-?-?-?-?-?-?- 37w 5d 182 lb 117/80 Negative -?-?-?-?-?-?-?-?-?-?-?-?- Negative 138 37 Cephalic -?--?-?-?-?-?-?-?-?-?-?-?- LC- no lof/vb/ct x. good fm. early labor comforts reviewed. declines VE. GBS neg 02/12/23 -?-?-?-?-?-?-?-?-?-?-?-?- 38w 5d 182 lb 120/86 Trace -?-?-?-?-?-?-?-?-?-?-?-?- Negative 140 38 Cephalic -?-?-?-?-?-?-?-?-?-?-?-?- LC- no lof/vb/ct x. good fm. reviewed r/b/a for membrane strip, will consider at next visit.ready for baby 02/16/23 -?-?-?-?-?-?-?-?-?-?-?-?- 39w 2d 180 lb 1.883 oz 142/ 94 142/94 119/79 119/79 119/72 119/72 -?-?-?-?-?-?-?-?-?-?-?-?- -?-?-?-?-?-?-?-?-?-?-?-?- NST FHR Rate Baby A Baseline: 140 Variability:: Moderate Accelerations:: 15 x 15 Decelerations:: None NST Reactive:: Yes FHR Category:: Category I Uterine Activity:: q4-5 minutes palpating moderate ROS Constitutional Constitutional: Denies change in weight, fatigue, fever(s), headache(s), poor appetite or weakness Eyes Eyes: Denies blurry vision, change in vision, floaters, seeing flashes or spots in vision ENT HEENT: Denies dizziness, headache(s), loss taste/smell or sore throat Cardiovascular Cardiovascular: Denies chest pain, dizziness, dyspnea, irregular heart rhythm, lightheadedness, palpitations or rapid heart rate Respiratory/Chest Respiratory/Chest: Denies change in mental status, chest tightness, cough, dyspnea or breast pain Gastrointestinal Gastrointestinal: Denies anorexia, chewing difficulty, constipation, diarrhea or weight changes Genitourinary Genitourinary: Denies difficulty urinating, dysuria, flank pain, genital pain, urinary frequency or urinary urgency Musculoskeletal Musculoskeletal: Denies back pain, difficulty walking, extremity pain, joint pain, muscle cramps or muscle weakness Integumentary Integumentary: Denies lesions or unusual bruising Neurologic Neurologic: Denies abnormal movements, abnormal speech, dizziness, numbness, seizure-like activity, syncope or weakness Psychiatric Psychiatric: Denies behavioral changes, change in appetite, confusion, depression, homicidal ideation, suicidal ideation or suicidal thoughts Endocrine Endocrinology: Denies excessive sweating, polydipsia or polyuria Hematologic/Lymphatic Hematologic/Lymphatic: Denies anemia Allergic/Immunologic Allergic/Immunologic: Denies itchy eyes, lip swelling, throat swelling, tongue swelling or wheezing Vital Signs Vital Signs Vital Signs: 02/16/23 10:02 02/16/23 10:02 02/16/23 10:00 Temperature Temperature Source Temporal Pulse Rate 110 H Blood Pressure 142/94 H BP Systolic 142 BP Diastolic 94 Pulse Ox 02/16/23 10:00 02/16/23 10:00 02/16/23 11:09 Temperature 99.0 F Temperature Source Pulse Rate Blood Pressure 142/94 H 119/79 BP Systolic 142 119 BP Diastolic 94 79 Pulse Ox 02/16/23 11:09 02/16/23 11:10 02/16/23 11:10 Temperature Temperature Source Pulse Rate 100 107 H Blood Pressure BP Systolic BP Diastolic Pulse Ox 97 02/16/23 11:10 02/16/23 11:10 02/16/23 11:10 Temperature Temperature Source Temporal Pulse Rate 102 H Blood Pressure 119/79 BP Systolic 119 BP Diastolic 79 Pulse Ox 02/16/23 11:10 02/16/23 11:10 02/16/23 12:39 Temperature 97.9 F Temperature Source Pulse Rate Blood Pressure 119/72 BP Systolic 119 BP Diastolic 72 Pulse Ox 98 02/16/23 12:39 02/16/23 12:39 02/16/23 12:39 Temperature Temperature Source Pulse Rate 113 H 117 H Blood Pressure BP Systolic BP Diastolic Pulse Ox 97 02/16/23 12:39 02/16/23 12:39 02/16/23 12:39 Temperature Temperature Source Temporal Pulse Rate 108 H Blood Pressure 119/72 BP Systolic 119 BP Diastolic 72 Pulse Ox 02/16/23 12:39 02/16/23 12:39 Temperature 97.9 F Temperature Source Pulse Rate Blood Pressure BP Systolic BP Diastolic Pulse Ox 97 Weight Weight: 180 lb 1.883 oz Body Mass Index (BMI) 32.9 Physical Exam Const alert, oriented x3 and no apparent distress General Appearance: cooperative Orientation / Consciousness: awake HEENT normocephalic Neck full ROM Lymph Lymphatic: no lymphadenopathy noted Resp normal respiratory effort and normal air movement Effort and Inspection: able to speak in complete sentences and symmetric chest movement GI soft to palpation and non-tender Inspection: gravid Palpation: soft; Negative for tender external exam normal Back/Spine normal to inspection Extremity normal to inspection and full ROM Skin no rashes or lesions noted Psych mental status grossly normal Appearance: grossly normal Speech: normal speech Labs Labs Labs: Blood Type A POSITIVE Antibody Screen NEGATIVE Hct 37.7 % (37-47) Hgb 13.0 g/dL (12.0-15.0) Obstetrics US Syphilis Total Ab Non-reactive Rubella IgG Antibody Non-Reactive (Nonreactive) Hep Bs Antigen Non-Reactive (Nonreactive) Chlamydia DNA (BRANDON) Negative (Negative) Neisseria gonorrhoeae DNA (BRANDON) Negative (Negative) HIV 1&2 Antibody Non-Reactive (Nonreactive) Glucose 1 Hr 50 gm 125 mg/dL (70-140) Assessment & Plan (1) Spontaneous onset of labor: PLAN: Patient presents IAL, plan expectant management for , pitocin/AROM PRN if needed. Pain management: plans epidural. GBS negative. Management of any complications: none I have reviewed the [facility] and made any clinically relevant updates. Reviewed plan with Dr. Lagunas, agrees with plan of care. (2) Supervision of normal first : QUALIFIERS: Trimester: first trimester Qualified Code(s): Z34.01 - Encounter for supervision of normal first , first trimester COMMENT: PRR , XUAN 02/21/23, boy! Una Spouse Ford (3) : QUALIFIERS: Weeks of gestation: 32 weeks Qualified Code(s): Z3A.32 - 32 weeks gestation of COMMENT: GBS negative. nl anatomy, low risk NIPT & carrier neg. for 274/274 02/16/23 1303 <Electronically signed by Natividad Davenport CNM> Cosigner Signature (if applicable): CC: LOUIS Davenport; No Primary Care Physician~ Signed [facility] Work Phone: [phone]) 517-693708-29-2022 NotePap Smear Specimen AdequacyAugust 2021 3:57pmComment.Satisfactory for evaluation. No endocervical component is identified.An endocervical component is not commonly seen in the patient.[facility] INTER[facility]ACED A#[id number] Hospitals [facility] Center Work Phone: Comdjru on above:Satisfactory for evaluation. No endocervical component is identified.An endocervical component is not commonly seen in the patient.07-16-2022 NotePap Smear Specimen AdequacyAugust 2021 2:57pmComment.Satisfactory for evaluation. No endocervical component is identified.An endocervical component is not commonly seen in the patient.[facility] A#[id number] [facility]als [facility] Work Phone: comment on above:Satisfactory for evaluation. No endocervical component is identified.An endocervical component is not commonly seen in the patient.Evaluation note* Diagnosis Onset Date Resolution Status acute Supervision of normal first [facility] Work Phone: Evaluation note* Diagnosis Onset Date Resolution Status acute Supervision of normal first acute acute Supervision of normal first acute acute Supervision of normal first [facility] Work Phone: Evaluation note* Diagnosis Onset Date Resolution Status acute Supervision of normal first acute acute Supervision of normal first acute acute Supervision of normal first acute acute Supervision of normal first acute acute Supervision of normal first [facility] Work Phone: Evaluation note* Diagnosis Onset Date Resolution Status acute Supervision of normal first acute acute Supervision of normal first acute acute Supervision of normal first acute acute Supervision of normal first acute acute Supervision of normal first acute acute Supervision of normal first acute Tick bite of abdomen acute acute Supervision of normal first [facility] Work Phone: Evaluation note* Diagnosis Onset Date Resolution Status acute Supervision of normal first acute acute Supervision of normal first acute acute Supervision of normal first acute acute Supervision of normal first acute acute Supervision of normal first acute acute Supervision of normal first acute Tick bite of abdomen acute acute Supervision of normal first acute acute Supervision of normal first acute acute Supervision of normal first acute acute Spontaneous onset of labor a cute Supervision of normal first acute Vaginal delivery acute [facility] Work Phone: Progress note Author Natividad Davenport [facility] Note Date/Time April 05, 2025 11:27 am [facility] [address] [place] [address], [address] [place] [address] OFFICE VISIT Date of Service: 04/05/25 MR#: [id number] Acct: [id number] Name: DINORAH DOBBINS Rep #: [id number] : 2000 Provider: LOUIS Davenport Age/Sex: 24/F Location: [facility] Status: Signed Intake Vital Signs 02/24/25 09:50 04/05/25 11:07 Height 5 ft 2 in 5 ft 2 in Weight: 171 lb 6 oz BMI 31.3 BP 120/81 H Intake Visit Reasons: 26 wk ob Chief Complaint: 26wk OB Gunite Mixer Required: No Is patient in pain?: No Allergies No Known Allergies Allergy (Verified 04/05/25 11:04) Medications ?Medication ?Instructions ?Recorded ?Confirmed ?Type vits no.10-ferrous 1 tab PO DAILY 07/11/22 History fumarate 65 mg iron-folic acid 1 mg tablet Last Menstrual Period: 09/23/24 : No PFSH PFSH Medical History Supervision of normal first Tick bite of abdomen Spontaneous onset of labor Vaginal delivery care and examination Contraception management Social History adopted: No household members: spouse and children housing: house number of children: 1 current occupational status: unemployed current occupation: [employer] current occupational exposures/hazards: No pets and animals: No history of recent travel: No sexually active: Yes Smoking Status: Never smoker alcohol intake: never substance use type: does not use well-balanced diet: about half the time caffeine: No eating out: 1-3 times/week during the past year weight has: increased > 10 lbs what type of physical activity do you participate in: walking and weight training frequency: 1-2 times per week duration: 15-30 minutes/day prabhu/nondenominational: [employer] seatbelt use: always do you feel safe at home: Yes 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 Date Name GA/Weeks Outcome Route Bth Weight Gen Labor Lgth Anesthesia Del Locatn Provider FOB 02/26/23 Ion 39 live - full term 7lbs 6oz Male epidural WC Natividad Davenport Ford Delivery Date: 02/26/23 Last Updated by: Lexi Mendoza RN See problem list for complications HPI 26 wk ob Details: DINORAH DOBBINS is a 24 year old who presents for routine OB visit. OB Visit XUAN Calculator Estimated Delivery Date Method Current WG Current Estimate 06/30/25 LMP (Certain) 27w 5d Other Estimates 06/30/25 Ultrasound #1 27w 5d Expected Delivery Route/Plan Labor Preferences- CB/BF classes: [] labor support person: [] labor intervention preferences: [] pain management options preferred: [] cut cord/dad catch: [] : [] PP control planned: [] discussed possible routes of delivery and associated risks: [] special requests: [] Specific Issue/Plans Covid status: [] Flu vaccine: [] Tdap vaccine: [] Rhogam: [] LARC form signed: [] Problem list reviewed and updated with the most current plan of care details and appropriate orders placed. Relevant counseling for the gestational age provided. Continue routine care and follow up unless otherwise noted in visit notes/problem list details Initial Weight: 153 lb Date -?-?-?-?-?-?-?-?-?-?-?-?- EGA Weight BP Urine Prot -?-?-?-?-?-?-?-?-?-?-?-?- Glucose FHR FuHt Pres Dilation -?-?-?-?-?-?-?-?-?-?-?-?- Effaced St Visit Note 11/26/24 -?-?-?-?-?-?-?-?-?-?-?-?- 9w 1d 153 lb (+0 oz) 121/84 -?-?-?-?-?-?-?-?-?-?-?-?- 176 -?-?-?-?-?-?-?-?-?-?-?-?- KW-CRL cons with dates. accepts NIPT. WOuld like mt hope appts 12/29/24 -?-?-?-?-?-?-?-?-?-?-?-?- 13w 6d 157 lb 8 oz (+4 lb 8 oz) 127/88 Negative -?-?-?-?-?-?-?-?-?-?-?-?- Negative 160 -?-?-?-?-?-?-?-?-?-?-?-?- SM- no vb lof cr amping 01/27/25 -?-?-?-?-?-?-?-?-?-?-?-?- 18w 0d 157 lb 8 oz (+4 lb 8 oz) 127/88 Negative -?-?-?-?-?-?-?-?-?-?-?-?- Negative 150 -?-?-?-?-?-?-?-?-?-?-?-?- KW- no vb/crampi ng. + flutters. US for 02/10. 02/24/25 -?-?-?-?-?-?-?-?-?-?-?-?- 22w 0d 166 lb (+13 lb) 103/66 Negative -?-?-?-?-?-?-?-?-?-?-?-?- Negative 160 -?-?-?-?-?-?-?-?-?-?-?-?- kw- no vb/crampi ng. good fm. normal US. gct next visit in mandy. 04/05/25 -?-?-?-?-?-?-?-?-?-?-?-?- 27w 5d 171 lb 6 oz (+18 lb 6 oz) 120/81 Negative -?-?-?-?-?-?-?-?-?-?-?-?- Negative 155 27 -?-?-?-?-?-?-?-?-?-?-?-?- KW- no vb/lof/ct x. good fm. glucose and LARC today ACOG First Trimester First Trimester: Desire for , Alcohol, Tobacco Cessation, Illicit/Recreational Drug/Substance Use, Intimate Partner Violence, Barriers to care, Unstable Housing, Communication Barriers, Environmental/Work Hazards, Anticipated Course of Care, Toxoplasmosis Precations, Use of Any medications, Sexual activity, Exercise, Dental Care, Sauna/Hot tub use, Seat Belt use, Childbirth classes/Hospital facilities, Travel, Indications for Ultrasound and Screening for Aneuploidy; Discussed Second Trimester Second Trimester: Signs and Symptoms of Labor, Selecting a care provider, Reproductive Life Planning & Contreception, Care Planning and Intimate Partner Violence; Discussed Tobacco Cessation and Discussed Depression/Anxiety Third Trimester Third Trimester: Pain Management Plans, Labor support person(s), Immediate Larc, Movement Monitoring, Signs and Symptoms of Preeclampsia, Labor Signs, Cervical Ripening/Labor Induction Counseling, Postterm Counseling, Education, Depression, Depression and Intimate Partner Violence; Discussed Trial of Labor after Counseling, Discussed Family Medical Leave or Disability Forms and Discussed Tobacco Cessation ROS Const Reports system reviewed and no additional complaints, except as documented Eyes Reports system reviewed and no additional complaints, except as documented ENT Reports system reviewed and no additional complaints, except as documented Card Reports system reviewed and no additional complaints, except as documented Resp Reports system reviewed and no additional complaints, except as documented GI Reports system reviewed and no additional complaints, except as documented, Denies nausea and Denies vomiting Reports system reviewed and no additional complaints, except as documented Musc Reports system reviewed and no additional complaints, except as documented Skin/Breast Reports system reviewed and no additional complaints, except as documented Neuro Yes system reviewed and no additional complaints, except as documented Psych Reports system reviewed and no additional complaints, except as documented Endo Reports system reviewed and no additional complaints, except as documented Keny/Lymph Reports system reviewed and no additional complaints, except as documented Aller/Immun Reports system reviewed and no additional complaints, except as documented Exam Const General: cooperative, healthy appearing and no acute distress Orientation: alert, awake and oriented x3 Neck Neck: normal visual inspection and full ROM Resp Effort & Inspection: normal respiratory effort, able to speak in complete sentences and symmetric chest movement GI Inspection: normal to inspection Palpation: soft and other Other: gravid Skin General: no rashes or lesions noted Neuro General: patient alert, patient awake and patient oriented x3 Cognition: normal cognition Speech: speech normal Gait: normal gait Motor: muscle tone normal throughout Extrem General: normal to inspection and full ROM Psych Appearance: grossly normal Mental Status: mental status grossly normal Mood: congruent mood Affect: normal affect Speech and Movement: speech and movement normal Attitude: cooperative Thought Process: normal Thought Content: normal Judgment: judgment good Results POC Urinalysis 2 Dip (Clinic) Office Urine Glucose Negative Last Edit by Taylor Simmons on 04/05/25 11:11 Office Urine Protein Negative Last Edit by Taylor Simmons on 04/05/25 11:11 Coding Level of Care Code OB Routine Diagnoses Rubella non-immune status, antepartum O09.899; Z28.39 Supervision of normal Z34.90 27 weeks gestation of Z3A.27 Weeks of gestation: 27 weeks Assessment and Plan Assessment and Plan (1) Rubella non-immune status, antepartum: Status: Acute Comment: offer MMR pp (2) Supervision of normal : Status: Acute Comment: PRR , XUAN 06/30/25, PC: Ion, : Ford (3) : Status: Acute Qualifiers: Weeks of gestation: 27 weeks Qualified Code(s): Z3A.27 - 27 weeks gestation of Comment: NIPT low risk (previously done carrier testing) Orders: Orders POC Urinalysis 2 Dip (Clinic) Today Plan Details Additional Comments: ACOG trimester education reviewed and updated. see problem list details for updated plan management information and see below for orders placed at this visit. GA appropriate handout given. 04/05/25 1127 <Electronically signed by Natividad montgomery CNM> Date _ Natividad Davenport CNM Cosigner Signature: Date (if applicable) CC: ~ [facility] Work Phone: Progress note Author Natividad Issac [facility] Note Date/Time April 21, 2025 10:04 am [facility] [address] [place] [address], [address] [place] [address] OFFICE VISIT Date of Service: 04/21/25 MR#: [id number] Acct: [id number] Name: DINORAH DOBBINS Rep #: [id number] : 2000 Provider: LOUIS Davenport Age/Sex: 24/F Location: [facility] Status: Signed Intake Vital Signs 04/05/25 11:07 04/21/25 09:49 Height 5 ft 2 in 5 ft 2 in Weight: 175 lb 4 oz BMI 32.0 BP 106/71 Intake Visit Reasons: 28 wk ob Gunite Mixer Required: No Is patient in pain?: No Allergies No Known Allergies Allergy (Verified 04/21/25 09:48) Medications ?Medication ?Instructions ?Recorded ?Confirmed ?Type vits no.10-ferrous 1 tab PO DAILY 07/11/22 History fumarate 65 mg iron-folic acid 1 mg tablet Last Menstrual Period: 09/23/24 Zika: Zika virus screening: Negative : No PFSH PFSH Medical History Supervision of normal first Tick bite of abdomen Spontaneous onset of labor Vaginal delivery care and examination Contraception management Social History adopted: No household members: spouse and children housing: house number of children: 1 current occupational status: unemployed current occupation: [employer] current occupational exposures/hazards: No pets and animals: No history of recent travel: No sexually active: Yes Smoking Status: Never smoker alcohol intake: never substance use type: does not use well-balanced diet: about half the time caffeine: No eating out: 1-3 times/week during the past year weight has: increased > 10 lbs what type of physical activity do you participate in: walking and weight training frequency: 1-2 times per week duration: 15-30 minutes/day prabhu/nondenominational: Scientology seatbelt use: always do you feel safe at home: Yes 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 Date Name GA/Weeks Outcome Route Bth Weight Gen Labor Lgth Anesthesia Del Locatn Provider FOB 02/26/23 Oin 39 live - full term 7lbs 6oz Male epidural [facility] Natividad Issac [place] Delivery Date: 02/26/23 Last Updated by: Lexi Mendoza RN See problem list for complications HPI 28 wk ob Details: DINORAH DOBBINS is a 24 year old who presents for routine OB visit. OB Visit XUAN Calculator Estimated Delivery Date Method Current WG Current Estimate 06/30/25 LMP (Certain) 30w 0d Other Estimates 06/30/25 Ultrasound #1 30w 0d Expected Delivery Route/Plan Labor Preferences- CB/BF classes: [] labor support person: [] labor intervention preferences: [] pain management options preferred: [] cut cord/dad catch: [] : [] PP control planned: [] discussed possible routes of delivery and associated risks: [] special requests: [] Specific Issue/Plans Covid status: [] Flu vaccine: [] Tdap vaccine: [] Rhogam: [] LARC form signed: [] Problem list reviewed and updated with the most current plan of care details and appropriate orders placed. Relevant counseling for the gestational age provided. Continue routine care and follow up unless otherwise noted in visit notes/problem list details Initial Weight: 153 lb Date -?-?-?-?-?-?-?-?-?-?-?-?- EGA Weight BP Urine Prot -?-?-?-?-?-?-?-?-?-?-?-?- Glucose FHR FuHt Pres Dilation -?-?-?-?-?-?-?-?-?-?-?-?- Effaced St Visit Note 11/26/24 -?-?-?-?-?-?-?-?-?-?-?-?- 9w 1d 153 lb (+0 oz) 121/84 -?-?-?-?-?-?-?-?-?--?-?-?- 176 -?-?-?-?-?-?-?-?-?-?-?-?- KW-CRL cons with dates. accepts NIPT. WOuld like mt hope appts 12/29/24 -?-?-?-?-?-?-?-?-?-?-?-?- 13w 6d 157 lb 8 oz (+4 lb 8 oz) 127/88 Negative -?-?-?-?-?-?-?-?-?-?-?-?- Negative 160 -?-?-?-?-?-?-?-?-?-?-?-?- SM- no vb lof cr amping 01/27/25 -?-?-?-?-?-?-?-?-?-?-?-?- 18w 0d 157 lb 8 oz (+4 lb 8 oz) 127/88 Negative -?-?-?-?-?-?-?-?-?-?-?-?- Negative 150 -?-?-?-?-?-?-?-?-?-?-?-?- KW- no vb/crampi ng. + flutters. US for 02/10. 02/24/25 -?-?-?-?-?-?-?-?-?-?-?-?- 22w 0d 166 lb (+13 lb) 103/66 Negative -?-?-?-?-?-?-?-?-?-?-?-?- Negative 160 -?-?-?-?-?-?-?-?-?-?-?-?- kw- no vb/crampi ng. good fm. normal US. gct next visit in [place]. 04/05/25 -?-?-?-?-?-?-?-?-?-?-?-?- 27w 5d 171 lb 6 oz (+18 lb 6 oz) 120/81 Negative -?-?-?-?-?-?-?-?-?-?-?-?- Negative 155 27 -?-?-?-?-?-?-?-?-?-?-?-?- KW- no vb/lof/ct x. good fm. glucose and LARC today 04/21/25 -?-?-?-?-?-?-?-?-?-?-?-?- 30w 0d 175 lb 4 oz (+22 lb 4 oz) 106/71 Negative -?-?-?-?-?-?-?-?-?-?-?-?- Negative 140 30 -?-?-?-?-?-?-?-?-?-?-?-?- KW- no vb/lof/ct x. good fm. no concerns today ACOG First Trimester First Trimester: Desire for , Alcohol, Tobacco Cessation, Illicit/Recreational Drug/Substance Use, Intimate Partner Violence, Barriers to care, Unstable Housing, Communication Barriers, Environmental/Work Hazards, Anticipated Course of Care, Toxoplasmosis Precations, Use of Any medications, Sexual activity, Exercise, Dental Care, Sauna/Hot tub use, Seat Belt use, Childbirth classes/Hospital facilities, Travel, Indications for Ultrasound and Screening for Aneuploidy; Discussed Second Trimester Second Trimester: Signs and Symptoms of Labor, Selecting a care provider, Reproductive Life Planning & Contreception, Care Planning and Intimate Partner Violence; Discussed Tobacco Cessation and Discussed Depression/Anxiety Third Trimester Third Trimester: Pain Management Plans, Labor support person(s), Immediate Larc, Movement Monitoring, Signs and Symptoms of Preeclampsia, Labor Signs, Cervical Ripening/Labor Induction Counseling, Postterm Counseling, [place] Education, Depression, Depression and Intimate Partner Violence; Discussed Trial of Labor after Counseling, Discussed Family Medical Leave or Disability Forms and Discussed Tobacco Cessation ROS Const Reports system reviewed and no additional complaints, except as documented Eyes Reports system reviewed and no additional complaints, except as documented ENT Reports system reviewed and no additional complaints, except as documented Card Reports system reviewed and no additional complaints, except as documented Resp Reports system reviewed and no additional complaints, except as documented GI Reports system reviewed and no additional complaints, except as documented, Denies nausea and Denies vomiting Reports system reviewed and no additional complaints, except as documented Musc Reports system reviewed and no additional complaints, except as documented Skin/Breast Reports system reviewed and no additional complaints, except as documented Neuro Yes system reviewed and no additional complaints, except as documented Psych Reports system reviewed and no additional complaints, except as documented Endo Reports system reviewed and no additional complaints, except as documented Keny/Lymph Reports system reviewed and no additional complaints, except as documented Aller/Immun Reports system reviewed and no additional complaints, except as documented Exam Const General: cooperative, healthy appearing and no acute distress Orientation: alert, awake and oriented x3 Neck Neck: normal visual inspection and full ROM Resp Effort & Inspection: normal respiratory effort, able to speak in complete sentences and symmetric chest movement GI Inspection: normal to inspection Palpation: soft and other Other: gravid Skin General: no rashes or lesions noted Neuro General: patient alert, patient awake and patient oriented x3 Cognition: normal cognition Speech: speech normal Gait: normal gait Motor: muscle tone normal throughout Extrem General: normal to inspection and full ROM Psych Appearance: grossly normal Mental Status: mental status grossly normal Mood: congruent mood Affect: normal affect Speech and Movement: speech and movement normal Attitude: cooperative Thought Process: normal Thought Content: normal Judgment: judgment good Results POC Urinalysis 2 Dip (Clinic) Office Urine Glucose Negative Last Edit by Lynn Pagan on 04/21/25 09:54 Office Urine Protein Negative Last Edit by Lynn Pagan on 04/21/25 09:54 Coding Level of Care Code OB Routine Diagnoses Rubella non-immune status, antepartum O09.899; Z28.39 Supervision of normal Z34.90 30 weeks gestation of Z3A.30 Weeks of gestation: 30 weeks Assessment and Plan Assessment and Plan (1) Rubella non-immune status, antepartum: Status: Acute Comment: offer MMR pp (2) Supervision of normal : Status: Acute Comment: PRR , XUAN 06/30/25, PC: Ion, : [place] (3) : Status: Acute Qualifiers: Weeks of gestation: 30 weeks Qualified Code(s): Z3A.30 - 30 weeks gestation of Comment: NIPT low risk (previously done carrier testing) Plan Details Additional Comments: ACOG trimester education reviewed and updated. see problem list details for updated plan management information and see below for orders placed at this visit. [place] appropriate handout given. 04/21/25 1004 <Electronically signed by Natividad montgomery CNM> Date _ Natividad ROSENM Cosigner Signature: Date (if applicable) CC: ~ [facility] Work Phone: Progress note Author Natividad Davenport [facility] Note Date/Time May 05, 2025 11:3 8am [facility] [address] [place] [address], [address] [place] [address] OFFICE VISIT Date of Service: 05/05/25 MR#: [id number] Acct: [id number] Name: DINORAH DOBBINS Rep #: [id number] : 2000 Provider: LOUIS Davenport Age/Sex: 24/F Location: [facility] Status: Signed Intake Vital Signs 04/05/25 11:07 04/21/25 09:49 05/05/25 11:21 05/05/25 11:25 Height 5 ft 2 in 5 ft 2 in 5 ft 2 in 5 ft 2 in Weight: 179 lb BMI 32.7 BP 111/74 Intake Visit Reasons: 30 wk ob Gunite Mixer Required: No Is patient in pain?: No Allergies No Known Allergies Allergy (Verified 05/05/25 11:20) Medications ?Medication ?Instructions ?Recorded ?Confirmed ?Type vits no.10-ferrous 1 tab PO DAILY 07/11/22 History fumarate 65 mg iron-folic acid 1 mg tablet Last Menstrual Period: 09/23/24 : No PFSH PFSH Medical History Supervision of normal first Tick bite of abdomen Spontaneous onset of labor Vaginal delivery care and examination Contraception management Social History adopted: No household members: spouse and children housing: house number of children: 1 current occupational status: unemployed current occupation: [employer] current occupational exposures/hazards: No pets and animals: No history of recent travel: No sexually active: Yes Smoking Status: Never smoker alcohol intake: never substance use type: does not use well-balanced diet: about half the time caffeine: No eating out: 1-3 times/week during the past year weight has: increased > 10 lbs what type of physical activity do you participate in: walking and weight training frequency: 1-2 times per week duration: 15-30 minutes/day prabhu/nondenominational: Scientology seatbelt use: always do you feel safe at home: Yes 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 Date Name GA/Weeks Outcome Route Bth Weight Infant Gen Labor Lgth Anesthesia Del Locatn Provider FOB 02/26/23 Una 39 live - full term 7lbs 6oz Male epidural [facility] Natividad Davenport [place] Delivery Date: 02/26/23 Last Updated by: Lexi Mendoza RN See problem list for complications HPI 30 wk ob Details: DINORAH DOBBINS is a 24 year old who presents for routine OB visit. OB Visit XUAN Calculator Estimated Delivery Date Method Current WG Current Estimate 06/30/25 LMP (Certain) 32w 0d Other Estimates 06/30/25 Ultrasound #1 32w 0d Expected Delivery Route/Plan Labor Preferences- CB/BF classes: declines labor support person: mom and Ford labor intervention preferences: [] pain management options preferred: [] cut cord/dad catch: NO : [] PP control planned: [] discussed possible routes of delivery and associated risks: [] special requests: [] Specific Issue/Plans Covid status: [] Flu vaccine: [] Tdap vaccine: [] Rhogam: [] LARC form signed: [] Problem list reviewed and updated with the most current plan of care details and appropriate orders placed. Relevant counseling for the gestational age provided. Continue routine care and follow up unless otherwise noted in visit notes/problem list details Initial Weight: 153 lb Date -?-?-?-?-?-?-?-?-?-?-?-?- EGA Weight BP Urine Prot -?-?-?-?-?-?-?-?-?-?-?-?- Glucose FHR FuHt Pres Dilation -?-?-?-?-?-?-?-?-?-?-?-?- Effaced St Visit Note 11/26/24 -?-?-?-?-?-?-?-?-?-?-?-?- 9w 1d 153 lb (+0 oz) 121/84 -?-?-?-?-?-?-?-?-?-?-?-?- 176 -?-?-?-?-?-?-?-?-?-?-?-?- KW-CRL cons with dates. accepts NIPT. WOuld like mt hope appts 12/29/24 -?-?-?-?-?-?-?-?-?-?-?-?- 13w 6d 157 lb 8 oz (+4 lb 8 oz) 127/88 Negative -?-?-?-?-?-?-?-?-?-?-?-?- Negative 160 -?-?-?--?-?-?-?-?-?-?-?-?- SM- no vb lof cr amping 01/27/25 -?-?-?-?-?-?-?-?-?-?-?-?- 18w 0d 157 lb 8 oz (+4 lb 8 oz) 127/88 Negative -?-?-?-?-?-?-?-?-?-?-?-?- Negative 150 -?-?-?-?-?-?-?-?-?-?-?-?- KW- no vb/crampi ng. + flutters. US for 02/10. 02/24/25 -?-?-?-?-?-?-?-?-?-?-?-?- 22w 0d 166 lb (+13 lb) 103/66 Negative -?-?-?-?-?-?-?-?-?-?-?-?- Negative 160 -?-?-?-?-?-?-?-?-?-?-?-?- kw- no vb/crampi ng. good fm. normal US. gct next visit in [place]. 04/05/25 -?-?-?-?-?-?-?-?-?-?-?-?- 27w 5d 171 lb 6 oz (+18 lb 6 oz) 120/81 Negative -?-?-?-?-?-?-?-?-?-?-?-?- Negative 155 27 -?-?-?-?-?-?-?-?-?-?-?-?- KW- no vb/lof/ct x. good fm. glucose and LARC today 04/21/25 -?-?-?-?-?-?-?-?-?-?-?-?- 30w 0d 175 lb 4 oz (+22 lb 4 oz) 106/71 Negative -?-?-?-?-?-?-?-?-?-?-?-?- Negative 140 30 -?-?-?-?-?-?-?-?-?-?-?-?- KW- no vb/lof/ct x. good fm. no concerns today 05/05/25 -?-?-?-?-?-?-?-?-?-?-?-?- 32w 0d 179 lb (+26 lb) 111/74 Trace -?-?-?-?-?-?-?-?--?-?-?-?- Negative 150 32 -?-?-?-?-?-?-?-?-?-?-?-?- KW- no vb/lof/ct x. good fm. urine concentrated today. ACOG First Trimester First Trimester: Desire for , Alcohol, Tobacco Cessation, Illicit/Recreational Drug/Substance Use, Intimate Partner Violence, Barriers to care, Unstable Housing, Communication Barriers, Environmental/Work Hazards, Anticipated Course of Care, Toxoplasmosis Precations, Use of Any medications, Sexual activity, Exercise, Dental Care, Sauna/Hot tub use, Seat Belt use, Childbirth classes/Hospital facilities, Travel, Indications for Ultrasound and Screening for Aneuploidy; Discussed Second Trimester Second Trimester: Signs and Symptoms of Labor, Selecting a care provider, Reproductive Life Planning & Contreception, Care Planning and Intimate Partner Violence; Discussed Tobacco Cessation and Discussed Depression/Anxiety Third Trimester Third Trimester: Pain Management Plans, Labor support person(s), Immediate Larc, Movement Monitoring, Signs and Symptoms of Preeclampsia, Labor Signs, Cervical Ripening/Labor Induction Counseling, Postterm Counseling, Education, Depression, Depression and Intimate Partner Violence; Discussed Trial of Labor after Counseling, Discussed Family Medical Leave or Disability Forms and Discussed Tobacco Cessation ROS Const Reports system reviewed and no additional complaints, except as documented Eyes Reports system reviewed and no additional complaints, except as documented ENT Reports system reviewed and no additional complaints, except as documented Card Reports system reviewed and no additional complaints, except as documented Resp Reports system reviewed and no additional complaints, except as documented GI Reports system reviewed and no additional complaints, except as documented, Denies nausea and Denies vomiting Reports system reviewed and no additional complaints, except as documented Musc Reports system reviewed and no additional complaints, except as documented Skin/Breast Reports system reviewed and no additional complaints, except as documented Neuro Yes system reviewed and no additional complaints, except as documented Psych Reports system reviewed and no additional complaints, except as documented Endo Reports system reviewed and no additional complaints, except as documented Keny/Lymph Reports system reviewed and no additional complaints, except as documented Aller/Immun Reports system reviewed and no additional complaints, except as documented Exam Const General: cooperative, healthy appearing and no acute distress Orientation: alert, awake and oriented x3 Neck Neck: normal visual inspection and full ROM Resp Effort & Inspection: normal respiratory effort, able to speak in complete sentences and symmetric chest movement GI Inspection: normal to inspection Palpation: soft and other Other: gravid Skin General: no rashes or lesions noted Neuro General: patient alert, patient awake and patient oriented x3 Cognition: normal cognition Speech: speech normal Gait: normal gait Motor: muscle tone normal throughout Extrem General: normal to inspection and full ROM Psych Appearance: grossly normal Mental Status: mental status grossly normal Mood: congruent mood Affect: normal affect Speech and Movement: speech and movement normal Attitude: cooperative Thought Process: normal Thought Content: normal Judgment: judgment good Results POC Urinalysis 2 Dip (Clinic) Office Urine Glucose Negative Last Edit by Lynn Pagan on 05/05/25 11:25 Office Urine Protein Trace Last Edit by Lynn Pagan on 05/05/25 11:25 Coding Level of Care Code OB Routine Diagnoses Rubella non-immune status, antepartum O09.899; Z28.39 Supervision of normal Z34.90 32 weeks gestation of Z3A.32 Weeks of gestation: 32 weeks Assessment and Plan Assessment and Plan (1) Rubella non-immune status, antepartum: Status: Acute Comment: offer MMR pp (2) Supervision of normal : Status: Acute Comment: PRR , XUAN 06/30/25, PC: Ion, : [place] (3) : Status: Acute Qualifiers: Weeks of gestation: 32 weeks Qualified Code(s): Z3A.32 - 32 weeks gestation of Comment: NIPT low risk (previously done carrier testing) Orders: Orders POC Urinalysis 2 Dip (Clinic) Today Plan Details Additional Comments: ACOG trimester education reviewed and updated. see problem list details for updated plan management information and see below for orders placed at this visit. [place] appropriate handout given. 05/05/25 1138 <Electronically signed by Natividad montgomery CNM> Date _ Natividad Davenport CNM Cosigner Signature: Date (if applicable) CC: ~ [facility] Work Phone: Progress note Author Natividad Davenport [facility] Note Date/Time May 19, 2025 11:20 am [facility] [address], [address] [place] [address] OFFICE VISIT Date of Service: 05/19/25 MR#: [id number] Acct: [id number] Name: DINORAH DOBBINS Rep #: [id number] : 2000 Provider: LOUIS Davenport Age/Sex: 24/F Location: [facility] Status: Signed Intake Vital Signs 04/05/25 11:07 05/05/25 11:25 05/19/25 10:49 05/19/25 10:53 Height 5 ft 2 in 5 ft 2 in 5 ft 2 in 5 ft 2 in Weight: 180 lb 8 oz BMI 33.0 BP 111/78 Intake Visit Reasons: 32 wk ob Gunite Mixer Required: No Is patient in pain?: No Allergies No Known Allergies Allergy (Verified 05/19/25 10:48) Medications ?Medication ?Instructions ?Recorded ?Confirmed ?Type vits no.10-ferrous 1 tab PO DAILY 07/11/22 History fumarate 65 mg iron-folic acid 1 mg tablet Last Menstrual Period: 09/23/24 : No PFSH PFSH Medical History Supervision of normal first Tick bite of abdomen Spontaneous onset of labor Vaginal delivery care and examination Contraception management Social History adopted: No household members: spouse and children housing: house number of children: 1 current occupational status: unemployed current occupation: [employer] current occupational exposures/hazards: No pets and animals: No history of recent travel: No sexually active: Yes Smoking Status: Never smoker alcohol intake: never substance use type: does not use well-balanced diet: about half the time caffeine: No eating out: 1-3 times/week during the past year weight has: increased > 10 lbs what type of physical activity do you participate in: walking and weight training frequency: 1-2 times per week duration: 15-30 minutes/day prabhu/nondenominational: Scientology seatbelt use: always do you feel safe at home: Yes 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 Date Name GA/Weeks Outcome Route Bth Weight Gen Labor Lgth Anesthesia Del Locatn Provider FOB 02/26/23 Una 39 live - full term 7lbs 6oz Male epidural [facility] Natividad Davenport [place] Delivery Date: 02/26/23 Last Updated by: Lexi Mendoza, RN See problem list for complications HPI 32 wk ob Details: DINORAH DOBBINS is a 24 year old who presents for routine OB visit. OB Visit XUAN Calculator Estimated Delivery Date Method Current WG Current Estimate 06/30/25 LMP (Certain) 34w 0d Other Estimates 06/30/25 Ultrasound #1 34w 0d Expected Delivery Route/Plan Labor Preferences- CB/BF classes: declines labor support person: mom and Ofrd labor intervention preferences: [] pain management options preferred: [] cut cord/dad catch: NO : [] PP control planned: [] discussed possible routes of delivery and associated risks: [] special requests: [] Specific Issue/Plans Covid status: [] Flu vaccine: [] Tdap vaccine: [] Rhogam: [] LARC form signed: [] Problem list reviewed and updated with the most current plan of care details and appropriate orders placed. Relevant counseling for the gestational age provided. Continue routine care and follow up unless otherwise noted in visit notes/problem list details Initial Weight: 153 lb Date -?-?-?-?-?-?-?-?-?-?-?-?- EGA Weight BP Urine Prot -?-?-?-?-?-?-?-?-?-?-?-?- Glucose FHR FuHt Pres Dilation -?-?-?-?-?-?-?-?-?-?-?-?- Effaced St Visit Note 11/26/24 -?-?-?-?-?-?-?-?-?-?-?-?- 9w 1d 153 lb (+0 oz) 121/84 -?-?-?-?-?-?-?-?-?-?-?-?- 176 -?-?-?-?-?-?-?-?-?-?-?-?- KW-CRL cons with dates. accepts NIPT. WOuld like wv hope appts 12/29/24 -?-?-?-?-?-?-?-?-?-?-?-?- 13w 6d 157 lb 8 oz (+4 lb 8 oz) 127/88 Negative -?-?-?-?-?-?-?-?-?-?-?-?- Negative 160 -?-?-?-?-?-?-?-?-?-?-?-?- SM- no vb lof cr amping 01/27/25 -?-?-?-?-?-?-?-?-?-?-?-?- 18w 0d 157 lb 8 oz (+4 lb 8 oz) 127/88 Negative -?-?-?-?-?-?-?-?-?-?-?-?- Negative 150 -?-?-?-?-?-?-?-?-?-?-?-?- KW- no vb/crampi ng. + flutters. US for 02/10. 02/24/25 -?-?-?-?-?-?-?-?-?-?-?-?- 22w 0d 166 lb (+13 lb) 103/66 Negative -?-?-?-?-?-?-?-?-?-?-?-?- Negative 160 -?-?-?-?-?-?-?-?-?-?-?-?- kw- no vb/crampi ng. good fm. normal US. gct next visit in [place]. 04/05/25 -?-?-?-?-?-?-?-?-?-?-?-?- 27w 5d 171 lb 6 oz (+18 lb 6 oz) 120/81 Negative -?-?-?-?-?-?-?-?-?-?-?-?- Negative 155 27 -?-?-?-?-?-?-?-?-?-?-?-?- KW- no vb/lof/ct x. good fm. glucose and LARC today 04/21/25 -?-?-?-?-?-?-?-?-?-?--?-?- 30w 0d 175 lb 4 oz (+22 lb 4 oz) 106/71 Negative -?-?-?-?-?-?-?-?-?-?-?-?- Negative 140 30 -?-?-?-?-?-?-?-?-?-?-?-?- KW- no vb/lof/ct x. good fm. no concerns today 05/05/25 -?-?-?-?-?-?-?-?-?-?-?-?- 32w 0d 179 lb (+26 lb) 111/74 Trace -?-?-?--?-?-?-?-?-?-?-?-?- Negative 150 32 -?-?-?-?-?-?-?-?-?-?-?-?- KW- no vb/lof/ct x. good fm. urine concentrated today. 05/19/25 -?-?-?-?-?-?-?-?-?-?-?-?- 34w 0d 180 lb 8 oz (+27 lb 8 oz) 111/78 Negative -?-?-?-?-?-?-?-?-?-?-?-?- Negative 130 35 -?-?-?-?-?-?-?-?-?-?-?-?- kw- no vb/lof/ct x. good fm. requesting CBC for fatigue ACOG First Trimester First Trimester: Desire for , Alcohol, Tobacco Cessation, Illicit/Recreational Drug/Substance Use, Intimate Partner Violence, Barriers to care, Unstable Housing, Communication Barriers, Environmental/Work Hazards, Anticipated Course of Care, Toxoplasmosis Precations, Use of Any medications, Sexual activity, Exercise, Dental Care, Sauna/Hot tub use, Seat Belt use, Childbirth classes/Hospital facilities, Travel, Indications for Ultrasound and Screening for Aneuploidy; Discussed Second Trimester Second Trimester: Signs and Symptoms of Labor, Selecting a care provider, Reproductive Life Planning & Contreception, Care Planning and Intimate Partner Violence; Discussed Tobacco Cessation and Discussed Depression/Anxiety Third Trimester Third Trimester: Pain Management Plans, Labor support person(s), Immediate Larc, Movement Monitoring, Signs and Symptoms of Preeclampsia, Labor Signs, Cervical Ripening/Labor Induction Counseling, Postterm Counseling, Education, Depression, Depression and Intimate Partner Violence; Discussed Trial of Labor after Counseling, Discussed Family Medical Leave or Disability Forms and Discussed Tobacco Cessation ROS Const Reports system reviewed and no additional complaints, except as documented Eyes Reports system reviewed and no additional complaints, except as documented ENT Reports system reviewed and no additional complaints, except as documented Card Reports system reviewed and no additional complaints, except as documented Resp Reports system reviewed and no additional complaints, except as documented GI Reports system reviewed and no additional complaints, except as documented, Denies nausea and Denies vomiting Reports system reviewed and no additional complaints, except as documented Musc Reports system reviewed and no additional complaints, except as documented Skin/Breast Reports system reviewed and no additional complaints, except as documented Neuro Yes system reviewed and no additional complaints, except as documented Psych Reports system reviewed and no additional complaints, except as documented Endo Reports system reviewed and no additional complaints, except as documented Keny/Lymph Reports system reviewed and no additional complaints, except as documented Aller/Immun Reports system reviewed and no additional complaints, except as documented Exam Const General: cooperative, healthy appearing and no acute distress Orientation: alert, awake and oriented x3 Neck Neck: normal visual inspection and full ROM Resp Effort & Inspection: normal respiratory effort, able to speak in complete sentences and symmetric chest movement GI Inspection: normal to inspection Palpation: soft and other Other: gravid Skin General: no rashes or lesions noted Neuro General: patient alert, patient awake and patient oriented x3 Cognition: normal cognition Speech: speech normal Gait: normal gait Motor: muscle tone normal throughout Extrem General: normal to inspection and full ROM Psych Appearance: grossly normal Mental Status: mental status grossly normal Mood: congruent mood Affect: normal affect Speech and Movement: speech and movement normal Attitude: cooperative Thought Process: normal Thought Content: normal Judgment: judgment good Results POC Urinalysis 2 Dip (Clinic) Office Urine Glucose Negative Last Edit by Lynn Pagan on 05/19/25 10:53 Office Urine Protein Negative Last Edit by Lynn Pagan on 05/19/25 10:53 Coding Level of Care Code OB Routine Diagnoses Rubella non-immune status, antepartum O09.899; Z28.39 Supervision of normal Z34.90 34 weeks gestation of Z3A.34 Weeks of gestation: 34 weeks Assessment and Plan Assessment and Plan (1) Rubella non-immune status, antepartum: Status: Acute Comment: offer MMR pp (2) Supervision of normal : Status: Acute Comment: PRR , XUAN 06/30/25, PC: Ion, : Ford (3) : Status: Acute Qualifiers: Weeks of gestation: 34 weeks Qualified Code(s): Z3A.34 - 34 weeks gestation of Comment: NIPT low risk (previously done carrier testing) Orders: Orders POC Urinalysis 2 Dip (Clinic) Today CBC W/Diff, Automated Today Z34.90 - Encounter for supervision of normal , unspecified, unspecified trimester Plan Details Additional Comments: ACOG trimester education reviewed and updated. see problem list details for updated plan management information and see below for orders placed at this visit. [place] appropriate handout given. 05/19/25 1120 <Electronically signed by Natividad montgomery CNM> Date _ Natividad Davenport CNM Cosigner Signature: Date (if applicable) CC: ~ [facility] Work Phone: Progress note Author Natividad Davenport [facility] Note Date/Time June 09, 2025 11:0 0am [facility] [address] [place] [address], [address] [place] [address] OFFICE VISIT Date of Service: 06/09/25 MR#: [id number] Acct: [id number] Name: DINORAH DOBBINS Rep #: [id number] : 2000 Provider: LOUIS Davenport Age/Sex: 24/F Location: [facility] Status: Signed Intake Vital Signs 06/03/25 15:07 06/09/25 10:53 06/09/25 10:54 Height 5 ft 2 in 5 ft 2 in 5 ft 2 in Weight: 184 lb 6 oz BMI 33.7 BP 112/75 Intake Visit Reasons: 37wk ob Gunite Mixer Required: No Is patient in pain?: No Allergies No Known Allergies Allergy (Verified 06/09/25 10:53) Medications ?Medication ?Instructions ?Recorded ?Confirmed ?Type vits no.10-ferrous 1 tab PO DAILY 07/11/22 History fumarate 65 mg iron-folic acid 1 mg tablet Last Menstrual Period: 09/23/24 : No PFSH PFSH Medical History Supervision of normal first Tick bite of abdomen Spontaneous onset of labor Vaginal delivery care and examination Contraception management Social History adopted: No household members: spouse and children housing: house number of children: 1 current occupational status: unemployed current occupation: [employer] current occupational exposures/hazards: No pets and animals: No history of recent travel: No sexually active: Yes Smoking Status: Never smoker alcohol intake: never substance use type: does not use well-balanced diet: about half the time caffeine: No eating out: 1-3 times/week during the past year weight has: increased > 10 lbs what type of physical activity do you participate in: walking and weight training frequency: 1-2 times per week duration: 15-30 minutes/day prabhu/nondenominational: Scientology seatbelt use: always do you feel safe at home: Yes 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 Date Name GA/Weeks Outcome Route Bth Weight Gen Labor Lgth Anesthesia Del Locatn Provider FOB 02/26/23 Ion 39 live - full term 7lbs 6oz Male epidural [facility] Natividad Youngblood Delivery Date: 02/26/23 Last Updated by: Lexi Mendoza RN See problem list for complications HPI 37wk ob Details: DINORAH DOBBINS is a 24 year old who presents for routine OB visit. OB Visit XUAN Calculator Estimated Delivery Date Method Current WG Current Estimate 06/30/25 LMP (Certain) 37w 0d Other Estimates 06/30/25 Ultrasound #1 37w 0d Expected Delivery Route/Plan Labor Preferences- CB/BF classes: declines labor support person: mom and Ford labor intervention preferences: [] pain management options preferred: [] cut cord/dad catch: NO : [] PP control planned: [] discussed possible routes of delivery and associated risks: [] special requests: [] Specific Issue/Plans Covid status: [] Flu vaccine: [] Tdap vaccine: [] Rhogam: [] LARC form signed: [] Problem list reviewed and updated with the most current plan of care details and appropriate orders placed. Relevant counseling for the gestational age provided. Continue routine care and follow up unless otherwise noted in visit notes/problem list details Initial Weight: 153 lb Date -?-?-?-?-?-?-?-?-?-?-?-?- EGA Weight BP Urine Prot -?-?-?-?-?-?-?-?-?-?-?-?- Glucose FHR FuHt Pres Dilation -?-?-?-?-?-?-?-?-?-?-?-?- Effaced St Visit Note 11/26/24 -?-?-?-?-?-?-?-?-?-?-?-?- 9w 1d 153 lb (+0 oz) 121/84 -?-?-?-?-?-?-?-?-?-?-?-?- 176 -?-?-?-?-?-?-?-?-?-?-?-?- KW-CRL cons with dates. accepts NIPT. WOuld like mt hope appts 12/29/24 -?-?-?-?-?-?-?-?-?-?-?-?- 13w 6d 157 lb 8 oz (+4 lb 8 oz) 127/88 Negative -?-?-?-?-?-?-?-?-?-?-?-?- Negative 160 -?-?-?-?-?-?-?-?-?-?-?-?- SM- no vb lof cr amping 01/27/25 -?-?-?-?-?-?-?-?-?-?-?-?- 18w 0d 157 lb 8 oz (+4 lb 8 oz) 127/88 Negative -?-?-?-?-?-?-?-?-?-?-?-?- Negative 150 -?-?-?-?-?-?-?-?-?-?-?-?- KW- no vb/crampi ng. + flutters. US for 02/10. 02/24/25 -?-?-?-?-?-?-?-?-?-?-?-?- 22w 0d 166 lb (+13 lb) 103/66 Negative -?-?-?-?-?-?-?-?-?-?-?-?- Negative 160 -?-?-?-?-?-?-?-?-?-?-?-?- kw- no vb/crampi ng. good fm. normal US. gct next visit in [place]. 04/05/25 -?-?-?-?-?-?-?-?-?-?-?-?- 27w 5d 171 lb 6 oz (+18 lb 6 oz) 120/81 Negative -?-?-?-?-?-?-?-?-?-?-?-?- Negative 155 27 -?-?-?-?-?-?-?-?-?-?-?-?- KW- no vb/lof/ct x. good fm. glucose and LARC today 04/21/25 -?-?-?-?-?-?-?-?-?-?-?-?- 30w 0d 175 lb 4 oz (+22 lb 4 oz) 106/71 Negative -?-?-?-?-?-?-?-?-?-?-?-?- Negative 140 30 -?-?-?-?-?-?-?-?-?-?-?-?- KW- no vb/lof/ct x. good fm. no concerns today 05/05/25 -?-?-?-?-?-?-?-?-?-?-?-?- 32w 0d 179 lb (+26 lb) 111/74 Trace -?-?-?-?-?-?-?-?-?-?-?-?- Negative 150 32 -?-?-?-?-?-?-?-?-?-?-?-?- KW- no vb/lof/ct x. good fm. urine concentrated today. 05/19/25 -?-?-?-?-?-?-?-?-?-?-?-?- 34w 0d 180 lb 8 oz (+27 lb 8 oz) 111/78 Negative -?-?-?-?-?-?-?-?-?-?-?-?- Negative 130 35 -?-?-?-?-?-?-?-?-?-?-?-?- kw- no vb/lof/ct x. good fm. requesting CBC for fatigue 06/03/25 -?-?-?-?-?-?-?-?-?-?-?-?- 36w 1d 184 lb 2 oz (+31 lb 2 oz) 122/82 Negative -?-?-?-?-?-?-?-?-?-?-?-?- Negative 145 36 Cephalic -?-?-?-?-?-?-?-?-?-?-?-?- JV- no lof, vagi nal bleeding, or dec fm. declines vaginal exam. GBS collected. 06/09/25 -?-?-?-?-?-?-?-?-?-?-?-?- 37w 0d 184 lb 6 oz (+31 lb 6 oz) 112/75 Negative -?-?-?-?-?-?-?-?-?-?-?-?- Negative 140 37 Cephalic -?-?-?-?-?-?-?-?-?-?-?-?- KW- no vb/lof/ct x. good fm. declines vaginal exam today. ACOG First Trimester First Trimester: Desire for , Alcohol, Tobacco Cessation, Illicit/Recreational Drug/Substance Use, Intimate Partner Violence, Barriers to care, Unstable Housing, Communication Barriers, Environmental/Work Hazards, Anticipated Course of Care, Toxoplasmosis Precations, Use of Any medications, Sexual activity, Exercise, Dental Care, Sauna/Hot tub use, Seat Belt use, Childbirth classes/Hospital facilities, Travel, Indications for Ultrasound and Screening for Aneuploidy; Discussed Second Trimester Second Trimester: Signs and Symptoms of Labor, Selecting a care provider, Reproductive Life Planning & Contreception, Care Planning and Intimate Partner Violence; Discussed Tobacco Cessation and Discussed Depression/Anxiety Third Trimester Third Trimester: Pain Management Plans, Labor support person(s), Immediate Larc, Movement Monitoring, Signs and Symptoms of Preeclampsia, Labor Signs, Cervical Ripening/Labor Induction Counseling, Postterm Counseling, Education, Depression, Depression and Intimate Partner Violence; Discussed Trial of Labor after Counseling, Discussed Family Medical Leave or Disability Forms and Discussed Tobacco Cessation ROS Const Reports system reviewed and no additional complaints, except as documented Eyes Reports system reviewed and no additional complaints, except as documented ENT Reports system reviewed and no additional complaints, except as documented Card Reports system reviewed and no additional complaints, except as documented Resp Reports system reviewed and no additional complaints, except as documented GI Reports system reviewed and no additional complaints, except as documented, Denies nausea and Denies vomiting Reports system reviewed and no additional complaints, except as documented Musc Reports system reviewed and no additional complaints, except as documented Skin/Breast Reports system reviewed and no additional complaints, except as documented Neuro Yes system reviewed and no additional complaints, except as documented Psych Reports system reviewed and no additional complaints, except as documented Endo Reports system reviewed and no additional complaints, except as documented Keny/Lymph Reports system reviewed and no additional complaints, except as documented Aller/Immun Reports system reviewed and no additional complaints, except as documented Exam Const General: cooperative, healthy appearing and no acute distress Orientation: alert, awake and oriented x3 Neck Neck: normal visual inspection and full ROM Resp Effort & Inspection: normal respiratory effort, able to speak in complete sentences and symmetric chest movement GI Inspection: normal to inspection Palpation: soft and other Other: gravid Skin General: no rashes or lesions noted Neuro General: patient alert, patient awake and patient oriented x3 Cognition: normal cognition Speech: speech normal Gait: normal gait Motor: muscle tone normal throughout Extrem General: normal to inspection and full ROM Psych Appearance: grossly normal Mental Status: mental status grossly normal Mood: congruent mood Affect: normal affect Speech and Movement: speech and movement normal Attitude: cooperative Thought Process: normal Thought Content: normal Judgment: judgment good Results POC Urinalysis 2 Dip (Clinic) Office Urine Glucose Negative Last Edit by Lynn Pagan on 06/09/25 10:55 Office Urine Protein Negative Last Edit by Lynn Pagan on 06/09/25 10:55 Coding Level of Care Code OB Routine Diagnoses Rubella non-immune status, antepartum O09.899; Z28.39 Supervision of normal Z34.90 37 weeks gestation of Z3A.37 Weeks of gestation: 37 weeks Assessment and Plan Assessment and Plan (1) Rubella non-immune status, antepartum: Status: Acute Comment: offer MMR pp (2) Supervision of normal : Status: Acute Comment: neg GBS PRR , XUAN 06/30/25, boy Vamshi PC: Ion, : [place] (3) : Status: Acute Qualifiers: Weeks of gestation: 37 weeks Qualified Code(s): Z3A.37 - 37 weeks gestation of Comment: NIPT low risk (previously done carrier testing) Orders: Orders POC Urinalysis 2 Dip (Clinic) Today Plan Details Additional Comments: ACOG trimester education reviewed and updated. see problem list details for updated plan management information and see below for orders placed at this visit. [place] appropriate handout given. 06/09/25 1100 <Electronically signed by Natividad montgomery CNM> Date _ Natividad Davenport CNM Cosigner Signature: Date (if applicable) CC: ~ [facility] Work Phone: Progress note Author Natividad Davenport [facility] Note Date/Time June 16, 2025 10:5 6am [facility] [address], [address] [place] [address] OFFICE VISIT Date of Service: 06/16/25 MR#: [id number] Acct: [id number] Name: DINORAH DOBBINS Rep #: [id number] : 2000 Provider: LOUIS Davenport Age/Sex: 24/F Location: [facility] Status: Signed Intake Vital Signs 05/19/25 10:53 06/09/25 10:54 06/16/25 10:44 06/16/25 10:48 Height 5 ft 2 in 5 ft 2 in 5 ft 2 in 5 ft 2 in Weight: 184 lb BMI 33.6 BP 105/73 Intake Visit Reasons: 38 WK OB Gunite Mixer Required: No Is patient in pain?: No Allergies No Known Allergies Allergy (Verified 06/16/25 10:43) Medications ?Medication ?Instructions ?Recorded ?Confirmed ?Type vits no.10-ferrous 1 tab PO DAILY 07/11/22 History fumarate 65 mg iron-folic acid 1 mg tablet Last Menstrual Period: 09/23/24 : No PFSH PFSH Medical History Supervision of normal first Tick bite of abdomen Spontaneous onset of labor Vaginal delivery care and examination Contraception management Social History adopted: No household members: spouse and children housing: house number of children: 1 current occupational status: unemployed current occupation: [employer] current occupational exposures/hazards: No pets and animals: No history of recent travel: No sexually active: Yes Smoking Status: Never smoker alcohol intake: never substance use type: does not use well-balanced diet: about half the time caffeine: No eating out: 1-3 times/week during the past year weight has: increased > 10 lbs what type of physical activity do you participate in: walking and weight training frequency: 1-2 times per week duration: 15-30 minutes/day prabhu/nondenominational: Scientology seatbelt use: always do you feel safe at home: Yes 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 Date Name GA/Weeks Outcome Route Bth Weight Infant Gen Labor Lgth Anesthesia Del Locatn Provider FOB 02/26/23 Una 39 live - full term 7lbs 6oz Male epidural [facility] Natividad Davenport [place] Delivery Date: 02/26/23 Last Updated by: Lexi Mendoza RN See problem list for complications HPI 38 WK OB Details: DINORAH DOBBINS is a 24 year old who presents for routine OB visit. OB Visit XUAN Calculator Estimated Delivery Date Method Current WG Current Estimate 06/30/25 LMP (Certain) 38w 0d Other Estimates 06/30/25 Ultrasound #1 38w 0d Expected Delivery Route/Plan Labor Preferences- CB/BF classes: declines labor support person: mom and Ford labor intervention preferences: [] pain management options preferred: [] cut cord/dad catch: NO : [] PP control planned: [] discussed possible routes of delivery and associated risks: [] special requests: [] Specific Issue/Plans Covid status: [] Flu vaccine: [] Tdap vaccine: [] Rhogam: [] LARC form signed: [] Problem list reviewed and updated with the most current plan of care details and appropriate orders placed. Relevant counseling for the gestational age provided. Continue routine care and follow up unless otherwise noted in visit notes/problem list details Initial Weight: 153 lb Date -?-?-?-?-?-?-?-?-?-?-?-?- EGA Weight BP Urine Prot -?-?-?-?-?-?-?-?-?-?-?-?- Glucose FHR FuHt Pres Dilation -?-?-?-?-?-?-?-?-?-?-?-?- Effaced St Visit Note 11/26/24 -?-?-?-?-?-?-?-?-?-?-?-?- 9w 1d 153 lb (+0 oz) 121/84 -?-?-?-?-?-?-?-?-?-?-?-?- 176 -?-?-?-?-?-?-?-?-?-?-?-?- KW-CRL cons with dates. accepts NIPT. WOuld like wv hope appts 12/29/24 -?-?-?-?-?-?-?-?-?-?-?-?- 13w 6d 157 lb 8 oz (+4 lb 8 oz) 127/88 Negative -?-?-?-?-?-?-?-?-?-?-?-?- Negative 160 -?-?-?--?-?-?-?-?-?-?-?-?- SM- no vb lof cr amping 01/27/25 -?-?-?-?-?-?-?-?-?-?-?-?- 18w 0d 157 lb 8 oz (+4 lb 8 oz) 127/88 Negative -?-?-?-?-?-?-?-?-?-?-?-?- Negative 150 -?-?-?-?-?-?-?-?-?-?-?-?- KW- no vb/crampi ng. + flutters. US for 02/10. 02/24/25 -?-?-?-?-?-?-?-?-?-?-?-?- 22w 0d 166 lb (+13 lb) 103/66 Negative -?-?-?-?-?-?-?-?-?-?-?-?- Negative 160 -?-?-?-?-?-?-?-?-?-?-?-?- kw- no vb/crampi ng. good fm. normal US. gct next visit in [place]. 04/05/25 -?-?-?-?-?-?-?-?-?-?-?-?- 27w 5d 171 lb 6 oz (+18 lb 6 oz) 120/81 Negative -?-?-?-?-?-?-?-?-?-?-?-?- Negative 155 27 -?-?-?-?-?-?-?-?-?-?-?-?- KW- no vb/lof/ct x. good fm. glucose and LARC today 04/21/25 -?-?-?-?-?-?-?-?-?-?-?-?- 30w 0d 175 lb 4 oz (+22 lb 4 oz) 106/71 Negative -?-?-?-?-?-?-?-?-?-?-?-?- Negative 140 30 -?-?-?-?-?-?-?-?-?-?-?-?- KW- no vb/lof/ct x. good fm. no concerns today 05/05/25 -?-?-?-?-?-?-?-?-?-?-?-?- 32w 0d 179 lb (+26 lb) 111/74 Trace -?-?-?-?-?-?-?-?--?-?-?-?- Negative 150 32 -?-?-?-?-?-?-?-?-?-?-?-?- KW- no vb/lof/ct x. good fm. urine concentrated today. 05/19/25 -?-?-?-?-?-?-?-?-?-?-?-?- 34w 0d 180 lb 8 oz (+27 lb 8 oz) 111/78 Negative -?-?-?-?-?-?-?-?-?-?-?-?- Negative 130 35 -?-?-?-?-?-?-?-?-?-?-?-?- kw- no vb/lof/ct x. good fm. requesting CBC for fatigue 06/03/25 -?-?-?-?-?-?-?-?-?-?-?-?- 36w 1d 184 lb 2 oz (+31 lb 2 oz) 122/82 Negative -?-?-?-?-?-?-?-?-?-?-?-?- Negative 145 36 Cephalic -?-?-?-?-?-?-?-?-?-?-?-?- JV- no lof, vagi nal bleeding, or dec fm. declines vaginal exam. GBS collected. 06/09/25 -?-?-?-?-?-?-?-?-?-?-?-?- 37w 0d 184 lb 6 oz (+31 lb 6 oz) 112/75 Negative -?-?-?-?-?-?-?-?-?-?-?-?- Negative 140 37 Cephalic -?-?-?-?-?-?-?-?-?-?-?-?- KW- no vb/lof/ct x. good fm. declines vaginal exam today. 06/16/25 -?-?-?-?-?-?-?-?-?-?-?-?- 38w 0d 184 lb (+31 lb) 105/73 Trace -?-?-?-?-?-?-?-?-?-?-?-?- Negative 155 37 Cephalic 1 .5 -?-?-?-?-?-?-?-?-?-?-?-?- 60 -2 KW- no vb/ lof/ctx. good fm. labor precautions. would like a membrane sweep next week if possible ACOG First Trimester First Trimester: Desire for , Alcohol, Tobacco Cessation, Illicit/Recreational Drug/Substance Use, Intimate Partner Violence, Barriers to care, Unstable Housing, Communication Barriers, Environmental/Work Hazards, Anticipated Course of Care, Toxoplasmosis Precations, Use of Any medications, Sexual activity, Exercise, Dental Care, Sauna/Hot tub use, Seat Belt use, Childbirth classes/Hospital facilities, Travel, Indications for Ultrasound and Screening for Aneuploidy; Discussed Second Trimester Second Trimester: Signs and Symptoms of Labor, Selecting a care provider, Reproductive Life Planning & Contreception, Care Planning and Intimate Partner Violence; Discussed Tobacco Cessation and Discussed Depression/Anxiety Third Trimester Third Trimester: Pain Management Plans, Labor support person(s), Immediate Larc, Movement Monitoring, Signs and Symptoms of Preeclampsia, Labor Signs, Cervical Ripening/Labor Induction Counseling, Postterm Counseling, Education, Depression, Depression and Intimate Partner Violence; Discussed Trial of Labor after Counseling, Discussed Family Medical Leave or Disability Forms and Discussed Tobacco Cessation ROS Const Reports system reviewed and no additional complaints, except as documented Eyes Reports system reviewed and no additional complaints, except as documented ENT Reports system reviewed and no additional complaints, except as documented Card Reports system reviewed and no additional complaints, except as documented Resp Reports system reviewed and no additional complaints, except as documented GI Reports system reviewed and no additional complaints, except as documented, Denies nausea and Denies vomiting Reports system reviewed and no additional complaints, except as documented Musc Reports system reviewed and no additional complaints, except as documented Skin/Breast Reports system reviewed and no additional complaints, except as documented Neuro Yes system reviewed and no additional complaints, except as documented Psych Reports system reviewed and no additional complaints, except as documented Endo Reports system reviewed and no additional complaints, except as documented Keny/Lymph Reports system reviewed and no additional complaints, except as documented Aller/Immun Reports system reviewed and no additional complaints, except as documented Exam Const General: cooperative, healthy appearing and no acute distress Orientation: alert, awake and oriented x3 Neck Neck: normal visual inspection and full ROM Resp Effort & Inspection: normal respiratory effort, able to speak in complete sentences and symmetric chest movement GI Inspection: normal to inspection Palpation: soft and other Other: gravid Skin General: no rashes or lesions noted Neuro General: patient alert, patient awake and patient oriented x3 Cognition: normal cognition Speech: speech normal Gait: normal gait Motor: muscle tone normal throughout Extrem General: normal to inspection and full ROM Psych Appearance: grossly normal Mental Status: mental status grossly normal Mood: congruent mood Affect: normal affect Speech and Movement: speech and movement normal Attitude: cooperative Thought Process: normal Thought Content: normal Judgment: judgment good Results POC Urinalysis 2 Dip (Clinic) Office Urine Glucose Negative Last Edit by Lynn Pagan on 06/16/25 10:49 Office Urine Protein Trace Last Edit by Lynn Pagan on 06/16/25 10:49 Coding Level of Care Code OB Routine Diagnoses Rubella non-immune status, antepartum O09.899; Z28.39 Supervision of normal Z34.90 38 weeks gestation of Z3A.38 Weeks of gestation: 38 weeks Assessment and Plan Assessment and Plan (1) Rubella non-immune status, antepartum: Status: Acute Comment: offer MMR pp (2) Supervision of normal : Status: Acute Comment: neg GBS PRR , XUAN 06/30/25, boy Vamshi PC: Ion, : Ford (3) : Status: Acute Qualifiers: Weeks of gestation: 38 weeks Qualified Code(s): Z3A.38 - 38 weeks gestation of Comment: NIPT low risk (previously done carrier testing) Orders: Orders POC Urinalysis 2 Dip (Clinic) Today Plan Details Additional Comments: ACOG trimester education reviewed and updated. see problem list details for updated plan management information and see below for orders placed at this visit. [place] appropriate handout given. 06/16/25 1056 <Electronically signed by Natividad montgomery CNM> Date _ Natividad Davenport CNM Cosigner Signature: Date (if applicable) CC: ~ [facility] Work Phone: Reason for referral (narrative)No reason for referral information availableWJ.W. [facility] Work Phone: Summary Purpose Family History No Family History Records FoundNo Family History Records FoundNo Family History Records FoundNo Family History Records Found Advance Directives No Advanced Directives Records Found Advance Directive Response Recorded Date/ Time Living Will No February 16, 2023 11:47am Power of Paint Maker No February 16 11:47am Chief Complaint and Reason for Visit Chief Complaint NOB LMP 05/17/22 Reason for Visit Supervision of normal first Chief Complaint NOB LMP 05/17/22 12 WK OB 16 WK OB ANATOMY SCAN Reason for Visit Supervision of normal first Supervision of normal first Supervision of normal first Chief Complaint 12 WK OB 16 WK OB ANATOMY SCAN OB F/U FROM US 4 WK OB F/U 28 WK OB/GLUCOSE Reason for Visit Supervision of normal first Supervision of normal first Supervision of normal first Supervision of normal first Supervision of normal first Chief Complaint 4 WK OB F/U 28 WK OB/GLUCOSE 30 WK OB 30 WEEK OB F/U OB CHECK OB CHECK 1 WEEK OB CHECK 1 WEEK F/U OB Reason for Visit Supervision of normal first Supervision of normal first Supervision of normal first Supervision of normal first Supervision of normal first Supervision of normal first Tick bite of abdomen Supervision of normal first Chief Complaint 4 WK OB F/U 28 WK OB/GLUCOSE 30 WK OB 30 WEEK OB F/U OB CHECK OB CHECK 1 WEEK OB CHECK 1 WEEK F/U OB 1 WEEK F/U VAGINAL DELIVERY R/O LABOR VAGINAL DELIVERY Reason for Visit Supervision of normal first Supervision of normal first Supervision of normal first Supervision of normal first Supervision of normal first Supervision of normal first Tick bite of abdomen Supervision of normal first Supervision of normal first Supervision of normal first Spontaneous onset of labor Supervision of normal first Vaginal delivery Chief Complaint Admit Date Amb Documentation November 17, 2024 9:44am New OB, LMP 11/6 XUAN 06/30November 26, 2 025 12:43pm 13wk OB December 29, 2024 12:54pm 18 WK OB January 27, 2025 11: 09am CERVICAL LENGTH/ANATOMY February 10, 2025 3:21pm Reason for Visit Admit Date November 26, 2024 12 :43pm Supervision of normal November 26, 2024 12:43pm December 29, 2024 12:54pm Rubella non-immune status, antepartum [facility] 2024 12:54pm Supervision of normal December 29, 2024 12:54pm January 27, 2025 11: 09am Rubella non-immune status, antepartum [facility] 2024 11:09am Supervision of normal January 272024 11:09am Chief Complaint Admit Date 13wk OB December 29, 2024 12:54pm 18 WK OB January 27, 2025 11: 09am CERVICAL LENGTH/ANATOMY February 10, 2025 3:21pm 22 WEEK OB February 24, 2025 9:34 am 26 wk ob April 05, 2025 11:03 am Reason for Visit Admit Date December 29, 2024 12:54pm Rubella non-immune status, antepartum Fe bruary 2024 12:54pm Supervision of normal December 29, 2024 12:54pm January 27, 2025 11: 09am Rubella non-immune status, antepartum Ma [facility] 2024 11:09am Supervision of normal January 272024 11:09am February 24, 2025 9:34 am Rubella non-immune status, antepartum Ap ril 2024 9:34am Supervision of normal February 9:34am April 05, 2025 11:03 am Rubella non-immune status, antepartum Ma y 2024 11:03am Supervision of normal March 11:03am Chief Complaint Admit Date 13wk OB December 29, 2024 12:54pm 18 WK OB January 27, 2025 11: 09am CERVICAL LENGTH/ANATOMY February 10, 2025 3:21pm 22 WEEK OB February 24, 2025 9:34 am 26 wk ob April 05, 2025 11:03 am 28 wk ob April 21, 2025 9:26a m Reason for Visit Admit Date December 29, 2024 12:54pm Rubella non-immune status, antepartum Fe bruary 2024 12:54pm Supervision of normal December 29, 2024 12:54pm January 27, 2025 11: 09am Rubella non-immune status, antepartum Ma rch 2024 11:09am Supervision of normal January [id number] 11:09am February 24, 2025 9:34 am Rubella non-immune status, antepartum Ap ril 2024 9:34am Supervision of normal February 9:34am April 05, 2025 11:03 am Rubella non-immune status, antepartum Ma y 2024 11:03am Supervision of normal March 11:03am April 21, 2025 9:26a m Rubella non-immune status, antepartum Ju ne 2024 9:26am Supervision of normal April 9:26am Chief Complaint Admit Date 18 WK OB January 27, 2025 11: 09am CERVICAL LENGTH/ANATOMY February 10, 2025 3:21pm 22 WEEK OB February 24, 2025 9:34 am 26 wk ob April 05, 2025 11:03 am 28 wk ob April 21, 2025 9:26a m 30 wk ob May 05, 2025 11:1 3am Reason for Visit Admit Date January 27, 2025 11: 09am Rubella non-immune status, antepartum [facility] 2024 11:09am Supervision of normal January 272024 11:09am February 24, 2025 9:34 am Rubella non-immune status, antepartum Ap ril 2024 9:34am Supervision of normal February 9:34am April 05, 2025 11:03 am Rubella non-immune status, antepartum Ma y 2024 11:03am Supervision of normal March 11:03am April 21, 2025 9:26a m Rubella non-immune status, antepartum Ju ne 2024 9:26am Supervision of normal April 9:26am May 05, 2025 11:1 3am Rubella non-immune status, antepartum Ju ne 2024 11:13am Supervision of normal April 11:13am Chief Complaint Admit Date 18 WK OB January 27, 2025 11: 09am CERVICAL LENGTH/ANATOMY February 10, 2025 3:21pm 22 WEEK OB February 24, 2025 9:34 am 26 wk ob April 05, 2025 11:03 am 28 wk ob April 21, 2025 9:26a m 30 wk ob May 05, 2025 11:1 3am 32 wk ob May 19, 2025 10:45 am Reason for Visit Admit Date January 27, 2025 11: 09am Rubella non-immune status, antepartum [facility] 2024 11:09am Supervision of normal January [id number] 11:09am February 24, 2025 9:34 am Rubella non-immune status, antepartum Ap ril 2024 9:34am Supervision of normal February 9:34am April 05, 2025 11:03 am Rubella non-immune status, antepartum Ma y 2024 11:03am Supervision of normal March 11:03am April 21, 2025 9:26a m Rubella non-immune status, antepartum Ju ne 2024 9:26am Supervision of normal April 9:26am May 05, 2025 11:1 3am Rubella non-immune status, antepartum Ju ne 2024 11:13am Supervision of normal April 11:13am May 19, 2025 10:45 am Rubella non-immune status, antepartum Ju ly 2024 10:45am Supervision of normal May 10:45am Chief Complaint Admit Date CERVICAL LENGTH/ANATOMY February 10, 2025 3:21pm 22 WEEK OB February 24, 2025 9:34 am 26 wk ob April 05, 2025 11:03 am 28 wk ob April 21, 2025 9:26a m 30 wk ob May 05, 2025 11:1 3am 32 wk ob May 19, 2025 10:45 am 36 WK OB *NEEDS TO SCHEDULE 37 WK May [id number] 3:02pm Reason for Visit Admit Date February 24, 2025 9:34 am Rubella non-immune status, antepartum Ap ril 2024 9:34am Supervision of normal February 9:34am April 05, 2025 11:03 am Rubella non-immune status, antepartum Ma y 2024 11:03am Supervision of normal March 11:03am April 21, 2025 9:26a m Rubella non-immune status, antepartum Ju ne 2024 9:26am Supervision of normal April 9:26am May 05, 2025 11:1 3am Rubella non-immune status, antepartum Ju ne 2024 11:13am Supervision of normal April 11:13am May 19, 2025 10:45 am Rubella non-immune status, antepartum Ju ly 2024 10:45am Supervision of normal May 10:45am June 03, 2025 3:02 pm Rubella non-immune status, antepartum Ju ly 2024 3:02pm Supervision of normal May 3:02pm Chief Complaint Admit Date CERVICAL LENGTH/ANATOMY February 10, 2025 3:21pm 22 WEEK OB February 24, 2025 9:34 am 26 wk ob April 05, 2025 11:03 am 28 wk ob April 21, 2025 9:26a m 30 wk ob May 05, 2025 11:1 3am 32 wk ob May 19, 2025 10:45 am 36 WK OB *NEEDS TO SCHEDULE 37 WK May 182024 3:02pm 37wk ob June 09, 2025 10:4 6am Reason for Visit Admit Date February 24, 2025 9:34 am Rubella non-immune status, antepartum Ap ril 2024 9:34am Supervision of normal February 9:34am April 05, 2025 11:03 am Rubella non-immune status, antepartum Ma y 2024 11:03am Supervision of normal March 11:03am April 21, 2025 9:26a m Rubella non-immune status, antepartum Ju ne 2024 9:26am Supervision of normal April 9:26am May 05, 2025 11:1 3am Rubella non-immune status, antepartum Ju ne 2024 11:13am Supervision of normal April 11:13am May 19, 2025 10:45 am Rubella non-immune status, antepartum Ju ly 2024 10:45am Supervision of normal May 10:45am June 03, 2025 3:02 pm Rubella non-immune status, antepartum Ju ly 2024 3:02pm Supervision of normal May 3:02pm June 09, 2025 10:4 6am Rubella non-immune status, antepartum Ju ly 2024 10:46am Supervision of normal May 10:46am Chief Complaint Admit Date 22 WEEK OB February 24, 2025 9:34 am 26 wk ob April 05, 2025 11:03 am 28 wk ob April 21, 2025 9:26a m 30 wk ob May 05, 2025 11:1 3am 32 wk ob May 19, 2025 10:45 am 36 WK OB *NEEDS TO SCHEDULE 37 WK May [id number] 3:02pm 37wk ob June 09, 2025 10:4 6am 38 WK OB June 16, 2025 10:4 1am Reason for Visit Admit Date February 24, 2025 9:34 am Rubella non-immune status, antepartum Ap ril 2024 9:34am Supervision of normal February 9:34am April 05, 2025 11:03 am Rubella non-immune status, antepartum Ma y 2024 11:03am Supervision of normal March 11:03am April 21, 2025 9:26a m Rubella non-immune status, antepartum Ju ne 2024 9:26am Supervision of normal April 9:26am May 05, 2025 11:1 3am Rubella non-immune status, antepartum Ju ne 2024 11:13am Supervision of normal April 11:13am May 19, 2025 10:45 am Rubella non-immune status, antepartum Ju ly 2024 10:45am Supervision of normal May 10:45am June 03, 2025 3:02 pm Rubella non-immune status, antepartum Ju ly 2024 3:02pm Supervision of normal May 3:02pm June 09, 2025 10:4 6am Rubella non-immune status, antepartum Ju ly 2024 10:46am Supervision of normal May 10:46am June 16, 2025 10:4 1am Rubella non-immune status, antepartum Ju ly 2024 10:41am Supervision of normal May 10:41am Additional Source Comments INFORMATION SOURCE (unrecogn ized section and content) DATE CREATED AUTHOR 06/10/2020 [facility] DATE CREATED AUTHOR AUTHOR'S ORGANIZ ATION 03/07/2023 [facility] DATE CREATED AUTHOR AUTHOR'S ORGANIZ ATION 04/28/2023 [facility] DATE CREATED AUTHOR AUTHOR'S ORGANIZ ATION 06/18/2025 [facility] Goals (unrecognized section and content) Goals may be documented in a n alternate sectionGoals may be documented in an alternate sectionGoals may be documented in an alternate sectionGoals may be documented in an alternate sectionGoals may be documented in an alternate sectionGoals may be documented in an alternate sectionGoals may be documented in an alternate sectionGoals may be documented in an alternate sectionGoals may be documented in an alternate sectionGoals may be documented in an alternate sectionGoals may be documented in an alternate sectionGoals may be documented in an alternate sectionGoals may be documented in an alternate sectionGoals may be documented in an alternate section Care Teams (unrecognized sec tion and content) Team Status: Active Member Role Status Dates No Primary Care Physician Primary Care Provider Active Team Status: Inactive Member Role Status Dates No Primary Care Physician Primary Care Provider Active Start: December 07, 2024 End: December 07, 2024 Natividad Davenport CNM Attending Provider Active S tart: December 07, 2024 End: December 07, 2024 Natividad Davenport CNM Referring Provider Active S tart: December 07, 2024 End: December 07, 2024 Team Status: Inactive Member Role Status Dates No Primary Care Physician Primary Care Provider Active Start: December 29, 2024 End: December 29, 2024 No Primary Care Physician Referring Provider Active Start: December 29, 2024 End: December 29, 2024 Dr. Petra Lagunas MD Attending Provider Active Start: December 29, 2024 End: December 29, 2024 Team Status: Inactive Member Role Status Dates No Primary Care Physician Primary Care Provider Active Start: January 27, 2025 End: January 27, 2025 No Primary Care Physician Referring Provider Active Start: January 27, 2025 End: January 27, 2025 Natividad Davenport CNM Attending Provider Active S tart: January 27, 2025 End: January 27, 2025 Team Status: Inactive Member Role Status Dates No Primary Care Physician Primary Care Provider Active Start: February 10, 2025 End: February 10, 2025 Dr. Rama Grant , DO Attending Provider Activ e Start: February 10, 2025 End: February 10, 2025 Dr. Rama Grant , DO Referring Provider Activ e Start: February 10, 2025 End: February 10, 2025 Team Status: Inactive Member Role Status Dates No Primary Care Physician Primary Care Provider Active Start: February 24, 2025 End: February 24, 2025 No Primary Care Physician Referring Provider Active Start: February 24, 2025 End: February 24, 2025 Natividad Davenport CNM Attending Provider Active S tart: February 24, 2025 End: February 24, 2025 Team Status: Inactive Member Role Status Dates No Primary Care Physician Primary Care Provider Active Start: April 05, 2025 End: April 05, 2025 No Primary Care Physician Referring Provider Active Start: April 05, 2025 End: April 05, 2025 Natividad Davenport CNM Attending Provider Active S tart: April 05, 2025 End: April 05, 2025 Team Status: Active Member Role Status Dates No Primary Care Physician Primary Care Provider Active Start: April 05, 2025 Natividad Davenport CNM Attending Provider Active S tart: April 05, 2025 Natividad Davenport CNM Referring Provider Active S tart: April 05, 2025 Team Status: Active Member Role Status Dates No Primary Care Physician Primary Care Provider Active Start: November 17, 2024 Lexi Mendoza RN Attending Provider Active St art: November 17, 2024 Team Status: Inactive Member Role Status Dates No Primary Care Physician Primary Care Provider Active Start: November 26, 2024 End: November 26, 2024 No Primary Care Physician Referring Provider Active Start: November 26, 2024 End: November 26, 2024 Natividad Davenport CNM Attending Provider Active S tart: November 26, 2024 End: November 26, 2024 Team Status: Inactive Member Role Status Dates No Primary Care Physician Primary Care Provider Active Start: November 26, 2024 End: November 26, 2024 Natividad Davenport CNM Attending Provider Active S tart: November 26, 2024 End: November 26, 2024 Natividad Davenport CNM Referring Provider Active S tart: November 26, 2024 End: November 26, 2024 Team Status: Inactive Member Role Status Dates No Primary Care Physician Primary Care Provider, Refer ring Provider Active Dr. Petra Lagunas MD Attending Provider Active Team Status: Inactive Member Role Status Dates No Primary Care Physician Primary Care Provider, Refer ring Provider Active Bria Alicia CNM Attending Provider Active Team Status: Inactive Member Role Status Dates No Primary Care Physician Primary Care Provider, Refer ring Provider Active Dr. Rama Grant DO Attending Provider Activ e Team Status: Inactive Member Role Status Dates No Primary Care Physician Primary Care Provider Active Dr. Petra Lagunas MD Attending Provider, Referr ing Provider Active Team Status: Inactive Member Role Status Dates No Primary Care Physician Primary Care Provider Active Bria Alicia CNM Attending Provider, Referring Pr ovider Active Team Status: Inactive Member Role Status Dates No Primary Care Physician Primary Care Provider, Refer ring Provider Active Natividad Davenport CNM Attending Provider Active Team Status: Active Member Role Status Dates No Primary Care Physician Primary Care Provider, Refer ring Provider Active Bria Alicia CNM Attending Provider Active Team Status: Active Member Role Status Dates No Primary Care Physician Primary Care Provider Active Natividad Davenport CNM Admit Provider, Att ending Provider, Referring Provider, Other Provider Active Team Status: Inactive Member Role Status Dates No Primary Care Physician Primary Care Provider Active Natividad Davenport CNM Admit Provider, Att ending Provider, Referring Provider Active Team Status: Inactive Member Role Status Dates No Primary Care Physician Primary Care Provider Active Start: April 05, 2025 End: April 05, 2025 Natividad Davenport CNM Attending Provider Active S tart: April 05, 2025 End: April 05, 2025 Natividad Davenport CNM Referring Provider Active S tart: April 05, 2025 End: April 05, 2025 Team Status: Inactive Member Role Status Dates No Primary Care Physician Primary Care Provider Active Start: April 21, 2025 End: April 21, 2025 No Primary Care Physician Referring Provider Active Start: April 21, 2025 End: April 21, 2025 Natividad Davenport CNM Attending Provider Active S tart: April 21, 2025 End: April 21, 2025 Team Status: Inactive Member Role Status Dates No Primary Care Physician Primary Care Provider Active Start: May 05, 2025 End: May 05, 2025 No Primary Care Physician Referring Provider Active Start: May 05, 2025 End: May 05, 2025 Natividad Davenport CNM Attending Provider Active S tart: May 05, 2025 End: May 05, 2025 Team Status: Active Member Role/Relationship Status Dates No Primary Care Physician Primary Care Provider Active Team Status: Inactive Member Role/Relationship Status Dates No Primary Care Physician Primary Care Provider Active Start: January 27, 2025 End: January 27, 2025 No Primary Care Physician Referring Provider Active Start: January 27, 2025 End: January 27, 2025 Natividad Davenport CNM Attending Provider Active S tart: January 27, 2025 End: January 27, 2025 Team Status: Inactive Member Role/Relationship Status Dates No Primary Care Physician Primary Care Provider Active Start: February 10, 2025 End: February 10, 2025 Dr. Rama Grant DO Attending Provider Activ e Start: February 10, 2025 End: February 10, 2025 Dr. Rama Grant DO Referring Provider Activ e Start: February 10, 2025 End: February 10, 2025 Team Status: Inactive Member Role/Relationship Status Dates No Primary Care Physician Primary Care Provider Active Start: February 24, 2025 End: February 24, 2025 No Primary Care Physician Referring Provider Active Start: February 24, 2025 End: February 24, 2025 Natividad Davenport CNM Attending Provider Active S tart: February 24, 2025 End: February 24, 2025 Team Status: Inactive Member Role/Relationship Status Dates No Primary Care Physician Primary Care Provider Active Start: April 05, 2025 End: April 05, 2025 No Primary Care Physician Referring Provider Active Start: April 05, 2025 End: April 05, 2025 Natividad Davenport CNM Attending Provider Active S tart: April 05, 2025 End: April 05, 2025 Team Status: Inactive Member Role/Relationship Status Dates No Primary Care Physician Primary Care Provider Active Start: April 05, 2025 End: April 05, 2025 Natividad Davenport CNM Attending Provider Active S tart: April 05, 2025 End: April 05, 2025 Natividad Davenport CNM Referring Provider Active S tart: April 05, 2025 End: April 05, 2025 Team Status: Inactive Member Role/Relationship Status Dates No Primary Care Physician Primary Care Provider Active Start: April 21, 2025 End: April 21, 2025 No Primary Care Physician Referring Provider Active Start: April 21, 2025 End: April 21, 2025 Natividad Davenport CNM Attending Provider Active S tart: April 21, 2025 End: April 21, 2025 Team Status: Inactive Member Role/Relationship Status Dates No Primary Care Physician Primary Care Provider Active Start: May 05, 2025 End: May 05, 2025 No Primary Care Physician Referring Provider Active Start: May 05, 2025 End: May 05, 2025 Natividad Davenport CNM Attending Provider Active S tart: May 05, 2025 End: May 05, 2025 Team Status: Inactive Member Role/Relationship Status Dates No Primary Care Physician Primary Care Provider Active Start: May 19, 2025 End: May 19, 2025 No Primary Care Physician Referring Provider Active Start: May 19, 2025 End: May 19, 2025 Natividad Davenport CNM Attending Provider Active S tart: May 19, 2025 End: May 19, 2025 Team Status: Inactive Member Role/Relationship Status Dates No Primary Care Physician Primary Care Provider Active Start: February 10, 2025 End: February 10, 2025 Dr. Rama Grant , Attending Provider Activ e Start: February 10, 2025 End: February 10, 2025 Dr. Rama Grant , Referring Provider Activ e Start: February 10, 2025 End: February 10, 2025 Team Status: Inactive Member Role/Relationship Status Dates No Primary Care Physician Primary Care Provider Active Start: February 24, 2025 End: February 24, 2025 No Primary Care Physician Referring Provider Active Start: February 24, 2025 End: February 24, 2025 Natividad Davenport CNM Attending Provider Active S tart: February 24, 2025 End: February 24, 2025 Team Status: Inactive Member Role/Relationship Status Dates No Primary Care Physician Primary Care Provider Active Start: April 05, 2025 End: April 05, 2025 No Primary Care Physician Referring Provider Active Start: April 05, 2025 End: April 05, 2025 Natividad Davenport CNM Attending Provider Active S tart: April 05, 2025 End: April 05, 2025 Team Status: Inactive Member Role/Relationship Status Dates No Primary Care Physician Primary Care Provider Active Start: April 05, 2025 End: April 05, 2025 Natividad Davenport CNM Attending Provider Active S tart: April 05, 2025 End: April 05, 2025 Natividad Davenport CNM Referring Provider Active S tart: April 05, 2025 End: April 05, 2025 Team Status: Inactive Member Role/Relationship Status Dates No Primary Care Physician Primary Care Provider Active Start: April 21, 2025 End: April 21, 2025 No Primary Care Physician Referring Provider Active Start: April 21, 2025 End: April 21, 2025 Natividad Davenport CNM Attending Provider Active S tart: April 21, 2025 End: April 21, 2025 Team Status: Inactive Member Role/Relationship Status Dates No Primary Care Physician Primary Care Provider Active Start: May 05, 2025 End: May 05, 2025 No Primary Care Physician Referring Provider Active Start: May 05, 2025 End: May 05, 2025 Natividad Davenport CNM Attending Provider Active S tart: May 05, 2025 End: May 05, 2025 Team Status: Inactive Member Role/Relationship Status Dates No Primary Care Physician Primary Care Provider Active Start: May 19, 2025 End: May 19, 2025 No Primary Care Physician Referring Provider Active Start: May 19, 2025 End: May 19, 2025 Natividad Davenport CNM Attending Provider Active S tart: May 19, 2025 End: May 19, 2025 Team Status: Inactive Member Role/Relationship Status Dates No Primary Care Physician Primary Care Provider Active Start: June 03, 2025 End: June 03, 2025 No Primary Care Physician Referring Provider Active Start: June 03, 2025 End: June 03, 2025 Dr. Rama Grant , DO Attending Provider Activ e Start: June 03, 2025 End: June 03, 2025 Team Status: Active Member Role/Relationship Status Dates No Primary Care Physician Primary Care Provider Active Start: June 03, 2025 Dr. Rama Grant , DO Attending Provider Activ e Start: June 03, 2025 Team Status: Inactive Member Role/Relationship Status Dates No Primary Care Physician Primary Care Provider Active Start: June 03, 2025 End: June 03, 2025 Dr. Rama Grant , Attending Provider Activ e Start: June 03, 2025 End: June 03, 2025 Team Status: Inactive Member Role/Relationship Status Dates No Primary Care Physician Primary Care Provider Active Start: June 09, 2025 End: June 09, 2025 No Primary Care Physician Referring Provider Active Start: June 09, 2025 End: June 09, 2025 Natividad Davenport CNM Attending Provider Active S tart: June 09, 2025 End: June 09, 2025 Team Status: Inactive Member Role/Relationship Status Dates No Primary Care Physician Primary Care Provider Active Start: February 24, 2025 End: February 24, 2025 No Primary Care Physician Referring Provider Active Start: February 24, 2025 End: February 24, 2025 Natividad Davenport CNM Attending Provider Active S tart: February 24, 2025 End: February 24, 2025 Team Status: Inactive Member Role/Relationship Status Dates No Primary Care Physician Primary Care Provider Active Start: April 05, 2025 End: April 05, 2025 No Primary Care Physician Referring Provider Active Start: April 05, 2025 End: April 05, 2025 Natividad Davenport CNM Attending Provider Active S tart: April 05, 2025 End: April 05, 2025 Team Status: Inactive Member Role/Relationship Status Dates No Primary Care Physician Primary Care Provider Active Start: April 05, 2025 End: April 05, 2025 Natividad Davenport CNM Attending Provider Active S tart: April 05, 2025 End: April 05, 2025 Natividad Davenport CNM Referring Provider Active S tart: April 05, 2025 End: April 05, 2025 Team Status: Inactive Member Role/Relationship Status Dates No Primary Care Physician Primary Care Provider Active Start: April 21, 2025 End: April 21, 2025 No Primary Care Physician Referring Provider Active Start: April 21, 2025 End: April 21, 2025 Natividad Davenport CNM Attending Provider Active S tart: April 21, 2025 End: April 21, 2025 Team Status: Inactive Member Role/Relationship Status Dates No Primary Care Physician Primary Care Provider Active Start: May 05, 2025 End: May 05, 2025 No Primary Care Physician Referring Provider Active Start: May 05, 2025 End: May 05, 2025 Natividad Davenport CNM Attending Provider Active S tart: May 05, 2025 End: May 05, 2025 Team Status: Inactive Member Role/Relationship Status Dates No Primary Care Physician Primary Care Provider Active Start: May 19, 2025 End: May 19, 2025 No Primary Care Physician Referring Provider Active Start: May 19, 2025 End: May 19, 2025 Natividad Davenport CNM Attending Provider Active S tart: May 19, 2025 End: May 19, 2025 Team Status: Inactive Member Role/Relationship Status Dates No Primary Care Physician Primary Care Provider Active Start: June 03, 2025 End: June 03, 2025 No Primary Care Physician Referring Provider Active Start: June 03, 2025 End: June 03, 2025 Dr. Rama Grant DO Attending Provider Activ e Start: June 03, 2025 End: June 03, 2025 Team Status: Inactive Member Role/Relationship Status Dates No Primary Care Physician Primary Care Provider Active Start: June 03, 2025 End: June 03, 2025 Dr. Rama Grant DO Attending Provider Activ e Start: June 03, 2025 End: June 03, 2025 Team Status: Inactive Member Role/Relationship Status Dates No Primary Care Physician Primary Care Provider Active Start: June 09, 2025 End: June 09, 2025 No Primary Care Physician Referring Provider Active Start: June 09, 2025 End: June 09, 2025 Natividad Davenport CNM Attending Provider Active S tart: June 09, 2025 End: June 09, 2025 Team Status: Inactive Member Role/Relationship Status Dates No Primary Care Physician Primary Care Provider Active Start: June 16, 2025 End: June 16, 2025 No Primary Care Physician Referring Provider Active Start: June 16, 2025 End: June 16, 2025 Natividad Davenport CNM Attending Provider Active S tart: June 16, 2025 End: June 16, 2025 FOR RECORDS PERTAINING TO PATIENTS WHO ARE OR HAVE BEEN ENROLLED IN A CHEMICAL DEPENDENCY/SUBSTANCEABUSE PROGRAM, SOME INFORMATION MAY BE OMITTED. This clinical summary was aggregated from multiple sources. Caution should be exercised in using it in the provision of clinical care. This summary normalizes information from multiple sources, and as a consequence, information in this document may materially change the coding, format and clinical context of patient data. In addition, data may be omitted in some cases. CLINICAL DECISIONS SHOULD BE BASED ON THE PRIMARY CLINICAL RECORDS. [facility]. provides no warranty or guarantee of the accuracy or completeness of information in this document.
[2025-06-20 16:15] LABS: ROM Internal Control Test YES-OK TO RESULT pt. (Internal QC)
[2025-06-20 16:20] LABS: ROM Patient Test POSITIVE (Negative); Record Kit Lot#, ROM+ K3358
--- OUTSIDE RECORDS SUMMARY | 2025-06-20 16:35 | XMS RPT_ITS | CCD ---
Author Organization [facility] CliniSymo Care Team Providers Care Quarter Seamer Name Role Phone Care Physician, No Primary [...] Dr. Petra Lagunas MD Attending Provider [phone] Dr. Rama Grant DO Attending Provider Dr. Rama Grant DO Referring Provider Care Physician, No Primary Primary Care Provider Unavailable Issac CNM, Natividad Attending Provider [phone] Issac CNM, Natividad Referring Provider [phone] Care Physician, No Primary Referring Provider Un available Care Physician, No Primary Primary Care Provider Unavailable Issac CNM, Natividad Attending Provider [phone] Issac CNM, Natividad Referring Provider [phone] Care Physician, No Primary Primary Care Provider Unavailable Care Physician, No Primary Referring Provider Un available Care Physician, No Primary Primary Care Provider Unavailable Care Physician, No Primary Referring Provider Un available Issac CNM, Natividad Attending Provider [phone] Care Physician, No Primary Primary Care Provider Unavailable Braydon Mata DO, Dr. Ontiveros Attending Provider Care [...] No Primary Primary Care Unava ilable Natividad Davneport Referring Unavailable Natividad Davenport Attending Unavailable Care [...] Primary Care Unava ilable Rama Grant [facility], No Primary Primary Care [...] above: KW/SM 39.2 Active la bor Boy Sheyenne PRR , XUAN 02/21/23 , boy! Ion Spouse Ford PRR , XUAN , PC: Sheyenne, : Ford NIPT low risk (previ ously done carrier testing) GBS negative. nl debra audra, low risk NIPT & carrier neg. for 274/274 offer MMR pp neg GBS PRR , ED D 06/30/25, PC: Ion, : Ford neg GBS PRR , ED D 06/30/25, [...] Test Name Value Interpretation Reference Range Facility Frame Stripper Office Visit Reporton 06-16-2025 Frame Stripper Office Visit Report [facility]'s [address], [address] [place] [address] OFFICE VISIT Date of Service: 06/16/25 MR#: [id number] Acct: [id number] Name: DINORAH DOBBINS Rep #: [id number] : 2000 Provider: LOUIS Freeman ams Age/Sex: 24/F Location: [facility] Status: Signed Intake Vital Signs 05/19/25 10:53 06/09/25 10:54 06/16/25 10:44 06/16/25 10:48 Height 5 ft 2 in 5 ft 2 in 5 ft 2 in 5 ft 2 in Weight: 184 lb BMI 33.6 BP 105/73 Intake Visit Reasons: 38 WK OB 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 Date Name GA/Weeks Outcome Route Bth Weight Gen Labor Lgth Anesthesia Del Locatn Provider FOB 02/26/23 Sheyenne 39 live - full term 7lbs 6oz Male epidural [facility] Natividad Youngblood Delivery Date: 02/26/23 Last Updated [...] cons with dates. accepts NIPT. WOuld like co hope appts 12/29/24 -???-???-???-???-???-?? ?-???-???-???-???-???-? ??- 13w [...] -???-???-???-???-???-?? ?-???-???-???-???-? (more content not included)... Normal [facility] - Chemistry and C hemistry - challengeOrdered By: Natividad Davenport on 06-09-2025 Glucose Ql (U) Negative [facility] - UrinalysisOrder ed By: Natividad Davenport on 06-09-2025 Protein Ql (U) Negative [facility] Frame Stripper Office Visit Reporton 06-09-2025 Frame Stripper Office Visit Report [facility]'s [address], [address] [place] [address] OFFICE VISIT Date of Service: 06/09/25 MR#: [id number] Acct: [id number] Name: DINORAH DOBBINS Rep #: [id number] : 2000 Provider: LOUIS Freeman ams Age/Sex: 24/F Location: [facility] Status: Signed Intake Vital Signs 06/03/25 15:07 06/09/25 10:53 06/09/25 10:54 Height 5 ft 2 in 5 ft 2 in 5 ft 2 in Weight: 184 lb 6 oz BMI 33.7 BP 112/75 Intake Visit Reasons: 37wk ob 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 Date Name GA/Weeks Outcome Route Bth Weight Gen Labor Lgth Anesthesia Del Locatn Provider FOB 02/26/23 Sheyenne 39 live - full term 7lbs 6oz Male epidural [facility] Natividad Youngblood Delivery Date: 02/26/23 Last Updated [...] Negative 160 (more content not included)... Normal [facility] Rule out Beta Strep (Grp. B) on 06-05-2025 GERRI Group B Beta Streptococcus is not isolated. Normal [facility] Comment on above: Performed By: #### M 100.3400 ####[facility] [address] [place], [address] Absolute lymphocyte countOrd ered By: Natividad Davenport on 06-03-2025 Lymphocytes Auto (Unsp spec) [#/Vol] 2.00 10*3/uL 0.83-4.51 [facility] Absolute neutrophil countOrd ered By: Natividad Davenport on 06-03-2025 Neutrophils (Bld) [#/Vol] 7.1 10*3/uL 2.0-7.7 [facility] Automated lymphocyte count a s percentage of total leukocytesOrdered By: Natividad Davenport on 06-03-2025 Lymphocytes/100 WBC Auto (Unsp spec) 20.1 % 19-41 [facility] Basophil percentageOrdered B y: Natividad Davenport on 06-03-2025 Basophils/100 WBC (Bld) 0.3 % 0-1 [facility] CBC W/Diff, Automatedon 05-18 Absolute Lymph 2.00 X10 3/uL Normal 0.83-4.51 [facility] Comment on above: Performed By: #### L 100.0100 ####[facility] [address] [place], [address] Absolute Neut 7.1 X10 3/uL Normal 2.0-7.7 [facility] Comment on above: Performed By: #### L 100.0100 ####[facility] [address] [place], [address] Basophils/100 WBC (Bld) 0.3 % Normal 0-1 [facility] Comment on above: Performed By: #### L 100.0100 ####[facility] [address] [place], [address] Eosinophils/100 WBC (Bld) 0.4 % Normal 0-5 [facility] Comment on above: Performed By: #### L 100.0100 ####[facility] [address] [place], [address] Erythrocyte distribution width (RBC) [Ratio] 12.3 % Normal 11.6-14.6 [facility] Comment on above: Performed By: #### L 100.0100 ####[facility] [address] [place], [address] Hematocrit (Bld) [Volume fraction] 36.1 % Low 37-47 [facility] Comment on above: Performed By: #### L 100.0100 ####[facility] [address] [place], [address] Hemoglobin (Bld) [Mass/Vol] 12.1 g/dL Normal 12.0-15.0 [facility] Comment on above: Performed By: #### L 100.0100 ####[facility] [address] [place], [address] IG% 0.700 Normal 0.0-0.9 [facility] Comment on above: Result Comment: IG% - Immature Granulocytes (promyelocytes, myelocytes and metamyelocytes) > 1% indicates that a LEFT SHIFT is Present. Performed By: #### L 100.0100 ####[facility] [address] [place], [address] Lymphocytes/100 WBC (Bld) 20.1 % Normal 19-41 [facility] Comment on above: Performed By: #### L 100.0100 ####[facility] [address] [place], [address] MCH (RBC) [Entitic mass] 30.2 pg Normal 27.0-32.0 [facility] Comment on above: Performed By: #### L 100.0100 ####[facility] [address] [place], [address] MCHC (RBC) [Mass/Vol] 33.5 g/dL Normal 32-36 [facility] Comment on above: Performed By: #### L 100.0100 ####[facility] [address] [place], [address] MCV (RBC) [Entitic vol] 90.0 fL Normal 81-99 [facility] Comment on above: Performed By: #### L 100.0100 ####[facility] [address] [place], [address] Monocytes/100 WBC (Bld) 7.3 % Normal 0-10 [facility] Comment on above: Performed By: #### L 100.0100 ####[facility] [address] [place], [address] Neutrophils/100 WBC (Bld) 71.2 % High 47-70 [facility] Comment on above: Performed By: #### L 100.0100 ####[facility] [address] [place], [address] Nucleated RBC (Bld) [#/Vol] 0 10*3/uL Normal 0-5 [facility] Comment on above: Performed By: #### L 100.0100 ####[facility] [address] [place], [address] Platelet mean volume (Bld) [Entitic vol] 9.3 fL Normal 6.2-12.0 [facility] Comment on above: Performed By: #### L 100.0100 ####[facility] [address] [place], [address] Platelets (Bld) [#/Vol] 313 10*3/uL Normal 150-450 [facility] Comment on above: Performed By: #### L 100.0100 ####[facility] [address] [place], [address] RBC (Bld) [#/Vol] 4.01 10*6/uL Low 4.2-5.4 [facility] Comment on above: Performed By: #### L 100.0100 ####[facility] [address] [place], [address] RDW SD 40.1 fl Normal 35.1-43.9 [facility] Comment on above: Performed By: #### L 100.0100 ####[facility] [address] [place], [address] WBC (Bld) [#/Vol] 9.9 10*3/uL Normal 4.4-11.0 [facility] Comment on above: Performed By: #### L 100.0100 ####[facility] [address] [place], [address] Eosinophil percentageOrdered By: Natividad Davenport on 06-03-2025 Eosinophils/100 WBC (Bld) 0.4 % 0-5 [facility] Erythrocyte distribution wid th ratioOrdered By: Natividad Davenport on 06-03-2025 Erythrocyte distribution width (RBC) [Ratio] 12.3 % 11.6-14.6 [facility] Erythrocyte distribution wid th standard deviationOrdered By: Natividad Davenport on 06-03-2025 Erythrocyte distribution width (RBC) [Ratio] 40.1 fl 35.1-43.9 [facility] Hematocrit Auto (Bld) [Volum e fraction]Ordered By: Natividad Davenport on 06-03-2025 Hematocrit (Bld) [Volume fraction] 36.1 % Low 37-47 [facility] Hemoglobin measurementOrdere d By: Natividad Davenport on 06-03-2025 Hemoglobin (Bld) [Mass/Vol] 12.1 g/dL 12.0-15.0 [facility] Immature granulocytes/100 WB C Auto (Bld)Ordered By: Natividad Davenport on 06-03-2025 Immature granulocytes/100 WBC (Bld) 0.700 % 0.0-0.9 [facility] Comment on above: IG% - Immature Granu locytes (promyelocytes, myelocytes and metamyelocytes) > 1% indicates that a LEFT SHIFT is Present. Laboratory - Chemistry and C hemistry - challengeOrdered By: Rama Mata on 06-03-2025 Glucose Ql (U) Negative [facility] - UrinalysisOrder ed By: Rama Mata on 06-03-2025 Protein Ql (U) Negative [facility] MCV (mean corpuscular volume ) determinationOrdered By: Natividad Davenport on 06-03-2025 MCV (RBC) [Entitic vol] 90.0 fL 81-99 [facility] Mean corpuscular hemoglobin (MCH) determinationOrdered By: Natividad Davenport on 06-03-2025 MCH (RBC) [Entitic mass] 30.2 pg 27.0-32.0 [facility] Mean corpuscular hemoglobin concentration (MCHC) determinationOrdered By: Natividad Davenport on 06-03-2025 MCHC (RBC) [Mass/Vol] 33.5 g/dL 32-36 [facility] Mean platelet volume determi nationOrdered By: Natividad Davenport on 06-03-2025 Platelet mean volume (Bld) [Entitic vol] 9.3 fL 6.2-12.0 [facility] Monocyte percentageOrdered B y: Natividad Davenport on 06-03-2025 Monocytes/100 WBC (Bld) 7.3 % 0-10 [facility] Neutrophil percentageOrdered By: Natividad Davenport on 06-03-2025 Neutrophils/100 WBC (Bld) 71.2 % High 47-70 [facility] Nucleated red blood cell per centageOrdered By: Natividad Davenport on 06-03-2025 Nucleated RBC/100 WBC (Bld) [Ratio] 0 % 0-5 [facility] Frame Stripper Office Visit Reporton 06-03-2025 Frame Stripper Office Visit Report [facility] [address], [address] [place] [address] OFFICE VISIT Date of Service: 06/03/25 MR#: [id number] Acct: [id number] Name: DINORAH DOBBINS Rep #: [id number] : 2000 Provider: Dr. 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 ?-???- (more content not included)... Normal [facility] Platelet countOrdered By: Vadim Davenport on 06-03-2025 Platelets (Bld) [#/Vol] 313 10*3/uL 150-450 [facility] RBC Auto (Bld) [#/Vol]Ordere d By: Natividad Davenport on 06-03-2025 RBC (Bld) [#/Vol] 4.01 10*6/uL Low 4.2-5.4 [facility] Screening beta-hemolytic Str eptococcus cultureOrdered By: Rama Mata on 06-03-2025 Beta-hemolytic Streptococcus culture Group B Beta Streptococcus is not isolated. [facility] White blood cell (WBC) count Ordered By: Natividad Davenport on 06-03-2025 WBC (Bld) [#/Vol] 9.9 10*3/uL 4.4-11.0 [facility] Laboratory - Chemistry and C hemistry - challengeOrdered By: Natividad Davenport on 05-19-2025 Glucose Ql (U) Negative [facility] - UrinalysisOrder ed By: Natividad Davenport on 05-19-2025 Protein Ql (U) Negative [facility] Frame Stripper Office Visit Reporton 05-19-2025 Frame Stripper Office Visit Report [address], [address] [place] [address] OFFICE VISIT Date of Service: 05/19/25 MR#: [id number] Acct: [id number] Name: DINORAH DOBBINS Rep #: [id number] : 2000 Provider: LOUIS Freeman ams Age/Sex: 24/F Location: [facility] Status: Signed Intake Vital Signs 04/05/25 11:07 05/05/25 11:25 05/19/25 10:49 05/19/25 10:53 Height 5 ft 2 in 5 ft 2 in 5 ft 2 in 5 ft 2 in Weight: 180 lb 8 oz BMI 33.0 BP 111/78 Intake Visit Reasons: 32 wk ob 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 Date Name GA/Weeks Outcome Route Bth Weight Gen Labor Lgth Anesthesia Del Locatn Provider FOB 02/26/23 Sheyenne 39 live - full term 7lbs 6oz Male epidural [facility] Natividad Youngblood Delivery Date: 02/26/23 Last Updated [...] -???-???-???-???-???-?? ?-???-???-???- (more content not included)... Normal [facility] - Chemistry and C hemistry - challengeOrdered By: Natividad Davenport on 05-05-2025 Glucose Ql (U) Negative [facility] - UrinalysisOrder ed By: Natividad Davenport on 05-05-2025 Protein Ql (U) Trace [facility] Frame Stripper Office Visit Reporton 05-05-2025 Frame Stripper Office Visit Report [facility]'s [address], [address] [place] [address] OFFICE VISIT Date of Service: 05/05/25 MR#: [id number] Acct: [id number] Name: DINORAH DOBBINS Rep #: [id number] : 2000 Provider: LOUIS Freeman ams Age/Sex: 24/F Location: [facility] Status: Signed Intake Vital Signs 04/05/25 11:07 04/21/25 09:49 05/05/25 11:21 05/05/25 11:25 Height 5 ft 2 in 5 ft 2 in 5 ft 2 in 5 ft 2 in Weight: 179 lb BMI 32.7 BP 111/74 Intake Visit Reasons: 30 wk ob 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 accepts NIPT. WOuld like co hope appts 12/29/24 -???-???-???-???-???-?? ?-???-???-???-???-???-? ??- 13w [...] -???-???-???-???-???-?? ?-???-???-???-???-? (more content not included)... Normal [facility] - Chemistry and C hemistry - challengeOrdered By: Natividad Davenport on 04-21-2025 Glucose Ql (U) Negative [facility] - UrinalysisOrder ed By: Natividad Davenport on 04-21-2025 Protein Ql (U) Negative [facility] Frame Stripper Office Visit Reporton 04-21-2025 Frame Stripper Office Visit Report [address], [address] [place] [address] OFFICE VISIT Date of Service: 04/21/25 MR#: [id number] Acct: [id number] Name: DINORAH DOBBINS Rep #: [id number] : 2000 Provider: LOUIS Freeman ams Age/Sex: 24/F Location: [facility] Status: Signed Intake Vital Signs 04/05/25 11:07 04/21/25 09:49 Height 5 ft 2 in 5 ft 2 in Weight: 175 lb 4 oz BMI 32.0 BP 106/71 Intake Visit Reasons: 28 wk ob 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 accepts NIPT. WOuld like co hope appts 12/29/24 -???-???-???-???-???-?? ?-???-???-???-???-???-? ??- 13w [...] 160 - (more content not included)... Normal [facility] Absolute lymphocyte countOrd ered By: Natividad Davenport on 04-05-2025 Lymphocytes Auto (Unsp spec) [#/Vol] 1.74 10*3/uL 0.83-4.51 [facility] Absolute neutrophil countOrd ered By: Natividad Davenport on 04-05-2025 Neutrophils (Bld) [#/Vol] 7.3 10*3/uL 2.0-7.7 [facility] Automated lymphocyte count a s percentage of total leukocytesOrdered By: Natividad Davenport on 04-05-2025 Lymphocytes/100 WBC Auto (Unsp spec) 17.8 % Low - [facility] Basophil percentageOrdered B y: Natividad Davenport on 04-05-2025 Basophils/100 WBC (Bld) 0.4 % 0-1 [facility] CBC W/Diff, Automatedon 03-18 Absolute Lymph 1.74 X10 3/uL Normal 0.83-4.51 [facility] Comment on above: Performed By: #### L 501.0250, L100.0100, L3890.6006, L509.8002 ####[facility] [address] [place], [address] Absolute Neut 7.3 X10 3/uL Normal 2.0-7.7 [facility] Comment on above: Performed By: #### L 501.0250, L100.0100, L3890.6006, L509.8002 ####[facility] [address] [place], [address] Basophils/100 WBC (Bld) 0.4 % Normal 0-1 [facility] Comment on above: Performed By: #### L 501.0250, L100.0100, L3890.6006, L509.8002 ####[facility] [address] [place], [address] Eosinophils/100 WBC (Bld) 0.4 % Normal 0-5 [facility] Comment on above: Performed By: #### L 501.0250, L100.0100, L3890.6006, L509.8002 ####[facility] [address] [place], [address] Erythrocyte distribution width (RBC) [Ratio] 12.2 % Normal 11.6-14.6 [facility] Comment on above: Performed By: #### L 501.0250, L100.0100, L3890.6006, L509.8002 ####[facility] [address] [place], [address] Hematocrit (Bld) [Volume fraction] 40.1 % Normal 37-47 [facility] Comment on above: Performed By: #### L 501.0250, L100.0100, L3890.6006, L509.8002 ####[facility] [address] [place], [address] Hemoglobin (Bld) [Mass/Vol] 13.7 g/dL Normal 12.0-15.0 [facility] Comment on above: Performed By: #### L 501.0250, L100.0100, L3890.6006, L509.8002 ####[facility] [address] [place], [address] IG% 0.500 Normal 0.0-0.9 [facility] Comment on above: Result Comment: IG% - Immature Granulocytes (promyelocytes, myelocytes and metamyelocytes) > 1% indicates that a LEFT SHIFT is Present. Performed By: #### L 501.0250, L100.0100, L3890.6006, L509.8002 ####[facility] [address] [place], [address] Lymphocytes/100 WBC (Bld) 17.8 % Low 19-41 [facility] Comment on above: Performed By: #### L 501.0250, L100.0100, L3890.6006, L509.8002 ####[facility] [address] [place], [address] MCH (RBC) [Entitic mass] 32.1 pg High 27.0-32.0 [facility] Comment on above: Performed By: #### L 501.0250, L100.0100, L3890.6006, L509.8002 ####[facility] [address] [place], [address] MCHC (RBC) [Mass/Vol] 34.2 g/dL Normal 32-36 [facility] Comment on above: Performed By: #### L 501.0250, L100.0100, L3890.6006, L509.8002 ####[facility] [address] [place], [address] MCV (RBC) [Entitic vol] 93.9 fL Normal 81-99 [facility] Comment on above: Performed By: #### L 501.0250, L100.0100, L3890.6006, L509.8002 ####[facility] [address] [place], [address] Monocytes/100 WBC (Bld) 6.6 % Normal 0-10 [facility] Comment on above: Performed By: #### L 501.0250, L100.0100, L3890.6006, L509.8002 ####[facility] [address] [place], [address] Neutrophils/100 WBC (Bld) 74.3 % High 47-70 [facility] Comment on above: Performed By: #### L 501.0250, L100.0100, L3890.6006, L509.8002 ####[facility] [address] [place], [address] Nucleated RBC (Bld) [#/Vol] 0 10*3/uL Normal 0-5 [facility] Comment on above: Performed By: #### L 501.0250, L100.0100, L3890.6006, L509.8002 ####[facility] [address] [place], [address] Platelet mean volume (Bld) [Entitic vol] 9.8 fL Normal 6.2-12.0 [facility] Comment on above: Performed By: #### L 501.0250, L100.0100, L3890.6006, L509.8002 ####[facility] [address] [place], [address] Platelets (Bld) [#/Vol] 353 10*3/uL Normal 150-450 [facility] Comment on above: Performed By: #### L 501.0250, L100.0100, L3890.6006, L509.8002 ####[facility] [address] [place], [address] RBC (Bld) [#/Vol] 4.27 10*6/uL Normal 4.2-5.4 [facility] Comment on above: Performed By: #### L 501.0250, L100.0100, L3890.6006, L509.8002 ####[facility] [address] [place], [address] RDW SD 42.2 fl Normal 35.1-43.9 [facility] Comment on above: Performed By: #### L 501.0250, L100.0100, L3890.6006, L509.8002 ####[facility] [address] [place], [place], [address] WBC (Bld) [#/Vol] 9.8 10*3/uL Normal 4.4-11.0 [facility] Comment on above: Performed By: #### L 501.0250, L100.0100, L3890.6006, L509.8002 ####[facility] [address] [place], [place], [address] Eosinophil percentageOrdered By: Natividad Davenport on 04-05-2025 Eosinophils/100 WBC (Bld) 0.4 % 0-5 [facility] Erythrocyte distribution wid th ratioOrdered By: Natividad Davenport on 04-05-2025 Erythrocyte distribution width (RBC) [Ratio] 12.2 % 11.6-14.6 [facility] Erythrocyte distribution wid th standard deviationOrdered By: Natividad Davenport on 04-05-2025 Erythrocyte distribution width (RBC) [Ratio] 42.2 fl 35.1-43.9 [facility] Glucose Challenge Gest 1H 50 tiffanie 04-05-2025 GLU GEST 50g 1H 95 mg/dL Normal 70-140 [facility] Comment on above: Performed By: #### L 501.0250, L100.0100, L3890.6006, L509.8002 ####[facility] [address] [place], [place], [address] Glucose measurement at 2 tiffany rs post-dose gestational glucose tolerance testOrdered By: Natividad Davenport on 04-05-2025 Glucose [Mass/Vol] 95 mg/dL 70-140 [facility] HIVon 04-05-2025 HIV Non-Reactive Normal Nonreactive [facility] Comment on above: Result Comment: Non- Reactive Reactive Repeatedly reactive samples must be confirmed according to CDC recommended confirmatory algorithms. The subresults for either HIVAG or AHIV can be used as an aid in the selection of the confirmation algorithm for reactive samples. Send out specimens with Reactive results to [facility] for confirmation. Order the HIV antibody detection and differentiation: [id number] Performed By: #### L 501.0250, L100.0100, L3890.6006, L509.8002 ####[facility] [address] [place], [address] Hematocrit Auto (Bld) [Volum e fraction]Ordered By: Natividad Davenport on 04-05-2025 Hematocrit (Bld) [Volume fraction] 40.1 % 37-47 [facility] Hemoglobin measurementOrdere d By: Natividad Davenport on 04-05-2025 Hemoglobin (Bld) [Mass/Vol] 13.7 g/dL 12.0-15.0 [facility] Immature granulocytes/100 WB C Auto (Bld)Ordered By: Natividad Davenport on 04-05-2025 Immature granulocytes/100 WBC (Bld) 0.500 % 0.0-0.9 [facility] [facility] Comment on above: IG% - Immature Granu locytes (promyelocytes, myelocytes and metamyelocytes) > 1% indicates that a LEFT SHIFT is Present. Laboratory - Chemistry and C hemistry - challengeOrdered By: Natividad Davenport on 04-05-2025 Glucose Ql (U) Negative [facility] Laboratory - UrinalysisOrder ed By: Natividad Davenport on 04-05-2025 Protein Ql (U) Negative [facility] MCV (mean corpuscular volume ) determinationOrdered By: Natividad Davenport on 04-05-2025 MCV (RBC) [Entitic vol] 93.9 fL 81-99 [facility] Mean corpuscular hemoglobin (MCH) determinationOrdered By: Natividad Davenport on 04-05-2025 MCH (RBC) [Entitic mass] 32.1 pg High 27.0-32.0 [facility] Mean corpuscular hemoglobin concentration (MCHC) determinationOrdered By: Natividad Davenport on 04-05-2025 MCHC (RBC) [Mass/Vol] 34.2 g/dL 32-36 [facility] Mean platelet volume determi nationOrdered By: Natividad Davenport on 04-05-2025 Platelet mean volume (Bld) [Entitic vol] 9.8 fL 6.2-12.0 [facility] Monocyte percentageOrdered B y: Natividad Davenport on 04-05-2025 Monocytes/100 WBC (Bld) 6.6 % 0-10 [facility] Neutrophil percentageOrdered By: Natividad Davenport on 04-05-2025 Neutrophils/100 WBC (Bld) 74.3 % High 47-70 [facility] No Panel InformationOrdered By: Natividad Davenport on 04-05-2025 HIV (1&2) Antibody Non-Reactive Nonreactive [facility] Comment on above: Non-ReactiveReactive Repeatedly reactive samples must be confirmed according to CDC recommended confirmatory algorithms. The subresults for either HIVAG or AHIV can be used as an aid in the selection of the confirmation algorithm for reactive samples.Send out specimens with Reactive results to [facility] for confirmation.Order the HIV antibody detection and differentiation: #[id number] Nucleated red blood cell per centageOrdered By: Natividad Davenport on 04-05-2025 Nucleated RBC/100 WBC (Bld) [Ratio] 0 % 0-5 [facility] Frame Stripper Office Visit Reporton 04-05-2025 Frame Stripper Office Visit Report [facility]'s [address], [address] [place] [address] OFFICE VISIT Date of Service: 04/05/25 MR#: [id number] Acct: [id number] Name: DINORAH DOBBINS Rep #: [id number] : 2000 Provider: LOUIS Freeman ams Age/Sex: 24/F Location: [facility] Status: Signed Intake Vital Signs 02/24/25 09:50 04/05/25 11:07 Height 5 ft 2 in 5 ft 2 in Weight: 171 lb 6 oz BMI 31.3 BP 120/81 H Intake Visit Reasons: 26 wk ob Chief Complaint: 26wk OB 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 accepts NIPT. WOuld like co hope appts 12/29/24 -???-???-???-???-???-?? ?-???-???-???-???-???-? ??- 13w [...] 160 -???-???-?? (more content not included)... Normal [facility] Platelet countOrdered By: Vadim Davenport on 04-05-2025 Platelets (d) [#/Vol] 353 10*3/uL 150-450 [facility] RBC Auto (d) [#/Vol]Ordere d By: Natividad Davenport on 04-05-2025 RBC (Bld) [#/Vol] 4.27 10*6/uL 4.2-5.4 [facility] Syphilis Antibodieson 2024 Syphilis Abs Non-Reactive Normal Nonreactive [facility] Comment on above: Performed By: #### L 501.0250, L100.0100, L3890.6006, L509.8002 ####[facility] [address] [place], [address] White blood cell (WBC) count Ordered By: Natividad Davenport on 04-05-2025 WBC (Bld) [#/Vol] 9.8 10*3/uL 4.4-11.0 [facility] Laboratory - Chemistry and C hemistry - challengeOrdered By: Natividad Davenport on 02-24-2025 Glucose Ql (U) Negative [facility] - UrinalysisOrder ed By: Natividad Davenport on 02-24-2025 Protein Ql (U) Negative [facility] Frame Stripper Office Visit Reporton 02-24-2025 Frame Stripper Office Visit Report [facility]'s [address], [address] [place] [address] OFFICE VISIT Date of Service: 02/24/25 MR#: [id number] Acct: [id number] Name: DINORAH DOBBINS Rep #: [id number] : 2000 Provider: LOUIS Freeman ams Age/Sex: 24/F Location: [facility] Status: Signed Intake Vital Signs 01/27/25 11:35 02/24/25 09:49 02/24/25 09:50 Height 5 ft 2 in 5 ft 2 in 5 ft 2 in Weight: 166 lb BMI 30.3 BP 103/66 Intake Visit Reasons: 22 WEEK OB 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 accepts NIPT. WOuld like co hope appts 12/29/24 -???-???-???-???-???-?? ?-???-???-???-???-???-? ??- 13w [...] -???-???-???-???-???-?? ?-???-???-???-???-? (more content not included)... Normal [facility] OB Anatomy w/ Transvaginalon 02-10-2025 OB Anatomy w/ Transvaginal [facility] Imaging Services [address] [place] [address] OB Anatomy w/ Transvaginal MR#: [id number] Acct: [id number] Name: DINORAH DOBBINS Rep #: [id number] : 2000 F 24 From: Vince Causey DO PCP: Care Physician,No Primary Status: DEP CLI Study: OB Anatomy w/ Transvaginal Date of Exam: 02/10 Exam# [id number] Ordering Dr: Rama [facility] DO PROCEDURE: OB [...] Baseline: 06/30/2025 By Ultrasound: 06/27/2025 [facility] CC: Dr. 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: Signed Normal [facility] Laboratory - Chemistry and C hemistry - challengeOrdered By: Natividad Davenport on 01-27-2025 Glucose Ql (U) Negative [facility] - UrinalysisOrder ed By: Natividad Davenport on 01-27-2025 Protein Ql (U) Negative [facility] Frame Stripper Office Visit Reporton 01-27-2025 Frame Stripper Office Visit Report [facility] [address], [address] [place] [address] OFFICE VISIT Date of Service: 01/27/25 MR#: [id number] Acct: [id number] Name: DINORAH DOBBINS Rep #: [id number] : 2000 Provider: LOUIS Freeman ams Age/Sex: 24/F 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 Normal [facility] Laboratory - Chemistry and C hemistry - challengeOrdered By: Petra Lagunas on 12-29-2024 Glucose Ql (U) Negative [facility] Laboratory - UrinalysisOrder ed By: Petra Lagunas on 12-29-2024 Protein Ql (U) Negative [facility] Frame Stripper Office Visit Reporton 12-29-2024 Frame Stripper Office Visit Report [facility]'s [address], [address] [place] [address] OFFICE VISIT Date of Service: 12/29/24 MR#: [id number] Acct: [id number] Name: DINORAH DOBBINS Rep #: [id number] : 2000 Provider: Dr. 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 Date Name GA/Weeks Outcome Route Bth Weight Infant Gen Labor Lgth Anesthesia Del Locatn Provider FOB 02/26/23 [place] 39 live - full term 7lbs 6oz [...] cons with dates. accepts NIPT. WOuld like co hope appts 12/29/24 -???-???-???-???-???-?? ?-???-???-???-???-???-? ??- 13w [...] Care, Melody (more content not included)... Normal [facility] Absolute lymphocyte countOrd ered By: Natividad Davenport on 12-07-2024 Lymphocytes Auto (Unsp spec) [#/Vol] 2.65 10*3/uL 0.83-4.51 [facility] Absolute neutrophil countOrd ered By: Natividad Davenport on 12-07-2024 Neutrophils (Bld) [#/Vol] 6.3 10*3/uL 2.0-7.7 [facility] Automated lymphocyte count a s percentage of total leukocytesOrdered By: Natividad Davenport on 12-07-2024 Lymphocytes/100 WBC Auto (Unsp spec) 26.6 % 19-41 [facility] Basophil percentageOrdered B y: Natividad Davenport on 12-07-2024 Basophils/100 WBC (Bld) 0.4 % 0-1 [facility] CBC W/Diff, Automatedon 11-19 Absolute Lymph 2.65 X10 3/uL Normal 0.83-4.51 [facility] Comment on above: Performed By: #### L 3890.6100, L3890.6005, L100.0100, L3890.6300, BTS, L509.8000, L509.4005 #### [facility] [address] [place], [address] Absolute Neut 6.3 X10 3/uL Normal 2.0-7.7 [facility] Comment on above: Performed By: #### L 3890.6100, L3890.6005, L100.0100, L3890.6300, BTS, L509.8000, L509.4005 #### [facility] [address] [place], [address] Basophils/100 WBC (Bld) 0.4 % Normal 0-1 [facility] Comment on above: Performed By: #### L 3890.6100, L3890.6005, L100.0100, L3890.6300, BTS, L509.8000, L509.4005 #### [facility] [address] [place], [address] Eosinophils/100 WBC (Bld) 0.7 % Normal 0-5 [facility] Comment on above: Performed By: #### L 3890.6100, L3890.6005, L100.0100, L3890.6300, BTS, L509.8000, L509.4005 #### [facility] [address] [place], [address] Erythrocyte distribution width (RBC) [Ratio] 11.9 % Normal 11.6-14.6 [facility] Comment on above: Performed By: #### L 3890.6100, L3890.6005, L100.0100, L3890.6300, BTS, L509.8000, L509.4005 #### [facility] [address] [place], [address] Hematocrit (Bld) [Volume fraction] 41.4 % Normal 37-47 [facility] Comment on above: Performed By: #### L 3890.6100, L3890.6005, L100.0100, L3890.6300, BTS, L509.8000, L509.4005 #### [facility] [address] [place], [address] Hemoglobin (Bld) [Mass/Vol] 14.3 g/dL Normal 12.0-15.0 [facility] Comment on above: Performed By: #### L 3890.6100, L3890.6005, L100.0100, L3890.6300, BTS, L509.8000, L509.4005 #### [facility] [address] [place], [address] IG% 0.300 Normal 0.0-0.9 [facility] Comment on above: Result Comment: IG% - Immature Granulocytes (promyelocytes, myelocytes and metamyelocytes) > 1% indicates that a LEFT SHIFT is Present. Performed By: #### L 3890.6100, L3890.6005, L100.0100, L3890.6300, BTS, L509.8000, L509.4005 #### [facility] [address] [place], [address] Lymphocytes/100 WBC (Bld) 26.6 % Normal 19-41 [facility] Comment on above: Performed By: #### L 3890.6100, L3890.6005, L100.0100, L3890.6300, BTS, L509.8000, L509.4005 #### [facility] [address] [place], [address] MCH (RBC) [Entitic mass] 31.5 pg Normal 27.0-32.0 [facility] Comment on above: Performed By: #### L 3890.6100, L3890.6005, L100.0100, L3890.6300, BTS, L509.8000, L509.4005 #### [facility] [address] [place], [address] MCHC (RBC) [Mass/Vol] 34.5 g/dL Normal 32-36 [facility] Comment on above: Performed By: #### L 3890.6100, L3890.6005, L100.0100, L3890.6300, BTS, L509.8000, L509.4005 #### [facility] [address] [place], [address] MCV (RBC) [Entitic vol] 91.2 fL Normal 81-99 [facility] Comment on above: Performed By: #### L 3890.6100, L3890.6005, L100.0100, L3890.6300, BTS, L509.8000, L509.4005 #### [facility] [address] [place], [address] Monocytes/100 WBC (Bld) 8.7 % Normal 0-10 [facility] Comment on above: Performed By: #### L 3890.6100, L3890.6005, L100.0100, L3890.6300, BTS, L509.8000, L509.4005 #### [facility] [address] [place], [address] Neutrophils/100 WBC (Bld) 63.3 % Normal 47-70 [facility] Comment on above: Performed By: #### L 3890.6100, L3890.6005, L100.0100, L3890.6300, BTS, L509.8000, L509.4005 #### [facility] [address] [place], [address] Nucleated RBC (Bld) [#/Vol] 0 10*3/uL Normal 0-5 [facility] Comment on above: Performed By: #### L 3890.6100, L3890.6005, L100.0100, L3890.6300, BTS, L509.8000, L509.4005 #### [facility] [address] [place], [address] Platelet mean volume (Bld) [Entitic vol] 9.6 fL Normal 6.2-12.0 [facility] Comment on above: Performed By: #### L 3890.6100, L3890.6005, L100.0100, L3890.6300, BTS, L509.8000, L509.4005 #### [facility] [address] [place], [address] Platelets (Bld) [#/Vol] 373 10*3/uL Normal 150-450 [facility] Comment on above: Performed By: #### L 3890.6100, L3890.6005, L100.0100, L3890.6300, BTS, L509.8000, L509.4005 #### [facility] [address] [place], [address] RBC (Bld) [#/Vol] 4.54 10*6/uL Normal 4.2-5.4 [facility] Comment on above: Performed By: #### L 3890.6100, L3890.6005, L100.0100, L3890.6300, BTS, L509.8000, L509.4005 #### [facility] [address] [place], [address] RDW SD 39.3 fl Normal 35.1-43.9 [facility] Comment on above: Performed By: #### L 3890.6100, L3890.6005, L100.0100, L3890.6300, BTS, L509.8000, L509.4005 #### [facility] [address] [place], [address] WBC (Bld) [#/Vol] 10.0 10*3/uL Normal 4.4-11.0 [facility] Comment on above: Performed By: #### L 3890.6100, L3890.6005, L100.0100, L3890.6300, BTS, L509.8000, L509.4005 #### [facility] [address] [place], [address] Eosinophil percentageOrdered By: Natividad Davenport on 12-07-2024 Eosinophils/100 WBC (Bld) 0.7 % 0-5 [facility] Erythrocyte distribution wid th ratioOrdered By: Natividad Davenport on 12-07-2024 Erythrocyte distribution width (RBC) [Ratio] 11.9 % 11.6-14.6 [facility] Erythrocyte distribution wid th standard deviationOrdered By: Natividad Davenport on 12-07-2024 Erythrocyte distribution width (RBC) [Entitic vol] 39.3 fL 35.1-43.9 [facility] Erythrocyte distribution width (RBC) [Ratio] 39.3 fl 35.1-43.9 [facility] HIV - WCHon 12-07-2024 HIV Non-Reactive Normal Nonreactive [facility] Comment on above: Order Comment: Reaso n for Exam: Performed By: #### L 3890.6100, L3890.6005, L100.0100, L3890.6300, BTS, L509.8000, L509.4005 ####[facility] [address] [place], [place], [address] HIV 1 and HIV-2 antibody ass ay with HIV-1 p24 antigen detectionOrdered By: Natividad Davenport on 12-07-2024 HIV 1+2 Ab+HIV1 p24 Ag IA Ql Non-Reactive Nonreactive [facility] HIV 1+2 Ab+HIV1 p24 Ag IA Ql Ordered By: Natividad Davenport on 12-07-2024 HIV (1&2) Antibody Non-Reactive Nonreactive [facility] Hematocrit Auto (Bld) [Volum e fraction]Ordered By: Natividad Davenport on 12-07-2024 Hematocrit (Bld) [Volume fraction] 41.4 % 37-47 [facility] Hemoglobin measurementOrdere d By: Natividad Davenport on 12-07-2024 Hemoglobin (Bld) [Mass/Vol] 14.3 g/dL 12.0-15.0 [facility] Hepatitis B Surface Antigeno n 12-07-2024 HEP B Surf Ag Non-Reactive Normal Nonreactive [facility] Comment on above: Order Comment: Reaso n for Exam: Performed By: #### L 3890.6100, L3890.6005, L100.0100, L3890.6300, BTS, L509.8000, L509.4005 ####[facility] [address], [address] Hepatitis B surface antigen detectionOrdered By: Natividad Davenport on 12-07-2024 Hepatitis B Surface Antigen Non-Reactive Nonreactive [facility] Hepatitis C Antibodyon 12-07 Hepatitis C AB Non-Reactive Normal Nonreactive [facility] Comment on above: Order Comment: Reaso n for Exam: Result Comment: Non Reactive: < 0.8 Equivocal: >/= 0.8 to < 1.0 Reactive: >/= 1.0 The [facility] requires that a reactive/equivocal HCV antibody result be sent out for confirmation. HCV Quant by PCR testing. Performed By: #### L 3890.6100, L3890.6005, L100.0100, L3890.6300, BTS, L509.8000, L509.4005 ####[facility] [address] [place], [address] Hepatitis C virus antibody a ssayOrdered By: Natividad Davenport on 12-07-2024 Hepatitis C Antibody Non-Reactive Nonreactive [facility] Comment on above: Non Reactive: < 0.8 Equivocal: >/= 0.8 to < 1.0 Reactive: >/= 1.0The [facility] requires that a reactive/equivocal HCV antibody result be sent out for confirmation. HCV Quant by PCR testing. Immature granulocytes/100 WB C Auto (Bld)Ordered By: Natividad Davenport on 12-07-2024 Immature granulocytes/100 WBC (Bld) 0.300 % 0.0-0.9 [facility] Comment on above: IG% - Immature Granu locytes (promyelocytes, myelocytes and metamyelocytes) > 1% indicates that a LEFT SHIFT is Present. L509.8000on 12-07-2024 Syphilis Abs Non-Reactive Normal [facility] Comment on above: Order Comment: Reaso n for Exam: Performed By: #### L 3890.6100, L3890.6005, L100.0100, L3890.6300, BTS, L509.8000, L509.4005 ####[facility] [address] [place], [address] Lymphocytes Auto (Unsp spec) [#/Vol]Ordered By: Natividad Davenport on 12-07-2024 Lymphocytes (Bld) [#/Vol] 2.65 10*3/uL 0.83-4.51 [facility] Lymphocytes/100 WBC Auto (Un sp spec)Ordered By: Natividad Davenport on 12-07-2024 Lymphocytes/100 WBC (Bld) 26.6 % 19-41 [facility] MCV (mean corpuscular volume ) determinationOrdered By: Natividad Davenport on 12-07-2024 MCV (RBC) [Entitic vol] 91.2 fL 81-99 [facility] Mean corpuscular hemoglobin (MCH) determinationOrdered By: Natividad Davenport on 12-07-2024 MCH (RBC) [Entitic mass] 31.5 pg 27.0-32.0 [facility] Mean corpuscular hemoglobin concentration (MCHC) determinationOrdered By: Natividad Davenport on 12-07-2024 MCHC (RBC) [Mass/Vol] 34.5 g/dL 32-36 [facility] Mean platelet volume determi nationOrdered By: Natividad Davenport on 12-07-2024 Platelet mean volume (Bld) [Entitic vol] 9.6 fL 6.2-12.0 [facility] Miscellaneous procedureOrder ed By: Natividad Davenport on 12-07-2024 Miscellaneous Test Comment SEE SCANNED REPORT [facility] Monocyte percentageOrdered B y: Natividad Davenport on 12-07-2024 Monocytes/100 WBC (Bld) 8.7 % 0-10 [facility] NATERAon 12-07-2024 NATURA SEE SCANNED REPORT Normal [facility] Comment on above: Performed By: #### L 900.0098 ####[facility] [address] [place], [address] Neutrophil percentageOrdered By: Natividad Davenport on 12-07-2024 Neutrophils/100 WBC (Bld) 63.3 % 47-70 [facility] Nucleated red blood cell per centageOrdered By: Natividad Davenport on 12-07-2024 Nucleated RBC/100 WBC (Bld) [Ratio] 0 % 0-5 [facility] Platelet countOrdered By: Vadim Davenport on 12-07-2024 Platelets (Bld) [#/Vol] 373 10*3/uL 150-450 [facility] RBC Auto (Bld) [#/Vol]Ordere d By: Natividad Davenport on 12-07-2024 RBC (Bld) [#/Vol] 4.54 10*6/uL 4.2-5.4 [facility] Rubella IgGon 12-07-2024 Rubella IgG Non-Reactive Normal Nonreactive [facility] Comment on above: Order Comment: Reaso n for Exam: Result Comment: Anti body Results Interpretation of Immune Status Non Reactive Presumed Non-Immune Equivocal Equivocal Reactive Presumed Immune Performed By: #### L 3890.6100, L3890.6005, L100.0100, L3890.6300, BTS, L509.8000, L509.4005 ####[facility] [address] [place], [place], [address] Rubella immune status IgGOrd ered By: Natividad Davenport on 12-07-2024 Rubella IgG Antibody Non-Reactive Nonreactive [facility] Comment on above: Antibody Results Int erpretation of Immune Status Non Reactive Presumed Non-Immune Equivocal Equivocal Reactive Presumed Immune Serum Treponema species anti body detectionOrdered By: Natviidad Davenport on 12-07-2024 Treponema sp Ab Ql (S) Non-Reactive [facility] Treponema sp Ab Ql (S)Ordere d By: Natividad Davenport on 12-07-2024 Syphilis Total Antibody Non-Reactive [facility] Type AND Screenon 12-07-2024 Ab SCREEN GEL Negative Normal [facility] Comment on above: Order Comment: PN Performed By: #### L 3890.6100, L3890.6005, L100.0100, L3890.6300, BTS, L509.8000, L509.4005 #### [facility] [address] [place], [address] (653) White blood cell (WBC) count Ordered By: Natividad Davenport on 12-07-2024 WBC (Bld) [#/Vol] 10.0 10*3/uL 4.4-11.0 [facility] Chlamydia/GC BRANDON aptimaon CHLAMY,NUC ACID Negative Normal Negative [facility] Comment on above: Performed By: #### M 100.2200, L7000.1800 #### [facility] [address] [place], [address] GC BY NUC ACID Negative Normal Negative [facility] Comment on above: Result Comment: Perf ormed at: =G - [facility] [address] [id number] Environmental Health Technologist: Serene De Leon MD, Phone: [phone] Performed By: #### M 100.2200, L7000.1800 #### [facility] [address] [place], [address] Urine Cultureon 11-28-2024 [facility] Mixed Gram Positive Organisms [place] Count 11,000-25,000 [facility] Mixed contaminants. Submit a new specimen if indicated. Normal [facility] Comment on above: Performed By: #### M 100.2200, L7000.1800 #### [facility] [address] [place], [address] C. trachomatis rRNA BRANDON+prob e Ql (Unsp spec)Ordered By: Natividad Davenport on 11-26-2024 Chlamydia DNA (BRANDON) Negative Negative [facility] Neisseria gonorrhoeae nuclei c acid detection by amplified probe techniqueOrdered By: Natividad Davenport on 11-26-2024 N. gonorrhoeae DNA BRANDON+probe Ql (Unsp spec) Negative Negative [facility] Comment on above: Performed at: =G - [facility] [address] [id number] Director: Serene De Leon MD, Phone: [phone] Frame Stripper Office Visit Reporton 11-26-2024 Frame Stripper Office Visit Report [facility]'s [address], [address] [place] [address] OFFICE VISIT Date of Service: 11/26/24 MR#: [id number] Acct: [id number] Name: DEBORA DOBBINSA Rep #: [id number] : 2000 Provider: LOUIS Freeman ams Age/Sex: 24/F Location: [facility] Status: Signed Intake Vital Signs 04/02/23 11:41 11/26/24 12:57 Height 5 ft 2 in 5 ft 2 in Weight: 153 lb BMI 28.0 BP 121/84 H Intake Visit Reasons: New OB, LMP 09/23 XUAN 06/30 Licensed Customs [employer] Required: No Is patient in pain?: No Allergies No Known Allergies Allergy (Verified 11/26/24 12:59) Medications ???Medication ???Instructions ???Recorded ???Confirmed ???Type vits no.10-ferrous 1 tab PO DAILY 07/11/22 11/26/24 History fumarate 65 mg iron-folic acid 1 mg tablet Last Menstrual Period: 09/23/24 Zika: Zika virus screening: Negative : No Have you fallen in the past year?: No PFSH [facility] Medical History Supervision of normal first Tick [...] 1-2 times per week duration: 15-30 minutes/day prabhu/baptism: Episcopalian seatbelt use: always do you feel safe [...] - full term 7lbs 6oz Male epidural [facility] Natividad Davenport [place] Delivery Date: 02/26/23 Last Updated by: Lxei Mendoza, RN See problem list for complications [...] Other Infec (more content not included)... Normal [facility] Urine cultureOrdered By: Eduardo Davenport on 11-26-2024 Bacteria identified Cx Nom (U) Positive Abnormal [facility] LYME DISEASE AB W/REFL TO BL OT [...] By: #### 6 646 #### [facility] [address], [address] [place] [id number] Director Inpatient Headache Program: Richie Gamboa MD Absolute lymphocyte countOrd ered By: Natividad Davenport on 02-16-2023 Lymphocytes Auto (Unsp spec) [#/Vol] 1.68 10*3/uL 0.83-4.51 [facility] Basophil percentageOrdered B y: Natividad Davenport on 02-16-2023 Basophils/100 WBC (Bld) 0.2 % 0-1 [facility] Eosinophils/100 WBC (Bld) 0.1 % 0-5 [facility] Neutrophils (Bld) [#/Vol] 10.7 10*3/uL 2.0-7.7 [facility] Neutrophils/100 WBC (Bld) 80.5 % 47-70 [facility] WBC (Bld) [#/Vol] 13.3 10*3/uL 4.4-11.0 [facility] Blood erythrocytes count (nu mber/volume)Ordered By: Natividad Davenport on 02-16-2023 RBC (Bld) [#/Vol] 4.09 10*6/uL 4.2-5.4 [facility] Blood hemoglobin measurement (mass/volume)Ordered By: Natividad Davenport on 02-16-2023 Hemoglobin (Bld) [Mass/Vol] 13.0 g/dL 12.0-15.0 [facility] Blood lymphocytes/100 leukoc ytesOrdered By: Natividad Davenport on 02-16-2023 Lymphocytes/100 WBC (Bld) 12.7 % 19-41 [facility] Blood monocytes/100 leukocyt esOrdered By: Natividad Davenport on 02-16-2023 Monocytes/100 WBC (Bld) 6.2 % 0-10 [facility] Blood platelet mean volumeOr dered By: Natividad Davenport on 02-16-2023 Platelet mean volume (Bld) [Entitic vol] 10.0 fL 6.2-12.0 [facility] Determination of erythrocyte mean corpuscular volume (MCV)Ordered By: Natividad Davenport on 02-16-2023 MCV (RBC) [Entitic vol] 92.2 fL 81-99 [facility] Hematocrit Auto (Bld) [Volum e fraction]Ordered By: Natividad Davenport on 02-16-2023 Hematocrit (Bld) [Volume fraction] 37.7 % 37-47 [facility] Laboratory - Hematology and Cell countsOrdered By: Natividad Davenport on 02-16-2023 Erythrocyte distribution width (RBC) [Entitic vol] 42.2 fL 35.1-43.9 [facility] Erythrocyte distribution width (RBC) [Ratio] 12.5 % 11.6-14.6 [facility] Immature granulocytes/100 WBC (Bld) 0.300 % 0.0-0.9 [facility] Comment on above: IG% - Immature Granu locytes (promyelocytes, myelocytes and metamyelocytes) > 1% indicates that a LEFT SHIFT is Present. MCH (RBC) [Entitic mass] 31.8 pg 27.0-32.0 [facility] Nucleated RBC/100 WBC (Bld) [Ratio] 0 % 0-5 [facility] MCHC Auto (RBC) [Mass/Vol]Or dered By: Natividad Davenport on 02-16-2023 MCHC (RBC) [Mass/Vol] 34.5 g/dL 32-36 [facility] Platelets bldOrdered By: Eduardo Davenport on 02-16-2023 Platelets (Bld) [#/Vol] 266 10*3/uL 150-450 [facility] Serum Treponema species anti body detectionOrdered By: Natividad Davenport on 02-16-2023 Treponema sp Ab Ql (S) Non-Reactive [facility] Laboratory - Chemistry and C hemistry - challengeon 02-12-2023 Glucose Ql (U) Negative [facility] - Urinalysison Protein Ql (U) Trace [facility] - Chemistry and C hemistry - challengeon 02-05-2023 Glucose Ql (U) Negative [facility] - Urinalysison Protein Ql (U) Negative [facility] No Panel InformationOrdered By: Bria Alicia on 02-01-2023 Group B Streptococcus Culture Group B Beta Streptococcus is not isolated. [facility] - Chemistry and C hemistry - challengeon 01-29-2023 Glucose Ql (U) Negative [facility] - Urinalysison Protein Ql (U) Negative [facility] - Chemistry and C hemistry - challengeon 01-10-2023 Glucose Ql (U) Negative [facility] - Urinalysison Protein Ql (U) Negative [facility] - Chemistry and C hemistry - challengeon 12-25-2022 Glucose Ql (U) Negative [facility] - Urinalysison Protein Ql (U) Negative [facility] - Chemistry and C hemistry - challengeon 12-13-2022 Glucose Ql (U) Negative [facility] - Urinalysison Protein Ql (U) Negative [facility] Absolute lymphocyte countOrd ered By: Bria Alicia on 11-29-2022 Lymphocytes Auto (Unsp spec) [#/Vol] 2.21 10*3/uL 0.83-4.51 [facility] Basophil percentageOrdered B y: Bria Alicia on 11-29-2022 Basophils/100 WBC (Bld) 0.3 % 0-1 [facility] Eosinophils/100 WBC (Bld) 0.7 % 0-5 [facility] Neutrophils (Bld) [#/Vol] 10.1 10*3/uL 2.0-7.7 [facility] Neutrophils/100 WBC (Bld) 75.1 % 47-70 [facility] WBC (Bld) [#/Vol] 13.5 10*3/uL 4.4-11.0 [facility] Blood erythrocytes count (nu mber/volume)Ordered By: Bria Alicia on 11-29-2022 RBC (Bld) [#/Vol] 3.98 10*6/uL 4.2-5.4 [facility] Blood hemoglobin measurement (mass/volume)Ordered By: Bria Alicia on 11-29-2022 Hemoglobin (Bld) [Mass/Vol] 12.7 g/dL 12.0-15.0 [facility] Blood lymphocytes/100 leukoc ytesOrdered By: Bria Alicia on 11-29-2022 Lymphocytes/100 WBC (Bld) 16.4 % 19-41 [facility] Blood monocytes/100 leukocyt esOrdered By: Bria Alicia on 11-29-2022 Monocytes/100 WBC (Bld) 6.7 % 0-10 [facility] Blood platelet mean volumeOr dered By: Bria Alicia on 11-29-2022 Platelet mean volume (Bld) [Entitic vol] 9.1 fL 6.2-12.0 [facility] Determination of erythrocyte mean corpuscular volume (MCV)Ordered By: Bria Alicia on 11-29-2022 MCV (RBC) [Entitic vol] 94.5 fL 81-99 [facility] Gestational diabetes screen 1-hour screen with 50g oral glucose loadOrdered By: Bria Alicia on 11-29-2022 Glucose 1 Hr post 50 g glucose PO [Mass/Vol] 125 mg/dL 70-140 [facility] HIV 1 and HIV-2 antibody ass ay with HIV-1 p24 antigen detectionOrdered By: Bria Alicia on 11-29-2022 HIV 1+2 Ab+HIV1 p24 Ag IA Ql Non-Reactive Nonreactive [facility] Hematocrit Auto (Bld) [Volum e fraction]Ordered By: Bria Alicia on 11-29-2022 Hematocrit (Bld) [Volume fraction] 37.6 % 37-47 [facility] - Chemistry and C hemistry - challengeon 11-29-2022 Glucose Ql (U) Negative [facility] - Hematology and Cell countsOrdered By: Bria Alicia on 11-29-2022 Erythrocyte distribution width (RBC) [Entitic vol] 41.5 fL 35.1-43.9 [facility] Erythrocyte distribution width (RBC) [Ratio] 12.0 % 11.6-14.6 [facility] Immature granulocytes/100 WBC (Bld) 0.800 % 0.0-0.9 [facility] Comment on above: IG% - Immature Granu locytes (promyelocytes, myelocytes and metamyelocytes) > 1% indicates that a LEFT SHIFT is Present. MCH (RBC) [Entitic mass] 31.9 pg 27.0-32.0 [facility] Nucleated RBC/100 WBC (Bld) [Ratio] 0 % 0-5 [facility] - Urinalysison Protein Ql (U) Negative [facility] MCHC Auto (RBC) [Mass/Vol]Or dered By: Bria Alicia on 11-29-2022 MCHC (RBC) [Mass/Vol] 33.8 g/dL 32-36 [facility] Platelets bldOrdered By: Gricelda Alicia on 11-29-2022 Platelets (Bld) [#/Vol] 309 10*3/uL 150-450 [facility] Serum Treponema species anti body detectionOrdered By: Bria Alicia on 11-29-2022 Treponema sp Ab Ql (S) Non-Reactive [facility] - Chemistry and C hemistry - challengeon 10-23-2022 Glucose Ql (U) Negative [facility] - Urinalysison Protein Ql (U) Negative [facility] - Chemistry and C hemistry - challengeon 10-02-2022 Glucose Ql (U) Negative [facility] - Urinalysison Protein Ql (U) Negative [facility] - Chemistry and C hemistry - challengeon 08-14-2022 Glucose Ql (U) Negative [facility] - Urinalysison Protein Ql (U) Negative [facility] Absolute lymphocyte counton 07-27-2022 Lymphocytes Auto (Unsp spec) [#/Vol] 2.30 10*3/uL 0.83-4.51 [facility] Work Phone: Basophil percentageon 2021 Basophils/100 WBC (Bld) 0.4 % 0-1 [facility] Work Phone: Eosinophils/100 WBC (Bld) 0.6 % 0-5 [facility] Work Phone: Neutrophils (Bld) [#/Vol] 6.4 10*3/uL 2.0-7.7 [facility] Work Phone: Neutrophils/100 WBC (Bld) 67.1 % 47-70 [facility] Work Phone: WBC (Bld) [#/Vol] 9.5 10*3/uL 4.4-11.0 [facility] Work Phone: Blood erythrocytes count (nu mber/volume)on 07-27-2022 RBC (Bld) [#/Vol] 4.34 10*6/uL 4.2-5.4 [facility] Work Phone: Blood hemoglobin measurement (mass/volume)on 07-27-2022 Hemoglobin (Bld) [Mass/Vol] 13.6 g/dL 12.0-15.0 [facility] Work Phone: Blood lymphocytes/100 leukoc yteson 07-27-2022 Lymphocytes/100 WBC (Bld) 24.2 % 19-41 [facility] Work Phone: Blood monocytes/100 leukocyt eson 07-27-2022 Monocytes/100 WBC (Bld) 7.5 % 0-10 [facility] Work Phone: [phone] Blood platelet mean volumeon 07-27-2022 Platelet mean volume (Bld) [Entitic vol] 9.3 fL 6.2-12.0 [facility] Work Phone: Determination of erythrocyte mean corpuscular volume (MCV)on 07-27-2022 MCV (RBC) [Entitic vol] 91.0 fL 81-99 [facility] Work Phone: HIV 1 and HIV-2 antibody ass ay with HIV-1 p24 antigen detectionon 07-27-2022 HIV 1+2 Ab+HIV1 p24 Ag IA Ql Non-Reactive Nonreactive [facility] Work Phone: [phone] Hematocrit Auto (Bld) [Volum e fraction]on 07-27-2022 Hematocrit (Bld) [Volume fraction] 39.5 % 37-47 [facility] Work Phone: Laboratory - Hematology and Cell countson 07-27-2022 Erythrocyte distribution width (RBC) [Entitic vol] 39.1 fL 35.1-43.9 [facility] Work Phone: [phone] Erythrocyte distribution width (RBC) [Ratio] 11.7 % 11.6-14.6 [facility] Work Phone: [phone] Immature granulocytes/100 WBC (Bld) 0.200 % 0.0-0.9 [facility] Work Phone: Comment on above: IG% - Immature Granu locytes (promyelocytes, myelocytes and metamyelocytes) > 1% indicates that a LEFT SHIFT is Present. MCH (RBC) [Entitic mass] 31.3 pg 27.0-32.0 [facility] Work Phone: [phone] Nucleated RBC/100 WBC (Bld) [Ratio] 0 % 0-5 [facility] Work Phone: [phone] MCHC Auto (RBC) [Mass/Vol]on 07-27-2022 MCHC (RBC) [Mass/Vol] 34.4 g/dL 32-36 [facility] Work Phone: [phone] No Panel Informationon 07-27 Miscellaneous Test Comment MAILED SPECIMEN [facility] Work Phone: [phone] Hepatitis B Surface Antigen Non-Reactive Nonreactive [facility] Work Phone: [phone] Hepatitis C Antibody Non-Reactive Nonreactive [facility] Work Phone: [phone] Comment on above: Non Reactive: < 0.8 Equivocal: >/= 0.8 to < 1.0 Reactive: >/= 1.0The CDC recommends that a reactive/equivocal HCV antibody result be followed up by the HCV Nucleic Acid Amplificationtest (367034) Rubella IgG Antibody Non-Reactive Nonreactive [facility] Work Phone: [phone] Comment on above: Antibody Results Int erpretation of Immune Status Non Reactive Presumed Non-Immune Equivocal Equivocal Reactive Presumed Immune Platelets bldon 07-27-2022 Platelets (Bld) [#/Vol] 326 10*3/uL 150-450 [facility] Work Phone: [phone] Serum Treponema species anti body detectionon 07-27-2022 Treponema sp Ab Ql (S) Non-Reactive [facility] Work Phone: [phone] Cervical or vagninal specime n microscopic examination by cytology stain (reported ason 07-16-2022 Cytology report Cyto stain Doc (Cvx/Vag) Comment . [facility] Work Phone: [phone] Comment on above: The Pap smear is [...] rRNA BRANDON+probe Ql (Unsp spec) Negative Negative [facility] Work Phone: Laboratory - Cytologyon 06-19 Pediatric Psychiatrist Cyto stain Nom (Cvx/Vag) [ID] Comment . [facility] Work Phone: [phone] Comment on above: Laurita Woodruff Cyto technologist (ASCP) Laboratory - Drug toxicology on 07-16-2022 Amphetamines Ql (U) Negative <1000 ng/mL [facility] Work Phone: [phone] Benzodiazepines Ql (U) Negative < 200 ng/mL [facility] Work Phone: [phone] Cannabinoids Screen Ql (U) Negative < 50 ng/mL [facility] Work Phone: [phone] Cocaine Ql (U) Negative < 300 ng/mL [facility] Work Phone: [phone] Opiates Ql (U) Negative < 300 ng/mL [facility] Work Phone: [phone] Laboratory - Microbiology an d Antimicrobial susceptibilityon 07-16-2022 N. gonorrhoeae DNA BRANDON+probe Ql (Unsp spec) Negative Negative [facility] Work Phone: Comment on above: Performed at: =[address] [id number] Director: Serene De Leon MD, Phone: [phone] Laboratory - Miscellaneous t estson 07-16-2022 Service comment (Unsp spec) [Interp] Comment . [facility] Work Phone: Comment on above: This liquid based Th inPrep(R) pap test was screened withthe use of an image guided system. Service comment (Unsp spec) [Interp] . . [facility] Work Phone: No Panel Informationon 07-16 Human Papillomavirus Screen Comment . [facility] Work Phone: Comment on above: The HPV DNA reflex c riteria were not met with this specimenresult therefore, no HPV testing was performed.Performed at: [address] [place] [id number] Director: Serene De Leon MD, Phone: [phone] MDMA (Ecstasy) Screen Negative < 500 ng/mL [facility] Work Phone: [phone] Pathology report final diagnosis Narrative Comment . [facility] Work Phone: Comment on above: NEGATIVE FOR INTRAEP ITHELIAL LESION OR MALIGNANCY. Urine Barbiturates Screen Negative < 200 ng/mL [facility] Work Phone: Urine Drug Screen Comment [facility] Work Phone: [phone] Comment on above: CONFIRMATORY TESTING FOR ALL [...] Urine Methadone Screen Negative < 300 ng/mL [facility] Work Phone: Urine phencyclidine (PCP) de tectionon 07-16-2022 Phencyclidine Ql (U) Negative < 25 ng/mL 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 [facility] Comment on above: Result Comment: Nega tikitty for This test was developed and its performance characteristics determined by [facility] [place]. This test has been authorized by FDA [...] developed and its performance characteristics determined by [facility]'s [facility] [place]. This test has been authorized by FDA [...] developed and its performance characteristics determined by [facility] [place]. This test has been authorized by FDA under an Emergency Use Authorization (EUA). This test has been validated in accordance with the FDA's Guidance Document "Policy for Diagnostics Testing in Laboratories Certified to Perform High Complexity Testing under CLIA prior to Emergency use Authorization for Coronavirus Disease 2019 during the Public Health Emergency" issued on January 16, 2020. 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 SWAB Culture, urine Bacteria identified Cx Nom (U) Positive [facility] Work Phone: Vital Signs Date Time Vital Sign Value Performing Clinician Jhony luu 06-16-2025 10:48-0400 Body height 157.48 cm No Primary Care Physician [facility] 06-16-2025 10:44-0400 Body mass index (BMI) [Ratio] 33.6 kg/m2 No Primary Care Physician [facility] 06-16-2025 10:44-0400 Body weight 83.46 kg No Primary Care Physician [facility] 06-16-2025 10:44-0400 Diastolic blood pressure 73 mm[Hg] No Primary Care Physician [facility] 06-16-2025 10:44-0400 Systolic blood pressure 105 mm[Hg] No Primary Care Physician [facility] 06-09-2025 10:54-0400 Body height 157.48 cm No Primary Care Physician [facility] 06-09-2025 10:53-0400 Body mass index (BMI) [Ratio] 33.7 kg/m2 No Primary Care Physician [facility] 06-09-2025 10:53-0400 Body weight 83.63 kg No Primary Care Physician [facility] 06-09-2025 10:53-0400 Diastolic blood pressure 75 mm[Hg] No Primary Care Physician [facility] 06-09-2025 10:53-0400 Systolic blood pressure 112 mm[Hg] No Primary Care Physician [facility] 06-03-2025 15:07-0400 Body height 157.48 cm No Primary Care Physician [facility] 06-03-2025 15:07-0400 Body mass index (BMI) [Ratio] 33.6 kg/m2 No Primary Care Physician [facility] 06-03-2025 15:07-0400 Body weight 83.51 kg No Primary Care Physician [facility] 06-03-2025 15:07-0400 Diastolic blood pressure 82 mm[Hg] No Primary Care Physician [facility] 06-03-2025 15:07-0400 Systolic blood pressure 122 mm[Hg] No Primary Care Physician [facility] 05-19-2025 10:53-0400 Body height 157.48 cm No Primary Care Physician [facility] 05-19-2025 10:49-0400 Body mass index (BMI) [Ratio] 33 kg/m2 No Primary Care Physician [facility] 05-19-2025 10:49-0400 Body weight 81.87 kg No Primary Care Physician [facility] 05-19-2025 10:49-0400 Diastolic blood pressure 78 mm[Hg] No Primary Care Physician [facility] 05-19-2025 10:49-0400 Systolic blood pressure 111 mm[Hg] No Primary Care Physician [facility] 05-05-2025 11:25-0400 Body height 157.48 cm No Primary Care Physician [facility] 05-05-2025 11:21-0400 Body mass index (BMI) [Ratio] 32.7 kg/m2 No Primary Care Physician [facility] 05-05-2025 11:21-0400 Body weight 81.19 kg No Primary Care Physician [facility] 05-05-2025 11:21-0400 Diastolic blood pressure 74 mm[Hg] No Primary Care Physician [facility] 05-05-2025 11:21-0400 Systolic blood pressure 111 mm[Hg] No Primary Care Physician [facility] 04-21-2025 09:49-0400 Body height 157.48 cm No Primary Care Physician [facility] 04-21-2025 09:49-0400 Body mass index (BMI) [Ratio] 32 kg/m2 No Primary Care Physician [facility] 04-21-2025 09:49-0400 Body weight 79.49 kg No Primary Care Physician [facility] 04-21-2025 09:49-0400 Diastolic blood pressure 71 mm[Hg] No Primary Care Physician [facility] 04-21-2025 09:49-0400 Systolic blood pressure 106 mm[Hg] No Primary Care Physician [facility] 04-05-2025 11:07-0400 Body height 157.48 cm No Primary Care Physician [facility] 04-05-2025 11:07-0400 Body mass index (BMI) [Ratio] 31.3 kg/m2 No Primary Care Physician [facility] 04-05-2025 11:07-0400 Body weight 77.73 kg No Primary Care Physician [facility] 04-05-2025 11:07-0400 Diastolic blood pressure 81 mm[Hg] No Primary Care Physician [facility] 04-05-2025 11:07-0400 Systolic blood pressure 120 mm[Hg] No Primary Care Physician [facility] 02-24-2025 09:49-0400 Body mass index (BMI) [Ratio] 30.3 kg/m2 No Primary Care Physician [facility] 02-24-2025 09:49-0400 Body weight 75.29 kg No Primary Care Physician [facility] 02-24-2025 09:49-0400 Diastolic blood pressure 66 mm[Hg] No Primary Care Physician [facility] 02-24-2025 09:49-0400 Systolic blood pressure 103 mm[Hg] No Primary Care Physician [facility] 01-27-2025 11:35-0400 Body height 157.48 cm No Primary Care Physician [facility] 01-27-2025 11:33-0400 Body mass index (BMI) [Ratio] 28.8 kg/m2 No Primary Care Physician [facility] 01-27-2025 11:33-0400 Body weight 71.44 kg No Primary Care Physician [facility] 01-27-2025 11:33-0400 Diastolic blood pressure 88 mm[Hg] No Primary Care Physician [facility] 01-27-2025 11:33-0400 Systolic blood pressure 127 mm[Hg] No Primary Care Physician [facility] 12-29-2024 13:02-0500 Body mass index (BMI) [Ratio] 28.8 kg/m2 No Primary Care Physician [facility] 12-29-2024 13:02-0500 Body weight 71.44 kg No Primary Care Physician [facility] 12-29-2024 13:02-0500 Diastolic blood pressure 88 mm[Hg] No Primary Care Physician [facility] 12-29-2024 13:02-0500 Systolic blood pressure 127 mm[Hg] No Primary Care Physician [facility] 11-26-2024 12:57-0500 Body mass index (BMI) [Ratio] 28 kg/m2 No Primary Care Physician [facility] 11-26-2024 12:57-0500 Body weight 69.39 kg No Primary Care Physician [facility] 11-26-2024 12:57-0500 Diastolic blood pressure 84 mm[Hg] No Primary Care Physician [facility] 11-26-2024 12:57-0500 Systolic blood pressure 121 mm[Hg] No Primary Care Physician [facility] 02-18-2023 14:00-0400 Body temperature 98.3 [degF] No Primary Care Physician [facility] 02-18-2023 14:00-0400 Diastolic blood pressure 69 mm[Hg] No Primary Care Physician [facility] 02-18-2023 14:00-0400 Heart rate 90 /min No Primary Care Physician [facility] 02-18-2023 14:00-0400 Respiratory rate 16 /min No Primary Care Physician [facility] 02-18-2023 14:00-0400 Systolic blood pressure 113 mm[Hg] No Primary Care Physician [facility] 02-18-2023 03:00-0400 SaO2% (BldA) [Mass fraction] 96 % No Primary Care Physician [facility] 02-16-2023 10:13-0400 Body height 157.48 cm No Primary Care Physician [facility] 02-16-2023 10:13-0400 Body mass index (BMI) [Ratio] 32.9 kg/m2 No Primary Care Physician [facility] 02-16-2023 10:13-0400 Body weight 81.7 kg No Primary Care Physician [facility] 02-12-2023 09:55-0400 Body mass index (BMI) [Ratio] 33.3 kg/m2 No Primary Care Physician [facility] 02-12-2023 09:55-0400 Body weight 82.55 kg No Primary Care Physician [facility] 02-12-2023 09:55-0400 Diastolic blood pressure 86 mm[Hg] No Primary Care Physician [facility] 02-12-2023 09:55-0400 Heart rate 103 /min No Primary Care Physician [facility] 02-12-2023 09:55-0400 Systolic blood pressure 120 mm[Hg] No Primary Care Physician [facility] 02-05-2023 08:53-0400 Body weight 82.55 kg No Primary Care Physician [facility] 02-05-2023 08:53-0400 Diastolic blood pressure 80 mm[Hg] No Primary Care Physician [facility] 02-05-2023 08:53-0400 Systolic blood pressure 117 mm[Hg] No Primary Care Physician [facility] 01-29-2023 10:07-0400 Body height 157.48 cm No Primary Care Physician [facility] 01-29-2023 10:07-0400 Body mass index (BMI) [Ratio] 32 kg/m2 No Primary Care Physician [facility] 01-29-2023 10:07-0400 Body weight 79.37 kg No Primary Care Physician [facility] 01-29-2023 10:07-0400 Diastolic blood pressure 78 mm[Hg] No Primary Care Physician [facility] 01-29-2023 10:07-0400 Heart rate 94 /min No Primary Care Physician [facility] 01-29-2023 10:07-0400 Systolic blood pressure 110 mm[Hg] No Primary Care Physician [facility] 01-22-2023 09:13-0500 Diastolic blood pressure 84 mm[Hg] No Primary Care Physician [facility] 01-22-2023 09:13-0500 Systolic blood pressure 127 mm[Hg] No Primary Care Physician [facility] 01-22-2023 08:55-0500 Body mass index (BMI) [Ratio] 32.5 kg/m2 No Primary Care Physician [facility] 01-22-2023 08:55-0500 Body weight 80.73 kg No Primary Care Physician [facility] 01-10-2023 08:27-0500 Body mass index (BMI) [Ratio] 32.1 kg/m2 No Primary Care Physician [facility] 01-10-2023 08:27-0500 Diastolic blood pressure 80 mm[Hg] No Primary Care Physician [facility] 01-10-2023 08:27-0500 Systolic blood pressure 118 mm[Hg] No Primary Care Physician [facility] 01-10-2023 07:54-0500 Body weight 79.83 kg No Primary Care Physician [facility] 12-25-2022 08:22-0500 Diastolic blood pressure 78 mm[Hg] No Primary Care Physician [facility] 12-25-2022 08:22-0500 Systolic blood pressure 122 mm[Hg] No Primary Care Physician [facility] 12-25-2022 07:59-0500 Body mass index (BMI) [Ratio] 31.6 kg/m2 No Primary Care Physician [facility] 12-25-2022 07:59-0500 Body weight 78.47 kg No Primary Care Physician [facility] 12-25-2022 07:59-0500 Heart rate 90 /min No Primary Care Physician [facility] 12-13-2022 09:58-0500 Body mass index (BMI) [Ratio] 31.4 kg/m2 No Primary Care Physician [facility] 12-13-2022 09:58-0500 Body weight 78.01 kg No Primary Care Physician [facility] 12-13-2022 09:58-0500 Diastolic blood pressure 76 mm[Hg] No Primary Care Physician [facility] 12-13-2022 09:58-0500 Heart rate 80 /min No Primary Care Physician [facility] 12-13-2022 09:58-0500 Systolic blood pressure 110 mm[Hg] No Primary Care Physician [facility] 11-29-2022 15:40-0500 Body height 157.48 cm No Primary Care Physician [facility] 11-29-2022 15:39-0500 Body mass index (BMI) [Ratio] 31.1 kg/m2 No Primary Care Physician [facility] 11-29-2022 15:39-0500 Body weight 77.11 kg No Primary Care Physician [facility] 11-29-2022 15:39-0500 Diastolic blood pressure 83 mm[Hg] No Primary Care Physician [facility] 11-29-2022 15:39-0500 Systolic blood pressure 126 mm[Hg] No Primary Care Physician [facility] 10-29-2022 08:39-0500 Body mass index (BMI) [Ratio] 28.1 kg/m2 No Primary Care Physician [facility] 10-29-2022 08:39-0500 Diastolic blood pressure 72 mm[Hg] No Primary Care Physician [facility] 10-29-2022 08:39-0500 Systolic blood pressure 109 mm[Hg] No Primary Care Physician [facility] 10-23-2022 10:33-0500 Body mass index (BMI) [Ratio] 28.9 kg/m2 No Primary Care Physician [facility] 10-23-2022 10:33-0500 Body weight 71.66 kg No Primary Care Physician [facility] 10-23-2022 10:33-0500 Diastolic blood pressure 79 mm[Hg] No Primary Care Physician [facility] 10-23-2022 10:33-0500 Heart rate 87 /min No Primary Care Physician [facility] 10-23-2022 10:33-0500 Systolic blood pressure 114 mm[Hg] No Primary Care Physician [facility] 10-02-2022 10:23-0500 Body weight 69.85 kg No Primary Care Physician [facility] 10-02-2022 10:23-0500 Heart rate 81 /min No Primary Care Physician [facility] 09-11-2022 13:05-0400 Body height 157.48 cm No Primary Care Physician [facility] Work Phone: 09-11-2022 13:05-0400 Body temperature 99 [degF] No Primary Care Physician [facility] 09-11-2022 13:05-0400 Body weight 68.03 kg No Primary Care Physician [facility] 09-11-2022 13:05-0400 Diastolic blood pressure 80 mm[Hg] No Primary Care Physician [facility] 09-11-2022 13:05-0400 Heart rate 82 /min No Primary Care Physician [facility] 09-11-2022 13:05-0400 Respiratory rate 12 /min No Primary Care Physician [facility] 09-11-2022 13:05-0400 Systolic blood pressure 120 mm[Hg] No Primary Care Physician [facility] 08-14-2022 08:41-0400 Body mass index (BMI) [Ratio] 25.7 kg/m2 No Primary Care Physician [facility] 08-14-2022 08:41-0400 Body weight 63.95 kg No Primary Care Physician [facility] 08-14-2022 08:41-0400 Diastolic blood pressure 76 mm[Hg] No Primary Care Physician [facility] 08-14-2022 08:41-0400 Systolic blood pressure 123 mm[Hg] No Primary Care Physician [facility] 07-16-2022 13:16-0400 Body height 157.48 cm No Primary Care Physician [facility] Work Phone: 07-16-2022 13:16-0400 Body mass index (BMI) [Ratio] 24.5 kg/m2 No Primary Care Physician [facility] Work Phone: 07-16-2022 13:16-0400 Body weight 60.78 kg No Primary Care Physician [facility] Work Phone: 07-16-2022 13:16-0400 Diastolic blood pressure 72 mm[Hg] No Primary Care Physician [facility] Work Phone: 07-16-2022 13:16-0400 Systolic blood pressure 110 mm[Hg] No Primary Care Physician [facility] Work Phone: Encounters Encounter Date Encounter Type Care Provider Facility Start: 06-16-2025 End: 06-16-2025 Patient encounter procedure Natividad Davenport CNM -[facility] @ Start: 06-16-2025 End: 06-16-2025 ambulatory No Primary Care Physician -[facility] @ Start: 06-09-2025 End: 06-09-2025 Patient encounter procedure Natividad Davenport CNM [facility] @ Start: 06-09-2025 End: 06-09-2025 ambulatory No Primary Care Physician -[facility] @ Start: 06-03-2025 End: 06-03-[address] Rama [facility] DO -[facility] Work Phone: Start: 06-03-2025 End: 06-03-2025 ambulatory No Primary Care Physician -[facility] Start: 06-03-2025 End: 06-03-2025 ambulatory No Primary Care Physician Facility:[facility] Start: 05-19-2025 End: 05-19-2025 Patient encounter procedure Natividad ROSEN -[facility] @ Start: 05-19-2025 End: 05-19-2025 ambulatory No Primary Care Physician -[facility] @ Start: 05-05-2025 End: 05-05-2025 ambulatory No Primary Care Physician [facility] Work Phone: Start: 05-05-2025 End: 05-05-2025 Patient encounter procedure Natividad ROSEN -[facility] @ Start: 04-21-2025 End: 04-21-2025 Patient encounter procedure Natividad ORSEN -[facility] @ Start: 04-21-2025 End: 04-21-2025 ambulatory No Primary Care Physician [facility] Work Phone: Start: 04-05-2025 End: 04-05-2025 Patient encounter procedure Natividad Davenport [facility] -[facility] Work Phone: Start: 04-05-2025 End: 04-05-2025 ambulatory No Primary Care Physician [facility] Work Phone: Start: 04-05-2025 End: 04-05-2025 ambulatory No Primary Care Physician Facility:[facility] Start: 02-24-2025 End: 02-24-2025 Patient encounter procedure Natividad ROSEN -[facility] @ Start: 02-24-2025 End: 02-24-2025 ambulatory No Primary Care Physician Facility:[facility] Start: 02-10-2025 End: 02-10-2025 ambulatory No Primary Care Physician [facility] Work Phone: Start: 02-10-2025 End: 02-10-[address] Rama Grant DO -Ultrasound, [facility] Work Phone: Start: 02-10-2025 End: 02-10-2025 ambulatory No Primary Care Physician Facility:[facility] Start: 01-27-2025 End: 01-27-2025 Patient encounter procedure Natividad Davenport CNM -[facility] @ Start: 01-27-2025 End: 01-27-2025 ambulatory No Primary Care Physician Facility:[facility] Start: 12-29-2024 End: 12-29-[address] Petra Lagunas MD -[facility] Work Phone: Start: 12-29-2024 End: 12-29-2024 ambulatory No Primary Care Physician Facility:[facility] Start: 12-07-2024 End: 12-07-2024 Patient encounter procedure Natividad Davenport CNM -Lab, [facility] Start: 12-07-2024 End: 12-07-2024 ambulatory No Primary Care Physician Facility:[facility] Start: 11-26-2024 End: 11-26-2024 Patient encounter procedure Natividad Davenport CNM -Laboratory, Specimen Work Phone: Start: 11-26-2024 End: 11-26-2024 Patient encounter procedure Natividad Davenport CNM -[facility] Work Phone: Start: 11-26-2024 End: 11-26-2024 ambulatory No Primary Care Physician Facility:[facility] Start: 11-26-2024 End: 11-26-2024 ambulatory No Primary Care Physician Facility:[facility] Start: 11-17-2024 Non-patient / Non-visit Lexi Mendoza RN -[facility] Work Phone: Start: 11-17-2024 ambulatory No Primary Car e Physician Facility:[facility] Start: 02-17-2023 Non-patient / Non-visit No [facility] Start: 02-16-2023 Non-patient / Non-visit No Primary Care Physician [facility] Start: 02-16-2023 End: 02-18-2023 Evaluation and management of inpatient No Primary Care Physician [facility] Start: 02-12-2023 End: 02-12-2023 Patient encounter procedure No Primary Care Physician [facility] @ Start: 02-05-2023 End: 02-05-2023 Patient encounter procedure No Primary Care Physician [facility] @ Start: 01-29-2023 End: 01-29-2023 ambulatory No Primary Care Physician [facility] Work Phone: Start: 01-29-2023 End: 01-29-2023 Patient encounter procedure No Primary Care Physician [facility]Laboratory, Specimen Start: 01-29-2023 End: 01-29-2023 Patient encounter procedure No Primary Care Physician [facility] @ Start: 01-22-2023 End: 01-22-2023 Patient encounter procedure No Primary Care Physician [facility] @ Start: 01-10-2023 End: 01-10-2023 Patient encounter procedure No Primary Care Physician [facility] @ Start: 12-25-2022 End: 12-25-2022 Patient encounter procedure No Primary Care Physician [facility] @ Start: 12-13-2022 End: 12-13-2022 Patient encounter procedure No Primary Care Physician [facility] Start: 11-29-2022 End: 11-29-2022 ambulatory No Primary Care Physician [facility] Work Phone: Start: 11-29-2022 End: 11-29-2022 Patient encounter procedure No Primary Care Physician [facility] Start: 10-23-2022 End: 10-23-2022 Patient encounter procedure No Primary Care Physician [facility] @ Start: 10-02-2022 End: 10-02-2022 Patient encounter procedure No Primary Care Physician [facility] @ Start: 09-27-2022 End: 09-27-2022 ambulatory No Primary Care Physician [facility] Work Phone: Start: 09-27-2022 End: 09-27-2022 Patient encounter procedure No Primary Care Physician [facility] Start: 09-11-2022 End: 09-11-2022 Patient encounter procedure No Primary Care Physician [facility] @ Start: 08-14-2022 End: 08-14-2022 Patient encounter procedure No Primary Care Physician [facility] Start: 07-27-2022 End: 07-27-2022 ambulatory No Primary Care Physician [facility] Work Phone: Start: 07-27-2022 End: 07-27-2022 Patient encounter procedure No Primary Care Physician [facility] Start: 07-16-2022 End: 07-16-2022 ambulatory No Primary Care Physician [facility] Work Phone: Start: 07-16-2022 End: 07-16-2022 Patient encounter procedure No Primary Care Physician [facility]Labor[facility], Specimen Start: 07-16-2022 End: 07-16-2022 Patient encounter procedure No Primary Care Physician [facility] Start: 05-19-2020 End: 05-19-2020 [facility] Procedures Date Procedure Procedure Detail Performing [...] CBC W Auto Differential panel - Blood [facility] Start: 04-05-2025 Measurement of glucose 2 hours after glucose challenge for glucose tolerance test [facility] Start: 04-05-2025 Serologic test for syphilis [facility] Start: 04-05-2025 [facility] Start: 02-10-2025 Ultrasonography in first trimester OB Anatomy w/ Transvaginal [facility] Start: 02-18-2023 Patient discharge [facility] Start: 02-16-2023 Administration of medication [facility] Start: 02-16-2023 Application of ice collar, cap or bag [facility] Start: 02-16-2023 Catheterization of vein [facility] Start: 02-16-2023 Introduction of urinary catheter [facility] Start: 02-16-2023 Measuring intake and output [facility] Start: 02-16-[address] [facility] Start: 02-16-2023 Procedure discontinued [facility] Start: 02-16-2023 Provision of activity privileges [facility] Start: 02-16-2023 Vital signs measurements [facility] Start: 02-16-2023 [facility] Start: 02-16-2023 Admission procedure [facility] Start: 07-16-2022 Liquid based cervical cytology screening [facility] Work Phone: CBC W Auto Different ial panel - Blood [facility] Work Phone: CBC W Auto Different ial panel - Blood [facility] Erythrocyte mean corpuscular volume determination [facility] Hematocrit [Volume Fraction] of Blood [facility] Hemoglobin [Mass/vol ume] in Blood [facility] Hepatitis B surface antigen measurement [facility] Work Phone: Hepatitis C antibody measurement [facility] Work Phone: HIV 1+2 Ab+HIV1 p24 Ag [Presence] in Serum or Plasma by Immunoassay [facility] Work Phone: Leukocytes [#/volume ] in Blood [facility] Mean corpuscular hemoglobin concentration determination [facility] Mean corpuscular hemoglobin determination [facility] Neutrophil count [facility] Neutrophil percent differential count [facility] Path report.final Dx Spec [facility] Work Phone: Patient Education After a Vaginal [facility] Work Phone: Patient referral [facility] Work Phone: Platelets [#/volume] in Blood [facility] Red blood cell count [facility] Red cell distributio n width determination [facility] Rubella IgG measurement [facility] Work Phone: Streptococcus agalac tiae [Presence] in Unspecified specimen by Organism specific culture [facility] Treponema sp Ab [Pre sence] in Serum [facility] Work Phone: [facility] Payers Date Payer Category Payer Unknown [id number] 2024 Self-pay 2024 Unknown [id number] 1999 Unknown [id number] 2.16.84 [id number] Unknown [id number] Unknown [id number] 2.16.8 [id number] Unknown [id number] 2.16.8 [id number] Unknown [id number] 2.16.8 [id number] Unknown [id number] 2.16.8 40.1.886942.3.579.2.462 Unknown [id number] 2.16.8 40.1.588349.3.579.2.462 Unknown [id number] 2.16.8 40.1.432240.3.579.2.462 Unknown [id number] 2.16.8 40.1.400393.3.579.2.462 Unknown [id number] 2.16.8 40.1.034155.3.579.2.462 Unknown [id number] 2.16.8 40.1.887715.3.579.2.462 Unknown [id number] 2.16.8 40.1.356960.3.579.2.462 Unknown [id number] 2.16.8 40.1.453358.3.579.2.462 Unknown [id number] 2.16.8 40.1.319424.3.579.2.462 Unknown [id number] 2.16.8 40.1.382490.3.579.2.462 Unknown [id number] 2.16.8 40.1.693612.3.579.2.462 Unknown [id number] 2.16.8 40.1.285695.3.579.2.462 Unknown [id number] 2.16.8 40.1.228428.3.579.2.462 Unknown [id number] 2.16.8 40.1.381216.3.579.2.462 Social History Date Type Detail Facility Start: 07-16-2022 End: 02-16-2023 Tobacco smoking status NHIS Unknown if ever smoked [facility] Start: 2000 Sex Assigned At Female [facility] Start: 11-17-2024 Tobacco smoking stat us TNIS Never smoked tobacco (finding) [facility] Start: 02-14-2025 Sex Female (finding) [facility] Goals Date Patient Goal Desired Activity /State Mental Status Date Assessment Result Facility 02-18-2023 Cognitive function Awake;Alert;Appropriat e [facility] Work Phone: Clinical Notes 07-16-2022 to 06-16-2025 Note Date & Type Note Facility 06-16-2025 Progress note [facility] 06-09-2025 Progress note [facility] 05-19-2025 Progress note [facility] 05-05-2025 Progress note [facility] 04-21-2025 Progress note [facility] 04-05-2025 Progress note [facility] 02-24-2025 Evaluation note Diagnosis Onset Date Resolution [...] of normal acute June 03, 2025 3:02pm [facility] Work Phone: 1(565) 221-807604-09-2025 Evaluation note* Diagnosis Onset Date Resolution Status [...] normal acut e June 09, 2025 10:46am [facility] Work Phone: 1([phone] 759-921204-09-2025 Evaluation note* Diagnosis Onset Date Resolution Status [...] normal acut e June 16, 2025 10:41am [facility] [employer] [facility] Work Phone: 1(222) 907-773403-12-2025 Evaluation note* Diagnosis Onset Date Resolution Status [...] normal acut e May 05, 2025 11:13am [facility] Work Phone: 1(570) 159-428903-12-2025 Evaluation note* Diagnosis Onset Date Resolution Status [...] normal acut e May 19, 2025 10:45am [facility] Work Phone: 1(466) 987-907802-11-2025 Evaluation note* Diagnosis Onset Date Resolution Status [...] normal acute April 05, 2025 1 1:03am [facility] Work Phone: 1(737) [phone] Evaluation note* Diagnosis Onset Date Resolution Status [...] normal acute April 21, 2025 9 :26am [facility] Work Phone: 1(336) 690-8712522493-16-4478 Evaluation note* Diagnosis Onset Date Resolution Status [...] of normal acute January 27, 2025 11:09am [facility] Work Phone: 1(481) 400-666504-02-2023 Progress note Author Natividad Davenport [facility] February 17, 2023 8:24am Note Date/Time February 17, 2023 8:24 am [facility] Medical Records Department [address] [place] [address] Progress Note - OBGYN 02/17/23 0822 MR#: [id number] Acct: [id number] Name: DINORAH DOBBINS Rep #:[id number] : 2000 From: Natividad Davenport CNM PCP: Care Physician,No Primary Status :ADM IN Location: [place] [address]-1 Subjective Subjective Patient doing well without complaints. [...] (Auto) 80.5 H, Lymph % (Auto) 12.7 L,[place] % (Auto) 6.2, Eos % (Auto) 0.1, [...] delivery: COMMENT: KW/SM 39.2 Active labor Boy [place] PLAN: s/p PPD # 1 1. routine post delivery care 2. breast feeding- support given 3. rh positive 4. rubella immune Charges/Coding Multi Select Codes Urinary/Genital Urinary/Genital CPT Codes: No Charge 02/17/23 9209 <Electronically signed by Natividad Davenport CNM> Cosigner Signature (if applicable): CC: ~ Signed [facility] Work Phone: 1(428) 450-267304-02-2023 Discharge summary Author Natividda Davenport [facility] February 16, 2023 11:50pm Note Date/Time February 16, 2023 11:5 0pm [facility] Medical Records Department [address] [place] [address] Instructions for Home/Discharge Instructions 02/16/23 2347 MR#: [id number] Acct: [id number] Name: DINORAH DOBBISN Rep #:[id number] : 2000 From: Natividad Davenport CNM PCP: [...] CC: No Primary Care Physician ~ Signed [facility] Work Phone: 1(942) 942-496404-01-2023 Procedure [facility] 02-16-2023 Progress note Author Natividad Issac [facility] February 16, 2023 5:33pm Note Date/Time February 16, 2023 5:33 pm [facility] Medical Records Department [address] [place] [address] Progress Note - OBGYN 02/16/23 1727 MR#: [id number] Acct: [id number] Name: DINORAH DOBBINS Rep #:[id number] : 2000 22 From: Natividad Davenport CNHailey PCP: Care Physician,No Primary Status :ADM IN Location: [place] 314946-1 Subjective Subjective Patient comfortable with epidural current tracing: FHT: 145 Moderate variability reactive no decelerations category I tracing [place]: Contractions palpating moderate to strong q 3-5 [...] (Auto) 80.5 H, Lymph % (Auto) 12.7 L,[place] % (Auto) 6.2, Eos % (Auto) 0.1, Baso % (Auto) 0.2, Absolute Neuts (auto) 10.7 H, Absolute Lymphs (auto) 1.68, Nucleated RBC % 0 02/16/23 11:20: Blood Type A POSITIVE, Antibody Screen NEGATIVE 02/16/23 11:20: Syphilis Total Ab Non-reactive Charges/Coding Procedures Urinary/Genital 52xxx-59xxx: No Charge 02/16/23 1733 <Electronically signed by Natividad Davenport CNM> Cosigner Signature (if applicable): CC: ~ Signed [facility] Work Phone: 1(360) 192-125004-01-2023 Progress note Author Natividad Davenport [facility] February 16, 2023 3:37pm Note Date/Time February 16, 2023 3:37 pm [facility] Medical Records Department [address] [facility] [place] [address] Progress Note - OBGYN 02/16/23 1531 MR#: [id number] Acct: [id number] Name: DINORAH DOBBINS Rep #:[id number] : 2000 From: Natividad Davenport CNM PCP: Care Physician,No Primary Status :ADM IN Location: [place] [address] Subjective Subjective Patient comfortable with epidural current tracing: FHT: 135 Moderate variability reactive no decelerations category I tracing [place]: Contractions q 4-6 minutes palpating moderate to [...] (Auto) 80.5 H, Lymph % (Auto) 12.7 L,[place] % (Auto) 6.2, Eos % (Auto) 0.1, [...] Cosigner Signature (if applicable): CC: ~ Signed [facility] Work Phone: 1(890) 949-939604-01-2023 History and physical note Author Natividad Davenport [facility] February 16, 2023 1:03pm Note Date/Time February 16, 2023 1:03 pm [facility] Medical Records Department [address] [place] [address] H&P Exam - MOLD WASHER 02/16/23 1255 MR#: [id number] Acct: [id number] Name: DINORAH DOBBINS Rep #:[id number] : 2000 22 From: Natividad Davenport CNM PCP: Care Physician,No Primary Status :ADM IN Location: [id number] HPI - General General Date of Admission: [...] house current occupational status: employed current occupation: [employer] current occupational exposures/hazards: No pets and animals: [...] 1-2 times per week duration: 15-30 minutes/day prabhu/baptism: None seatbelt use: always do you feel safe at home: Yes additional social history: Spouse- [employer] History 1 Elective abortions Hx Para 0 Spontaneous abortions Hx # Term Pregnancies Ectopic pregnancies Hx # Pregnancies Multiple births # of living children Visit Details Expected Delivery Route/Plan Labor Preferences- CB/BF classes: [facility] labor support person: Ford( gets woozy) , [...] any complications: none I have reviewed the [facility] and made any clinically relevant updates. Reviewed plan with Dr. Lagunas, agrees with plan of care. (2) Supervision of normal first : QUALIFIERS: Trimester: first trimester Qualified Code(s): Z34.01 - Encounter for supervision of normal first , first trimester COMMENT: PRR , XUAN 02/21/23, boy! [place] Spouse [employer] (3) : QUALIFIERS: Weeks of gestation: 32 weeks Qualified Code(s): Z3A.32 - 32 weeks gestation of COMMENT: GBS negative. nl anatomy, low risk NIPT & carrier neg. for 274/274 02/16/23 1303 <Electronically signed by Natividad Davenport CNM> Cosigner Signature (if applicable): CC: LOUIS Davenport; No Primary Care Physician~ Signed [facility] Work Phone: 1([phone]) 114-835808-29-2022 NotePap Smear Specimen AdequacyAugust 2021 3:57pmComment.Satisfactory for evaluation. No endocervical component is identified.An endocervical component is not commonly seen in the patient.[facility] A#[id number] Work Phone: Comkswi on above:Satisfactory for evaluation. No endocervical component is identified.An endocervical component is not commonly seen in the patient.07-16-2022 NotePap Smear Specimen AdequacyAugust 2021 2:57pmComment.Satisfactory for evaluation. No endocervical component is identified.An endocervical component is not commonly seen in the patient.[facility] A#[id number] Hospital Work Phone: comment on above:Satisfactory for evaluation. No endocervical component is identified.An endocervical component is not commonly seen in the patient.Evaluation note* Diagnosis Onset Date Resolution Status acute Supervision of normal first [facility] Work Phone: Evaluation note* Diagnosis Onset Date Resolution Status acute Supervision of normal first acute acute Supervision of normal first acute acute Supervision of normal first [facility] Work Phone: Evaluation note* Diagnosis Onset Date Resolution Status acute Supervision of normal first acute acute Supervision of normal first acute acute Supervision of normal first acute acute Supervision of normal first acute acute Supervision of normal first [facility] Work Phone: Evaluation note* Diagnosis Onset Date Resolution Status acute Supervision of normal first acute acute Supervision of normal first acute acute Supervision of normal first acute acute Supervision of normal first acute acute Supervision of normal first acute acute Supervision of normal first acute Tick bite of abdomen acute acute Supervision of normal first [facility] Work Phone: Evaluation note* Diagnosis Onset Date [...] of normal first acute Vaginal delivery acute [facility] Work Phone: Progress note Author Natividad Davenport [facility] Note Date/Time April 05, 2025 11:27 am [facility] [address] [place] [address], [address] [place] [address] OFFICE VISIT Date of Service: 04/05/25 MR#: [id number] Acct: [id number] Name: DINORAH DOBBINS Rep #: [id number] : 2000 Provider: LOUIS Davenport Age/Sex: 24/F Location: [facility] Status: Signed Intake Vital Signs 02/24/25 09:50 04/05/25 11:07 Height 5 ft 2 in 5 ft 2 in Weight: 171 lb 6 oz BMI 31.3 BP 120/81 H Intake Visit Reasons: 26 wk ob Chief Complaint: 26wk OB [employer] Required: No Is patient in pain?: No [...] 1-2 times per week duration: 15-30 minutes/day prabhu/baptism: Ep[employer]opalian seatbelt use: always do you feel safe [...] Cosigner Signature: Date (if applicable) CC: ~ [facility] Work Phone: Progress note Author Natividad Issac [facility] Note Date/Time April 21, 2025 10:04 am [facility] [address] [place] [address], [address] [place] [address] OFFICE VISIT Date of Service: 04/21/25 MR#: [id number] Acct: [id number] Name: DINORAH DOBBINS Rep #: [id number] : 2000 Provider: LOUIS Davenport Age/Sex: 24/F Location: [facility] Status: Signed Intake Vital Signs 04/05/25 11:07 04/21/25 09:49 Height 5 ft 2 in 5 ft 2 in Weight: 175 lb 4 oz BMI 32.0 BP 106/71 Intake Visit Reasons: 28 wk ob Licensed [employer] Required: No Is patient in pain?: No [...] 1-2 times per week duration: 15-30 minutes/day prabhu/baptism: Episcopalian seatbelt use: always do you feel safe [...] - full term 7lbs 6oz Male epidural [facility] Natividad Issac [place] Delivery Date: 02/26/23 Last [...] Signs, Cervical Ripening/Labor Induction Counseling, Postterm Counseling, [place] Education, Depression, Depression and Intimate Partner Violence; [...] Cosigner Signature: Date (if applicable) CC: ~ [place] Work Phone: Progress note Author Natividad Davenport [facility] Note Date/Time May 05, 2025 11:3 8am [facility] [address] [place] [address], [address] [place] [address] OFFICE VISIT Date of Service: 05/05/25 MR#: [id number] Acct: [id number] Name: DINORAH DOBBINS Rep #: [id number] : 2000 Provider: LOUIS Davenport Age/Sex: 24/F Location: [facility] Status: Signed Intake Vital Signs 04/05/25 11:07 04/21/25 09:49 05/05/25 11:21 05/05/25 11:25 Height 5 ft 2 in 5 ft 2 in 5 ft 2 in 5 ft 2 in Weight: 179 lb BMI 32.7 BP 111/74 Intake Visit Reasons: 30 wk ob 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 Date Name GA/Weeks Outcome Route Bth Weight Infant Gen Labor Lgth Anesthesia Del Locatn Provider FOB 02/26/23 She[place]enne 39 live - full term 7lbs 6oz [...] Cosigner Signature: Date (if applicable) CC: ~ [place] Work Phone: Progress note Author Natividad Davenport [facility] Note Date/Time May 19, 2025 11:20 am [facility] [address], [address] [place] [address] OFFICE VISIT Date of Service: 05/19/25 MR#: [id number] Acct: [id number] Name: DINORAH DOBBINS Rep #: [id number] : 2000 Provider: LOUIS Davenport Age/Sex: 24/F Location: [facility] Status: Signed Intake Vital Signs 04/05/25 11:07 05/05/25 11:25 05/19/25 10:49 05/19/25 10:53 Height 5 ft 2 in 5 ft 2 in 5 ft 2 in 5 ft 2 in Weight: 180 lb 8 oz BMI 33.0 BP 111/78 Intake Visit Reasons: 32 wk ob 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 Date Name GA/Weeks Outcome Route Bth Weight Gen Labor Lgth Anesthesia Del Locatn Provider FOB 02/26/23 Sheyenne 39 live - full term 7lbs 6oz Male epidural [facility] Natividad Davenport [place] Delivery Date: 02/26/23 Last [...] cons with dates. accepts NIPT. WOuld like co hope appts 12/29/24 -?-?-?-?-?-?-?-?-?-?-?-?- 13w 6d 157 [...] Cosigner Signature: Date (if applicable) CC: ~ [facility] Work Phone: Progress note Author Natividad Davenport [facility] Note Date/Time June 09, 2025 11:0 0am [facility] [address] [place] [address], [address] [place] [address] OFFICE VISIT Date of Service: 06/09/25 MR#: [id number] Acct: [id number] Name: DINORAH DOBBINS Rep #: [id number] : 2000 Provider: LOUIS Davenport Age/Sex: 24/F Location: [facility] Status: Signed Intake Vital Signs 06/03/25 15:07 06/09/25 10:53 06/09/25 10:54 Height 5 ft 2 in 5 ft 2 in 5 ft 2 in Weight: 184 lb 6 oz BMI 33.7 BP 112/75 Intake Visit Reasons: 37wk ob Licensed [employer] Required: No Is patient in pain?: No [...] 1-2 times per week duration: 15-30 minutes/day prabhu/baptism: Episcopalian seatbelt use: always do you feel safe [...] - full term 7lbs 6oz Male epidural [facility] Natividad Youngblood Delivery Date: 02/26/23 Last Updated [...] Cosigner Signature: Date (if applicable) CC: ~ [place] Work Phone: Progress note Author Natividad Davenport [place] Note Date/Time June 16, 2025 10:5 6am [facility] [address], [address] [place] [address] OFFICE VISIT Date of Service: 06/16/25 MR#: [id number] Acct: [id number] Name: DINORAH DOBBINS Rep #: [id number] : 2000 Provider: LOUIS Davenport Age/Sex: 24/F Location: [facility] Status: Signed Intake Vital Signs 05/19/25 10:53 06/09/25 10:54 06/16/25 10:44 06/16/25 10:48 Height 5 ft 2 in 5 ft 2 in 5 ft 2 in 5 ft 2 in Weight: 184 lb BMI 33.6 BP 105/73 Intake Visit Reasons: 38 WK OB 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 Date Name GA/Weeks Outcome Route Bth Weight Infant Gen Labor Lgth Anesthesia Del Locatn Provider FOB 02/26/23 Sheyenne 39 live - full term 7lbs 6oz [...] cons with dates. accepts NIPT. 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 2024 11:09am Supervision of normal January 272024 [...] 11: 09am Rubella non-immune status, antepartum Ma [facility] 2024 11:09am Supervision of normal January 272024 [...] section and content) DATE CREATED AUTHOR 06/10/2020 [facility] DATE CREATED AUTHOR AUTHOR'S ORGANIZ ATION 03/07/2023 [facility] DATE CREATED AUTHOR AUTHOR'S ORGANIZ ATION 04/28/2023 [facility] DATE CREATED AUTHOR AUTHOR'S ORGANIZ ATION 06/18/2025 [facility] Goals (unrecognized section and content) Goals may [...] BE BASED ON THE PRIMARY CLINICAL RECORDS. [facility] [employer] [facility]. provides no warranty or guarantee of the accuracy or completeness of information in this document.
--- OUTSIDE RECORDS SUMMARY | 2025-06-20 16:49 | XMS RPT_ITS | CCD ---
Author Organization [facility] Care Team Providers Care Contact Center Assistant Name Role Phone Care Physician, No Primary [...] Dr. Petra Lagunas MD Attending Provider [phone] Dr. Rama Grant DO Attending Provider Dr. Rama Grant DO Referring Provider Care Physician, No Primary Primary Care Provider Unavailable Issac CNM, Natividad Attending Provider [phone] Issac CNM, Natividad Referring Provider [phone] Care Physician, No Primary Referring Provider Un available Care Physician, No Primary Primary Care Provider Unavailable Issac CNM, Natividad Attending Provider [phone] Issac CNM, Natividad Referring Provider [phone] Care Physician, No Primary Primary Care Provider Unavailable Care Physician, No Primary Referring Provider Un available Care Physician, No Primary Primary Care Provider Unavailable Care Physician, No Primary Referring Provider Un available Issac CNM, Natividad Attending Provider [phone] Care Physician, No Primary Primary Care Provider [...] Primary Care Unava ilable Rama Grant Att[facility] Care Physician, No Primary Primary Care [...] above: KW/SM 39.2 Active la bor Boy [place] PRR , XUAN 02/21/23 , boy! Ion Spouse [place] PRR , XUAN , PC: [place], : Ford NIPT low risk (previ ously [...] Test Name Value Interpretation Reference Range Facility [facility] Visit Reporton 06-16-2025 [facility] Office Visit Report [facility] [address], [address] [place] [address] OFFICE VISIT Date of Service: 06/16/25 MR#: [id number] Acct: [id number] Name: DINORAH DOBBINS Rep #: [id number] : 2000 Provider: LOUIS Freeman ams Age/Sex: 24/F Location: [facility] Status: Signed Intake Vital Signs 05/19/25 10:53 06/09/25 10:54 06/16/25 10:44 06/16/25 10:48 Height 5 ft 2 in 5 ft 2 in 5 ft 2 in 5 ft 2 in Weight: 184 lb BMI 33.6 BP 105/73 Intake Visit Reasons: 38 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 Date Name GA/Weeks Outcome Route Bth Weight Gen Labor Lgth Anesthesia Del Locatn Provider FOB 02/26/23 [place] 39 live - full term 7lbs 6oz Male epidural [facility] Natividad Youngblood Delivery Date: 02/26/23 Last Updated [...] cons with dates. accepts NIPT. WOuld like id hope appts 12/29/24 -???-???-???-???-???-?? ?-???-???-???-???-???-? ??- 13w [...] -???-???-???-???-???-?? ?-???-???-???-???-? (more content not included)... Normal [facility] - Chemistry and C hemistry - challengeOrdered By: Natividad Davenport on 06-09-2025 Glucose Ql (U) Negative [facility] - UrinalysisOrder ed By: Natividad Davenport on 06-09-2025 Protein Ql (U) Negative [facility] Office Visit Reporton 06-09-2025 [facility] Visit Report [facility] [address], [address] [place] [address] OFFICE VISIT Date of Service: 06/09/25 MR#: [id number] Acct: [id number] Name: DINORAH DOBBINS Rep #: [id number] : 2000 Provider: LOUIS Freeman ams Age/Sex: 24/F Location: [facility] Status: Signed Intake Vital Signs 06/03/25 15:07 06/09/25 10:53 06/09/25 10:54 Height 5 ft 2 in 5 ft 2 in 5 ft 2 in Weight: 184 lb 6 oz BMI 33.7 BP 112/75 Intake Visit Reasons: 37wk ob 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 Date Name GA/Weeks Outcome Route Bth Weight Gen Labor Lgth Anesthesia Del Locatn Provider FOB 02/26/23 [place] 39 live - full term 7lbs 6oz Male epidural [facility] Natividad Youngblood Delivery Date: 02/26/23 Last Updated [...] Negative 160 (more content not included)... Normal [facility] Rule out Beta Strep (Grp. B) on 06-05-2025 GERRI Group B Beta Streptococcus is not isolated. Normal [facility] Comment on above: Performed By: #### M 100.3400 ####[facility] [address] [place], [address] Absolute lymphocyte countOrd ered By: Natividad Davenport on 06-03-2025 Lymphocytes Auto (Unsp spec) [#/Vol] 2.00 10*3/uL 0.83-4.51 [facility] Absolute neutrophil countOrd ered By: Natividad Davenport on 06-03-2025 Neutrophils (Bld) [#/Vol] 7.1 10*3/uL 2.0-7.7 [facility] Automated lymphocyte count a s percentage of total leukocytesOrdered By: Natividad Davenport on 06-03-2025 Lymphocytes/100 WBC Auto (Unsp spec) 20.1 % 19-41 [facility] Basophil percentageOrdered B y: Natividad Davenport on 06-03-2025 Basophils/100 WBC (Bld) 0.3 % 0-1 [facility] CBC W/Diff, Automatedon 05-18 Absolute Lymph 2.00 X10 3/uL Normal 0.83-4.51 [facility] Comment on above: Performed By: #### L 100.0100 ####[facility] [address] [place], [address] Absolute Neut 7.1 X10 3/uL Normal 2.0-7.7 [facility] Comment on above: Performed By: #### L 100.0100 ####[facility] [address] [place], [address] Basophils/100 WBC (Bld) 0.3 % Normal 0-1 [facility] Comment on above: Performed By: #### L 100.0100 ####[facility] [address] [place], [address] Eosinophils/100 WBC (Bld) 0.4 % Normal 0-5 [facility] Comment on above: Performed By: #### L 100.0100 ####[facility] [address] [place], [address] Erythrocyte distribution width (RBC) [Ratio] 12.3 % Normal 11.6-14.6 [facility] Comment on above: Performed By: #### L 100.0100 ####[facility] [address] [place], [address] Hematocrit (Bld) [Volume fraction] 36.1 % Low 37-47 [facility] Comment on above: Performed By: #### L 100.0100 ####[facility] [address] [place], [address] Hemoglobin (Bld) [Mass/Vol] 12.1 g/dL Normal 12.0-15.0 [facility] Comment on above: Performed By: #### L 100.0100 ####[facility] [address] [place], [address] IG% 0.700 Normal 0.0-0.9 [facility] Comment on above: Result Comment: IG% - Immature Granulocytes (promyelocytes, myelocytes and metamyelocytes) > 1% indicates that a LEFT SHIFT is Present. Performed By: #### L 100.0100 ####[facility] [address] [place], [address] Lymphocytes/100 WBC (Bld) 20.1 % Normal 19-41 [facility] Comment on above: Performed By: #### L 100.0100 ####[facility] [address] [place], [address] MCH (RBC) [Entitic mass] 30.2 pg Normal 27.0-32.0 [facility] Comment on above: Performed By: #### L 100.0100 ####[facility] [address] [place], [address] MCHC (RBC) [Mass/Vol] 33.5 g/dL Normal 32-36 [facility] Comment on above: Performed By: #### L 100.0100 ####[facility] [address] [place], [address] MCV (RBC) [Entitic vol] 90.0 fL Normal 81-99 [facility] Comment on above: Performed By: #### L 100.0100 ####[facility] [address] [place], [address] Monocytes/100 WBC (Bld) 7.3 % Normal 0-10 [facility] Comment on above: Performed By: #### L 100.0100 ####[facility] [address] [place], [address] Neutrophils/100 WBC (Bld) 71.2 % High 47-70 [facility] Comment on above: Performed By: #### L 100.0100 ####[facility] [address] [place], [address] Nucleated RBC (Bld) [#/Vol] 0 10*3/uL Normal 0-5 [facility] Comment on above: Performed By: #### L 100.0100 ####[facility] [address] [place], [address] Platelet mean volume (Bld) [Entitic vol] 9.3 fL Normal 6.2-12.0 [facility] Comment on above: Performed By: #### L 100.0100 ####[facility] [address] [place], [address] Platelets (Bld) [#/Vol] 313 10*3/uL Normal 150-450 [facility] Comment on above: Performed By: #### L 100.0100 ####[facility] [address] [place], [address] RBC (Bld) [#/Vol] 4.01 10*6/uL Low 4.2-5.4 [facility] Comment on above: Performed By: #### L 100.0100 ####[facility] [address] [place], [address] RDW SD 40.1 fl Normal 35.1-43.9 [facility] Comment on above: Performed By: #### L 100.0100 ####[facility] [address] [place], [address] WBC (Bld) [#/Vol] 9.9 10*3/uL Normal 4.4-11.0 [facility] Comment on above: Performed By: #### L 100.0100 ####[facility] [address] [place], [address] Eosinophil percentageOrdered By: Natividad Davenport on 06-03-2025 Eosinophils/100 WBC (Bld) 0.4 % 0-5 [facility] Erythrocyte distribution wid th ratioOrdered By: Natividad Davenport on 06-03-2025 Erythrocyte distribution width (RBC) [Ratio] 12.3 % 11.6-14.6 [facility] Erythrocyte distribution wid th standard deviationOrdered By: Natividad Davenport on 06-03-2025 Erythrocyte distribution width (RBC) [Ratio] 40.1 fl 35.1-43.9 [facility] Hematocrit Auto (Bld) [Volum e fraction]Ordered By: Natividad Davenport on 06-03-2025 Hematocrit (Bld) [Volume fraction] 36.1 % Low 37-47 [facility] Hemoglobin measurementOrdere d By: Natividad Davenport on 06-03-2025 Hemoglobin (Bld) [Mass/Vol] 12.1 g/dL 12.0-15.0 [facility] Immature granulocytes/100 WB C Auto (Bld)Ordered By: Natividad Davenport on 06-03-2025 Immature granulocytes/100 WBC (Bld) 0.700 % 0.0-0.9 [facility] Comment on above: IG% - Immature Granu locytes (promyelocytes, myelocytes and metamyelocytes) > 1% indicates that a LEFT SHIFT is Present. Laboratory - Chemistry and C hemistry - challengeOrdered By: Rama Mata on 06-03-2025 Glucose Ql (U) Negative [facility] - UrinalysisOrder ed By: Rama Mata on 06-03-2025 Protein Ql (U) Negative [facility] MCV (mean corpuscular volume ) determinationOrdered By: Natividad Davenport on 06-03-2025 MCV (RBC) [Entitic vol] 90.0 fL 81-99 [facility] Mean corpuscular hemoglobin (MCH) determinationOrdered By: Natividad Davenport on 06-03-2025 MCH (RBC) [Entitic mass] 30.2 pg 27.0-32.0 [facility] Mean corpuscular hemoglobin concentration (MCHC) determinationOrdered By: Natividad Davenport on 06-03-2025 MCHC (RBC) [Mass/Vol] 33.5 g/dL 32-36 [facility] Mean platelet volume determi nationOrdered By: Natividad Davenport on 06-03-2025 Platelet mean volume (Bld) [Entitic vol] 9.3 fL 6.2-12.0 [facility] Monocyte percentageOrdered B y: Natividad Davenport on 06-03-2025 Monocytes/100 WBC (Bld) 7.3 % 0-10 [facility] Neutrophil percentageOrdered By: Natividad Davenport on 06-03-2025 Neutrophils/100 WBC (Bld) 71.2 % High 47-70 [facility] Nucleated red blood cell per centageOrdered By: Natividad Davenport on 06-03-2025 Nucleated RBC/100 WBC (Bld) [Ratio] 0 % 0-5 [facility] Office Visit Reporton 06-03-2025 [facility] Office Visit Report [facility] [address], [address] [place] [address] OFFICE VISIT Date of Service: 06/03/25 MR#: [id number] Acct: [id number] Name: DINORAH DOBBINS Rep #: [id number] : 2000 Provider: Dr. 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 ?-???- (more content not included)... Normal [facility] Platelet countOrdered By: Vadim Davenport on 06-03-2025 Platelets (Bld) [#/Vol] 313 10*3/uL 150-450 [facility] RBC Auto (Bld) [#/Vol]Ordere d By: Natividad Davenport on 06-03-2025 RBC (Bld) [#/Vol] 4.01 10*6/uL Low 4.2-5.4 [facility] Screening beta-hemolytic Str eptococcus cultureOrdered By: Rama Mata on 06-03-2025 Beta-hemolytic Streptococcus culture Group B Beta Streptococcus is not isolated. [facility] White blood cell (WBC) count Ordered By: Natividad Davenport on 06-03-2025 WBC (Bld) [#/Vol] 9.9 10*3/uL 4.4-11.0 [facility] - Chemistry and C hemistry - challengeOrdered By: Natividad Davenport on 05-19-2025 Glucose Ql (U) Negative [facility] - UrinalysisOrder ed By: Natividad Davenport on 05-19-2025 Protein Ql (U) Negative [facility] Office Visit Reporton 05-19-2025 [facility] Visit Report [address], [address] [place] [address] OFFICE VISIT Date of Service: 05/19/25 MR#: [id number] Acct: [id number] Name: DINORAH DOBBINS Rep #: [id number] : 2000 Provider: LOUIS Freeman ams Age/Sex: 24/F Location: [facility] Status: Signed Intake Vital Signs 04/05/25 11:07 05/05/25 11:25 05/19/25 10:49 05/19/25 10:53 Height 5 ft 2 in 5 ft 2 in 5 ft 2 in 5 ft 2 in Weight: 180 lb 8 oz BMI 33.0 BP 111/78 Intake Visit Reasons: 32 wk ob 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 Date Name GA/Weeks Outcome Route Bth Weight Gen Labor Lgth Anesthesia Del Locatn Provider FOB 02/26/23 [place] 39 live - full term 7lbs 6oz Male epidural [facility] Natividad Youngblood Delivery Date: 02/26/23 Last Updated [...] -???-???-???-???-???-?? ?-???-???-???- (more content not included)... Normal [facility] - Chemistry and C hemistry - challengeOrdered By: Natividad Davenport on 05-05-2025 Glucose Ql (U) Negative [facility] - UrinalysisOrder ed By: Natividad Davenport on 05-05-2025 Protein Ql (U) Trace [facility] Office Visit Reporton 05-05-2025 [facility] Office Visit Report [facility] [address], [address] [place] [address] OFFICE VISIT Date of Service: 05/05/25 MR#: [id number] Acct: [id number] Name: DINORAH DOBBINS Rep #: [id number] : 2000 Provider: LOUIS Freeman ams Age/Sex: 24/F Location: [facility] Status: Signed Intake Vital Signs 04/05/25 11:07 04/21/25 09:49 05/05/25 11:21 05/05/25 11:25 Height 5 ft 2 in 5 ft 2 in 5 ft 2 in 5 ft 2 in Weight: 179 lb BMI 32.7 BP 111/74 Intake Visit Reasons: 30 wk ob 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 accepts NIPT. WOuld like id hope appts 12/29/24 -???-???-???-???-???-?? ?-???-???-???-???-???-? ??- 13w [...] -???-???-???-???-???-?? ?-???-???-???-???-? (more content not included)... Normal [facility] - Chemistry and C hemistry - challengeOrdered By: Natividad Davenport on 04-21-2025 Glucose Ql (U) Negative [facility] - UrinalysisOrder ed By: Natividad Davenport on 04-21-2025 Protein Ql (U) Negative [facility] Office Visit Reporton 04-21-2025 [facility] Office Visit Report [address], [address] [place] [address] OFFICE VISIT Date of Service: 04/21/25 MR#: [id number] Acct: [id number] Name: DINORAH DOBBINS Rep #: [id number] : 2000 Provider: LOUIS Freeman ams Age/Sex: 24/F Location: [facility] Status: Signed Intake Vital Signs 04/05/25 11:07 04/21/25 09:49 Height 5 ft 2 in 5 ft 2 in Weight: 175 lb 4 oz BMI 32.0 BP 106/71 Intake Visit Reasons: 28 wk ob 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 accepts NIPT. WOuld like id hope appts 12/29/24 -???-???-???-???-???-?? ?-???-???-???-???-???-? ??- 13w [...] 160 - (more content not included)... Normal [facility] Absolute lymphocyte countOrd ered By: Natividad Davenport on 04-05-2025 Lymphocytes Auto (Unsp spec) [#/Vol] 1.74 10*3/uL 0.83-4.51 [facility] Absolute neutrophil countOrd ered By: Natividad Davenport on 04-05-2025 Neutrophils (Bld) [#/Vol] 7.3 10*3/uL 2.0-7.7 [facility] Automated lymphocyte count a s percentage of total leukocytesOrdered By: Natividad Davenport on 04-05-2025 Lymphocytes/100 WBC Auto (Unsp spec) 17.8 % Low - [facility] Basophil percentageOrdered B y: Natividad Davenport on 04-05-2025 Basophils/100 WBC (Bld) 0.4 % 0-1 [facility] CBC W/Diff, Automatedon 03-18 Absolute Lymph 1.74 X10 3/uL Normal 0.83-4.51 [facility] Comment on above: Performed By: #### L 501.0250, L100.0100, L3890.6006, L509.8002 ####[facility] [address] [place], [address] Absolute Neut 7.3 X10 3/uL Normal 2.0-7.7 [facility] Comment on above: Performed By: #### L 501.0250, L100.0100, L3890.6006, L509.8002 ####[facility] [address] [place], [address] Basophils/100 WBC (Bld) 0.4 % Normal 0-1 [facility] Comment on above: Performed By: #### L 501.0250, L100.0100, L3890.6006, L509.8002 ####[facility] [address] [place], [address] Eosinophils/100 WBC (Bld) 0.4 % Normal 0-5 [facility] Comment on above: Performed By: #### L 501.0250, L100.0100, L3890.6006, L509.8002 ####[facility] [address] [place], [address] Erythrocyte distribution width (RBC) [Ratio] 12.2 % Normal 11.6-14.6 [facility] Comment on above: Performed By: #### L 501.0250, L100.0100, L3890.6006, L509.8002 ####[facility] [address] [place], [address] Hematocrit (Bld) [Volume fraction] 40.1 % Normal 37-47 [facility] Comment on above: Performed By: #### L 501.0250, L100.0100, L3890.6006, L509.8002 ####[facility] [address] [place], [address] Hemoglobin (Bld) [Mass/Vol] 13.7 g/dL Normal 12.0-15.0 [facility] Comment on above: Performed By: #### L 501.0250, L100.0100, L3890.6006, L509.8002 ####[facility] [address] [place], [address] IG% 0.500 Normal 0.0-0.9 [facility] Comment on above: Result Comment: IG% - Immature Granulocytes (promyelocytes, myelocytes and metamyelocytes) > 1% indicates that a LEFT SHIFT is Present. Performed By: #### L 501.0250, L100.0100, L3890.6006, L509.8002 ####[facility] [address] [place], [address] Lymphocytes/100 WBC (Bld) 17.8 % Low 19-41 [facility] Comment on above: Performed By: #### L 501.0250, L100.0100, L3890.6006, L509.8002 ####[facility] [address] [place], [address] MCH (RBC) [Entitic mass] 32.1 pg High 27.0-32.0 [facility] Comment on above: Performed By: #### L 501.0250, L100.0100, L3890.6006, L509.8002 ####[facility] [address] [place], [address] MCHC (RBC) [Mass/Vol] 34.2 g/dL Normal 32-36 [facility] Comment on above: Performed By: #### L 501.0250, L100.0100, L3890.6006, L509.8002 ####[facility] [address] [place], [address] MCV (RBC) [Entitic vol] 93.9 fL Normal 81-99 [facility] Comment on above: Performed By: #### L 501.0250, L100.0100, L3890.6006, L509.8002 ####[facility] [address] [place], [address] Monocytes/100 WBC (Bld) 6.6 % Normal 0-10 [facility] Comment on above: Performed By: #### L 501.0250, L100.0100, L3890.6006, L509.8002 ####[facility] [address] [place], [address] Neutrophils/100 WBC (Bld) 74.3 % High 47-70 [facility] Comment on above: Performed By: #### L 501.0250, L100.0100, L3890.6006, L509.8002 ####[facility] [address] [place], [address] Nucleated RBC (Bld) [#/Vol] 0 10*3/uL Normal 0-5 [facility] Comment on above: Performed By: #### L 501.0250, L100.0100, L3890.6006, L509.8002 ####[facility] [address] [place], [address] Platelet mean volume (Bld) [Entitic vol] 9.8 fL Normal 6.2-12.0 [facility] Comment on above: Performed By: #### L 501.0250, L100.0100, L3890.6006, L509.8002 ####[facility] [address] [place], [address] Platelets (Bld) [#/Vol] 353 10*3/uL Normal 150-450 [facility] Comment on above: Performed By: #### L 501.0250, L100.0100, L3890.6006, L509.8002 ####[facility] [address] [place], [address] RBC (Bld) [#/Vol] 4.27 10*6/uL Normal 4.2-5.4 [facility] Comment on above: Performed By: #### L 501.0250, L100.0100, L3890.6006, L509.8002 ####[facility] [address] [place], [address] RDW SD 42.2 fl Normal 35.1-43.9 [facility] Comment on above: Performed By: #### L 501.0250, L100.0100, L3890.6006, L509.8002 ####[facility] [address] [place], [place], [address] WBC (Bld) [#/Vol] 9.8 10*3/uL Normal 4.4-11.0 [facility] Comment on above: Performed By: #### L 501.0250, L100.0100, L3890.6006, L509.8002 ####[facility] [address] [place], [place], [address] Eosinophil percentageOrdered By: Natividad Davenport on 04-05-2025 Eosinophils/100 WBC (Bld) 0.4 % 0-5 [facility] Erythrocyte distribution wid th ratioOrdered By: Natividad Davenport on 04-05-2025 Erythrocyte distribution width (RBC) [Ratio] 12.2 % 11.6-14.6 [facility] Erythrocyte distribution wid th standard deviationOrdered By: Natividad Davenport on 04-05-2025 Erythrocyte distribution width (RBC) [Ratio] 42.2 fl 35.1-43.9 [facility] Glucose Challenge Gest 1H 50 tiffanie 04-05-2025 GLU GEST 50g 1H 95 mg/dL Normal 70-140 [facility] Comment on above: Performed By: #### L 501.0250, L100.0100, L3890.6006, L509.8002 ####[facility] [address] [place], [place], [address] Glucose measurement at 2 tiffany rs post-dose gestational glucose tolerance testOrdered By: Natividad Davenport on 04-05-2025 Glucose [Mass/Vol] 95 mg/dL 70-140 [facility] HIVon 04-05-2025 HIV Non-Reactive Normal Nonreactive [facility] Comment on above: Result Comment: Non- Reactive Reactive Repeatedly reactive samples must be confirmed according to CDC recommended confirmatory algorithms. The subresults for either HIVAG or AHIV can be used as an aid in the selection of the confirmation algorithm for reactive samples. Send out specimens with Reactive results to [facility] for confirmation. Order the HIV antibody detection and differentiation: [id number] Performed By: #### L 501.0250, L100.0100, L3890.6006, L509.8002 ####[facility] [address] [place], [address] Hematocrit Auto (Bld) [Volum e fraction]Ordered By: Natividad Davenport on 04-05-2025 Hematocrit (Bld) [Volume fraction] 40.1 % 37-47 [facility] Hemoglobin measurementOrdere d By: Natividad Davenport on 04-05-2025 Hemoglobin (Bld) [Mass/Vol] 13.7 g/dL 12.0-15.0 [facility] Immature granulocytes/100 WB C Auto (Bld)Ordered By: Natividad Davenport on 04-05-2025 Immature granulocytes/100 WBC (Bld) 0.500 % 0.0-0.9 [facility] Comment on above: IG% - Immature Granu locytes (promyelocytes, myelocytes and metamyelocytes) > 1% indicates that a LEFT SHIFT is Present. Laboratory - Chemistry and C hemistry - challengeOrdered By: Natividad Davenport on 04-05-2025 Glucose Ql (U) Negative [facility] Laboratory - UrinalysisOrder ed By: Natividad Davenport on 04-05-2025 Protein Ql (U) Negative [facility] MCV (mean corpuscular volume ) determinationOrdered By: Natividad Davenport on 04-05-2025 MCV (RBC) [Entitic vol] 93.9 fL 81-99 [facility] Mean corpuscular hemoglobin (MCH) determinationOrdered By: Natividad Davenport on 04-05-2025 MCH (RBC) [Entitic mass] 32.1 pg High 27.0-32.0 [facility] Mean corpuscular hemoglobin concentration (MCHC) determinationOrdered By: Natividad Davenport on 04-05-2025 MCHC (RBC) [Mass/Vol] 34.2 g/dL 32-36 [facility] Mean platelet volume determi nationOrdered By: Natividad Davenport on 04-05-2025 Platelet mean volume (Bld) [Entitic vol] 9.8 fL 6.2-12.0 [facility] Monocyte percentageOrdered B y: Natividad Davenport on 04-05-2025 Monocytes/100 WBC (Bld) 6.6 % 0-10 [facility] Neutrophil percentageOrdered By: Natividad Davenport on 04-05-2025 Neutrophils/100 WBC (Bld) 74.3 % High 47-70 [facility] No Panel InformationOrdered By: Natividad Davenport on 04-05-2025 HIV (1&2) Antibody Non-Reactive Nonreactive [facility] Comment on above: Non-ReactiveReactive Repeatedly reactive samples must be confirmed according to CDC recommended confirmatory algorithms. The subresults for either HIVAG or AHIV can be used as an aid in the selection of the confirmation algorithm for reactive samples.Send out specimens with Reactive results to [facility] for confirmation.Order the HIV antibody detection and differentiation: #[id number] Nucleated red blood cell per centageOrdered By: Natividad Davenport on 04-05-2025 Nucleated RBC/100 WBC (Bld) [Ratio] 0 % 0-5 [facility] Visit Reporton 04-05-2025 [facility] Office Visit Report [facility] [address], [address] [place] [address] OFFICE VISIT Date of Service: 04/05/25 MR#: [id number] Acct: [id number] Name: DINORAH DOBBINS Rep #: [id number] : 2000 Provider: LOUIS Freeman ams Age/Sex: 24/F Location: [facility] Status: Signed Intake Vital Signs 02/24/25 09:50 04/05/25 11:07 Height 5 ft 2 in 5 ft 2 in Weight: 171 lb 6 oz BMI 31.3 BP 120/81 H Intake Visit Reasons: 26 wk ob Chief Complaint: 26wk OB 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 accepts NIPT. WOuld like id hope appts 12/29/24 -???-???-???-???-???-?? ?-???-???-???-???-???-? ??- 13w [...] 160 -???-???-?? (more content not included)... Normal [facility] Platelet countOrdered By: Vadim Davenport on 04-05-2025 Platelets (d) [#/Vol] 353 10*3/uL 150-450 [facility] RBC Auto (d) [#/Vol]Ordere d By: Natividad Davenport on 04-05-2025 RBC (Bld) [#/Vol] 4.27 10*6/uL 4.2-5.4 [facility] Syphilis Antibodieson 2024 Syphilis Abs Non-Reactive Normal Nonreactive [facility] Comment on above: Performed By: #### L 501.0250, L100.0100, L3890.6006, L509.8002 ####[facility] [address] [place], [address] White blood cell (WBC) count Ordered By: Natividad Davenport on 04-05-2025 WBC (Bld) [#/Vol] 9.8 10*3/uL 4.4-11.0 [facility] Laboratory - Chemistry and C hemistry - challengeOrdered By: Natividad Davenport on 02-24-2025 Glucose Ql (U) Negative [facility] - UrinalysisOrder ed By: Natividad Davenport on 02-24-2025 Protein Ql (U) Negative [facility] Dam T[facility] Office Visit Reporton 02-24-2025 [facility] Office Visit Report [facility] [address], [address] [place] [address] OFFICE VISIT Date of Service: 02/24/25 MR#: [id number] Acct: [id number] Name: DINORAH DOBBINS Rep #: [id number] : 2000 Provider: LOUIS Freeman ams Age/Sex: 24/F Location: [facility] Status: Signed Intake Vital Signs 01/27/25 11:35 02/24/25 09:49 02/24/25 09:50 Height 5 ft 2 in 5 ft 2 in 5 ft 2 in Weight: 166 lb BMI 30.3 BP 103/66 Intake Visit Reasons: 22 WEEK OB 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 accepts NIPT. WOuld like id hope appts 12/29/24 -???-???-???-???-???-?? ?-???-???-???-???-???-? ??- 13w [...] -???-???-???-???-???-?? ?-???-???-???-???-? (more content not included)... Normal [facility] OB Anatomy w/ Transvaginalon 02-10-2025 OB Anatomy w/ Transvaginal [facility] [address] [place] [address] OB Anatomy w/ Transvaginal MR#: [id number] Acct: [id number] Name: DINORAH DOBBINS Rep #: [id number] : 2000 F 24 From: Vince Causey DO PCP: Care Physician,No Primary Status: DEP CLI Study: OB Anatomy w/ Transvaginal Date of Exam: 02/10 Exam# [id number] Ordering Dr: Rama Grant DO PROCEDURE: OB [...] Baseline: 06/30/2025 By Ultrasound: 06/27/2025 [facility] CC: Dr. Rama Grant DO; No Primary Care Physician [employer]: Signed Normal [facility] Laboratory - Chemistry and C hemistry - challengeOrdered By: Natividad Davenport on 01-27-2025 Glucose Ql (U) Negative [facility] - UrinalysisOrder ed By: Natividad Davenport on 01-27-2025 Protein Ql (U) Negative [facility] Office Visit Reporton 01-27-2025 [facility] Office Visit Report [facility] [address], [address] [place] [address] OFFICE VISIT Date of Service: 01/27/25 MR#: [id number] Acct: [id number] Name: DINORAH DOBBINS Rep #: [id number] : 2000 Provider: LOUIS Freeman ams Age/Sex: 24/F [facility] Status: Signed Intake Vital Signs 12/29/24 13:04 01/27/25 11:33 01/27/25 11:35 Height 5 ft 2 in 5 ft 2 in 5 ft 2 in Weight: 157 lb 8 oz BMI 28.8 BP 127/88 H Intake Visit Reasons: 18 WK OB 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 Normal [facility] - Chemistry and C hemistry - challengeOrdered By: Petra Lagunas on 12-29-2024 Glucose Ql (U) Negative [facility] - UrinalysisOrder ed By: Petra Lagunas on 12-29-2024 Protein Ql (U) Negative [facility] Office Visit Reporton 12-29-2024 Dam [facility] Office Visit Report [facility] [address], [address] [place] [address] OFFICE VISIT Date of Service: 12/29/24 MR#: [id number] Acct: [id number] Name: DINORAH DOBBINS Rep #: [id number] : 2000 Provider: Dr. 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 Date Name GA/Weeks Outcome Route Bth Weight Infant Gen Labor Lgth Anesthesia Del Locatn Provider FOB 02/26/23 [place] 39 live - full term 7lbs 6oz [...] cons with dates. accepts NIPT. WOuld like id hope appts 12/29/24 -???-???-???-???-???-?? ?-???-???-???-???-???-? ??- 13w [...] Care, Melody (more content not included)... Normal [facility] Absolute lymphocyte countOrd ered By: Natividad Davenport on 12-07-2024 Lymphocytes Auto (Unsp spec) [#/Vol] 2.65 10*3/uL 0.83-4.51 [facility] Absolute neutrophil countOrd ered By: Nativdiad Davenport on 12-07-2024 Neutrophils (Bld) [#/Vol] 6.3 10*3/uL 2.0-7.7 [facility] Automated lymphocyte count a s percentage of total leukocytesOrdered By: Natividad Davenport on 12-07-2024 Lymphocytes/100 WBC Auto (Unsp spec) 26.6 % 19-41 [facility] Basophil percentageOrdered B y: Natividad Davenport on 12-07-2024 Basophils/100 WBC (Bld) 0.4 % 0-1 [facility] CBC W/Diff, Automatedon 11-19 Absolute Lymph 2.65 X10 3/uL Normal 0.83-4.51 [facility] Comment on above: Performed By: #### L 3890.6100, L3890.6005, L100.0100, L3890.6300, BTS, L509.8000, L509.4005 #### [facility] [address] [place], [address] Absolute Neut 6.3 X10 3/uL Normal 2.0-7.7 [facility] Comment on above: Performed By: #### L 3890.6100, L3890.6005, L100.0100, L3890.6300, BTS, L509.8000, L509.4005 #### [facility] [address] [place], [address] Basophils/100 WBC (Bld) 0.4 % Normal 0-1 [facility] Comment on above: Performed By: #### L 3890.6100, L3890.6005, L100.0100, L3890.6300, BTS, L509.8000, L509.4005 #### [facility] [address] [place], [address] Eosinophils/100 WBC (Bld) 0.7 % Normal 0-5 [facility] Comment on above: Performed By: #### L 3890.6100, L3890.6005, L100.0100, L3890.6300, BTS, L509.8000, L509.4005 #### [facility] [address] [place], [address] Erythrocyte distribution width (RBC) [Ratio] 11.9 % Normal 11.6-14.6 [facility] Comment on above: Performed By: #### L 3890.6100, L3890.6005, L100.0100, L3890.6300, BTS, L509.8000, L509.4005 #### [facility] [address] [place], [address] Hematocrit (Bld) [Volume fraction] 41.4 % Normal 37-47 [facility] Comment on above: Performed By: #### L 3890.6100, L3890.6005, L100.0100, L3890.6300, BTS, L509.8000, L509.4005 #### [facility] [address] [place], [address] Hemoglobin (Bld) [Mass/Vol] 14.3 g/dL Normal 12.0-15.0 [facility] Comment on above: Performed By: #### L 3890.6100, L3890.6005, L100.0100, L3890.6300, BTS, L509.8000, L509.4005 #### [facility] [address] [place], [address] IG% 0.300 Normal 0.0-0.9 [facility] Comment on above: Result Comment: IG% - Immature Granulocytes (promyelocytes, myelocytes and metamyelocytes) > 1% indicates that a LEFT SHIFT is Present. Performed By: #### L 3890.6100, L3890.6005, L100.0100, L3890.6300, BTS, L509.8000, L509.4005 #### [facility] [address] [place], [address] Lymphocytes/100 WBC (Bld) 26.6 % Normal 19-41 [facility] Comment on above: Performed By: #### L 3890.6100, L3890.6005, L100.0100, L3890.6300, BTS, L509.8000, L509.4005 #### [facility] [address] [place], [address] MCH (RBC) [Entitic mass] 31.5 pg Normal 27.0-32.0 [facility] Comment on above: Performed By: #### L 3890.6100, L3890.6005, L100.0100, L3890.6300, BTS, L509.8000, L509.4005 #### [facility] [address] [place], [address] MCHC (RBC) [Mass/Vol] 34.5 g/dL Normal 32-36 [facility] Comment on above: Performed By: #### L 3890.6100, L3890.6005, L100.0100, L3890.6300, BTS, L509.8000, L509.4005 #### [facility] [address] [place], [address] MCV (RBC) [Entitic vol] 91.2 fL Normal 81-99 [facility] Comment on above: Performed By: #### L 3890.6100, L3890.6005, L100.0100, L3890.6300, BTS, L509.8000, L509.4005 #### [facility] [address] [place], [address] Monocytes/100 WBC (Bld) 8.7 % Normal 0-10 [facility] Comment on above: Performed By: #### L 3890.6100, L3890.6005, L100.0100, L3890.6300, BTS, L509.8000, L509.4005 #### [facility] [address] [place], [address] Neutrophils/100 WBC (Bld) 63.3 % Normal 47-70 [facility] Comment on above: Performed By: #### L 3890.6100, L3890.6005, L100.0100, L3890.6300, BTS, L509.8000, L509.4005 #### [facility] [address] [place], [address] Nucleated RBC (Bld) [#/Vol] 0 10*3/uL Normal 0-5 [facility] Comment on above: Performed By: #### L 3890.6100, L3890.6005, L100.0100, L3890.6300, BTS, L509.8000, L509.4005 #### [facility] [address] [place], [address] Platelet mean volume (Bld) [Entitic vol] 9.6 fL Normal 6.2-12.0 [facility] Comment on above: Performed By: #### L 3890.6100, L3890.6005, L100.0100, L3890.6300, BTS, L509.8000, L509.4005 #### [facility] [address] [place], [address] Platelets (Bld) [#/Vol] 373 10*3/uL Normal 150-450 [facility] Comment on above: Performed By: #### L 3890.6100, L3890.6005, L100.0100, L3890.6300, BTS, L509.8000, L509.4005 #### [facility] [address] [place], [address] RBC (Bld) [#/Vol] 4.54 10*6/uL Normal 4.2-5.4 [facility] Comment on above: Performed By: #### L 3890.6100, L3890.6005, L100.0100, L3890.6300, BTS, L509.8000, L509.4005 #### [facility] [address] [place], [address] RDW SD 39.3 fl Normal 35.1-43.9 [facility] Comment on above: Performed By: #### L 3890.6100, L3890.6005, L100.0100, L3890.6300, BTS, L509.8000, L509.4005 #### [facility] [address] [place], [address] WBC (Bld) [#/Vol] 10.0 10*3/uL Normal 4.4-11.0 [facility] Comment on above: Performed By: #### L 3890.6100, L3890.6005, L100.0100, L3890.6300, BTS, L509.8000, L509.4005 #### [facility] [address] [place], [address] Eosinophil percentageOrdered By: Natividad Davenport on 12-07-2024 Eosinophils/100 WBC (Bld) 0.7 % 0-5 [facility] Erythrocyte distribution wid th ratioOrdered By: Natividad Davenport on 12-07-2024 Erythrocyte distribution width (RBC) [Ratio] 11.9 % 11.6-14.6 [facility] Erythrocyte distribution wid th standard deviationOrdered By: Natividad Davenport on 12-07-2024 Erythrocyte distribution width (RBC) [Entitic vol] 39.3 fL 35.1-43.9 [facility] Erythrocyte distribution width (RBC) [Ratio] 39.3 fl 35.1-43.9 [facility] HIV - WCHon 12-07-2024 HIV Non-Reactive Normal Nonreactive [facility] Comment on above: Order Comment: Reaso n for Exam: Performed By: #### L 3890.6100, L3890.6005, L100.0100, L3890.6300, BTS, L509.8000, L509.4005 ####[facility] [address] [place], [place], [address] HIV 1 and HIV-2 antibody ass ay with HIV-1 p24 antigen detectionOrdered By: Natividad Davenport on 12-07-2024 HIV 1+2 Ab+HIV1 p24 Ag IA Ql Non-Reactive Nonreactive [facility] HIV 1+2 Ab+HIV1 p24 Ag IA Ql Ordered By: Natividad Davenport on 12-07-2024 HIV (1&2) Antibody Non-Reactive Nonreactive [facility] Hematocrit Auto (Bld) [Volum e fraction]Ordered By: Natividad Davenport on 12-07-2024 Hematocrit (Bld) [Volume fraction] 41.4 % 37-47 [facility] Hemoglobin measurementOrdere d By: Natividad Davenport on 12-07-2024 Hemoglobin (Bld) [Mass/Vol] 14.3 g/dL 12.0-15.0 [facility] Hepatitis B Surface Antigeno n 12-07-2024 HEP B Surf Ag Non-Reactive Normal Nonreactive [facility] Comment on above: Order Comment: Reaso n for Exam: Performed By: #### L 3890.6100, L3890.6005, L100.0100, L3890.6300, BTS, L509.8000, L509.4005 ####[facility] [address] [place], [address] Hepatitis B surface antigen detectionOrdered By: Natividad Davenport on 12-07-2024 Hepatitis B Surface Antigen Non-Reactive Nonreactive [facility] Hepatitis C Antibodyon 12-07 Hepatitis C AB Non-Reactive Normal Nonreactive [facility] Comment on above: Order Comment: Reaso n for Exam: Result Comment: Non Reactive: < 0.8 Equivocal: >/= 0.8 to < 1.0 Reactive: >/= 1.0 The [facility] requires that a reactive/equivocal HCV antibody result be sent out for confirmation. HCV Quant by PCR testing. Performed By: #### L 3890.6100, L3890.6005, L100.0100, L3890.6300, BTS, L509.8000, L509.4005 ####[facility] [address] [place], [address] Hepatitis C virus antibody a ssayOrdered By: Natividad Davenport on 12-07-2024 Hepatitis C Antibody Non-Reactive Nonreactive [facility] Comment on above: Non Reactive: < 0.8 Equivocal: >/= 0.8 to < 1.0 Reactive: >/= 1.0The [facility] requires that a reactive/equivocal HCV antibody result be sent out for confirmation. HCV Quant by PCR testing. Immature granulocytes/100 WB C Auto (Bld)Ordered By: Natividad Davenport on 12-07-2024 Immature granulocytes/100 WBC (Bld) 0.300 % 0.0-0.9 [facility] Comment on above: IG% - Immature Granu locytes (promyelocytes, myelocytes and metamyelocytes) > 1% indicates that a LEFT SHIFT is Present. L509.8000on 12-07-2024 Syphilis Abs Non-Reactive Normal [facility] Comment on above: Order Comment: Reaso n for Exam: Performed By: #### L 3890.6100, L3890.6005, L100.0100, L3890.6300, BTS, L509.8000, L509.4005 ####[facility] [address] [place], [address] Lymphocytes Auto (Unsp spec) [#/Vol]Ordered By: Natividad Davenport on 12-07-2024 Lymphocytes (Bld) [#/Vol] 2.65 10*3/uL 0.83-4.51 [facility] Lymphocytes/100 WBC Auto (Un sp spec)Ordered By: Natividad Davenport on 12-07-2024 Lymphocytes/100 WBC (Bld) 26.6 % 19-41 [facility] MCV (mean corpuscular volume ) determinationOrdered By: Natividad Davenport on 12-07-2024 MCV (RBC) [Entitic vol] 91.2 fL 81-99 [facility] Mean corpuscular hemoglobin (MCH) determinationOrdered By: Natividad Davenport on 12-07-2024 MCH (RBC) [Entitic mass] 31.5 pg 27.0-32.0 [facility] Mean corpuscular hemoglobin concentration (MCHC) determinationOrdered By: Natividad Davenport on 12-07-2024 MCHC (RBC) [Mass/Vol] 34.5 g/dL 32-36 [facility] Mean platelet volume determi nationOrdered By: Natividad Davenport on 12-07-2024 Platelet mean volume (Bld) [Entitic vol] 9.6 fL 6.2-12.0 [facility] Miscellaneous procedureOrder ed By: Natividad Davenport on 12-07-2024 Miscellaneous Test Comment SEE SCANNED REPORT [facility] Monocyte percentageOrdered B y: Natividad Davenport on 12-07-2024 Monocytes/100 WBC (Bld) 8.7 % 0-10 [facility] NATERAon 12-07-2024 NATURA SEE SCANNED REPORT Normal [facility] Comment on above: Performed By: #### L 900.0098 ####[facility] [address] [place], [address] Neutrophil percentageOrdered By: Natividad Davenport on 12-07-2024 Neutrophils/100 WBC (Bld) 63.3 % 47-70 [facility] Nucleated red blood cell per centageOrdered By: Natividad Davenport on 12-07-2024 Nucleated RBC/100 WBC (Bld) [Ratio] 0 % 0-5 [facility] Platelet countOrdered By: Vadim Davenport on 12-07-2024 Platelets (Bld) [#/Vol] 373 10*3/uL 150-450 [facility] RBC Auto (Bld) [#/Vol]Ordere d By: Natividad Davenport on 12-07-2024 RBC (Bld) [#/Vol] 4.54 10*6/uL 4.2-5.4 [facility] Rubella IgGon 12-07-2024 Rubella IgG Non-Reactive Normal Nonreactive [facility] Comment on above: Order Comment: Reaso n for Exam: Result Comment: Anti body Results Interpretation of Immune Status Non Reactive Presumed Non-Immune Equivocal Equivocal Reactive Presumed Immune Performed By: #### L 3890.6100, L3890.6005, L100.0100, L3890.6300, BTS, L509.8000, L509.4005 ####[facility] [address] [place], [place], [address] Rubella immune status IgGOrd ered By: Natividad Davenport on 12-07-2024 Rubella IgG Antibody Non-Reactive Nonreactive W [facility] Comment on above: Antibody Results Int erpretation of Immune Status Non Reactive Presumed Non-Immune Equivocal Equivocal Reactive Presumed Immune Serum Treponema species anti body detectionOrdered By: Natividad Davenport on 12-07-2024 Treponema sp Ab Ql (S) Non-Reactive [facility] Treponema sp Ab Ql (S)Ordere d By: Natividad Davenport on 12-07-2024 Syphilis Total Antibody Non-Reactive [facility] Type AND Screenon 12-07-2024 Ab SCREEN GEL Negative Normal [facility] Comment on above: Order Comment: PN Performed By: #### L 3890.6100, L3890.6005, L100.0100, L3890.6300, BTS, L509.8000, L509.4005 #### [facility] [address] [place], [address] (631) White blood cell (WBC) count Ordered By: Natividad Davenport on 12-07-2024 WBC (Bld) [#/Vol] 10.0 10*3/uL 4.4-11.0 [facility] Chlamydia/GC BRANDON aptimaon CHLAMY,NUC ACID Negative Normal Negative [facility] Comment on above: Performed By: #### M 100.2200, L7000.1800 #### [facility] [address] [place], [address] GC BY NUC ACID Negative Normal Negative [facility] Comment on above: Result Comment: Perf ormed at: =G - [facility] [address] [id number] Vacuum Forming Machine Operator: Serene De Leon MD, Phone: [phone] Performed By: #### M 100.2200, L7000.1800 #### [facility] [address] [place], [address] Urine Cultureon 11-28-2024 [facility] Mixed Gram Positive Organisms [place]onah Count 11,000-25,000 [facility] Mixed contaminants. Submit a new specimen if indicated. Normal [facility] Comment on above: Performed By: #### M 100.2200, L7000.1800 #### [facility] [address] [place], [address] C. trachomatis rRNA BRANDON+prob e Ql (Unsp spec)Ordered By: Natividad Davenport on 11-26-2024 Chlamydia DNA (BRANDON) Negative Negative [facility] Neisseria gonorrhoeae nuclei c acid detection by amplified probe techniqueOrdered By: Natividad Davenport on 11-26-2024 N. gonorrhoeae DNA BRANDON+probe Ql (Unsp spec) Negative Negative [facility] Comment on above: Performed at: =G - [facility] [address] [id number] Director: Serene De Leon MD, Phone: [phone] [facility] Visit Reporton 11-26-2024 [facility] Office Visit Report [facility] [address], [address] [place] [address] OFFICE VISIT Date of Service: 11/26/24 MR#: [id number] Acct: [id number] Name: DEBORA DOBBINSA Rep #: [id number] : 2000 Provider: LOUIS Freeman ams Age/Sex: 24/F Location: [facility] Status: Signed Intake Vital Signs 04/02/23 11:41 11/26/24 12:57 Height 5 ft 2 in 5 ft 2 in Weight: 153 lb BMI 28.0 BP 121/84 H Intake Visit Reasons: New OB, LMP 09/23 XUAN 06/30 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 Is patient in pain?: No Allergies No Known Allergies Allergy (Verified 11/26/24 12:59) Medications ???Medication ???Instructions ???Recorded ???Confirmed ???Type vits no.10-ferrous 1 tab PO DAILY 07/11/22 11/26/24 History fumarate 65 mg iron-folic acid 1 mg tablet Last Menstrual Period: 09/23/24 Zika: Zika virus screening: Negative : No Have you fallen in the past year?: No PFSH [facility] Medical History Supervision of normal first [...] 1-2 times per week duration: 15-30 minutes/day prabhu/restorationist: [employer]ology seatbelt use: always do you feel [...] - full term 7lbs 6oz Male epidural [facility] Natividad Davenport [place] Delivery Date: 02/26/23 Last [...] Other Infec (more content not included)... Normal [facility] Urine cultureOrdered By: Eduardo Davenport on 11-26-2024 Bacteria identified Cx Nom (U) Positive Abnormal [facility] LYME DISEASE AB W/REFL TO BL [...] By: #### [id number] #### [facility] [address], [address] [place] [id number] Scaleman: Richie Gamboa MD Absolute lymphocyte countOrd ered By: Natividad Davenport on 02-16-2023 Lymphocytes Auto (Unsp spec) [#/Vol] 1.68 10*3/uL 0.83-4.51 [facility] Basophil percentageOrdered B y: Natividad Davenport on 02-16-2023 Basophils/100 WBC (Bld) 0.2 % 0-1 [facility] Eosinophils/100 WBC (Bld) 0.1 % 0-5 [facility] Neutrophils (Bld) [#/Vol] 10.7 10*3/uL 2.0-7.7 [facility] Neutrophils/100 WBC (Bld) 80.5 % 47-70 [facility] WBC (Bld) [#/Vol] 13.3 10*3/uL 4.4-11.0 [facility] Blood erythrocytes count (nu mber/volume)Ordered By: Natividad Davenport on 02-16-2023 RBC (Bld) [#/Vol] 4.09 10*6/uL 4.2-5.4 [facility] Blood hemoglobin measurement (mass/volume)Ordered By: Natividad Davenport on 02-16-2023 Hemoglobin (Bld) [Mass/Vol] 13.0 g/dL 12.0-15.0 [facility] Blood lymphocytes/100 leukoc ytesOrdered By: Natividad Davenport on 02-16-2023 Lymphocytes/100 WBC (Bld) 12.7 % 19-41 [facility] Blood monocytes/100 leukocyt esOrdered By: Natividad Davenport on 02-16-2023 Monocytes/100 WBC (Bld) 6.2 % 0-10 [facility] Blood platelet mean volumeOr dered By: Natividad Davenport on 02-16-2023 Platelet mean volume (Bld) [Entitic vol] 10.0 fL 6.2-12.0 [facility] Determination of erythrocyte mean corpuscular volume (MCV)Ordered By: Natividad Davenport on 02-16-2023 MCV (RBC) [Entitic vol] 92.2 fL 81-99 [facility] Hematocrit Auto (Bld) [Volum e fraction]Ordered By: Natividad Davenport on 02-16-2023 Hematocrit (Bld) [Volume fraction] 37.7 % 37-47 [facility] Laboratory - Hematology and Cell countsOrdered By: Natividad Davenport on 02-16-2023 Erythrocyte distribution width (RBC) [Entitic vol] 42.2 fL 35.1-43.9 [facility] Erythrocyte distribution width (RBC) [Ratio] 12.5 % 11.6-14.6 [facility] Immature granulocytes/100 WBC (Bld) 0.300 % 0.0-0.9 [facility] Comment on above: IG% - Immature Granu locytes (promyelocytes, myelocytes and metamyelocytes) > 1% indicates that a LEFT SHIFT is Present. MCH (RBC) [Entitic mass] 31.8 pg 27.0-32.0 [facility] Nucleated RBC/100 WBC (Bld) [Ratio] 0 % 0-5 [facility] MCHC Auto (RBC) [Mass/Vol]Or dered By: Natividad Davenport on 02-16-2023 MCHC (RBC) [Mass/Vol] 34.5 g/dL 32-36 [facility] Platelets bldOrdered By: Eduardo Davenport on 02-16-2023 Platelets (Bld) [#/Vol] 266 10*3/uL 150-450 [facility] Serum Treponema species anti body detectionOrdered By: Natividad Davenport on 02-16-2023 Treponema sp Ab Ql (S) Non-Reactive [facility] - Chemistry and C hemistry - challengeon 02-12-2023 Glucose Ql (U) Negative [facility] - Urinalysison Protein Ql (U) Trace [facility] - Chemistry and C hemistry - challengeon 02-05-2023 Glucose Ql (U) Negative [facility] - Urinalysison Protein Ql (U) Negative [facility] No Panel InformationOrdered By: Bria Alicia on 02-01-2023 Group B Streptococcus Culture Group B Beta Streptococcus is not isolated. [facility] - Chemistry and C hemistry - challengeon 01-29-2023 Glucose Ql (U) Negative [facility] - Urinalysison Protein Ql (U) Negative [facility] - Chemistry and C hemistry - challengeon 01-10-2023 Glucose Ql (U) Negative [facility] - Urinalysison Protein Ql (U) Negative [facility] - Chemistry and C hemistry - challengeon 12-25-2022 Glucose Ql (U) Negative [facility] - Urinalysison Protein Ql (U) Negative [facility] - Chemistry and C hemistry - challengeon 12-13-2022 Glucose Ql (U) Negative [facility] - Urinalysison Protein Ql (U) Negative [facility] Absolute lymphocyte countOrd ered By: Bria Alicia on 11-29-2022 Lymphocytes Auto (Unsp spec) [#/Vol] 2.21 10*3/uL 0.83-4.51 [facility] Basophil percentageOrdered B y: Bria Alicia on 11-29-2022 Basophils/100 WBC (Bld) 0.3 % 0-1 [facility] Eosinophils/100 WBC (Bld) 0.7 % 0-5 [facility] Neutrophils (Bld) [#/Vol] 10.1 10*3/uL 2.0-7.7 [facility] Neutrophils/100 WBC (Bld) 75.1 % 47-70 [facility] WBC (Bld) [#/Vol] 13.5 10*3/uL 4.4-11.0 [facility] Blood erythrocytes count (nu mber/volume)Ordered By: Bria Alicia on 11-29-2022 RBC (Bld) [#/Vol] 3.98 10*6/uL 4.2-5.4 [facility] Blood hemoglobin measurement (mass/volume)Ordered By: Bria Alicia on 11-29-2022 Hemoglobin (Bld) [Mass/Vol] 12.7 g/dL 12.0-15.0 [facility] Blood lymphocytes/100 leukoc ytesOrdered By: Bria Alicia on 11-29-2022 Lymphocytes/100 WBC (Bld) 16.4 % 19-41 [facility] Blood monocytes/100 leukocyt esOrdered By: Bria Alicia on 11-29-2022 Monocytes/100 WBC (Bld) 6.7 % 0-10 [facility] Blood platelet mean volumeOr dered By: Bria Alicia on 11-29-2022 Platelet mean volume (Bld) [Entitic vol] 9.1 fL 6.2-12.0 [facility] Determination of erythrocyte mean corpuscular volume (MCV)Ordered By: Bria Alicia on 11-29-2022 MCV (RBC) [Entitic vol] 94.5 fL 81-99 [facility] Gestational diabetes screen 1-hour screen with 50g oral glucose loadOrdered By: Bria Alicia on 11-29-2022 Glucose 1 Hr post 50 g glucose PO [Mass/Vol] 125 mg/dL 70-140 [facility] HIV 1 and HIV-2 antibody ass ay with HIV-1 p24 antigen detectionOrdered By: Bria Alicia on 11-29-2022 HIV 1+2 Ab+HIV1 p24 Ag IA Ql Non-Reactive Nonreactive [facility] Hematocrit Auto (Bld) [Volum e fraction]Ordered By: Bria Alicia on 11-29-2022 Hematocrit (Bld) [Volume fraction] 37.6 % 37-47 [facility] - Chemistry and C hemistry - challengeon 11-29-2022 Glucose Ql (U) Negative [facility] - Hematology and Cell countsOrdered By: Bria Alicia on 11-29-2022 Erythrocyte distribution width (RBC) [Entitic vol] 41.5 fL 35.1-43.9 [facility] Erythrocyte distribution width (RBC) [Ratio] 12.0 % 11.6-14.6 [facility] Immature granulocytes/100 WBC (Bld) 0.800 % 0.0-0.9 [facility] Comment on above: IG% - Immature Granu locytes (promyelocytes, myelocytes and metamyelocytes) > 1% indicates that a LEFT SHIFT is Present. MCH (RBC) [Entitic mass] 31.9 pg 27.0-32.0 [facility] Nucleated RBC/100 WBC (Bld) [Ratio] 0 % 0-5 [facility] - Urinalysison Protein Ql (U) Negative [facility] MCHC Auto (RBC) [Mass/Vol]Or dered By: Bria Alicia on 11-29-2022 MCHC (RBC) [Mass/Vol] 33.8 g/dL 32-36 [facility] Platelets bldOrdered By: Gricelda Alicia on 11-29-2022 Platelets (Bld) [#/Vol] 309 10*3/uL 150-450 [facility] Serum Treponema species anti body detectionOrdered By: Bria Alicia on 11-29-2022 Treponema sp Ab Ql (S) Non-Reactive [facility] - Chemistry and C hemistry - challengeon 10-23-2022 Glucose Ql (U) Negative [facility] - Urinalysison Protein Ql (U) Negative [facility] - Chemistry and C hemistry - challengeon 10-02-2022 Glucose Ql (U) Negative [facility] - Urinalysison Protein Ql (U) Negative [facility] - Chemistry and C hemistry - challengeon 08-14-2022 Glucose Ql (U) Negative [facility] - Urinalysison Protein Ql (U) Negative [facility] Absolute lymphocyte counton 07-27-2022 Lymphocytes Auto (Unsp spec) [#/Vol] 2.30 10*3/uL 0.83-4.51 [facility] Work Phone: Basophil percentageon 2021 Basophils/100 WBC (Bld) 0.4 % 0-1 [facility] Work Phone: Eosinophils/100 WBC (Bld) 0.6 % 0-5 [facility] Work Phone: Neutrophils (Bld) [#/Vol] 6.4 10*3/uL 2.0-7.7 [facility] Work Phone: Neutrophils/100 WBC (Bld) 67.1 % 47-70 [facility] Work Phone: WBC (Bld) [#/Vol] 9.5 10*3/uL 4.4-11.0 [facility] Work Phone: Blood erythrocytes count (nu mber/volume)on 07-27-2022 RBC (Bld) [#/Vol] 4.34 10*6/uL 4.2-5.4 [facility] Work Phone: Blood hemoglobin measurement (mass/volume)on 07-27-2022 Hemoglobin (Bld) [Mass/Vol] 13.6 g/dL 12.0-15.0 [facility] Work Phone: Blood lymphocytes/100 leukoc yteson 07-27-2022 Lymphocytes/100 WBC (Bld) 24.2 % 19-41 [facility] Work Phone: Blood monocytes/100 leukocyt eson 07-27-2022 Monocytes/100 WBC (Bld) 7.5 % 0-10 [facility] Work Phone: [phone] Blood platelet mean volumeon 07-27-2022 Platelet mean volume (Bld) [Entitic vol] 9.3 fL 6.2-12.0 [facility] Work Phone: Determination of erythrocyte mean corpuscular volume (MCV)on 07-27-2022 MCV (RBC) [Entitic vol] 91.0 fL 81-99 [facility] Work Phone: HIV 1 and HIV-2 antibody ass ay with HIV-1 p24 antigen detectionon 07-27-2022 HIV 1+2 Ab+HIV1 p24 Ag IA Ql Non-Reactive Nonreactive [facility] Work Phone: [phone] Hematocrit Auto (Bld) [Volum e fraction]on 07-27-2022 Hematocrit (Bld) [Volume fraction] 39.5 % 37-47 [facility] Work Phone: Laboratory - Hematology and Cell countson 07-27-2022 Erythrocyte distribution width (RBC) [Entitic vol] 39.1 fL 35.1-43.9 [facility] Work Phone: [phone] Erythrocyte distribution width (RBC) [Ratio] 11.7 % 11.6-14.6 [facility] Work Phone: [phone] Immature granulocytes/100 WBC (Bld) 0.200 % 0.0-0.9 [facility] Work Phone: Comment on above: IG% - Immature Granu locytes (promyelocytes, myelocytes and metamyelocytes) > 1% indicates that a LEFT SHIFT is Present. MCH (RBC) [Entitic mass] 31.3 pg 27.0-32.0 [facility] Work Phone: [phone] Nucleated RBC/100 WBC (Bld) [Ratio] 0 % 0-5 [facility] Work Phone: [phone] MCHC Auto (RBC) [Mass/Vol]on 07-27-2022 MCHC (RBC) [Mass/Vol] 34.4 g/dL 32-36 [facility] Work Phone: [phone] No Panel Informationon 07-27 Miscellaneous Test Comment MAILED SPECIMEN [facility] Work Phone: [phone] Hepatitis B Surface Antigen Non-Reactive Nonreactive [facility] Work Phone: [phone] Hepatitis C Antibody Non-Reactive Nonreactive [facility] Work Phone: [phone] Comment on above: Non Reactive: < 0.8 Equivocal: >/= 0.8 to < 1.0 Reactive: >/= 1.0The CDC recommends that a reactive/equivocal HCV antibody result be followed up by the HCV Nucleic Acid Amplificationtest (567544) Rubella IgG Antibody Non-Reactive Nonreactive [facility] Work Phone: [phone] Comment on above: Antibody Results Int erpretation of Immune Status Non Reactive Presumed Non-Immune Equivocal Equivocal Reactive Presumed Immune Platelets bldon 07-27-2022 Platelets (Bld) [#/Vol] 326 10*3/uL 150-450 [facility] Work Phone: [phone] Serum Treponema species anti body detectionon 07-27-2022 Treponema sp Ab Ql (S) Non-Reactive [facility] Work Phone: [phone] Cervical or vagninal specime n microscopic examination by cytology stain (reported ason 07-16-2022 Cytology report Cyto stain Doc (Cvx/Vag) Comment . [facility] Work Phone: [phone] Comment on above: The Pap smear is [...] rRNA BRANDON+probe Ql (Unsp spec) Negative Negative [facility] Work Phone: Laboratory - Cytologyon 06-19 Blood Bank Technician Cyto stain Nom (Cvx/Vag) [ID] Comment . [facility] Work Phone: Comment on above: Laurita Woodruff Cyto technologist (ASCP) Laboratory - Drug toxicology on 07-16-2022 Amphetamines Ql (U) Negative <1000 ng/mL [facility] Work Phone: [phone] Benzodiazepines Ql (U) Negative < 200 ng/mL [facility] Work Phone: [phone] Cannabinoids Screen Ql (U) Negative < 50 ng/mL [facility] Work Phone: [phone] Cocaine Ql (U) Negative < 300 ng/mL [facility] Work Phone: [phone] Opiates Ql (U) Negative < 300 ng/mL [facility] Work Phone: [phone] Laboratory - Microbiology an d Antimicrobial susceptibilityon 07-16-2022 N. gonorrhoeae DNA BRANDON+probe Ql (Unsp spec) Negative Negative [facility] Work Phone: Comment on above: Performed at: =[address] [id number] Director: Serene De Leon MD, Phone: [phone] Laboratory - Miscellaneous t estson 07-16-2022 Service comment (Unsp spec) [Interp] Comment . [facility] Work Phone: Comment on above: This liquid based Th inPrep(R) pap test was screened withthe use of an image guided system. Service comment (Unsp spec) [Interp] . . [facility] Work Phone: No Panel Informationon 07-16 Human Papillomavirus Screen Comment . [facility] Work Phone: Comment on above: The HPV DNA reflex c riteria were not met with this specimenresult therefore, no HPV testing was performed.Performed at: [address] [place] [id number] Director: Serene De Leon MD, Phone: [phone] MDMA (Ecstasy) Screen Negative < 500 ng/mL [facility] Work Phone: [phone] Pathology report final diagnosis Narrative Comment . [facility] Work Phone: Comment on above: NEGATIVE FOR INTRAEP ITHELIAL LESION OR MALIGNANCY. 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 [facility] Comment on above: Result Comment: Nega tikitty for This test was developed and its performance characteristics determined by [facility] [place]. This test has been authorized by FDA [...] developed and its performance characteristics determined by [facility] [place]. This test has been authorized by FDA [...] developed and its performance characteristics determined by [facility] [place]. This test has been authorized by FDA under an Emergency Use Authorization (EUA). This test has been validated in accordance with the FDA's Guidance Document "Policy for Diagnostics Testing in Laboratories Certified to Perform High Complexity Testing under CLIA prior to Emergency use Authorization for Coronavirus Disease 2019 during the Public Health Emergency" issued on January 16, 2020. 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 [facility] Comment on above: Result Comment: Naso pharyngeal Corrected on 05/20 AT 0003: Previously reported as BUS DRIVER SWAB Swab Corrected on 05/20 AT 0003: Previously reported as BUS DRIVER SWAB Culture, urine Bacteria identified Cx Nom (U) Positive [facility] Work Phone: Vital Signs Date Time Vital Sign Value Performing Clinician Jhony luu 06-16-2025 10:48-0400 Body height 157.48 cm No Primary Care Physician [facility] 06-16-2025 10:44-0400 Body mass index (BMI) [Ratio] 33.6 kg/m2 No Primary Care Physician [facility] 06-16-2025 10:44-0400 Body weight 83.46 kg No Primary Care Physician [facility] 06-16-2025 10:44-0400 Diastolic blood pressure 73 mm[Hg] No Primary Care Physician [facility] 06-16-2025 10:44-0400 Systolic blood pressure 105 mm[Hg] No Primary Care Physician [facility] 06-09-2025 10:54-0400 Body height 157.48 cm No Primary Care Physician [facility] 06-09-2025 10:53-0400 Body mass index (BMI) [Ratio] 33.7 kg/m2 No Primary Care Physician [facility] 06-09-2025 10:53-0400 Body weight 83.63 kg No Primary Care Physician [facility] 06-09-2025 10:53-0400 Diastolic blood pressure 75 mm[Hg] No Primary Care Physician [facility] 06-09-2025 10:53-0400 Systolic blood pressure 112 mm[Hg] No Primary Care Physician [facility] 06-03-2025 15:07-0400 Body height 157.48 cm No Primary Care Physician [facility] 06-03-2025 15:07-0400 Body mass index (BMI) [Ratio] 33.6 kg/m2 No Primary Care Physician [facility] 06-03-2025 15:07-0400 Body weight 83.51 kg No Primary Care Physician [facility] 06-03-2025 15:07-0400 Diastolic blood pressure 82 mm[Hg] No Primary Care Physician [facility] 06-03-2025 15:07-0400 Systolic blood pressure 122 mm[Hg] No Primary Care Physician [facility] 05-19-2025 10:53-0400 Body height 157.48 cm No Primary Care Physician [facility] 05-19-2025 10:49-0400 Body mass index (BMI) [Ratio] 33 kg/m2 No Primary Care Physician [facility] 05-19-2025 10:49-0400 Body weight 81.87 kg No Primary Care Physician [facility] 05-19-2025 10:49-0400 Diastolic blood pressure 78 mm[Hg] No Primary Care Physician [facility] 05-19-2025 10:49-0400 Systolic blood pressure 111 mm[Hg] No Primary Care Physician [facility] 05-05-2025 11:25-0400 Body height 157.48 cm No Primary Care Physician [facility] 05-05-2025 11:21-0400 Body mass index (BMI) [Ratio] 32.7 kg/m2 No Primary Care Physician [facility] 05-05-2025 11:21-0400 Body weight 81.19 kg No Primary Care Physician [facility] 05-05-2025 11:21-0400 Diastolic blood pressure 74 mm[Hg] No Primary Care Physician [facility] 05-05-2025 11:21-0400 Systolic blood pressure 111 mm[Hg] No Primary Care Physician [facility] 04-21-2025 09:49-0400 Body height 157.48 cm No Primary Care Physician [facility] 04-21-2025 09:49-0400 Body mass index (BMI) [Ratio] 32 kg/m2 No Primary Care Physician [facility] 04-21-2025 09:49-0400 Body weight 79.49 kg No Primary Care Physician [facility] 04-21-2025 09:49-0400 Diastolic blood pressure 71 mm[Hg] No Primary Care Physician [facility] 04-21-2025 09:49-0400 Systolic blood pressure 106 mm[Hg] No Primary Care Physician [facility] 04-05-2025 11:07-0400 Body height 157.48 cm No Primary Care Physician [facility] 04-05-2025 11:07-0400 Body mass index (BMI) [Ratio] 31.3 kg/m2 No Primary Care Physician [facility] 04-05-2025 11:07-0400 Body weight 77.73 kg No Primary Care Physician [facility] 04-05-2025 11:07-0400 Diastolic blood pressure 81 mm[Hg] No Primary Care Physician [facility] 04-05-2025 11:07-0400 Systolic blood pressure 120 mm[Hg] No Primary Care Physician [facility] 02-24-2025 09:49-0400 Body mass index (BMI) [Ratio] 30.3 kg/m2 No Primary Care Physician [facility] 02-24-2025 09:49-0400 Body weight 75.29 kg No Primary Care Physician [facility] 02-24-2025 09:49-0400 Diastolic blood pressure 66 mm[Hg] No Primary Care Physician [facility] 02-24-2025 09:49-0400 Systolic blood pressure 103 mm[Hg] No Primary Care Physician [facility] 01-27-2025 11:35-0400 Body height 157.48 cm No Primary Care Physician [facility] 01-27-2025 11:33-0400 Body mass index (BMI) [Ratio] 28.8 kg/m2 No Primary Care Physician [facility] 01-27-2025 11:33-0400 Body weight 71.44 kg No Primary Care Physician [facility] 01-27-2025 11:33-0400 Diastolic blood pressure 88 mm[Hg] No Primary Care Physician [facility] 01-27-2025 11:33-0400 Systolic blood pressure 127 mm[Hg] No Primary Care Physician [facility] 12-29-2024 13:02-0500 Body mass index (BMI) [Ratio] 28.8 kg/m2 No Primary Care Physician [facility] 12-29-2024 13:02-0500 Body weight 71.44 kg No Primary Care Physician [facility] 12-29-2024 13:02-0500 Diastolic blood pressure 88 mm[Hg] No Primary Care Physician [facility] 12-29-2024 13:02-0500 Systolic blood pressure 127 mm[Hg] No Primary Care Physician [facility] 11-26-2024 12:57-0500 Body mass index (BMI) [Ratio] 28 kg/m2 No Primary Care Physician [facility] 11-26-2024 12:57-0500 Body weight 69.39 kg No Primary Care Physician [facility] 11-26-2024 12:57-0500 Diastolic blood pressure 84 mm[Hg] No Primary Care Physician [facility] 11-26-2024 12:57-0500 Systolic blood pressure 121 mm[Hg] No Primary Care Physician [facility] 02-18-2023 14:00-0400 Body temperature 98.3 [degF] No Primary Care Physician [facility] 02-18-2023 14:00-0400 Diastolic blood pressure 69 mm[Hg] No Primary Care Physician [facility] 02-18-2023 14:00-0400 Heart rate 90 /min No Primary Care Physician [facility] 02-18-2023 14:00-0400 Respiratory rate 16 /min No Primary Care Physician [facility] 02-18-2023 14:00-0400 Systolic blood pressure 113 mm[Hg] No Primary Care Physician [facility] 02-18-2023 03:00-0400 SaO2% (BldA) [Mass fraction] 96 % No Primary Care Physician [facility] 02-16-2023 10:13-0400 Body height 157.48 cm No Primary Care Physician [facility] 02-16-2023 10:13-0400 Body mass index (BMI) [Ratio] 32.9 kg/m2 No Primary Care Physician [facility] 02-16-2023 10:13-0400 Body weight 81.7 kg No Primary Care Physician [facility] 02-12-2023 09:55-0400 Body mass index (BMI) [Ratio] 33.3 kg/m2 No Primary Care Physician [facility] 02-12-2023 09:55-0400 Body weight 82.55 kg No Primary Care Physician [facility] 02-12-2023 09:55-0400 Diastolic blood pressure 86 mm[Hg] No Primary Care Physician [facility] 02-12-2023 09:55-0400 Heart rate 103 /min No Primary Care Physician [facility] 02-12-2023 09:55-0400 Systolic blood pressure 120 mm[Hg] No Primary Care Physician [facility] 02-05-2023 08:53-0400 Body weight 82.55 kg No Primary Care Physician [facility] 02-05-2023 08:53-0400 Diastolic blood pressure 80 mm[Hg] No Primary Care Physician [facility] 02-05-2023 08:53-0400 Systolic blood pressure 117 mm[Hg] No Primary Care Physician [facility] 01-29-2023 10:07-0400 Body height 157.48 cm No Primary Care Physician [facility] 01-29-2023 10:07-0400 Body mass index (BMI) [Ratio] 32 kg/m2 No Primary Care Physician [facility] 01-29-2023 10:07-0400 Body weight 79.37 kg No Primary Care Physician [facility] 01-29-2023 10:07-0400 Diastolic blood pressure 78 mm[Hg] No Primary Care Physician [facility] 01-29-2023 10:07-0400 Heart rate 94 /min No Primary Care Physician [facility] 01-29-2023 10:07-0400 Systolic blood pressure 110 mm[Hg] No Primary Care Physician [facility] 01-22-2023 09:13-0500 Diastolic blood pressure 84 mm[Hg] No Primary Care Physician [facility] 01-22-2023 09:13-0500 Systolic blood pressure 127 mm[Hg] No Primary Care Physician [facility] 01-22-2023 08:55-0500 Body mass index (BMI) [Ratio] 32.5 kg/m2 No Primary Care Physician [facility] 01-22-2023 08:55-0500 Body weight 80.73 kg No Primary Care Physician [facility] 01-10-2023 08:27-0500 Body mass index (BMI) [Ratio] 32.1 kg/m2 No Primary Care Physician [facility] 01-10-2023 08:27-0500 Diastolic blood pressure 80 mm[Hg] No Primary Care Physician [facility] 01-10-2023 08:27-0500 Systolic blood pressure 118 mm[Hg] No Primary Care Physician [facility] 01-10-2023 07:54-0500 Body weight 79.83 kg No Primary Care Physician [facility] 12-25-2022 08:22-0500 Diastolic blood pressure 78 mm[Hg] No Primary Care Physician [facility] 12-25-2022 08:22-0500 Systolic blood pressure 122 mm[Hg] No Primary Care Physician [facility] 12-25-2022 07:59-0500 Body mass index (BMI) [Ratio] 31.6 kg/m2 No Primary Care Physician [facility] 12-25-2022 07:59-0500 Body weight 78.47 kg No Primary Care Physician [facility] 12-25-2022 07:59-0500 Heart rate 90 /min No Primary Care Physician [facility] 12-13-2022 09:58-0500 Body mass index (BMI) [Ratio] 31.4 kg/m2 No Primary Care Physician [facility] 12-13-2022 09:58-0500 Body weight 78.01 kg No Primary Care Physician [facility] 12-13-2022 09:58-0500 Diastolic blood pressure 76 mm[Hg] No Primary Care Physician [facility] 12-13-2022 09:58-0500 Heart rate 80 /min No Primary Care Physician [facility] 12-13-2022 09:58-0500 Systolic blood pressure 110 mm[Hg] No Primary Care Physician [facility] 11-29-2022 15:40-0500 Body height 157.48 cm No Primary Care Physician [facility] 11-29-2022 15:39-0500 Body mass index (BMI) [Ratio] 31.1 kg/m2 No Primary Care Physician [facility] 11-29-2022 15:39-0500 Body weight 77.11 kg No Primary Care Physician [facility] 11-29-2022 15:39-0500 Diastolic blood pressure 83 mm[Hg] No Primary Care Physician [facility] 11-29-2022 15:39-0500 Systolic blood pressure 126 mm[Hg] No Primary Care Physician [facility] 10-29-2022 08:39-0500 Body mass index (BMI) [Ratio] 28.1 kg/m2 No Primary Care Physician [facility] 10-29-2022 08:39-0500 Diastolic blood pressure 72 mm[Hg] No Primary Care Physician [facility] 10-29-2022 08:39-0500 Systolic blood pressure 109 mm[Hg] No Primary Care Physician [facility] 10-23-2022 10:33-0500 Body mass index (BMI) [Ratio] 28.9 kg/m2 No Primary Care Physician [facility] 10-23-2022 10:33-0500 Body weight 71.66 kg No Primary Care Physician [facility] 10-23-2022 10:33-0500 Diastolic blood pressure 79 mm[Hg] No Primary Care Physician [facility] 10-23-2022 10:33-0500 Heart rate 87 /min No Primary Care Physician [facility] 10-23-2022 10:33-0500 Systolic blood pressure 114 mm[Hg] No Primary Care Physician [facility] 10-02-2022 10:23-0500 Body weight 69.85 kg No Primary Care Physician [facility] 10-02-2022 10:23-0500 Heart rate 81 /min No Primary Care Physician [facility] 09-11-2022 13:05-0400 Body height 157.48 cm No Primary Care Physician [facility] Work Phone: 09-11-2022 13:05-0400 Body temperature 99 [degF] No Primary Care Physician [facility] 09-11-2022 13:05-0400 Body weight 68.03 kg No Primary Care Physician [facility] 09-11-2022 13:05-0400 Diastolic blood pressure 80 mm[Hg] No Primary Care Physician [facility] 09-11-2022 13:05-0400 Heart rate 82 /min No Primary Care Physician [facility] 09-11-2022 13:05-0400 Respiratory rate 12 /min No Primary Care Physician [facility] 09-11-2022 13:05-0400 Systolic blood pressure 120 mm[Hg] No Primary Care Physician [facility] 08-14-2022 08:41-0400 Body mass index (BMI) [Ratio] 25.7 kg/m2 No Primary Care Physician [facility] 08-14-2022 08:41-0400 Body weight 63.95 kg No Primary Care Physician [facility] 08-14-2022 08:41-0400 Diastolic blood pressure 76 mm[Hg] No Primary Care Physician [facility] 08-14-2022 08:41-0400 Systolic blood pressure 123 mm[Hg] No Primary Care Physician [facility] 07-16-2022 13:16-0400 Body height 157.48 cm No Primary Care Physician [facility] Work Phone: 07-16-2022 13:16-0400 Body mass index (BMI) [Ratio] 24.5 kg/m2 No Primary Care Physician [facility] Work Phone: 07-16-2022 13:16-0400 Body weight 60.78 kg No Primary Care Physician [facility] Work Phone: 07-16-2022 13:16-0400 Diastolic blood pressure 72 mm[Hg] No Primary Care Physician [facility] Work Phone: 07-16-2022 13:16-0400 Systolic blood pressure 110 mm[Hg] No Primary Care Physician [facility] Work Phone: Encounters Encounter Date Encounter Type Care Provider Facility Start: 06-16-2025 End: 06-16-2025 Patient encounter procedure Natividad Davenport CN[facility] @ Start: 06-16-2025 End: 06-16-2025 ambulatory No Primary Care Physician [facility] @ Start: 06-09-2025 End: 06-09-2025 Patient encounter procedure Natividad Davenport CNM [facility] @ Start: 06-09-2025 End: 06-09-2025 ambulatory No Primary Care Physician -[facility] @ Start: 06-03-2025 End: 06-03-[address] Rama Grant DO -[facility] Work Phone: Start: 06-03-2025 End: 06-03-2025 ambulatory No Primary Care Physician -[facility] Start: 06-03-2025 End: 06-03-2025 ambulatory No Primary Care Physician Facility:[facility] Start: 05-19-2025 End: 05-19-2025 Patient encounter procedure Natividad ROSEN -[facility] @ Start: 05-19-2025 End: 05-19-2025 ambulatory No Primary Care Physician -[facility] @ Start: 05-05-2025 End: 05-05-2025 ambulatory No Primary Care Physician [facility] Work Phone: Start: 05-05-2025 End: 05-05-2025 Patient encounter procedure Natividad ROSEN -[facility] @ Start: 04-21-2025 End: 04-21-2025 Patient encounter procedure Natividad ROSEN -[facility] @ Start: 04-21-2025 End: 04-21-2025 ambulatory No Primary Care Physician [facility] Work Phone: Start: 04-05-2025 End: 04-05-2025 Patient encounter procedure Natividad Davenport [facility] -[facility] Work Phone: Start: 04-05-2025 End: 04-05-2025 ambulatory No Primary Care Physician [facility] Work Phone: Start: 04-05-2025 End: 04-05-2025 ambulatory No Primary Care Physician Facility:[facility] Start: 02-24-2025 End: 02-24-2025 Patient encounter procedure Natividad ROSEN -[facility] @ Start: 02-24-2025 End: 02-24-2025 ambulatory No Primary Care Physician Facility:[facility] Start: 02-10-2025 End: 02-10-2025 ambulatory No Primary Care Physician [facility] Work Phone: Start: 02-10-2025 End: 02-10-[address] Rama Grant DO -Ultrasound, [facility] Work Phone: Start: 02-10-2025 End: 02-10-2025 ambulatory No Primary Care Physician Facility:[facility] Start: 01-27-2025 End: 01-27-2025 Patient encounter procedure Natividad Davenport CNM -[facility] @ Start: 01-27-2025 End: 01-27-2025 ambulatory No Primary Care Physician Facility:[facility] Start: 12-29-2024 End: 12-29-[address] Petra Lagunas MD -[facility] Work Phone: Start: 12-29-2024 End: 12-29-2024 ambulatory No Primary Care Physician Facility:[facility] Start: 12-07-2024 End: 12-07-2024 Patient encounter procedure Natividad Davenport CNM -Lab, [facility] Start: 12-07-2024 End: 12-07-2024 ambulatory No Primary Care Physician Facility:[facility] Start: 11-26-2024 End: 11-26-2024 Patient encounter procedure Natividad Davenport CNM -Laboratory, Specimen Work Phone: Start: 11-26-2024 End: 11-26-2024 Patient encounter procedure Natividad Davenport CNM -[facility] Work Phone: Start: 11-26-2024 End: 11-26-2024 ambulatory No Primary Care Physician Facility:[facility] Start: 11-26-2024 End: 11-26-2024 ambulatory No Primary Care Physician Facility:[facility] Start: 11-17-2024 Non-patient / Non-visit Lexi Mendoza RN -[facility] Work Phone: Start: 11-17-2024 ambulatory No Primary Car e Physician Facility:[facility] Start: 02-17-2023 Non-patient / Non-visit [facility] Start: 02-16-2023 Non-patient / Non-visit No Primary Care Physician [facility] Start: 02-16-2023 End: 02-18-2023 Evaluation and management of inpatient No Primary Care Physician [facility] Start: 02-12-2023 End: 02-12-2023 Patient encounter procedure No Primary Care Physician [facility] @ Start: 02-05-2023 End: 02-05-2023 Patient encounter procedure No Primary Care Physician [facility] @ Start: 01-29-2023 End: 01-29-2023 ambulatory No Primary Care Physician [facility] Work Phone: Start: 01-29-2023 End: 01-29-2023 Patient encounter procedure No Primary Care Physician [facility], Specimen Start: 01-29-2023 End: 01-29-2023 Patient encounter procedure No Primary Care Physician [facility] @ Start: 01-22-2023 End: 01-22-2023 Patient encounter procedure No Primary Care Physician [facility] @ Start: 01-10-2023 End: 01-10-2023 Patient encounter procedure No Primary Care Physician [facility] @ Start: 12-25-2022 End: 12-25-2022 Patient encounter procedure No Primary Care Physician [facility] @ Start: 12-13-2022 End: 12-13-2022 Patient encounter procedure No Primary Care Physician [facility] Start: 11-29-2022 End: 11-29-2022 ambulatory No Primary Care Physician [facility] Work Phone: Start: 11-29-2022 End: 11-29-2022 Patient encounter procedure No Primary Care Physician [facility] Start: 10-23-2022 End: 10-23-2022 Patient encounter procedure No Primary Care Physician [facility] @ Start: 10-02-2022 End: 10-02-2022 Patient encounter procedure No Primary Care Physician [facility] @ Start: 09-27-2022 End: 09-27-2022 ambulatory No Primary Care Physician [facility] Work Phone: Start: 09-27-2022 End: 09-27-2022 Patient encounter procedure No Primary Care Physician [facility] Start: 09-11-2022 End: 09-11-2022 Patient encounter procedure No Primary Care Physician [facility] @ Start: 08-14-2022 End: 08-14-2022 Patient encounter procedure No Primary Care Physician [facility] Start: 07-27-2022 End: 07-27-2022 ambulatory No Primary Care Physician [facility] Work Phone: Start: 07-27-2022 End: 07-27-2022 Patient encounter procedure No Primary Care Physician [facility] Start: 07-16-2022 End: 07-16-2022 ambulatory No Primary Care Physician [facility] Work Phone: Start: 07-16-2022 End: 07-16-2022 Patient encounter procedure No Primary Care Physician [facility], Specimen Start: 07-16-2022 End: 07-16-2022 Patient encounter procedure No Primary Care Physician [facility] Start: 05-19-2020 End: 05-19-2020 [facility] Procedures Date Procedure Procedure Detail Performing [...] CBC W Auto Differential panel - Blood [facility] Start: 04-05-2025 Measurement of glucose 2 hours after glucose challenge for glucose tolerance test [facility] Start: 04-05-2025 Serologic test for syphilis [facility] Start: 04-05-2025 [facility] Start: 02-10-2025 Ultrasonography in first trimester OB Anatomy w/ Transvaginal [facility] Start: 02-18-2023 Patient discharge [facility] Start: 02-16-2023 Administration of medication [facility] Start: 02-16-2023 Application of ice collar, cap or bag [facility] Start: 02-16-2023 Catheterization of vein [facility] Start: 02-16-2023 Introduction of urinary catheter [facility] Start: 02-16-2023 Measuring intake and output [facility] Start: 02-16-2023 Notification of physician [facility] Start: 02-16-2023 Procedure discontinued [facility] Start: 02-16-2023 Provision of activity privileges [facility] Start: 02-16-2023 Vital signs measurements [facility] Start: 02-16-2023 [facility] Start: 02-16-2023 Admission procedure [facility] Start: 07-16-2022 Liquid based cervical cytology screening [facility] Work Phone: CBC W Auto Different ial panel - Blood [facility] Work Phone: CBC W Auto Different ial panel - Blood [facility] Erythrocyte mean corpuscular volume determination [facility] Hematocrit [Volume Fraction] of Blood [facility] Hemoglobin [Mass/vol ume] in Blood [facility] Hepatitis B surface antigen measurement [facility] Work Phone: Hepatitis C antibody measurement [facility] Work Phone: HIV 1+2 Ab+HIV1 p24 Ag [Presence] in Serum or Plasma by Immunoassay [facility] Work Phone: Leukocytes [#/volume ] in Blood [facility] Mean corpuscular hemoglobin concentration determination [facility] Mean corpuscular hemoglobin determination [facility] Neutrophil count [facility] Neutrophil percent differential count [facility] Path report.final Dx Spec [facility] Work Phone: Patient Education After a Vaginal [facility] Work Phone: Patient referral [facility] Work Phone: Platelets [#/volume] in Blood [facility] Red blood cell count [facility] Red cell distributio n width determination [facility] Rubella IgG measurement [facility] Work Phone: Streptococcus agalac tiae [Presence] in Unspecified specimen by Organism specific culture [facility] Treponema sp Ab [Pre sence] in Serum [facility] Work Phone: [facility] Payers Date Payer Category Payer Unknown [id number] 2024 Self-pay 2024 Unknown [id number] 1999 Unknown [id number] 2.16.84 [id number] Unknown [id number] Unknown [id number] 2.16.8 [id number] Unknown [id number] 2.16.8 [id number] Unknown [id number] 2.16.8 [id number] Unknown [id number] 2.16.8 40.1.405407.3.579.2.462 Unknown [id number] 2.16.8 40.1.957160.3.579.2.462 Unknown [id number] 2.16.8 40.1.330860.3.579.2.462 Unknown [id number] 2.16.8 40.1.364282.3.579.2.462 Unknown [id number] 2.16.8 40.1.627822.3.579.2.462 Unknown [id number] 2.16.8 40.1.441805.3.579.2.462 Unknown [id number] 2.16.8 40.1.851383.3.579.2.462 Unknown [id number] 2.16.8 40.1.934965.3.579.2.462 Unknown [id number] 2.16.8 40.1.130027.3.579.2.462 Unknown [id number] 2.16.8 40.1.364191.3.579.2.462 Unknown [id number] 2.16.8 40.1.167799.3.579.2.462 Unknown [id number] 2.16.8 40.1.816110.3.579.2.462 Unknown [id number] 2.16.8 40.1.195095.3.579.2.462 Unknown [id number] 2.16.8 40.1.386694.3.579.2.462 Social History Date Type Detail Facility Start: 07-16-2022 End: 02-16-2023 Tobacco smoking status NHIS Unknown if ever smoked [facility] Start: 2000 Sex Assigned At Female [facility] Start: 11-17-2024 Tobacco smoking stat us GAIS Never smoked tobacco (finding) [facility] Start: 02-14-2025 Sex Female (finding) [facility] Goals Date Patient Goal Desired Activity /State Mental Status Date Assessment Result Facility 02-18-2023 Cognitive function Awake;Alert;Appropriat e [facility] Work Phone: Clinical Notes 07-16-2022 to 06-16-2025 Note Date & Type Note Facility 06-16-2025 Progress note [facility] 06-09-2025 Progress note [facility] 05-19-2025 Progress note [facility] 05-05-2025 Progress note [facility] 04-21-2025 Progress note [facility] 04-05-2025 Progress note [facility] 02-24-2025 Evaluation note Diagnosis Onset [...] of normal acute June 03, 2025 3:02pm [facility] Work Phone: 1(898) 844-994204-09-2025 Evaluation note* Diagnosis Onset Date Resolution Status [...] normal acut e June 09, 2025 10:46am [facility] Work Phone: 1(890) 261-424404-09-2025 Evaluation note* Diagnosis Onset Date Resolution Status [...] normal acut e June 16, 2025 10:41am [facility] Work Phone: 1(398) 784-154103-12-2025 Evaluation note* Diagnosis Onset Date Resolution Status [...] normal acut e May 05, 2025 11:13am [facility] Work Phone: 1([phone]) 738-674803-12-2025 Evaluation note* Diagnosis Onset Date Resolution Status [...] normal acut e May 19, 2025 10:45am [facility] Work Phone: 1(800) 986-378102-11-2025 Evaluation note* Diagnosis Onset Date Resolution Status [...] normal acute April 05, 2025 1 1:03am [facility] Work Phone: 1(690) 418-4501878200-06-6986 Evaluation note* Diagnosis Onset Date Resolution Status [...] normal acute April 21, 2025 9 :26am [facility] Work Phone: 1(196) [phone] Evaluation note* Diagnosis Onset Date Resolution Status [...] of normal acute January 27, 2025 11:09am [facility] Work Phone: 1(607) 833-698704-02-2023 Progress note Author Natividad Davenport [facility] February 17, 2023 8:24am Note Date/Time February 17, 2023 8:24 am [facility] Medical Records Department [address] [place] [address] Progress Note - OBGYN 02/17/23 0822 MR#: [id number] Acct: [id number] Name: DINORAH DOBBINS Rep #:[id number] : 2000 From: Natividad Davenport CNM PCP: Care Physician,No Primary Status :ADM IN Location: [place] [address]-1 Subjective Subjective Patient doing well without complaints. [...] (Auto) 80.5 H, Lymph % (Auto) 12.7 L,Mccracken % (Auto) 6.2, Eos % (Auto) 0.1, [...] delivery: COMMENT: KW/SM 39.2 Active labor Boy [place] PLAN: s/p PPD # 1 1. routine post delivery care 2. breast feeding- support given 3. rh positive 4. rubella immune Charges/Coding Multi Select Codes Urinary/Genital Urinary/Genital CPT Codes: No Charge 02/17/23 6030 <Electronically signed by Natividad Davenport CNM> Cosigner Signature (if applicable): CC: ~ Signed [facility] Work Phone: 1(413) 800-176304-02-2023 Discharge summary Author Natividad Davenport [facility] February 16, 2023 11:50pm Note Date/Time February 16, 2023 11:5 0pm [facility] Medical Records Department [address] [place] [address] Instructions for Home/Discharge Instructions 02/16/23 2347 MR#: [id number] Acct: [id number] Name: DINORAH DOBBINS Rep #:[id number] : 2000 From: Natividad Davenport CNM PCP: [...] CC: No Primary Care Physician ~ Signed [facility] Work Phone: 1(884) 226-343204-01-2023 Procedure [facility] 02-16-2023 Progress note Author Natividad Issac [facility] February 16, 2023 5:33pm Note Date/Time February 16, 2023 5:33 pm [facility] Medical Records Department [address] [place] [address] Progress Note - OBGYN 02/16/23 1727 MR#: [id number] Acct: [id number] Name: DINORAH DOBBINS Rep #:[id number] : 2000 22 From: Natividad Davenport [facility] PCP: Care Physician,No Primary Status :ADM IN Location: [place] [address]-1 Subjective Subjective Patient comfortable with epidural current tracing: FHT: 145 Moderate variability reactive no decelerations category I tracing [place]: Contractions palpating moderate to strong q 3-5 [...] (Auto) 80.5 H, Lymph % (Auto) 12.7 L,Mccracken % (Auto) 6.2, Eos % (Auto) 0.1, Baso % (Auto) 0.2, Absolute Neuts (auto) 10.7 H, Absolute Lymphs (auto) 1.68, Nucleated RBC % 0 02/16/23 11:20: Blood Type A POSITIVE, Antibody Screen NEGATIVE 02/16/23 11:20: Syphilis Total Ab Non-reactive Charges/Coding Procedures Urinary/Genital 52xxx-59xxx: No Charge 02/16/23 1733 <Electronically signed by Natividad Davenport CNM> Cosigner Signature (if applicable): CC: ~ Signed [facility] Work Phone: 1(989) 207-394904-01-2023 Progress note Author Natividad Davenport [facility] February 16, 2023 3:37pm Note Date/Time February 16, 2023 3:37 pm [facility] Medical Records Department [address] [facility] [place] [address] Progress Note - OBGYN 02/16/23 1531 MR#: [id number] Acct: [id number] Name: DINORAH DOBBINS Rep #:[id number] : 2000 From: Natividad Davenport CNM PCP: Care Physician,No Primary Status :ADM IN Location: [place] [address] Subjective Subjective Patient comfortable with epidural current tracing: FHT: 135 Moderate variability reactive no decelerations category I tracing [place]: Contractions q 4-6 minutes palpating moderate to [...] (Auto) 80.5 H, Lymph % (Auto) 12.7 L,Mccracken % (Auto) 6.2, Eos % (Auto) 0.1, [...] Cosigner Signature (if applicable): CC: ~ Signed [facility] Work Phone: 1(661) 468-741704-01-2023 History and physical note Author Natividad Davenport [facility] February 16, 2023 1:03pm Note Date/Time February 16, 2023 1:03 pm [facility] Medical Records Department [address] [place] [address] H&P 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 02/16/23 1255 MR#: [id number] Acct: [id number] Name: DINORAH DOBBINS Rep #:[id number] : 2000 22 From: Natividad Davenport CNM PCP: Care Physician,No Primary Status :ADM IN Location: [id number] HPI - General General Date of Admission: [...] house current occupational status: employed current occupation: [employer] current occupational exposures/hazards: No pets and animals: [...] 1-2 times per week duration: 15-30 minutes/day prabhu/restorationist: None seatbelt use: always do you feel safe at home: Yes additional social history: Spouse- [employer] History 1 Elective abortions Hx Para 0 Spontaneous abortions Hx # Term Pregnancies Ectopic pregnancies Hx # Pregnancies Multiple births # of living children Visit Details Expected Delivery Route/Plan Labor Preferences- CB/BF classes: [facility] labor support person: Ford( gets woozy) , [...] any complications: none I have reviewed the [facility] and made any clinically relevant updates. Reviewed plan with Dr. Lagunas, agrees with plan of care. (2) Supervision of normal first : QUALIFIERS: Trimester: first trimester Qualified Code(s): Z34.01 - Encounter for supervision of normal first , first trimester COMMENT: PRR , XUAN 02/21/23, boy! [place] Spouse [employer] (3) : QUALIFIERS: Weeks of gestation: 32 weeks Qualified Code(s): Z3A.32 - 32 weeks gestation of COMMENT: GBS negative. nl anatomy, low risk NIPT & carrier neg. for 274/274 02/16/23 1303 <Electronically signed by Natividad Davenport CNM> Cosigner Signature (if applicable): CC: LOUIS Davenport; No Primary Care Physician~ Signed [facility] Work Phone: 1(751) [phone] NotePap Smear Specimen AdequacyAugust 2021 3:57pmComment.Satisfactory for evaluation. No endocervical component is identified.An endocervical component is not commonly seen in the patient.[id number] Work Phone: Comqmjr on above:Satisfactory for evaluation. No endocervical component is identified.An endocervical component is not commonly seen in the patient.07-16-2022 NotePap Smear Specimen AdequacyAugust 2021 2:57pmComment.Satisfactory for evaluation. No endocervical component is identified.An endocervical component is not commonly seen in the patient.[facility] A[facility][id number] Work Phone: comment on above:Satisfactory for evaluation. No endocervical component is identified.An endocervical component is not commonly seen in the patient.Evaluation note* Diagnosis Onset Date Resolution Status acute Supervision of normal first [facility] Work Phone: Evaluation note* Diagnosis Onset Date Resolution Status acute Supervision of normal first acute acute Supervision of normal first acute acute Supervision of normal first [facility] Work Phone: Evaluation note* Diagnosis Onset Date Resolution Status acute Supervision of normal first acute acute Supervision of normal first acute acute Supervision of normal first acute acute Supervision of normal first acute acute Supervision of normal first [facility] Work Phone: Evaluation note* Diagnosis Onset Date Resolution Status acute Supervision of normal first acute acute Supervision of normal first acute acute Supervision of normal first acute acute Supervision of normal first acute acute Supervision of normal first acute acute Supervision of normal first acute Tick bite of abdomen acute acute Supervision of normal first [facility] Work Phone: Evaluation note* Diagnosis Onset Date [...] of normal first acute Vaginal delivery acute [facility] Work Phone: Progress note Author Natividad Davenport [facility] Note Date/Time April 05, 2025 11:27 am [facility] [address] [place] [address], [address] [place] [address] OFFICE VISIT Date of Service: 04/05/25 MR#: [id number] Acct: [id number] Name: DINORAH DOBBINS Rep #: [id number] : 2000 Provider: LOUIS Davenport Age/Sex: 24/F Location: [facility] Status: Signed Intake Vital Signs 02/24/25 09:50 04/05/25 11:07 Height 5 ft 2 in 5 ft 2 in Weight: 171 lb 6 oz BMI 31.3 BP 120/81 H Intake Visit Reasons: 26 wk ob Chief Complaint: 26wk OB 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 Is patient in pain?: No [...] 1-2 times per week duration: 15-30 minutes/day prabhu/restorationist: Scientology seatbelt use: always do you feel [...] Cosigner Signature: Date (if applicable) CC: ~ [facility] Work Phone: Progress note Author Natividad Issac [facility] Note Date/Time April 21, 2025 10:04 am [facility] [address] [place] [address], [address] [place] [address] OFFICE VISIT Date of Service: 04/21/25 MR#: [id number] Acct: [id number] Name: DINORAH DOBBINS Rep #: [id number] : 2000 Provider: LOUIS Davenport Age/Sex: 24/F Location: [facility] Status: Signed Intake Vital Signs 04/05/25 11:07 04/21/25 09:49 Height 5 ft 2 in 5 ft 2 in Weight: 175 lb 4 oz BMI 32.0 BP 106/71 Intake Visit Reasons: 28 wk ob 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 Is patient in pain?: No [...] 1-2 times per week duration: 15-30 minutes/day prabhu/restorationist: Scientology seatbelt use: always do you feel [...] - full term 7lbs 6oz Male epidural [facility] Natividad Issac [place] Delivery Date: 02/26/23 Last [...] Signs, Cervical Ripening/Labor Induction Counseling, Postterm Counseling, [place] Education, Depression, Depression and Intimate Partner Violence; [...] Cosigner Signature: Date (if applicable) CC: ~ [facility] Work Phone: Progress note Author Natividad Davenport [facility] Note Date/Time May 05, 2025 11:3 8am [facility] [address] [place] [address], [address] [place] [address] OFFICE VISIT Date of Service: 05/05/25 MR#: [id number] Acct: [id number] Name: DINORAH DOBBINS Rep #: [id number] : 2000 Provider: LOUIS Davenport Age/Sex: 24/F Location: [facility] Status: Signed Intake Vital Signs 04/05/25 11:07 04/21/25 09:49 05/05/25 11:21 05/05/25 11:25 Height 5 ft 2 in 5 ft 2 in 5 ft 2 in 5 ft 2 in Weight: 179 lb BMI 32.7 BP 111/74 Intake Visit Reasons: 30 wk ob 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 Date Name GA/Weeks Outcome Route Bth Weight Infant Gen Labor Lgth Anesthesia Del Locatn Provider FOB 02/26/23 [place] 39 live - full term 7lbs 6oz [...] Cosigner Signature: Date (if applicable) CC: ~ [facility] Work Phone: Progress note Author Natividad Davenport [facility] Note Date/Time May 19, 2025 11:20 am [facility] [address], [address] [place] [address] OFFICE VISIT Date of Service: 05/19/25 MR#: [id number] Acct: [id number] Name: DINORAH DOBBINS Rep #: [id number] : 2000 Provider: LOUIS Davenport Age/Sex: 24/F Location: [facility] Status: Signed Intake Vital Signs 04/05/25 11:07 05/05/25 11:25 05/19/25 10:49 05/19/25 10:53 Height 5 ft 2 in 5 ft 2 in 5 ft 2 in 5 ft 2 in Weight: 180 lb 8 oz BMI 33.0 BP 111/78 Intake Visit Reasons: 32 wk ob 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 Date Name GA/Weeks Outcome Route Bth Weight Gen Labor Lgth Anesthesia Del Locatn Provider FOB 02/26/23 [place] 39 live - full term 7lbs 6oz Male epidural [facility] Natividad Davenport [place] Delivery Date: 02/26/23 Last [...] cons with dates. accepts NIPT. WOuld like id hope appts 12/29/24 -?-?-?-?-?-?-?-?-?-?-?-?- 13w 6d 157 [...] Cosigner Signature: Date (if applicable) CC: ~ [facility] Work Phone: Progress note Author Natividad Davenport [facility] Note Date/Time June 09, 2025 11:0 0am [facility] [address] [place] [address], [address] [place] [address] OFFICE VISIT Date of Service: 06/09/25 MR#: [id number] Acct: [id number] Name: DINORAH DOBBINS Rep #: [id number] : 2000 Provider: LOUIS Davenport Age/Sex: 24/F Location: [facility] Status: Signed Intake Vital Signs 06/03/25 15:07 06/09/25 10:53 06/09/25 10:54 Height 5 ft 2 in 5 ft 2 in 5 ft 2 in Weight: 184 lb 6 oz BMI 33.7 BP 112/75 Intake Visit Reasons: 37wk ob 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 Is patient in pain?: No [...] 1-2 times per week duration: 15-30 minutes/day prabhu/restorationist: Scientology seatbelt use: always do you feel [...] - full term 7lbs 6oz Male epidural [facility] Natividad Youngblood Delivery Date: 02/26/23 Last Updated [...] Cosigner Signature: Date (if applicable) CC: ~ [facility] Work Phone: Progress note Author Natividad Davenport [facility] Note Date/Time June 16, 2025 10:5 6am [facility] [address], [address] [place] [address] OFFICE VISIT Date of Service: 06/16/25 MR#: [id number] Acct: [id number] Name: DINORAH DOBBINS Rep #: [id number] : 2000 Provider: LOUIS Davenport Age/Sex: 24/F Location: [facility] Status: Signed Intake Vital Signs 05/19/25 10:53 06/09/25 10:54 06/16/25 10:44 06/16/25 10:48 Height 5 ft 2 in 5 ft 2 in 5 ft 2 in 5 ft 2 in Weight: 184 lb BMI 33.6 BP 105/73 Intake Visit Reasons: 38 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 Date Name GA/Weeks Outcome Route Bth Weight Infant Gen Labor Lgth Anesthesia Del Locatn Provider FOB 02/26/23 [place] 39 live - full term 7lbs 6oz [...] cons with dates. accepts NIPT. WOuld like id hope appts 12/29/24 -?-?-?-?-?-?-?-?-?-?-?-?- 13w 6d 157 [...] Cosigner Signature: Date (if applicable) CC: ~ [facility] Work Phone: Reason for referral (narrative)No reason for referral information [facility] Work Phone: Summary Purpose Family History No Family History Records FoundNo Family History Records FoundNo Family History Records FoundNo Family History Records Found Advance Directives No Advanced Directives Records Found Advance Directive Response Recorded Date/ Time Living Will No February 16, 2023 11:47am Power of Power Mule Operator No February 16 11:47am Chief Complaint [...] 2024 12:54pm Rubella non-immune status, antepartum [facility] 2024 12:54pm Supervision of normal December 29, 2024 12:54pm January 27, 2025 11: 09am Rubella non-immune status, antepartum [facility] 2024 11:09am Supervision of normal January 272024 [...] 11: 09am Rubella non-immune status, antepartum [facility] 2024 11:09am Supervision of normal January 272024 [...] 11: 09am Rubella non-immune status, antepartum [facility] 2024 11:09am Supervision of normal January 272024 [...] section and content) DATE CREATED AUTHOR 06/10/2020 [facility] DATE CREATED AUTHOR AUTHOR'S ORGANIZ ATION 03/07/2023 [facility] DATE CREATED AUTHOR AUTHOR'S ORGANIZ ATION 04/28/2023 [facility] DATE CREATED AUTHOR AUTHOR'S ORGANIZ ATION 06/18/2025 [facility] Goals (unrecognized section and content) Goals [...] December 07, 2024 End: December 07, 2024 Natiivdad Davenport CNM Attending Provider Active S tart: [...] BE BASED ON THE PRIMARY CLINICAL RECORDS. [facility] [employer] [facility]. provides no warranty or guarantee of the accuracy or completeness of information in this document.
[2025-06-20 17:21] LABS: Hematocrit 36.4 % (37-47); Hemoglobin 12.4 g/dL (12.0-15.0); Immature Granulocytes Count 0.050 X10^3/uL (0.0-0.0); Mean Corp Hgb Conc 34.1 g/dL (32-36); Mean Corpuscular Volume 89.2 fL (81-99); Mean Platelet Vol. 9.9 fl (6.2-12.0); NRBC Flagged by Analyzer 0 % (0-5); Platelet Count 311 K/mm3 (150-450); RBC Distribution Width CV 12.8 % (11.6-14.6); RBC Distribution Width SD 41.2 fl (35.1-43.9); Red Blood Count 4.08 M/mm3 (4.2-5.4); White Blood Count 10.8 K/mm3 (4.4-11.0)
[2025-06-20 17:58] LABS: Syphilis Antibodies Nonreactive (Nonreactive)
--- NOTE | 2025-06-20 19:15 | HP.PCM.OB_ITS ---
HPI - General General Date of Admission: 06/20/25 Chief Complaint: SROM this AM HPI Narrative DINORAH MONTOYA, is a 24 F who presents w/SROM this morning at 0700, clear, odorless fluid. Mild u/c's started ~ 1500 today. Maternal Data Information XUAN Calculator Estimated Delivery Date Method Current WG Current Estimate 06/30/25 LMP (Certain) 38w 4d Other Estimates 06/30/25 Ultrasound #1 38w 4d PFSH PFSH Medical History Supervision of normal first Tick bite of abdomen Spontaneous onset of labor Vaginal delivery care and examination Contraception management Home Medications Medication Instructions Recorded Last Taken Type vits no.10-ferrous 1 tab PO DAILY 07/11/22 08:00 History fumarate 65 mg iron-folic acid 1 mg tablet Allergy/AdvReac Type Severity Reaction Status Date / Time No Known Allergies Allergy Verified 06/20/25 15:23 Social History adopted: No household members: spouse and children housing: house number of children: 1 current occupational status: unemployed current occupation: [employer] current occupational exposures/hazards: No pets and animals: No history of recent travel: No sexually active: Yes Smoking Status: Never smoker alcohol intake: never substance use type: does not use well-balanced diet: about half the time caffeine: No eating out: 1-3 times/week during the past year weight has: increased > 10 lbs what type of physical activity do you participate in: walking and weight training frequency: 1-2 times per week duration: 15-30 minutes/day prabhu/latter-day: Druze seatbelt use: always do you feel safe at home: Yes 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 Date Name GA/Weeks Outcome Route Bth Weight Infant Gen Labor Lgth Anesthesia Del Locatn Provider FOB 02/26/23 [place] 39 live - full term 7lbs 6oz Male epidural [facility] Natividad Youngblood Delivery Date: 02/26/23 Last Updated by: Lexi Reji, RN See problem list for complications Visit Details Expected Delivery Route/Plan Labor Preferences- CB/BF classes: declines labor support person: mom and Ford labor intervention preferences: [] pain management options preferred: [] cut cord/dad catch: NO : [] PP control planned: [] discussed possible routes of delivery and associated risks: [] special requests: [] Plans Covid status: [] Flu vaccine: [] Tdap vaccine: [] Rhogam: [] LARC form signed: [] Problem list reviewed and updated with the most current plan of care details and appropriate orders placed. Relevant counseling for the gestational age provided. Continue routine care and follow up unless otherwise noted in visit notes/problem list details OB Flowsheet Initial Weight: 153 lb Date - - - - - - - - - - - - - EGA Weight BP Urine Prot - - - - - - - - - - - - - Glucose FHR FuHt Pres Dilation - - - - - - - - - - - - - Effaced St Visit Note 11/26/24 - - - - - - - - - - - - - 9w 1d 153 lb (+0 oz) 121/84 - - - - - - - - - - - - - 176 - - - - - - - - - - - - - KW-CRL cons with dates. accepts NIPT. WOuld like id hope appts 12/29/24 - - - - - - - - - - - - - 13w 6d 157 lb 8 oz (+4 lb 8 oz) 127/88 Negative - - - - - - - - - - - - - Negative 160 - - - - - - - - - - - - - SM- no vb lof cr amping 01/27/25 - - - - - - - - - - - - - 18w 0d 157 lb 8 oz (+4 lb 8 oz) 127/88 Negative - - - - - - - - - - - - - Negative 150 - - - - - - - - - - - - - KW- no vb/crampi ng. + flutters. US for 02/10. 02/24/25 - - - - - - - - - - - - - 22w 0d 166 lb (+13 lb) 103/66 Negative - - - - - - - - - - - - - Negative 160 - - - - - - - - - - - - - kw- no vb/crampi ng. good fm. normal US. gct next visit in [place]. 04/05/25 - - - - - - - - - - - - - 27w 5d 171 lb 6 oz (+18 lb 6 oz) 120/81 Negative - - - - - - - - - - - - - Negative 155 27 - - - - - - - - - - - - - KW- no vb/lof/ct x. good fm. glucose and LARC today 04/21/25 - - - - - - - - - - - - - 30w 0d 175 lb 4 oz (+22 lb 4 oz) 106/71 Negative - - - - - - - - - - - - - Negative 140 30 - - - - - - - - - - - - - KW- no vb/lof/ct x. good fm. no concerns today 05/05/25 - - - - - - - - - - - - - 32w 0d 179 lb (+26 lb) 111/74 Trace - - - - - -- - - - - - - - Negative 150 32 - - - - - - - - - - - - - KW- no vb/lof/ct x. good fm. urine concentrated today. 05/19/25 - - - - - - - - - - - - - 34w 0d 180 lb 8 oz (+27 lb 8 oz) 111/78 Negative - - - - - - - - - - - - - Negative 130 35 - - - - - - - - - - - - - kw- no vb/lof/ct x. good fm. requesting CBC for fatigue 06/03/25 - - - - - - - - - - - - - 36w 1d 184 lb 2 oz (+31 lb 2 oz) 122/82 Negative - - - - - - - - - - - - - Negative 145 36 Cephalic - - - - - - - - - - - - - JV- no lof, vagi nal bleeding, or dec fm. declines vaginal exam. GBS collected. 06/09/25 - - - - - - - - - - - - - 37w 0d 184 lb 6 oz (+31 lb 6 oz) 112/75 Negative - - - - - - - - - - - - - Negative 140 37 Cephalic - - - - - - - - - - - - - KW- no vb/lof/ct x. good fm. declines vaginal exam today. 06/16/25 - - - - - - - - - - - - - 38w 0d 184 lb (+31 lb) 105/73 Trace - - - - - - - - - - - - - Negative 155 37 Cephalic 1 .5 - - - - - - - - - - - - - 60 -2 KW- no vb/ lof/ctx. good fm. labor precautions. would like a membrane sweep next week if possible NST Assessment Assessment Detail: current tracing: FHT: 135, Moderate variability reactive no decelerations category I tracing [place]: Contractions every 6 to 9 minutes, lasting 55 to 90 seconds, palpates mild. A/P: Latent Labor. Dsc'd length of ROM without active labor along w/risks associated. Pt & Spouse agreeable with Pitocin Augmentation. Questions answered. ROS Constitutional Constitutional: Reports systems reviewed and no addt'l complaints, except as documented Eyes Eyes: Reports systems reviewed and no addt'l complaints, except as documented ENT HEENT: Reports systems reviewed and no addt'l complaints, except as documented Cardiovascular Cardiovascular: Reports systems reviewed and no addt'l complaints, except as documented Respiratory/Chest Respiratory/Chest: Reports systems reviewed and no addt'l complaints, except as documented Gastrointestinal Gastrointestinal: Reports systems reviewed and no addt'l complaints, except as documented Genitourinary Genitourinary: Reports systems reviewed and no addt'l complaints, except as documented Musculoskeletal Musculoskeletal: Reports systems reviewed and no addt'l complaints, except as documented Integumentary Integumentary: Reports systems reviewed and no addt'l complaints, except as documented Neurologic Neurologic: Reports systems reviewed and no addt'l complaints, except as documented Psychiatric Psychiatric: Reports systems reviewed and no addt'l complaints, except as documented Endocrine Endocrinology: Reports systems reviewed and no addt'l complaints, except as documented Allergic/Immunologic Allergic/Immunologic: Reports systems reviewed and no addt'l complaints, except as documented Vital Signs Vital Signs Vital Signs: 06/20/25 15:23 06/20/25 15:23 06/20/25 15:23 Temperature Temperature Source Temporal Pulse Rate Respiratory Rate 16 Blood Pressure BP Systolic BP Diastolic Pulse Ox 95 06/20/25 15:23 06/20/25 15:28 06/20/25 15:28 Temperature 99.0 F Temperature Source Pulse Rate 112 H Respiratory Rate Blood Pressure BP Systolic BP Diastolic Pulse Ox 87 06/20/25 15:29 06/20/25 15:29 06/20/25 15:29 Temperature Temperature Source Pulse Rate 100 Respiratory Rate Blood Pressure 126/73 H BP Systolic 126 BP Diastolic 73 Pulse Ox 94 06/20/25 17:53 06/20/25 17:53 06/20/25 17:53 Temperature Temperature Source Pulse Rate 96 Respiratory Rate Blood Pressure 107/71 BP Systolic 107 BP Diastolic 71 Pulse Ox 94 06/20/25 17:54 06/20/25 17:54 06/20/25 17:54 Temperature Temperature Source Temporal Pulse Rate Respiratory Rate 16 Blood Pressure BP Systolic BP Diastolic Pulse Ox 96 06/20/25 17:54 Temperature 98.4 F Temperature Source Pulse Rate Respiratory Rate Blood Pressure BP Systolic BP Diastolic Pulse Ox Weight Weight: 183 lb Body Mass Index (BMI) 33.5 Physical Exam Const alert, oriented x3 and no apparent distress General Appearance: cooperative and comfortable HEENT normocephalic and moist oral mucous membranes Chest inspection of chest normal Resp normal respiratory effort, no retractions and no use of accessory muscles Resp Narrative: Respirations eased & unlabored. GI soft to palpation, non-tender and non-distended Skin no rashes or lesions noted Neuro moves all extremities Psych mental status grossly normal, affect normal and speech normal Labs Labs Labs: Blood Type A POSITIVE Antibody Screen NEGATIVE Hct 36.4 % (37-47) L Hgb 12.4 g/dL (12.0-15.0) Obstetrics Ultrasound Syphilis Total Ab Nonreactive (Nonreactive) Rubella IgG Antibody Non-Reactive (Nonreactive) Hep Bs Antigen Non-Reactive (Nonreactive) Hepatitis C Antibody Non-Reactive (Nonreactive) Chlamydia DNA (BRANDON) Negative (Negative) N.gonorrhoeae DNA (BRANDON) Negative (Negative) HIV 1&2 Antibody Nonreactive (Nonreactive) Glucose 1 Hr 50 gm 95 mg/dL (70-140) Rhogam given: No Assessment & Plan (1) Supervision of normal : COMMENT: neg GBS PRR , XUAN 06/30/25, boy Vamshi PC: [place], : [place] (2) Rubella non-immune status, antepartum: COMMENT: offer MMR pp (3) : QUALIFIERS: Weeks of gestation: 38 weeks Qualified Code(s): Z3A.38 - 38 weeks gestation of COMMENT: NIPT low risk (previously done carrier testing) PLAN: Plan Patient presents in latent labor w/SROM, plan expectant management for , pitocin augmentation. Pain management: plans epidural. GBS Negative. Management of any complications:None. I have reviewed the [facility] and made any clinically relevant updates. Charges/Coding Multi Select Codes Urinary/Genital Urinary/Genital CPT Codes: No Charge
[2025-06-20] MEDS: Lactated Ringers 1,000 ML 50 ML IV (19:35)
[2025-06-20] MEDS: Oxytocin 15 Units/NS 250ml 15 UNITS/250 ML IV.SOLN 2 UNITS IV (19:35)
[2025-06-20] MEDS: Lactated Ringers 1,000 ML 999 ML IV (21:30)
[2025-06-20] MEDS: fentaNYL-bupivacaine (epidural) 100 ML BAG EPIDURAL (22:34)
[2025-06-21] VITALS (23 sets, daily range): BP systolic 107–133; BP diastolic 60–82; PULSE 88–113; RESP 14–16; TEMP 36.4–36.8; O2SAT 96–98
--- NOTE | 2025-06-21 02:10 | EX.PCM.OBVAG ---
Assessment & Plan (1) Supervision of normal : COMMENT: neg GBS PRR , XUAN 06/30/25, boy Vamshi PC: [place], : Ford PLAN: GODFREYSteven KATE, Male, 38 wks 5 days, "Vamshi", 2nd degree ML Laceration w/repair (2) Rubella non-immune status, antepartum: COMMENT: offer MMR pp PLAN: Plan Patient began pushing and delivered the head in the DIMITRIOS presentation. The head was delivered atraumatically and a loose nuchal cord ×1 was identified and easily reduced over the 's head. The anterior and posterior shoulders delivered without complication followed by the rest of the infant and the infant was placed on the maternal abdomen. Delayed cord clamping was employed for approximately 3 minutes. Cord was clamped and cut and gentle traction was applied to the cord and the placenta delivered spontaneously immediately following it was noted to be intact with three-vessel cord. The perineum and vagina were inspected and noted to have a shallow 2nd degree midline laceration which was repaired in the usual fashion using 3-0 Vicryl. EBL was 200 cc. Patient and infant tolerated delivery well. Maternal Data Information XUAN Calculator Estimated Delivery Date Method Current WG Current Estimate 06/30/25 LMP (Certain) 38w 5d Other Estimates 06/30/25 Ultrasound #1 38w 5d Gestational age: 38 wks 5 days Vaginal Delivery Maternal Presentation Maternal Presentation: Active Labor and Spontaneous Rupture of Membranes (06/20/25 @ 0700, clear, odorless fluid.) Type of Induction: Pitocin (Augmentation) Vaginal Delivery Information Procedure Performed: Spontaneous Vaginal Delivery Surgeon/Practitioner: Eloisa Montoya Type of anesthesia: Epidural Estimated Blood Loss: 200cc Findings Presentation: Vertex and DIMITRIOS Amniotic Membrane Rupture Type: Spontaneous Amniotic Fluid Description: Clear Placental Delivery Description: Spontaneous (Lasha w/3 vessel cord. ) Placenta Disposition: [facility] Cord Vessel Description: 3 Vessels Cord Entanglement: Around neck x 1, loose A Gender: Male (1 minute): 8 (5 minute): 9 Delayed Cord Clamping: Yes Post Vaginal Deli Medications given after delivery: IV Pitocin Laceration: Midline and 2nd degree (Shallow, repaired w/3-0 Vicryl.) Complication Complications: No Multi Select Codes Urinary/Genital Urinary/Genital CPT Codes: 55507 Vaginal Delivery [facility]
--- NOTE | 2025-06-21 02:21 | DCINST_ITS ---
Discharge Instructions DC O2, CPAP, BIPAP needs Home O2 Discharge instructions: No Dressing / Incision Discharge Activity: Return to Normal Activity (Rest!! & Slowly return to normal activities. ) May resume sexual activity in: 4-6 weeks (6 Weeks) Dressing / Incision Call your doctor if you observe: Fever of 101 or Higher, Inability to urinate, Using more than 1 pad per hour, Fainting spells, Chest pain, Increased palpitations (irregular heartbeat), Calf discomfort and Uncontrolled pain Follow Up Care When: 6 weeks Test Results: Test results from this visit will be discussed in further detail at your follow- up appointment, if applicable. Discharge Plan Admission Admit Date/Time: 06/20/25 16:28 Attending Provider: Eloisa Montoya Primary Care Provider: Care Physician,No Primary Discharge Orders/Prescriptions Prescriptions: No Action vit 10-iron fum-folic 65-1 mg tablet 1 tab PO DAILY Referrals / Follow Up: Care Physician,No Primary [Primary Care Provider] -
[2025-06-21] MEDS: Oxytocin 15 Units/NS 250ml 15 UNITS/250 ML IV.SOLN 83 UNITS IV (02:30)
[2025-06-21] MEDS: Benzocaine/Lanolin/Aloe Vera 85 GM Spray 1 SPRAY TOPICAL (02:57)
[2025-06-21] MEDS: SELF ADMINISTRATION OF MEDS 1 EACH NOTE (02:57)
[2025-06-22 06:45] VITALS: BP 121/78; PULSE 78; RESP 16; TEMP 36.4
--- NOTE | 2025-06-22 07:55 | PCM.PN.OB ---
Subjective Subjective Patient doing well without complaints. Tolerating PO. Ambulating and voiding without difficulty. Feeding well. Denies chest pain, shortness of breath, calf pain/swelling, fevers, chills, lightheadedness. Objective Data Objective Data Vital Signs: Vital Signs Temp Pulse Resp BP Pulse Ox O2 Del Method 97.6 F L 78 16 121/78 H 98 Room Air 06/22/25 06:45 06/22/25 06:45 06/22/25 06:45 06/22/25 06:45 06/21/25 20:21 06/22/25 06:45 Oxygen Delivery Method Room Air Weight: 183 lb Body Mass Index (BMI) 33.5 Intake & Output: Intake and Output for Last 24 Hours 06/20/25 06/21/25 06/22/25 23:59 23:59 23:59 Intake Total 1164.94 / 1164.94 1122.56 / 1122.56 Output Total 1000 / 1000 Balance 1164.94 / 1164.94 122.56 / 122.56 Lab / Micro Data 06/20/25 16:50 Physical Exam Const alert and oriented x3 HEENT normocephalic Eyes PERRL Neck full ROM Resp normal respiratory effort GI soft to palpation GI Narrative: FF below U Assessment & Plan (1) Spontaneous vaginal delivery: COMMENT: 06/21/25 LAVINIA DONAHUE (2) Rubella non-immune status, antepartum: COMMENT: offer MMR pp PLAN: Plan s/p PPD # 1 1. routine post delivery care 2. breast feeding- support given 3. rh positive 4. rubella non immune-offer MMR 5. home today
[2025-06-22 08:55] VITALS: BP 118/75; PULSE 97; RESP 18; TEMP 36.4; O2SAT 98
[2025-06-22] MEDS: Senna/Docusate Sodium 1 Tablet PO (10:09)
[2025-06-22 13:08] VITALS: BP 110/77; PULSE 101; RESP 16; TEMP 36.4; O2SAT 98
== END 2025-06-22 14:35 | disposition home or self-care (01) | DRG 807 ==
LOC: WPOUT 16:33 → WP 16:46
PROVIDERS: Advanced Practice Midwife; Admitting Provider Midwife; Visit Provider Midwife
DX: O42.02 Full-term premature rupture of membranes, onset of labor within 24 hours of rupture (principal); Z37.0 Single live birth; O69.81X0 Labor and delivery complicated by cord around neck, without compression, not applicable or unspecified; O70.1 Second degree perineal laceration during delivery; Z3A.38 38 weeks gestation of pregnancy
CPT/HCPCS: 59025; 59050; 84112; 85025; 86780; 86850; 86900; 86901; 99221; G0378

== ENCOUNTER → 2025-08-11 | Outpatient (CLI) | payer SELFPAY ==
--- OUTSIDE RECORDS SUMMARY | 2025-08-11 19:03 | XMS RPT_ITS | CCD ---
Author Organization [facility] Care Team Providers Care Public Service Director Name Role Phone Care Physician, No Primary Primary Care Provider Unavailable Care Physician, No Primary Referring Provider Un available Dr. Petra Lagunas Attending Provider [phone] Care Physician, No Primary Primary Care Provider Unavailable Care Physician, No Primary Referring Provider Un available Dr. Petra Lagunas Attending Provider [phone] LOUIS Alicia Attending Provider [phone] Care Physician, No Primary Primary Care Provider Unavailable Care Physician, No Primary Referring Provider Un available Dr. Petra Lagunas Attending Provider [phone] Dr. Rama Grant Attending Provider [phone] Care Physician, No Primary Primary Care Provider Unavailable Care Physician, No Primary Referring Provider Un available LOUIS Alicia Attending Provider [phone] Dr. Rama Grant Attending Provider [phone] LOUIS Davenport Attending Provider [phone] LOUIS Davenport Admit Provider [phone] LOUIS Davenport Referring Provider [phone] LOUIS Davenport Other Provider [phone] ROSALINDA TURCIOS Admitting Unavailable KAROLINAROSALINDA Attending Unavailable KAROLINAROSALINDA WOOD Primary Care Unavailable Care Physician, No Primary Primary Care Provider Unavailable Lexi Mendoza RN Attending Provider Unavailabl e Care Physician, No Primary Referring Provider Un available Natividad Davenport CNM Attending Provider [phone] Natividad Davenport CNM Referring Provider [phone] Petra Lagunas MD Attending Provider Dr. Rama Grant DO Attending Provider Dr. Rama Grant DO Referring Provider Care Physician, No Primary Primary Care Provider Unavailable Issac CNM, Natividad Attending Provider [phone] Issac CNM, Natividad Referring Provider [phone] Care Physician, No Primary Referring Provider Un available Care Physician, No Primary Primary Care Provider Unavailable Issac CNM, Natividad Attending Provider [phone] Issac CNM, Natividad Referring Provider [phone] Care Physician, No Primary Primary Care Provider Unavailable Care Physician, No Primary Referring Provider Un available Care Physician, No Primary Primary Care Provider Unavailable Care Physician, No Primary Referring Provider Un available Issac CNM, aNtividad Attending Provider [phone] Care Physician, No Primary Primary Care Provider Unavailable Dr. Rama Grant DO Attending Provider Jan CNM, Eloisa Admit Provider Unavailable Dobbins CNM, Eloisa Attending Provider Unavaila ble Jan CNM, Eloisa Other Provider Unavailable Martin MINER ASSISTANT-CSavannah Attending Provider [phone] Care Physician, No Primary Primary Care Unava ilable Eloisa Dobbins Attending Unavailable Eloisa Dobbins Consulting Unavailable Eloisa Dobbins Admitting Unavailable Care Physician, No Primary Referring Unava ilable Natividad Davenport Attending Unavailable Care Physician, No Primary Primary Care Unava ilable Natividad Davenport Attending Unavailable Care Physician, No Primary Primary Care Unava ilable Care Physician, No Primary Referring Unava ilable Care Physician, No Primary Referring [...] Care Unava ilable Care Physician, No Primary Primary Care Unava ilable Care Physician, No Primary Referring Unava ilable Natividad Davenport Attending Unavailable Natividad Davenport Referring Unavailable Natividad Davenport Attending Unavailable Care Physician, No Primary Primary Care Unava ilable Natividad Davenport Referring Unavailable Care Physician, No Primary Primary Care Unava ilable Natividad Davenport Attending Unavailable Care Physician, No Primary Primary Care Unava ilable Care Physician, No Primary Referring Unava ilable Issac, Natividad Attending Unavailable Braydon Mata, Rama Attending Unavailabl e Care Physician, No Primary Primary Care Unava ilable Care Physician, No Primary Primary Care Unava ilable Natividad Davenport Referring Unavailable Issac, Natividad Attending Unavailable Braydon Mata, Rama Referring Unavailabl e Tavoe Adolfo, Rama Attending Unavailabl e Care Physician, No Primary Primary Care Unava ilable Care Physician, No Primary Primary Care Unava ilable Eloisa Dobbins Admitting Unavailable Jan, Eloisa Attending Unavailable Care Physician, No Primary Primary Care Unava ilable Care Physician, No Primary Referring Unava ilable Issac, Natividad Attending Unavailable Care Physician, No Primary Primary Care Unava ilable Care Physician, No Primary Referring Unava ilable Natividad Davenport Attending Unavailable Braydon Mata, Rama Attending Unavailabl e Care Physician, No Primary Primary Care Unava ilable Care Physician, No Primary Referring Unava ilable Natividad Davenport Attending Unavailable Care Physician, No Primary Primary Care Unava ilable Care Physician, No Primary Referring Unava ilable Martin MINER ASSISTANT, Savannah Attending Unavailable Medications Current Medications Medication Drug [...] Vit 10-Iron Fum-Fol ic 65-1 mg tablet (10 sources) Start: 07-11-2022 Vit 1 0-Iron Fum-Folic 65-1 mg tablet Active 1 {tbl} PO DAILY July 11, 2022 12:00am Completed/Discontinued Medications Medication Drug Class(es) Dates Sig (Normalized) Sig (Original) Desogestrel-Ethiny l Estradiol (10 sources) Progestin, Estrogen Start: 04-02-2023 End: 11-17-2024 take 0.15 tablet by mouth once daily Desogestrel-Ethinyl Estradiol (Apri) 0.15-0.03 mg tablet Discontinued 1 {tbl} PO DAILY 84 3 April 02, 2023 12:00am November 17, 2024 10:45am Encounter for contraceptive management Encounter for contraceptive management, unspecified Start: 04-02-2023 End: 11-17-2024 take 0.15 tablet by mouth once daily Desogestrel-Ethinyl Estradiol (Apri) 0.15-0.03 mg tablet Discontinued 1 {tbl} PO DAILY 84 April 02, 2023 12:00am November 17, 2024 10:45am Problems Active Problems Problem Classification Problem Date Documented Date Episodic/Chronic Contraceptive and procreative management (10 sources) Patient encounter status; Translations: [Encounter for contraceptive management, unspecified] 11-17-2024 Episodic Other complications of (20 sources) Rubella non-immune; Translations: [Supervision of other high risk pregnancies, unspecified trimester] 12-07-2024 Episodic Comment on above: offer MMR pp Other complications of (2 sources) Supervision of other high risk pregnancies, unspecified trimester; Translations: [Supervision of other high risk pregnancies, unspecified trimester] Onset: 06-29-2025 Episodic Other and delivery including normal (20 sources) Normal ; Translations: [Encounter for supervision of normal first , unspecified trimester] Onset: 06-08-2025 Episodic Comment on above: KW/SM 39.2 Active la bor Boy Penrose PRR , XUAN 02/21/23 , boy! Ion Spouse Ford PRR , XUAN , PC: Ion, : Ford NIPT low risk (previ ously done carrier testing) GBS negative. nl debra zhu, low risk NIPT & carrier neg. for 274/274 offer MMR pp neg GBS PRR , ED D 06/30/25, PC: Penrose, : Ford neg GBS PRR , ED D 06/30/25, boy Vamshi PC: Penrose, : Ford 06/21/25 Vamshi KM Residual codes; unclassified (2 sources) 38 weeks gestation of ; Translations: [38 weeks gestation of ] Onset: 06-29-2025 Episodic Residual codes; unclassified (1 source) 37 [...] ] Onset: 04-05-2025 Episodic Superficial injury; contusion (14 sources) Tick bite; Translations: [Insect bite (nonvenomous) of abdominal wall, initial encounter] 01-22-2023 Episodic Comment on above: no s/sx of lyme dise ase. reviewed symptoms. would treat if symptoms occur. Unclassified (2 sources) Other underimmunization status; Translations: [Other underimmunization status] Onset: 06-29-2025 Past or Other Problems Problem Classification Problem [...] gestation of ] Onset: 11-26-2024 Episodic Unclassified (12 sources) Spontaneous onset of labor; Translations: [Spontaneous onset of labor] 02-16-2023 Results Test Name Value Interpretation Reference Range Facility Discharge Instructionon 0 Discharge Instruction [facility] Medical Records Department [address] [place] [address] Instructions for Home/Discharge Instructions 06/21/25 0221 MR#: [id number] Acct: [id number] Name: DINORAH DOBBINS Rep #: [id number] : 2000 From: Eloisa Dobbins CNM PCP: Care Physician,No Primary Status:ADM IN Discharge Instructions DC O2, CPAP, BIPAP needs Home O2 Discharge instructions: No Dressing / Incision Discharge Activity: Return to Normal Activity (Rest!! Slowly return to normal activities. ) May resume sexual activity in: 4-6 weeks (6 Weeks) Dressing / Incision Call your doctor if you observe: Fever of 101 or Higher, Inability to urinate, Using more than 1 pad per hour, Fainting spells, Chest pain, Increased palpitations (irregular heartbeat), Calf discomfort and Uncontrolled pain Follow Up Care When: 6 weeks Test Results: Test results from this visit will be discussed in further detail at your follow-up appointment, if applicable. Discharge Plan Admission Admit Date/Time: 06/20/25 16:28 Attending Provider: Eloisa Dobbins Primary Care Provider: Wendi Fortune Primary Discharge Orders/Prescriptions Prescriptions: No Action vit 10-iron fum-folic 65-1 mg tablet 1 tab PO DAILY Referrals / Follow Up: Juan Carter,Wendi Primary [Primary Care Provider] - 06/21/25 0233 Eloisa Dobbins CNM CC: No Primary Care Physician Signed [facility] MR/OB.VAGDELIon 06-21-2025 [facility] Medical Records Department [address] [place] [id number] OB Vaginal Delivery 06/21/25 0210 MR#: [id number] Acct: [id number] Name: DINORAH DOBBINS Rep #: [id number] : 2000 From: Eloisa Dobbins CNM PCP: Jaun Carter,No Primary Status:ADM IN Location: [id number] Assessment Plan (1) Supervision of normal : COMMENT: neg GBS PRR , XUAN 06/30/25, boy Vamshi PC: Penrose, : Ford PLAN: KM. KATE, Male, 38 wks 5 days, Vamshi, 2nd degree ML Laceration w/repair (2) Rubella non-immune status, antepartum: COMMENT: offer MMR pp PLAN: Plan Patient began pushing and delivered the head in the DIMITRIOS presentation. The head was delivered atraumatically and a loose nuchal cord ???1 was identified and easily reduced over the infant's head. The anterior and posterior shoulders delivered without complication followed by the rest of the and the infant was placed on the maternal abdomen. Delayed cord clamping was employed for approximately 3 minutes. Cord was clamped and cut and gentle traction was applied to the cord and the placenta delivered spontaneously immediately following it was noted to be intact with three- vessel cord. The perineum and vagina were inspected and noted to have a shallow 2nd degree midline laceration which was repaired in the usual fashion using 3-0 Vicryl. EBL was 200 cc. Patient and infant tolerated delivery well. Maternal Data Information XUAN Calculator Estimated Delivery Date Method Current WG Current Estimate 06/30/25 LMP (Certain) 38w 5d Other Estimates 06/30/25 Ultrasound #1 38w 5d Gestational age: 38 wks 5 days Vaginal Delivery Maternal Presentation Maternal Presentation: Active Labor and Spontaneous Rupture of Membranes (06/20/25 @ 0700, clear, odorless fluid.) Type of Induction: Pitocin (Augmentation) Vaginal Delivery Information Procedure Performed: Spontaneous Vaginal Delivery Surgeon/Practitioner: Eolisa Dobbins Type of anesthesia: Epidural Estimated Blood Loss: 200cc Findings Presentation: Vertex and DIMITRIOS Amniotic Membrane Rupture Type: Spontaneous Amniotic Fluid Description: Clear Placental Delivery Description: Spontaneous (Colby w/3 vessel cord. ) Placenta Disposition: [facility] Cord Vessel Description: 3 Vessels Cord Entanglement: Around neck x 1, loose A Gender: Male (1 minute): 8 (5 minute): 9 Delayed Cord Clamping: Yes Post Vaginal Deli Medications given after delivery: IV Pitocin Laceration: Midline and 2nd degree (Shallow, repaired w/3-0 Vicryl.) Complication Complications: No Multi Select Codes Urinary/Genital Urinary/Genital CPT Codes: 23024 Vaginal Delivery [facility] 06/21/25 0221 Cosigner Signature (if applicable): CC: LOUIS Dobbins; No Primary Care Physician Signed Normal [facility] (ROM) Rupture Of Membraneson 06-20-2025 ROM Positive Abnormal Negative [facility] Comment on above: Result Comment: Amni otic fluid present indicates rupture of Membranes. CRITICAL VALUE CALLED TO PATEL MONK 06/20/25 1619 Philly Barba. RESULTS READ BACK BY SAME. Performed By: #### L 205.1000 ####[facility] [address] [place], [address] Absolute lymphocyte countOrd ered By: Eloisa Dobbins on 06-20-2025 Lymphocytes Auto (Unsp spec) [#/Vol] 2.47 10*3/uL 0.83-4.51 [facility] Absolute neutrophil countOrd ered By: Eloisa Dobbins on 06-20-2025 Neutrophils (Bld) [#/Vol] 7.3 10*3/uL 2.0-7.7 [facility] Automated lymphocyte count a s percentage of total leukocytesOrdered By: Eloisa Dobbins on 06-20-2025 Lymphocytes/100 WBC Auto (Unsp spec) 23.0 % 19-41 [facility] Basophil percentageOrdered B y: Eloisa Dobbins on 06-20-2025 Basophils/100 WBC (Bld) 0.3 % 0-1 [facility] CBC W/Diff, Automatedon Absolute Lymph 2.47 X10 3/uL Normal 0.83-4.51 [facility] Comment on above: Performed By: #### L 100.0100, BTS ####[facility] [address] [place], [address] Absolute Neut 7.3 X10 3/uL Normal 2.0-7.7 [facility] Comment on above: Performed By: #### L 100.0100, BTS ####[facility] [address] [place], [address] Basophils/100 WBC (Bld) 0.3 % Normal 0-1 [facility] Comment on above: Performed By: #### L 100.0100, BTS ####[facility] [address] [place], [address] Eosinophils/100 WBC (Bld) 0.3 % Normal 0-5 [facility] Comment on above: Performed By: #### L 100.0100, BTS ####[facility] [address] [place], [address] Erythrocyte distribution width (RBC) [Ratio] 12.8 % Normal 11.6-14.6 [facility] Comment on above: Performed By: #### L 100.0100, BTS ####[facility] [address] [place], [address] Hematocrit (Bld) [Volume fraction] 36.4 % Low 37-47 [facility] Comment on above: Performed By: #### L 100.0100, BTS ####[facility] [address] [place], [address] Hemoglobin (Bld) [Mass/Vol] 12.4 g/dL Normal 12.0-15.0 [facility] Comment on above: Performed By: #### L 100.0100, BTS ####[facility] [address] [place], [address] IG% 0.500 Normal 0.0-0.9 [facility] Comment on above: Result Comment: IG% - Immature Granulocytes (promyelocytes, myelocytes and metamyelocytes) > 1% indicates that a LEFT SHIFT is Present. Performed By: #### L 100.0100, BTS ####[facility] [address] [place], [address] Lymphocytes/100 WBC (Bld) 23.0 % Normal 19-41 [facility] Comment on above: Performed By: #### L 100.0100, BTS ####[facility] [address] [place], [address] MCH (RBC) [Entitic mass] 30.4 pg Normal 27.0-32.0 [facility] Comment on above: Performed By: #### L 100.0100, BTS ####[facility] [address] [place], [address] MCHC (RBC) [Mass/Vol] 34.1 g/dL Normal 32-36 [facility] Comment on above: Performed By: #### L 100.0100, BTS ####[facility] [address] [place], [address] MCV (RBC) [Entitic vol] 89.2 fL Normal 81-99 [facility] Comment on above: Performed By: #### L 100.0100, BTS ####[facility] [address] [place], [address] Monocytes/100 WBC (Bld) 7.8 % Normal 0-10 [facility] Comment on above: Performed By: #### L 100.0100, BTS ####[facility] [address], [address] Neutrophils/100 WBC (Bld) 68.1 % Normal 47-70 [facility] Comment on above: Performed By: #### L 100.0100, BTS ####[facility] [address], [address] Nucleated RBC (Bld) [#/Vol] 0 10*3/uL Normal 0-5 [facility] Comment on above: Performed By: #### L 100.0100, BTS ####[facility] [address] [place], [address] Platelet mean volume (Bld) [Entitic vol] 9.9 fL Normal 6.2-12.0 [facility] Comment on above: Performed By: #### L 100.0100, BTS ####[facility] [address] [place], [address] Platelets (Bld) [#/Vol] 311 10*3/uL Normal 150-450 [facility] Comment on above: Performed By: #### L 100.0100, BTS ####[facility] [address] [place], [address] RBC (Bld) [#/Vol] 4.08 10*6/uL Low 4.2-5.4 [facility] Comment on above: Performed By: #### L 100.0100, BTS ####[facility] [address] [place], [address] RDW SD 41.2 fl Normal 35.1-43.9 [facility] Comment on above: Performed By: #### L 100.0100, BTS ####[facility] [address] [facility] [place], [address] WBC (Bld) [#/Vol] 10.8 10*3/uL Normal 4.4-11.0 [facility] Comment on above: Performed By: #### L 100.0100, BTS ####[facility] [address] [facility] [place], [address] Eosinophil percentageOrdered By: Eloisa Dobbins on 06-20-2025 Eosinophils/100 WBC (Bld) 0.3 % 0-5 [facility] Erythrocyte distribution wid th ratioOrdered By: Eloisa Dobbins on 06-20-2025 Erythrocyte distribution width (RBC) [Ratio] 12.8 % 11.6-14.6 [facility] Erythrocyte distribution wid th standard deviationOrdered By: Eloisa Dobbins on 06-20-2025 Erythrocyte distribution width (RBC) [Ratio] 41.2 fl 35.1-43.9 [facility] H AND P Exam - OB/GYNon 08-0 H&P Exam - PROJECT CONTROLLER [facility] Medical Records Department [address] [place] [address] H P Exam - PROJECT CONTROLLER 06/20/25 1915 MR#: [id number] Acct: [id number] Name: DINORAH DOBBINS Rep #: [id number] : 2000 24 From: Eloisa Dobbins CNM PCP: Care Physician,No Primary Status:ADM IN Location: [id number] HPI - General General Date of Admission: 06/20/25 Chief Complaint: SROM this AM HPI Narrative DINORAH DOBBINS, is a 24 F who presents w/SROM this morning at 0700, clear, odorless fluid. Mild u/c's started 1500 today. Maternal Data Information XUAN Calculator Estimated Delivery Date Method Current WG Current Estimate 06/30/25 LMP (Certain) 38w 4d Other Estimates 06/30/25 Ultrasound #1 38w 4d PFSH PFSH Medical History Supervision of normal first Tick bite of abdomen Spontaneous onset of labor Vaginal delivery care and examination Contraception management Home Medications ???Medication ???Instructions ???Recorded ???Last Taken ???Type vits no.10-ferrous 1 tab PO DAILY 07/11/22 06/20/25 0 8:00 History fumarate 65 mg iron-folic acid 1 mg tablet Allergy/AdvReac Type Severity Reaction Status Date / Time No Known Allergies Allergy Verified 06/20/25 15:23 Social History adopted: No household members: spouse [...] 1-2 times per week duration: 15-30 minutes/day prabhu/denominational: Denominational seatbelt use: always do you feel safe at home: Yes 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 Date Name GA/Weeks Outcome Route Bth Weight Infant Gen Labor Lgth Anesthesia Del Locatn Provider FOB 02/26/23 [facility] 39 live - full term 7lbs 6oz Male epidural [facility] Natividad Youngblood Delivery Date: 02/26/23 Last Updated by: Lexi Mendoza RN See problem list for complications Visit Details Expected Delivery Route/Plan Labor Preferences- CB/BF classes: declines labor support person: mom and Ford labor intervention preferences: [] pain management options preferred: [] cut cord/dad catch: NO : [] PP control planned: [] discussed possible routes of delivery and associated risks: [] special requests: [] Plans Covid status: [] Flu vaccine: [] Tdap vaccine: [] Rhogam: [] LARC form signed: [] Problem list reviewed and updated with the most current plan of care details and appropriate orders placed. Relevant counseling for the gestational age provided. Continue routine care and follow up unless otherwise noted in visit notes/problem list details OB Flowsheet Initial Weight: 153 lb Date -???-???-???-???-???-?? ?-???-???-???-???-???-? ??- EGA Weight BP Urine Prot -???-???-???-???-???-?? ?-???-???-???-???-???-? ??- Glucose FHR FuHt Pres Dilation -???-???-???-???-???-?? ?-???-???-???-???-???-? ??- Effaced St Visit Note 11/26/24 -???-???-???-???-???-?? ?-???-???-???-???-???-? ??- 9w 1d 153 lb (+0 oz) 121/84 -???-???-???-???-???-?? ?-???-???-???-???-???-? ??- 176 -???-???-???-???-???-?? ?-???-???-???-???-???-? ??- KW-CRL cons with dates. accepts NIPT. WOuld like nc hope appts 12/29/24 -???-???-???-???-???-?? ?-???-???-???-???-???-? ??- 13w 6d 157 lb 8 oz (+4 lb 8 oz) 127/88 Negative -???-???-???-???-???-?? ?-???-???-???-???-???-? ??- Negative 160 -???-???-???-???-???-?? ?-???-???-???-???-???-? ??- SM- no vb lo f cramping 01/27/25 -???-???-???-???-???-?? ?-???-???-???-???-???-? ??- 18w 0d 157 lb 8 oz (+4 lb 8 oz) 127/88 Negative -???-???-???-???-???-?? ?-???-???-???-???-???-? ??- Negative 150 -???-???-???-???-???-?? ?-???-???-???-???-???-? ??- KW- no vb/cr amping. + flutters. for 02/10. 02/24/25 -???-???-???-???-???-?? ?-???-???-???-???-???-? ??- 22w 0d 166 lb (+13 lb) 103/66 Negative -???-???-???-???-???-?? ?-???-???-???-???-???-? ??- Negative 160 -???-???-???-???-???-?? ?-???-???-???-???-???-? ??- kw- no vb/cr amping. (more content not included)... Normal [facility] Hematocrit Auto (Bld) [Volum e fraction]Ordered By: Eloisa Dobbins on 06-20-2025 Hematocrit (Bld) [Volume fraction] 36.4 % Low 37-47 [facility] Hemoglobin measurementOrdere d By: Eloisa Dobbins on 06-20-2025 Hemoglobin (Bld) [Mass/Vol] 12.4 g/dL 12.0-15.0 [facility] Immature granulocytes/100 WB C Auto (Bld)Ordered By: Eloisa Dobbins on 06-20-2025 Immature granulocytes/100 WBC (Bld) 0.500 % 0.0-0.9 [facility] Comment on above: IG% - Immature Granu locytes (promyelocytes, myelocytes and metamyelocytes) > 1% indicates that a LEFT SHIFT is Present. MCV (mean corpuscular volume ) determinationOrdered By: Eloisa Dobbins on 06-20-2025 MCV (RBC) [Entitic vol] 89.2 fL 81-99 [facility] Mean corpuscular hemoglobin (MCH) determinationOrdered By: Eloisa Dobbins on 06-20-2025 MCH (RBC) [Entitic mass] 30.4 pg 27.0-32.0 [facility] Mean corpuscular hemoglobin concentration (MCHC) determinationOrdered By: Eloisa Dobbins on 06-20-2025 MCHC (RBC) [Mass/Vol] 34.1 g/dL 32-36 [facility] Mean platelet volume determi nationOrdered By: Eloisa Dobbins on 06-20-2025 Platelet mean volume (Bld) [Entitic vol] 9.9 fL 6.2-12.0 [facility] Monocyte percentageOrdered B y: Eloisa Dobbins on 06-20-2025 Monocytes/100 WBC (Bld) 7.8 % 0-10 [facility] Neutrophil percentageOrdered By: Eloisa Dobbins on 06-20-2025 Neutrophils/100 WBC (Bld) 68.1 % 47-70 [facility] Nucleated red blood cell per centageOrdered By: Eloisa Dobbins on 06-20-2025 Nucleated RBC/100 WBC (Bld) [Ratio] 0 % 0-5 [facility] Platelet countOrdered By: Preston Dobbins on 06-20-2025 Platelets (Bld) [#/Vol] 311 10*3/uL 150-450 [facility] RBC Auto (Bld) [#/Vol]Ordere d By: Eloisa Dobbins on 06-20-2025 RBC (Bld) [#/Vol] 4.08 10*6/uL Low 4.2-5.4 [facility] Syphilis Antibodieson 2024 Syphilis Abs Non-Reactive Normal Nonreactive [facility] Comment on above: Performed By: #### L 509.8002 ####[facility] [address] [place], [place], [address] Type AND Screenon 06-20-2025 Ab SCREEN GEL Negative Normal [facility] Comment on above: Order Comment: Labor Performed By: #### L 100.0100, BTS ####[facility] [address] [place], [place], [address] White blood cell (WBC) count Ordered By: Eloisa Dobbins on 06-20-2025 WBC (Bld) [#/Vol] 10.8 10*3/uL 4.4-11.0 [facility] Laboratory - Chemistry and C hemistry - challengeOrdered By: Natividad Davenport on 06-16-2025 Glucose Ql (U) Negative [facility] Laboratory - UrinalysisOrder ed By: Natividad Davenport on 06-16-2025 Protein Ql (U) Trace [facility] [employer] [employer] Office Visit Reporton 06-16-2025 [facility] [employer] Office Visit Report [facility]'[address], [address] [place] [address] OFFICE VISIT Date of Service: 06/16/25 MR#: [id number] Acct: [id number] Name: DINORAH DOBBINS Rep #: [id number] : 2000 Provider: LOUIS Freeman ams Age/Sex: 24/F [facility] Status: Signed Intake Vital Signs 05/19/25 10:53 06/09/25 10:54 06/16/25 10:44 06/16/25 10:48 Height 5 ft 2 in 5 ft 2 in 5 ft 2 in 5 ft 2 in Weight: 184 lb BMI 33.6 BP 105/73 Intake Visit Reasons: 38 WK OB Physical Chemist Required: No Is patient in pain?: No [...] 1-2 times per week duration: 15-30 minutes/day prabhu/denominational: Denominational seatbelt use: always do you feel safe at home: Yes 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 Date Name GA/Weeks Outcome Route Bth Weight Infant Gen Labor Lgth Anesthesia Del Locatn Provider FOB 02/26/23 [place] 39 live - full term 7lbs 6oz Male epidural WC Natividad Davenport [place] Delivery Date: 02/26/23 Last Updated by: Leix Mendoza RN See problem list for complications [...] -???-???-???-???-???-?? ?-???-???-???-???-? (more content not included)... Normal [facility] Laboratory - Chemistry and C hemistry - challengeOrdered By: Natividad Davenport on 06-09-2025 Glucose Ql (U) Negative [facility] Laboratory - UrinalysisOrder ed By: Natividad Davenport on 06-09-2025 Protein Ql (U) Negative [facility] [employer] [employer] Office Visit Reporton 06-09-2025 [employer] [employer] Office Visit Report [facility] [address], [address] [place] [address] OFFICE VISIT Date of Service: 06/09/25 MR#: [id number] Acct: [id number] Name: DINORAH DOBBINS Rep #: [id number] : 2000 Provider: LOUIS Freeman ams Age/Sex: 24/F Location: [facility] Status: Signed Intake Vital Signs 06/03/25 15:07 06/09/25 10:53 06/09/25 10:54 Height 5 ft 2 in 5 ft 2 in 5 ft 2 in Weight: 184 lb 6 oz BMI 33.7 BP 112/75 Intake Visit Reasons: 37wk ob Physical Chemist Required: No Is patient in pain?: No [...] 1-2 times per week duration: 15-30 minutes/day prabhu/denominational: Denominational seatbelt use: always do you feel safe [...] cons with dates. accepts NIPT. WOuld like nc hope appts 12/29/24 -???-???-???-???-???-?? ?-???-???-???-???-???-? ??- 13w [...] Negative 160 (more content not included)... Normal [facility] Rule out Beta Strep (Grp. B) on 06-05-2025 GERRI Group B Beta Streptococcus is not isolated. Normal [facility] Comment on above: Performed By: #### M [id number] #### [facility] [place], [address] Absolute lymphocyte countOrd ered By: Natividad Davneport on 06-03-2025 Lymphocytes Auto (Unsp spec) [#/Vol] 2.00 10*3/uL 0.83-4.51 [facility] Absolute neutrophil countOrd ered By: Natividad Davenport on 06-03-2025 Neutrophils (Bld) [#/Vol] 7.1 10*3/uL 2.0-7.7 [facility] Automated lymphocyte count a s percentage of total leukocytesOrdered By: Natividad Davenport on 06-03-2025 Lymphocytes/100 WBC Auto (Unsp spec) 20.1 % 19-41 [facility] Basophil percentageOrdered B y: Natividad Davenport on 06-03-2025 Basophils/100 WBC (Bld) 0.3 % 0-1 [facility] CBC W/Diff, Automatedon 05-18 Absolute Lymph 2.00 X10 3/uL Normal 0.83-4.51 [facility] Comment on above: Performed By: #### L 100.0100 #### [facility] [address] [place], [address] Absolute Neut 7.1 X10 3/uL Normal 2.0-7.7 [facility] Comment on above: Performed By: #### L 100.0100 #### [facility] [address] [place], [address] Basophils/100 WBC (Bld) 0.3 % Normal 0-1 [facility] Comment on above: Performed By: #### L 100.0100 #### [facility] [address] [place], [address] Eosinophils/100 WBC (Bld) 0.4 % Normal 0-5 [facility] Comment on above: Performed By: #### L 100.0100 #### [facility] [address] [place], [address] Erythrocyte distribution width (RBC) [Ratio] 12.3 % Normal 11.6-14.6 [facility] Comment on above: Performed By: #### L 100.0100 #### [facility] [address] [place], [address] Hematocrit (Bld) [Volume fraction] 36.1 % Low 37-47 [facility] Comment on above: Performed By: #### L 100.0100 #### [facility] [address] [place], [address] Hemoglobin (Bld) [Mass/Vol] 12.1 g/dL Normal 12.0-15.0 [facility] Comment on above: Performed By: #### L 100.0100 #### [facility] [address] [place], [address] IG% 0.700 Normal 0.0-0.9 [facility] Comment on above: Result Comment: IG% - Immature Granulocytes (promyelocytes, myelocytes and metamyelocytes) > 1% indicates that a LEFT SHIFT is Present. Performed By: #### L 100.0100 #### [facility] [address] [place], [address] Lymphocytes/100 WBC (Bld) 20.1 % Normal 19-41 [facility] Comment on above: Performed By: #### L 100.0100 #### [facility] [address] [place], [address] MCH (RBC) [Entitic mass] 30.2 pg Normal 27.0-32.0 [facility] Comment on above: Performed By: #### L 100.0100 #### [facility] [address] [place], [address] MCHC (RBC) [Mass/Vol] 33.5 g/dL Normal 32-36 [facility] Comment on above: Performed By: #### L 100.0100 #### [facility] [address] [place], [address] MCV (RBC) [Entitic vol] 90.0 fL Normal 81-99 [facility] Comment on above: Performed By: #### L 100.0100 #### [facility] [address] [place], [address] Monocytes/100 WBC (Bld) 7.3 % Normal 0-10 [facility] Comment on above: Performed By: #### L 100.0100 #### [facility] [address] [place], [address] Neutrophils/100 WBC (Bld) 71.2 % High 47-70 [facility] Comment on above: Performed By: #### L 100.0100 #### [facility] [address] [place], [address] Nucleated RBC (Bld) [#/Vol] 0 10*3/uL Normal 0-5 [facility] Comment on above: Performed By: #### L 100.0100 #### [facility] [address] [place], [address] Platelet mean volume (Bld) [Entitic vol] 9.3 fL Normal 6.2-12.0 [facility] Comment on above: Performed By: #### L 100.0100 #### [facility] [address] [place], [address] Platelets (Bld) [#/Vol] 313 10*3/uL Normal 150-450 [facility] Comment on above: Performed By: #### L 100.0100 #### [facility] [address] [place], [address] RBC (Bld) [#/Vol] 4.01 10*6/uL Low 4.2-5.4 [facility] Comment on above: Performed By: #### L 100.0100 #### [facility] [address] [place], [address] RDW SD 40.1 fl Normal 35.1-43.9 [facility] Comment on above: Performed By: #### L 100.0100 #### [facility] [address] [place], [address] WBC (Bld) [#/Vol] 9.9 10*3/uL Normal 4.4-11.0 [facility] Comment on above: Performed By: #### L 100.0100 #### [facility] [address] [place], [address] Eosinophil percentageOrdered By: Natividad Davenport on 06-03-2025 Eosinophils/100 WBC (Bld) 0.4 % 0-5 [facility] Erythrocyte distribution wid th ratioOrdered By: Natividad Davenport on 06-03-2025 Erythrocyte distribution width (RBC) [Ratio] 12.3 % 11.6-14.6 [facility] Erythrocyte distribution wid th standard deviationOrdered By: Natividad Davenport on 06-03-2025 Erythrocyte distribution width (RBC) [Ratio] 40.1 fl 35.1-43.9 [facility] Hematocrit Auto (Bld) [Volum e fraction]Ordered By: Natividad Davenport on 06-03-2025 Hematocrit (Bld) [Volume fraction] 36.1 % Low 37-47 [facility] Hemoglobin measurementOrdere d By: Natividad Davenport on 06-03-2025 Hemoglobin (Bld) [Mass/Vol] 12.1 g/dL 12.0-15.0 [facility] Immature granulocytes/100 WB C Auto (Bld)Ordered By: Natividad Davenport on 06-03-2025 Immature granulocytes/100 WBC (Bld) 0.700 % 0.0-0.9 [facility] Comment on above: IG% - Immature Granu locytes (promyelocytes, myelocytes and metamyelocytes) > 1% indicates that a LEFT SHIFT is Present. Laboratory - Chemistry and C hemistry - challengeOrdered By: Rama Mata on 06-03-2025 Glucose Ql (U) Negative [facility] - UrinalysisOrder ed By: Rama Mata on 06-03-2025 Protein Ql (U) Negative [facility] MCV (mean corpuscular volume ) determinationOrdered By: Natividad Davenport on 06-03-2025 MCV (RBC) [Entitic vol] 90.0 fL 81-99 [facility] Mean corpuscular hemoglobin (MCH) determinationOrdered By: Natividad Davenport on 06-03-2025 MCH (RBC) [Entitic mass] 30.2 pg 27.0-32.0 [facility] Mean corpuscular hemoglobin concentration (MCHC) determinationOrdered By: Natividad Davenport on 06-03-2025 MCHC (RBC) [Mass/Vol] 33.5 g/dL 32-36 [facility] Mean platelet volume determi nationOrdered By: Natividad Davenport on 06-03-2025 Platelet mean volume (Bld) [Entitic vol] 9.3 fL 6.2-12.0 [facility] Monocyte percentageOrdered B y: Natividad Davenport on 06-03-2025 Monocytes/100 WBC (Bld) 7.3 % 0-10 [facility] Neutrophil percentageOrdered By: Natividad Davenport on 06-03-2025 Neutrophils/100 WBC (Bld) 71.2 % High 47-70 [facility] Nucleated red blood cell per centageOrdered By: Natividad Issac on 06-03-2025 Nucleated RBC/100 WBC (Bld) [Ratio] 0 % 0-5 [facility] [employer] Office Visit Reporton 06-03-2025 [employer] [employer] Office Visit Report [facility] [address], [address] [place] [address] OFFICE VISIT Date of Service: 06/03/25 MR#: [id number] Acct: [id number] Name: DINORAH DOBBINS Rep #: [id number] : 2000 Provider: Dr. Rama Sotelo DO Age/Sex: 24/F Location: [facility] Status: Signed Intake Vital Signs 05/19/25 10:53 06/03/25 15:07 Height 5 ft 2 in 5 ft 2 in Weight: 184 lb 2 oz BMI 33.6 BP 122/82 H Intake Visit Reasons: 36 WK OB *NEEDS TO SCHEDULE 37 WK Physical Chemist Required: No Is patient in pain?: No [...] 1-2 times per week duration: 15-30 minutes/day prabhu/denominational: Denominational seatbelt use: always do you feel safe [...] - full term 7lbs 6oz Male epidural [facility] Natividad Youngblood Delivery Date: 02/26/23 Last Updated by: Lexi Mendoza RN See problem list for complications HPI 36 WK OB *NEEDS TO SCHEDULE 37 WK Details: DINORAH DOBBINS is a 24 year old who presents for routine OB visit. OB Visit XUAN Calculator Estimated Delivery Date Method Current Current Estimate 06/30/25 LMP (Certain) 36w 1d [...] cons with dates. accepts NIPT. WOuld like nc hope appts 12/29/24 -???-???-???-???-???-?? ?-???-???-???-???-???-? ??- 13w [...] -???-???-???-???-???-?? ?-???- (more content not included)... Normal [facility] Platelet countOrdered By: Vadim Davenport on 06-03-2025 Platelets (Bld) [#/Vol] 313 10*3/uL 150-450 [facility] RBC Auto (Bld) [#/Vol]Ordere d By: Natividad Davenport on 06-03-2025 RBC (Bld) [#/Vol] 4.01 10*6/uL Low 4.2-5.4 [facility] Screening beta-hemolytic Str eptococcus cultureOrdered By: Rama Mata on 06-03-2025 Beta-hemolytic Streptococcus culture Group B Beta Streptococcus is not isolated. [facility] White blood cell (WBC) count Ordered By: Natividad Davenport on 06-03-2025 WBC (Bld) [#/Vol] 9.9 10*3/uL 4.4-11.0 [facility] Laboratory - Chemistry and C hemistry - challengeOrdered By: Natividad Issac on 05-19-2025 Glucose Ql (U) Negative [facility] - UrinalysisOrder ed By: Natividad Davenport on 05-19-2025 Protein Ql (U) Negative [facility] [employer] Office Visit Reporton 05-19-2025 [employer] Office Visit Report [facility] [address], [address] [place] [address] OFFICE VISIT Date of Service: 05/19/25 MR#: [id number] Acct: [id number] Name: DINORAH DOBBINS Rep #: [id number] : 2000 Provider: LOUIS Freeman ams Age/Sex: 24/F Location: [facility] Status: Signed Intake Vital Signs 04/05/25 11:07 05/05/25 11:25 05/19/25 10:49 05/19/25 10:53 Height 5 ft 2 in 5 ft 2 in 5 ft 2 in 5 ft 2 in Weight: 180 lb 8 oz BMI 33.0 BP 111/78 Intake Visit Reasons: 32 wk ob Physical Chemist Required: No Is patient in pain?: No [...] 1-2 times per week duration: 15-30 minutes/day prabhu/denominational: Denominational seatbelt use: always do you feel safe [...] -???-???-???-???-???-?? ?-???-???-???- (more content not included)... Normal [facility] Laboratory - Chemistry and C hemistry - challengeOrdered By: Natividad Davenport on 05-05-2025 Glucose Ql (U) Negative [facility] - UrinalysisOrder ed By: Natividad Davenport on 05-05-2025 Protein Ql (U) Trace [facility] [employer] Office Visit Reporton 05-05-2025 [employer] [employer] Office Visit Report [facility] [address], [address] [place] [address] OFFICE VISIT Date of Service: 05/05/25 MR#: [id number] Acct: [id number] Name: DINORAH DOBBINS Rep #: [id number] : 2000 Provider: LOUIS Freeman ams Age/Sex: 24/F Location: [facility] Status: Signed Intake Vital Signs 04/05/25 11:07 04/21/25 09:49 05/05/25 11:21 05/05/25 11:25 Height 5 ft 2 in 5 ft 2 in 5 ft 2 in 5 ft 2 in Weight: 179 lb BMI 32.7 BP 111/74 Intake Visit Reasons: 30 wk ob Physical Chemist Required: No Is patient in pain?: No [...] 1-2 times per week duration: 15-30 minutes/day prabhu/denominational: Denominational seatbelt use: always do you feel safe [...] - full term 7lbs 6oz Male epidural [facility] Natividad Youngblood Delivery Date: 02/26/23 Last [...] cons with dates. accepts NIPT. WOuld like nc hope appts 12/29/24 -???-???-???-???-???-?? ?-???-???-???-???-???-? ??- 13w 6d 157 lb 8 oz (+4 lb 8 oz) 127/88 Negative -???-???-???-???-???-?? ?-???-???-???-???-???-? ??- Negative 160 -???-???-???-???-???-?? ?-???-???-???-???-???-? ??- SM- no vb lo f cramping 01/27/25 -???-???-???-???-???-?? ?-???-???-???-???-???-? ??- 18w 0d 157 lb 8 oz (+4 lb 8 oz) 127/88 Negative -???-???-???-???-???-?? ?-???-???-???-???-???-? ??- Negative 150 -???-???-???-???-???-?? ?-???-???-???-???-???-? ??- KW- no vb/cr amping. + flutters. for 02/10. 02/24/25 -???-???-???-???-???-?? ?-???-???-???-???-???-? ??- 22w 0d 166 lb (+13 lb) 103/66 Negative -???-???-???-???-???-?? ?-???-???-???-???-? (more content not included)... Normal [facility] - Chemistry and C hemistry - challengeOrdered By: Natividad Davenport on 04-21-2025 Glucose Ql (U) Negative [facility] - UrinalysisOrder ed By: Natividad Davenport on 04-21-2025 Protein Ql (U) Negative [facility] [employer] Office Visit Reporton 04-21-2025 [employer] Office Visit Report [facility] [address], [address] [place] [address] OFFICE VISIT Date of Service: 04/21/25 MR#: [id number] Acct: [id number] Name: DINORAH DOBBINS Rep #: [id number] : 2000 Provider: LOUIS Freeman ams Age/Sex: 24/F Location: [facility] Status: Signed Intake Vital Signs 04/05/25 11:07 04/21/25 09:49 Height 5 ft 2 in 5 ft 2 in Weight: 175 lb 4 oz BMI 32.0 BP 106/71 Intake Visit Reasons: 28 wk ob Physical Chemist Required: No Is patient in pain?: No [...] 1-2 times per week duration: 15-30 minutes/day prabhu/denominational: Denominational seatbelt use: always do you feel safe [...] - full term 7lbs 6oz Male epidural [facility] Natividad Issac [place] Delivery Date: 02/26/23 [...] 160 - (more content not included)... Normal [facility] Absolute lymphocyte countOrd ered By: Natividad Davenport on 04-05-2025 Lymphocytes Auto (Unsp spec) [#/Vol] 1.74 10*3/uL 0.83-4.51 [facility] Absolute neutrophil countOrd ered By: Natividad Davenport on 04-05-2025 Neutrophils (Bld) [#/Vol] 7.3 10*3/uL 2.0-7.7 [facility] Automated lymphocyte count a s percentage of total leukocytesOrdered By: Natividad Davenport on 04-05-2025 Lymphocytes/100 WBC Auto (Unsp spec) 17.8 % Low 19-41 [facility] Basophil percentageOrdered B y: Natividad Davenport on 04-05-2025 Basophils/100 WBC (Bld) 0.4 % 0-1 [facility] CBC W/Diff, Automatedon 03-18 Absolute Lymph 1.74 X10 3/uL Normal 0.83-4.51 [facility] Comment on above: Performed By: #### L 509.8002, L501.0250, L100.0100, L3890.6006 #### [facility] [place], [place], [id number] Absolute Neut 7.3 X10 3/uL Normal 2.0-7.7 [facility] Comment on above: Performed By: #### L 509.8002, L501.0250, L100.0100, L3890.6006 #### [facility] [address] [place], [address] Basophils/100 WBC (Bld) 0.4 % Normal 0-1 [facility] Comment on above: Performed By: #### L 509.8002, L501.0250, L100.0100, L3890.6006 #### [facility] [address] [place], [address] Eosinophils/100 WBC (Bld) 0.4 % Normal 0-5 [facility] Comment on above: Performed By: #### L 509.8002, L501.0250, L100.0100, L3890.6006 #### [facility] [address] [place], [address] Erythrocyte distribution width (RBC) [Ratio] 12.2 % Normal 11.6-14.6 [facility] Comment on above: Performed By: #### L 509.8002, L501.0250, L100.0100, L3890.6006 #### [facility] [address] [place], [address] Hematocrit (Bld) [Volume fraction] 40.1 % Normal 37-47 [facility] Comment on above: Performed By: #### L 509.8002, L501.0250, L100.0100, L3890.6006 #### [facility] [address] [place], [address] Hemoglobin (Bld) [Mass/Vol] 13.7 g/dL Normal 12.0-15.0 [facility] Comment on above: Performed By: #### L 509.8002, L501.0250, L100.0100, L3890.6006 #### [facility] [address] [place], [address] IG% 0.500 Normal 0.0-0.9 [facility] Comment on above: Result Comment: IG% - Immature Granulocytes (promyelocytes, myelocytes and metamyelocytes) > 1% indicates that a LEFT SHIFT is Present. Performed By: #### L 509.8002, L501.0250, L100.0100, L3890.6006 #### [facility] [address] [place], [address] Lymphocytes/100 WBC (Bld) 17.8 % Low 19-41 [facility] Comment on above: Performed By: #### L 509.8002, L501.0250, L100.0100, L3890.6006 #### [facility] [address] [place], [address] MCH (RBC) [Entitic mass] 32.1 pg High 27.0-32.0 [facility] Comment on above: Performed By: #### L 509.8002, L501.0250, L100.0100, L3890.6006 #### [facility] [address] [place], [address] MCHC (RBC) [Mass/Vol] 34.2 g/dL Normal 32-36 [facility] Comment on above: Performed By: #### L 509.8002, L501.0250, L100.0100, L3890.6006 #### [facility] [address] [place], [address] MCV (RBC) [Entitic vol] 93.9 fL Normal 81-99 [facility] Comment on above: Performed By: #### L 509.8002, L501.0250, L100.0100, L3890.6006 #### [facility] [address] [place], [address] Monocytes/100 WBC (Bld) 6.6 % Normal 0-10 [facility] Comment on above: Performed By: #### L 509.8002, L501.0250, L100.0100, L3890.6006 #### [facility] [address] [place], [address] Neutrophils/100 WBC (Bld) 74.3 % High 47-70 [facility] Comment on above: Performed By: #### L 509.8002, L501.0250, L100.0100, L3890.6006 #### [facility] [address] [place], [address] Nucleated RBC (Bld) [#/Vol] 0 10*3/uL Normal 0-5 [facility] Comment on above: Performed By: #### L 509.8002, L501.0250, L100.0100, L3890.6006 #### [facility] [address] [place], [address] Platelet mean volume (Bld) [Entitic vol] 9.8 fL Normal 6.2-12.0 [facility] Comment on above: Performed By: #### L 509.8002, L501.0250, L100.0100, L3890.6006 #### [facility] [address] [place], [address] Platelets (Bld) [#/Vol] 353 10*3/uL Normal 150-450 [facility] Comment on above: Performed By: #### L 509.8002, L501.0250, L100.0100, L3890.6006 #### [facility] [address] [place], [address] RBC (Bld) [#/Vol] 4.27 10*6/uL Normal 4.2-5.4 [facility] Comment on above: Performed By: #### L 509.8002, L501.0250, L100.0100, L3890.6006 #### [facility] [address] [place], [address] RDW SD 42.2 fl Normal 35.1-43.9 [facility] Comment on above: Performed By: #### L 509.8002, L501.0250, L100.0100, L3890.6006 #### [facility] [address] [place], [address] WBC (Bld) [#/Vol] 9.8 10*3/uL Normal 4.4-11.0 [facility] Comment on above: Performed By: #### L 509.8002, L501.0250, L100.0100, L3890.6006 #### [facility] [address] [place], [address] Eosinophil percentageOrdered By: Natividad Davenport on 04-05-2025 Eosinophils/100 WBC (Bld) 0.4 % 0-5 [facility] Erythrocyte distribution wid th ratioOrdered By: Natividad Davenport on 04-05-2025 Erythrocyte distribution width (RBC) [Ratio] 12.2 % 11.6-14.6 [facility] Erythrocyte distribution wid th standard deviationOrdered By: Natividad Davenport on 04-05-2025 Erythrocyte distribution width (RBC) [Ratio] 42.2 fl 35.1-43.9 [facility] Glucose Challenge Gest 1H 50 tiffanie 04-05-2025 GLU GEST 50g 1H 95 mg/dL Normal 70-140 [facility] Comment on above: Performed By: #### L 509.8002, L501.0250, L100.0100, L3890.6006 #### [facility] [address] [place], [address] Glucose measurement at 2 tiffany rs post-dose gestational glucose tolerance testOrdered By: Natividad Davenport on 04-05-2025 Glucose [Mass/Vol] 95 mg/dL 70-140 [facility] HIVon 04-05-2025 HIV Non-Reactive Normal Nonreactive [facility] Comment on above: Result Comment: Non- Reactive Reactive Repeatedly reactive samples must be confirmed according to CDC recommended confirmatory algorithms. The subresults for either HIVAG or AHIV can be used as an aid in the selection of the confirmation algorithm for reactive samples. Send out specimens with Reactive results to [facility] for confirmation. Order the HIV antibody detection and differentiation: [id number] Performed By: #### L 509.8002, L501.0250, L100.0100, L3890.6006 #### [facility] [address] [place], [address] Hematocrit Auto (Bld) [Volum e fraction]Ordered By: Natividad Davenport on 04-05-2025 Hematocrit (Bld) [Volume fraction] 40.1 % 37-47 [facility] Hemoglobin measurementOrdere d By: Natividad Davenport on 04-05-2025 Hemoglobin (Bld) [Mass/Vol] 13.7 g/dL 12.0-15.0 [facility] Immature granulocytes/100 WB C Auto (Bld)Ordered By: Natividad Davenport on 04-05-2025 Immature granulocytes/100 WBC (Bld) 0.500 % 0.0-0.9 [facility] Comment on above: IG% - Immature Granu locytes (promyelocytes, myelocytes and metamyelocytes) > 1% indicates that a LEFT SHIFT is Present. Laboratory - Chemistry and C hemistry - challengeOrdered By: Natividad Davenport on 04-05-2025 Glucose Ql (U) Negative [facility] Laboratory - UrinalysisOrder ed By: Natividad Davenport on 04-05-2025 Protein Ql (U) Negative [facility] MCV (mean corpuscular volume ) determinationOrdered By: Natividad Davenport on 04-05-2025 MCV (RBC) [Entitic vol] 93.9 fL 81-99 [facility] Mean corpuscular hemoglobin (MCH) determinationOrdered By: Natividad Davenport on 04-05-2025 MCH (RBC) [Entitic mass] 32.1 pg High 27.0-32.0 [facility] Mean corpuscular hemoglobin concentration (MCHC) determinationOrdered By: Natividad Davenport on 04-05-2025 MCHC (RBC) [Mass/Vol] 34.2 g/dL 32-36 [facility] Mean platelet volume determi nationOrdered By: Natividad Davenport on 04-05-2025 Platelet mean volume (Bld) [Entitic vol] 9.8 fL 6.2-12.0 [facility] Monocyte percentageOrdered B y: Natividad Davenport on 04-05-2025 Monocytes/100 WBC (Bld) 6.6 % 0-10 [facility] Neutrophil percentageOrdered By: Natividad Davenport on 04-05-2025 Neutrophils/100 WBC (Bld) 74.3 % High 47-70 [facility] No Panel InformationOrdered By: Natividad Davenport on 04-05-2025 HIV (1&2) Antibody Non-Reactive Nonreactive [facility] Comment on above: Non-ReactiveReactive Repeatedly reactive samples must be confirmed according to CDC recommended confirmatory algorithms. The subresults for either HIVAG or AHIV can be used as an aid in the selection of the confirmation algorithm for reactive samples.Send out specimens with Reactive results to [facility] for confirmation.Order the HIV antibody detection and differentiation: #[id number] Nucleated red blood cell per centageOrdered By: Natividad Davenport on 04-05-2025 Nucleated RBC/100 WBC (Bld) [Ratio] 0 % 0-5 [facility] [employer] Office Visit Reporton 04-05-2025 [employer] Office Visit Report [facility] [address], [place] [address] OFFICE VISIT Date of Service: 04/05/25 MR#: [id number] Acct: [id number] Name: DINORAH DOBBINS Rep #: [id number] : 2000 Provider: LOUIS Freeman [facility] Age/Sex: 24/F Location: [facility] Status: Signed Intake Vital Signs 02/24/25 09:50 04/05/25 11:07 Height 5 ft 2 in 5 ft 2 in Weight: 171 lb 6 oz BMI 31.3 BP 120/81 H Intake Visit Reasons: 26 wk ob Chief Complaint: 26wk OB Physical Chemist Required: No Is patient in pain?: No [...] 1-2 times per week duration: 15-30 minutes/day prabhu/denominational: Denominational seatbelt use: always do you feel safe [...] - full term 7lbs 6oz Male epidural [facility] Natividad Davenport [place] Delivery Date: 02/26/23 [...] cons with dates. accepts NIPT. WOuld like nc hope appts 12/29/24 -???-???-???-???-???-?? ?-???-???-???-???-???-? ??- 13w [...] 160 -???-???-?? (more content not included)... Normal [facility] Platelet countOrdered By: Vadim Davenport on 04-05-2025 Platelets (d) [#/Vol] 353 10*3/uL 150-450 [facility] RBC Auto (Bld) [#/Vol]Ordere d By: Natividad Davenport on 04-05-2025 RBC (Bld) [#/Vol] 4.27 10*6/uL 4.2-5.4 [facility] Syphilis Antibodieson 2024 Syphilis Abs Non-Reactive Normal Nonreactive [facility] Comment on above: Performed By: #### L 509.8002, L501.0250, L100.0100, L3890.6006 #### [facility] [address] [place], [address] White blood cell (WBC) count Ordered By: Natividad Davenport on 04-05-2025 WBC (Bld) [#/Vol] 9.8 10*3/uL 4.4-11.0 [facility] - Chemistry and C hemistry - challengeOrdered By: Natividad Davenport on 02-24-2025 Glucose Ql (U) Negative [facility] - UrinalysisOrder ed By: Natividad Davenport on 02-24-2025 Protein Ql (U) Negative [facility] [employer] Office Visit Reporton 02-24-2025 [employer] Office Visit Report [facility] [address], [address] [place] [address] OFFICE VISIT Date of Service: 02/24/25 MR#: [id number] Acct: [id number] Name: DINORAH DOBBINS Rep #: [id number] : 2000 Provider: LOUIS Freeman ams Age/Sex: 24/F Location: [facility] Status: Signed Intake Vital Signs 01/27/25 11:35 02/24/25 09:49 02/24/25 09:50 Height 5 ft 2 in 5 ft 2 in 5 ft 2 in Weight: 166 lb BMI 30.3 BP 103/66 Intake Visit Reasons: 22 WEEK OB Physical Chemist Required: No Is patient in pain?: No [...] 1-2 times per week duration: 15-30 minutes/day prabhu/denominational: Denominational seatbelt use: always do you feel safe [...] - full term 7lbs 6oz Male epidural [facility] Natividad Davenport [facility] Delivery Date: 02/26/23 Last Updated by: Lexi [...] cons with dates. accepts NIPT. WOuld like nc hope appts 12/29/24 -???-???-???-???-???-?? ?-???-???-???-???-???-? ??- 13w [...] -???-???-???-???-???-?? ?-???-???-???-???-? (more content not included)... Normal [facility] OB Anatomy w/ Transvaginalon 02-10-2025 OB Anatomy w/ Transvaginal [facility] [address] [place] [address] OB Anatomy w/ Transvaginal MR#: [id number] Acct: [id number] Name: DINORAH DOBBINS Rep #: [id number] : 2000 F 24 From: Vince Causey DO PCP: Care Physician,No Primary Status: DEP CLI Study: OB Anatomy w/ Transvaginal Date of Exam: 02/10 Exam# [id number] Ordering Dr: Rama Grant DO PROCEDURE: OB [...] 18.62/20 weeks, 5 days Femur Length: The / weeks, 5 days ESTIMATED WEIGHT: 351 g [...] Baseline: 06/30/2025 By Ultrasound: 06/27/2025 Reading Location: [facility] CC: Dr. Rama Grant, DO; No Primary Care Physician Tube Station Attendant: Signed Normal [facility] Laboratory - Chemistry and C hemistry - challengeOrdered By: Natividad Davenport on 01-27-2025 Glucose Ql (U) Negative [facility] - UrinalysisOrder ed By: Natividad Davenport on 01-27-2025 Protein Ql (U) Negative [facility] [employer] Office Visit Reporton 01-27-2025 [employer] Office Visit Report [facility] [address], [address] [place] [address] OFFICE VISIT Date of Service: 01/27/25 MR#: [id number] Acct: [id number] Name: DINORAH DOBBINS Rep #: [id number] : 2000 Provider: LOUIS Freeman ams Age/Sex: 24/F [facility] Status: Signed Intake Vital Signs 12/29/24 13:04 01/27/25 11:33 01/27/25 11:35 Height 5 ft 2 in 5 ft 2 in 5 ft 2 in Weight: 157 lb 8 oz BMI 28.8 BP 127/88 H Intake Visit Reasons: 18 WK OB Physical Chemist Required: No Is patient in pain?: No [...] 1-2 times per week duration: 15-30 minutes/day prabhu/denominational: Denominational seatbelt use: always do you feel safe [...] - full term 7lbs 6oz Male epidural [facility] Natividad Issac [place] Delivery Date: 02/26/23 Last Updated by: [...] cons with dates. accepts NIPT. WOuld like nc hope appts 12/29/24 -???-???-???-???-???-?? ?-???-???-???-???-???-? ??- 13w [...] Intimate Partn (more content not included)... Normal [facility] - Chemistry and C hemistry - challengeOrdered By: Petra Lagunas on 12-29-2024 Glucose Ql (U) Negative [facility] - UrinalysisOrder ed By: Petra Lagunas on 12-29-2024 Protein Ql (U) Negative [facility] [employer] Office Visit Reporton 12-29-2024 [employer] Office Visit Report [facility] [address], [address] [place] [address] OFFICE VISIT Date of Service: 12/29/24 MR#: [id number] Acct: [id number] Name: DINORAH DOBBINS Rep #: [id number] : 2000 Provider: Dr. Petra avila MD Age/Sex: 24/F Location: [facility] Status: Signed Intake Vital Signs 04/02/23 11:41 11/26/24 12:57 12/29/24 13:02 12/29/24 13:04 Height 5 ft 2 in 5 ft 2 in 5 ft 2 in 5 ft 2 in Weight: 157 lb 8 oz BMI 28.8 BP 127/88 H Intake Visit Reasons: 13wk OB Physical Chemist Required: No Is patient in pain?: No [...] 1-2 times per week duration: 15-30 minutes/day prabhu/denominational: Denominational seatbelt use: always do you feel safe at home: Yes 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 Date Name GA/Weeks Outcome Route Bth Weight Infant Gen Labor Lgth Anesthesia Del Locatn Provider FOB 02/26/23 [place] 39 live - full term 7lbs 6oz Male epidural [facility] Natividad [place] Delivery Date: 02/26/23 Last [...] cons with dates. accepts NIPT. WOuld like nc hope appts 12/29/24 -???-???-???-???-???-?? ?-???-???-???-???-???-? ??- 13w [...] Care, Melody (more content not included)... Normal [facility] Absolute lymphocyte countOrd ered By: Natividad Davenport on 12-07-2024 Lymphocytes Auto (Unsp spec) [#/Vol] 2.65 10*3/uL 0.83-4.51 [facility] Absolute neutrophil countOrd ered By: Natividad Davenport on 12-07-2024 Neutrophils (Bld) [#/Vol] 6.3 10*3/uL 2.0-7.7 [facility] Automated lymphocyte count a s percentage of total leukocytesOrdered By: Natividad Davenport on 12-07-2024 Lymphocytes/100 WBC Auto (Unsp spec) 26.6 % 19-41 [facility] Basophil percentageOrdered B y: Natividad Davenport on 12-07-2024 Basophils/100 WBC (Bld) 0.4 % 0-1 [facility] CBC W/Diff, Automatedon 11-19 Absolute Lymph 2.65 X10 3/uL Normal 0.83-4.51 [facility] Comment on above: Performed By: #### L 509.4005, L3890.6100, L3890.6005, L100.0100, L3890.6300, BTS, L509.8000 ####[facility] [address] [place], [address] Absolute Neut 6.3 X10 3/uL Normal 2.0-7.7 [facility] Comment on above: Performed By: #### L 509.4005, L3890.6100, L3890.6005, L100.0100, L3890.6300, BTS, L509.8000 ####[facility] [address] [place], [address] Basophils/100 WBC (Bld) 0.4 % Normal 0-1 [facility] Comment on above: Performed By: #### L 509.4005, L3890.6100, L3890.6005, L100.0100, L3890.6300, BTS, L509.8000 ####[facility] [address] [place], [address] Eosinophils/100 WBC (Bld) 0.7 % Normal 0-5 [facility] Comment on above: Performed By: #### L 509.4005, L3890.6100, L3890.6005, L100.0100, L3890.6300, BTS, L509.8000 ####[facility] [address] [place], [address] Erythrocyte distribution width (RBC) [Ratio] 11.9 % Normal 11.6-14.6 [facility] Comment on above: Performed By: #### L 509.4005, L3890.6100, L3890.6005, L100.0100, L3890.6300, BTS, L509.8000 ####[facility] [address] [place], [address] Hematocrit (Bld) [Volume fraction] 41.4 % Normal 37-47 [facility] Comment on above: Performed By: #### L 509.4005, L3890.6100, L3890.6005, L100.0100, L3890.6300, BTS, L509.8000 ####[facility] [address] [place], [address] Hemoglobin (Bld) [Mass/Vol] 14.3 g/dL Normal 12.0-15.0 [facility] Comment on above: Performed By: #### L 509.4005, L3890.6100, L3890.6005, L100.0100, L3890.6300, BTS, L509.8000 ####[facility] [address] [place], [address] IG% 0.300 Normal 0.0-0.9 [facility] Comment on above: Result Comment: IG% - Immature Granulocytes (promyelocytes, myelocytes and metamyelocytes) > 1% indicates that a LEFT SHIFT is Present. Performed By: #### L 509.4005, L3890.6100, L3890.6005, L100.0100, L3890.6300, BTS, L509.8000 ####[facility] [address] [place], [address] Lymphocytes/100 WBC (Bld) 26.6 % Normal 19-41 [facility] Comment on above: Performed By: #### L 509.4005, L3890.6100, L3890.6005, L100.0100, L3890.6300, BTS, L509.8000 ####[facility] [address] [place], [address] MCH (RBC) [Entitic mass] 31.5 pg Normal 27.0-32.0 [facility] Comment on above: Performed By: #### L 509.4005, L3890.6100, L3890.6005, L100.0100, L3890.6300, BTS, L509.8000 ####[facility] [address] [place], [address] MCHC (RBC) [Mass/Vol] 34.5 g/dL Normal 32-36 [facility] Comment on above: Performed By: #### L 509.4005, L3890.6100, L3890.6005, L100.0100, L3890.6300, BTS, L509.8000 ####[facility] [address] [place], [address] MCV (RBC) [Entitic vol] 91.2 fL Normal 81-99 [facility] Comment on above: Performed By: #### L 509.4005, L3890.6100, L3890.6005, L100.0100, L3890.6300, BTS, L509.8000 ####[facility] [address] [place], [address] Monocytes/100 WBC (Bld) 8.7 % Normal 0-10 [facility] Comment on above: Performed By: #### L 509.4005, L3890.6100, L3890.6005, L100.0100, L3890.6300, BTS, L509.8000 ####[facility] [address] [place], [address] Neutrophils/100 WBC (Bld) 63.3 % Normal 47-70 [facility] Comment on above: Performed By: #### L 509.4005, L3890.6100, L3890.6005, L100.0100, L3890.6300, BTS, L509.8000 ####[facility] [address] [place], [address] Nucleated RBC (Bld) [#/Vol] 0 10*3/uL Normal 0-5 [facility] Comment on above: Performed By: #### L 509.4005, L3890.6100, L3890.6005, L100.0100, L3890.6300, BTS, L509.8000 ####[facility] [address] [place], [address] Platelet mean volume (Bld) [Entitic vol] 9.6 fL Normal 6.2-12.0 [facility] Comment on above: Performed By: #### L 509.4005, L3890.6100, L3890.6005, L100.0100, L3890.6300, BTS, L509.8000 ####[facility] [address] [place], [address] Platelets (Bld) [#/Vol] 373 10*3/uL Normal 150-450 [facility] Comment on above: Performed By: #### L 509.4005, L3890.6100, L3890.6005, L100.0100, L3890.6300, BTS, L509.8000 ####[facility] [address] [place], [address] RBC (Bld) [#/Vol] 4.54 10*6/uL Normal 4.2-5.4 [facility] Comment on above: Performed By: #### L 509.4005, L3890.6100, L3890.6005, L100.0100, L3890.6300, BTS, L509.8000 ####[facility] [address] [place], [address] RDW SD 39.3 fl Normal 35.1-43.9 [facility] Comment on above: Performed By: #### L 509.4005, L3890.6100, L3890.6005, L100.0100, L3890.6300, BTS, L509.8000 ####[facility] [address] [place], [address] WBC (Bld) [#/Vol] 10.0 10*3/uL Normal 4.4-11.0 [facility] Comment on above: Performed By: #### L 509.4005, L3890.6100, L3890.6005, L100.0100, L3890.6300, BTS, L509.8000 ####[facility] [address] [place], [address] Eosinophil percentageOrdered By: Natividad Davenport on 12-07-2024 Eosinophils/100 WBC (Bld) 0.7 % 0-5 [facility] Erythrocyte distribution wid th ratioOrdered By: Natividad Davenport on 12-07-2024 Erythrocyte distribution width (RBC) [Ratio] 11.9 % 11.6-14.6 [facility] Erythrocyte distribution wid th standard deviationOrdered By: Natividad Davenport on 12-07-2024 Erythrocyte distribution width (RBC) [Entitic vol] 39.3 fL 35.1-43.9 [facility] Erythrocyte distribution width (RBC) [Ratio] 39.3 fl 35.1-43.9 [facility] HIV - WCHon 12-07-2024 HIV Non-Reactive Normal Nonreactive [facility] Comment on above: Order Comment: Reaso n for Exam: Performed By: #### L 509.4005, L3890.6100, L3890.6005, L100.0100, L3890.6300, BTS, L509.8000 ####[facility] [address] [place], [place], [address] HIV 1 and HIV-2 antibody ass ay with HIV-1 p24 antigen detectionOrdered By: Natividad Davenport on 12-07-2024 HIV 1+2 Ab+HIV1 p24 Ag IA Ql Non-Reactive Nonreactive [facility] HIV 1+2 Ab+HIV1 p24 Ag IA Ql Ordered By: Natividad Davenport on 12-07-2024 HIV (1&2) Antibody Non-Reactive Nonreactive [facility] Hematocrit Auto (Bld) [Volum e fraction]Ordered By: Natividad Davenport on 12-07-2024 Hematocrit (Bld) [Volume fraction] 41.4 % 37-47 [facility] Hemoglobin measurementOrdere d By: Natividad Davenport on 12-07-2024 Hemoglobin (Bld) [Mass/Vol] 14.3 g/dL 12.0-15.0 [facility] Hepatitis B Surface Antigeno n 12-07-2024 HEP B Surf Ag Non-Reactive Normal Nonreactive [facility] Comment on above: Order Comment: Reaso n for Exam: Performed By: #### L 509.4005, L3890.6100, L3890.6005, L100.0100, L3890.6300, BTS, L509.8000 ####[facility] [address] [place], [place], [address] Hepatitis B surface antigen detectionOrdered By: Natividad Davenport on 12-07-2024 Hepatitis B Surface Antigen Non-Reactive Nonreactive [facility] Hepatitis C Antibodyon 12-07 Hepatitis C AB Non-Reactive [facility] Comment on above: Order Comment: Reaso n for Exam: Result Comment: Non Reactive: < 0.8 Equivocal: >/= 0.8 to < 1.0 Reactive: >/= 1.0 The [facility] requires that a reactive/equivocal HCV antibody result be sent out for confirmation. HCV Quant by PCR testing. Performed By: #### L 509.4005, L3890.6100, L3890.6005, L100.0100, L3890.6300, BTS, L509.8000 ####[facility] [address] [place], [place], [address] Hepatitis C virus antibody a ssayOrdered By: Natividad Davenport on 12-07-2024 Hepatitis C Antibody Non-Reactive Nonreactive [facility] Comment on above: Non Reactive: < 0.8 Equivocal: >/= 0.8 to < 1.0 Reactive: >/= 1.0The CDC requires that a reactive/equivocal HCV antibody result be sent out for confirmation. HCV Quant by PCR testing. Immature granulocytes/100 WB C Auto (Bld)Ordered By: Natividad Davenport on 12-07-2024 Immature granulocytes/100 WBC (Bld) 0.300 % 0.0-0.9 [facility] Comment on above: IG% - Immature Granu locytes (promyelocytes, myelocytes and metamyelocytes) > 1% indicates that a LEFT SHIFT is Present. L509.8000on 12-07-2024 Syphilis Abs Non-Reactive Normal [facility] Comment on above: Order Comment: Reaso n for Exam: Performed By: #### L 509.4005, L3890.6100, L3890.6005, L100.0100, L3890.6300, BTS, L509.8000 ####[facility] [address] [place], [address] Lymphocytes Auto (Unsp spec) [#/Vol]Ordered By: Natividad Davenport on 12-07-2024 Lymphocytes (Bld) [#/Vol] 2.65 10*3/uL 0.83-4.51 [facility] Lymphocytes/100 WBC Auto (Un sp spec)Ordered By: Natividad Davenport on 12-07-2024 Lymphocytes/100 WBC (Bld) 26.6 % 19-41 [facility] MCV (mean corpuscular volume ) determinationOrdered By: Natividad Davenport on 12-07-2024 MCV (RBC) [Entitic vol] 91.2 fL 81-99 [facility] Mean corpuscular hemoglobin (MCH) determinationOrdered By: Natividad Davenport on 12-07-2024 MCH (RBC) [Entitic mass] 31.5 pg 27.0-32.0 [facility] Mean corpuscular hemoglobin concentration (MCHC) determinationOrdered By: Natividad Davenport on 12-07-2024 MCHC (RBC) [Mass/Vol] 34.5 g/dL 32-36 [facility] Mean platelet volume determi nationOrdered By: Natividad Davenport on 12-07-2024 Platelet mean volume (Bld) [Entitic vol] 9.6 fL 6.2-12.0 [facility] Miscellaneous procedureOrder ed By: Natividad Davenport on 12-07-2024 Miscellaneous Test Comment SEE SCANNED REPORT [facility] Monocyte percentageOrdered B y: Natividad Davenport on 12-07-2024 Monocytes/100 WBC (Bld) 8.7 % 0-10 [facility] NATERAon 12-07-2024 NATURA SEE SCANNED REPORT Normal [facility] Comment on above: Performed By: #### L 900.0098 #### [facility] [address] [place], [address] Neutrophil percentageOrdered By: Natividad Davenport on 12-07-2024 Neutrophils/100 WBC (Bld) 63.3 % 47-70 [facility] Nucleated red blood cell per centageOrdered By: Natividad Davenport on 12-07-2024 Nucleated RBC/100 WBC (Bld) [Ratio] 0 % 0-5 [facility] Platelet countOrdered By: Vadim Davenport on 12-07-2024 Platelets (Bld) [#/Vol] 373 10*3/uL 150-450 [facility] RBC Auto (Bld) [#/Vol]Ordere d By: Natividad Davenport on 12-07-2024 RBC (Bld) [#/Vol] 4.54 10*6/uL 4.2-5.4 [facility] Rubella IgGon 12-07-2024 Rubella IgG Non-Reactive Normal Nonreactive [facility] Comment on above: Order Comment: Reaso n for Exam: Result Comment: Anti body Results Interpretation of Immune Status Non Reactive Presumed Non-Immune Equivocal Equivocal Reactive Presumed Immune Performed By: #### L 509.4005, L3890.6100, L3890.6005, L100.0100, L3890.6300, BTS, L509.8000 ####[facility] [address] [place], [address] Rubella immune status IgGOrd ered By: Natividad Davenport on 12-07-2024 Rubella IgG Antibody Non-Reactive Nonreactive [facility] Comment on above: Antibody Results Int erpretation of Immune Status Non Reactive Presumed Non-Immune Equivocal Equivocal Reactive Presumed Immune Serum Treponema species anti body detectionOrdered By: Natividad Davenport on 12-07-2024 Treponema sp Ab Ql (S) Non-Reactive [facility] Treponema sp Ab Ql (S)Ordere d By: Natividad Davenport on 12-07-2024 Syphilis Total Antibody Non-Reactive [facility] Type AND Screenon 12-07-2024 Ab SCREEN GEL Negative Normal [facility] Comment on above: Order Comment: PN Performed By: #### L 509.4005, L3890.6100, L3890.6005, L100.0100, L3890.6300, BTS, L509.8000 ####[facility] [address] [place], [address] White blood cell (WBC) count Ordered By: Natividad Davenport on 12-07-2024 WBC (Bld) [#/Vol] 10.0 10*3/uL 4.4-11.0 [facility] Chlamydia/GC BRANDON aptimaon CHLAMY,NUC ACID Negative Normal Negative [facility] Comment on above: Performed By: #### L 7000.1800, M100.2200 ####[facility] [address] [place], [address] GC BY NUC ACID Negative Normal Negative [facility] Comment on above: Result Comment: Perf ormed at: =G - [facility] [address] [id number] Car Wiper: Serene De Leon MD, Phone: [phone] Performed By: #### L 7000.1800, M100.2200 ####[facility] [address] [place], [address] Urine Cultureon 11-28-2024 [facility] Mixed Gram Positive Organisms Wagner Count 11,000-25,000 [facility] Mixed contaminants. Submit a new specimen if indicated. Normal [facility] Comment on above: Performed By: #### L 7000.1800, M100.2200 ####[facility] [address] [place], [address] C. trachomatis rRNA BRANDON+prob e Ql (Unsp spec)Ordered By: Natividad Davenport on 11-26-2024 Chlamydia DNA (BRANDON) Negative Negative [facility] Neisseria gonorrhoeae nuclei c acid detection by amplified probe techniqueOrdered By: Natividad Davenport on 11-26-2024 N. gonorrhoeae DNA BRANDON+probe Ql (Unsp spec) Negative Negative [facility] Comment on above: Performed at: =G - [facility] [address] [id number] Director: Serene De Leon MD, Phone: [phone] [employer] Office Visit Reporton 11-26-2024 [employer] [facility] [employer] Office Visit Report [facility] [facility] [address] [place] [address], [address] [place] [address] OFFICE VISIT Date of Service: 11/26/24 MR#: [id number] Acct: [id number] Name: DINORAH DOBBINS Rep #: [id number] : 2000 Provider: LOUIS Freeman ams Age/Sex: 24/F Location: [facility] Status: Signed Intake Vital Signs 04/02/23 11:41 11/26/24 12:57 Height 5 ft 2 in 5 ft 2 in Weight: 153 lb BMI 28.0 BP 121/84 H Intake Visit Reasons: New OB, LMP 09/23 XUAN 06/30 Physical Chemist Required: No Is patient in pain?: No Allergies No Known Allergies Allergy (Verified 11/26/24 12:59) Medications ???Medication ???Instructions ???Recorded ???Confirmed ???Type vits no.10-ferrous 1 tab PO DAILY 07/11/22 11/26/24 History fumarate 65 mg iron-folic acid 1 mg tablet Last Menstrual Period: 09/23/24 Zika: Zika virus screening: Negative : No Have you fallen in the past year?: No PFSH PFSH Medical History Supervision of [...] 1-2 times per week duration: 15-30 minutes/day prabhu/denominational: Denominational seatbelt use: always do you feel safe [...] - full term 7lbs 6oz Male epidural [facility] Natividad Issac Ford Delivery Date: 02/26/23 Last Updated by: Lexi Mendoza RN See problem list for complications HPI New OB, LMP 09/23 XUAN 06/30 Details: DINROAH DOBBINS is a 24 year old who [...] Other Infec (more content not included)... Normal [facility] Urine cultureOrdered By: Eduardo Davenport on 11-26-2024 Bacteria identified Cx Nom (U) Positive Abnormal [facility] LYME DISEASE AB W/REFL TO BL [...] Performed By: #### [id number] #### [facility] [address] [facility], [address] [place] [address] Fishing Boat Captain: Richie Gamboa MD Absolute lymphocyte countOrd ered By: Natividad Davenport on 02-16-2023 Lymphocytes Auto (Unsp spec) [#/Vol] 1.68 10*3/uL 0.83-4.51 [facility] Basophil percentageOrdered B y: Natividad Davenport on 02-16-2023 Basophils/100 WBC (Bld) 0.2 % 0-1 [facility] Eosinophils/100 WBC (Bld) 0.1 % 0-5 [facility] Neutrophils (Bld) [#/Vol] 10.7 10*3/uL 2.0-7.7 [facility] Neutrophils/100 WBC (Bld) 80.5 % 47-70 [facility] WBC (Bld) [#/Vol] 13.3 10*3/uL 4.4-11.0 [facility] Blood erythrocytes count (nu mber/volume)Ordered By: Natividad Davenport on 02-16-2023 RBC (Bld) [#/Vol] 4.09 10*6/uL 4.2-5.4 [facility] Blood hemoglobin measurement (mass/volume)Ordered By: Natividad Davenport on 02-16-2023 Hemoglobin (Bld) [Mass/Vol] 13.0 g/dL 12.0-15.0 [facility] Blood lymphocytes/100 leukoc ytesOrdered By: Natividad Davenport on 02-16-2023 Lymphocytes/100 WBC (Bld) 12.7 % 19-41 [facility] Blood monocytes/100 leukocyt esOrdered By: Natividad Davenport on 02-16-2023 Monocytes/100 WBC (Bld) 6.2 % 0-10 [facility] Blood platelet mean volumeOr dered By: Natividad Davenport on 02-16-2023 Platelet mean volume (Bld) [Entitic vol] 10.0 fL 6.2-12.0 [facility] Determination of erythrocyte mean corpuscular volume (MCV)Ordered By: Natividad Davenport on 02-16-2023 MCV (RBC) [Entitic vol] 92.2 fL 81-99 [facility] Hematocrit Auto (Bld) [Volum e fraction]Ordered By: Natividad Davenport on 02-16-2023 Hematocrit (Bld) [Volume fraction] 37.7 % 37-47 [facility] Laboratory - Hematology and Cell countsOrdered By: Natividad Davenport on 02-16-2023 Erythrocyte distribution width (RBC) [Entitic vol] 42.2 fL 35.1-43.9 [facility] Erythrocyte distribution width (RBC) [Ratio] 12.5 % 11.6-14.6 [facility] Immature granulocytes/100 WBC (Bld) 0.300 % 0.0-0.9 [facility] Comment on above: IG% - Immature Granu locytes (promyelocytes, myelocytes and metamyelocytes) > 1% indicates that a LEFT SHIFT is Present. MCH (RBC) [Entitic mass] 31.8 pg 27.0-32.0 [facility] Nucleated RBC/100 WBC (Bld) [Ratio] 0 % 0-5 [facility] MCHC Auto (RBC) [Mass/Vol]Or dered By: Natividad Davenport on 02-16-2023 MCHC (RBC) [Mass/Vol] 34.5 g/dL 32-36 [facility] Platelets bldOrdered By: Eduardo Davenport on 02-16-2023 Platelets (Bld) [#/Vol] 266 10*3/uL 150-450 [facility] Serum Treponema species anti body detectionOrdered By: Natividad Davenport on 02-16-2023 Treponema sp Ab Ql (S) Non-Reactive [facility] Laboratory - Chemistry and C hemistry - challengeon 02-12-2023 Glucose Ql (U) Negative [facility] Laboratory - Urinalysison Protein Ql (U) Trace [facility] Laboratory - Chemistry and C hemistry - challengeon 02-05-2023 Glucose Ql (U) Negative [facility] Laboratory - Urinalysison Protein Ql (U) Negative [facility] No Panel InformationOrdered By: Bria Alicia on 02-01-2023 Group B Streptococcus Culture Group B Beta Streptococcus is not isolated. [facility] Laboratory - Chemistry and C hemistry - challengeon 01-29-2023 Glucose Ql (U) Negative [facility] Laboratory - Urinalysison Protein Ql (U) Negative [facility] Laboratory - Chemistry and C hemistry - challengeon 01-10-2023 Glucose Ql (U) Negative [facility] Laboratory - Urinalysison Protein Ql (U) Negative [facility] Laboratory - Chemistry and C hemistry - challengeon 12-25-2022 Glucose Ql (U) Negative [facility] Laboratory - Urinalysison Protein Ql (U) Negative [facility] Laboratory - Chemistry and C hemistry - challengeon 12-13-2022 Glucose Ql (U) Negative [facility] - Urinalysison Protein Ql (U) Negative [facility] Absolute lymphocyte countOrd ered By: Bria Alicia on 11-29-2022 Lymphocytes Auto (Unsp spec) [#/Vol] 2.21 10*3/uL 0.83-4.51 [facility] Basophil percentageOrdered B y: Bria Alicia on 11-29-2022 Basophils/100 WBC (Bld) 0.3 % 0-1 [facility] Eosinophils/100 WBC (Bld) 0.7 % 0-5 [facility] Neutrophils (Bld) [#/Vol] 10.1 10*3/uL 2.0-7.7 [facility] Neutrophils/100 WBC (Bld) 75.1 % 47-70 [facility] WBC (Bld) [#/Vol] 13.5 10*3/uL 4.4-11.0 [facility] Blood erythrocytes count (nu mber/volume)Ordered By: Bria Alicia on 11-29-2022 RBC (Bld) [#/Vol] 3.98 10*6/uL 4.2-5.4 [facility] Blood hemoglobin measurement (mass/volume)Ordered By: Bria Alicia on 11-29-2022 Hemoglobin (Bld) [Mass/Vol] 12.7 g/dL 12.0-15.0 [facility] Blood lymphocytes/100 leukoc ytesOrdered By: Bria Alicia on 11-29-2022 Lymphocytes/100 WBC (Bld) 16.4 % 19-41 [facility] Blood monocytes/100 leukocyt esOrdered By: Bria Alicia on 11-29-2022 Monocytes/100 WBC (Bld) 6.7 % 0-10 [facility] Blood platelet mean volumeOr dered By: Bria Alicia on 11-29-2022 Platelet mean volume (Bld) [Entitic vol] 9.1 fL 6.2-12.0 [facility] Determination of erythrocyte mean corpuscular volume (MCV)Ordered By: Bria Alicia on 11-29-2022 MCV (RBC) [Entitic vol] 94.5 fL 81-99 [facility] Gestational diabetes screen 1-hour screen with 50g oral glucose loadOrdered By: Bria Alicia on 11-29-2022 Glucose 1 Hr post 50 g glucose PO [Mass/Vol] 125 mg/dL 70-140 [facility] HIV 1 and HIV-2 antibody ass ay with HIV-1 p24 antigen detectionOrdered By: Bria Alicia on 11-29-2022 HIV 1+2 Ab+HIV1 p24 Ag IA Ql Non-Reactive Nonreactive [facility] Hematocrit Auto (Bld) [Volum e fraction]Ordered By: Bria Alicia on 11-29-2022 Hematocrit (Bld) [Volume fraction] 37.6 % 37-47 [facility] Laboratory - Chemistry and C hemistry - challengeon 11-29-2022 Glucose Ql (U) Negative [facility] - Hematology and Cell countsOrdered By: Bria Alicia on 11-29-2022 Erythrocyte distribution width (RBC) [Entitic vol] 41.5 fL 35.1-43.9 [facility] Erythrocyte distribution width (RBC) [Ratio] 12.0 % 11.6-14.6 [facility] Immature granulocytes/100 WBC (Bld) 0.800 % 0.0-0.9 [facility] Comment on above: IG% - Immature Granu locytes (promyelocytes, myelocytes and metamyelocytes) > 1% indicates that a LEFT SHIFT is Present. MCH (RBC) [Entitic mass] 31.9 pg 27.0-32.0 [facility] Nucleated RBC/100 WBC (Bld) [Ratio] 0 % 0-5 [facility] Laboratory - Urinalysison Protein Ql (U) Negative [facility] MCHC Auto (RBC) [Mass/Vol]Or dered By: Bria Alicia on 11-29-2022 MCHC (RBC) [Mass/Vol] 33.8 g/dL 32-36 [facility] Platelets bldOrdered By: Gricelda Alicia on 11-29-2022 Platelets (Bld) [#/Vol] 309 10*3/uL 150-450 [facility] Serum Treponema species anti body detectionOrdered By: Bria Alicia on 11-29-2022 Treponema sp Ab Ql (S) Non-Reactive [facility] Laboratory - Chemistry and C hemistry - challengeon 10-23-2022 Glucose Ql (U) Negative [facility] - Urinalysison Protein Ql (U) Negative [facility] Laboratory - Chemistry and C hemistry - challengeon 10-02-2022 Glucose Ql (U) Negative [facility] - Urinalysison Protein Ql (U) Negative [facility] Laboratory - Chemistry and C hemistry - challengeon 08-14-2022 Glucose Ql (U) Negative [facility] Laboratory - Urinalysison Protein Ql (U) Negative [facility] Absolute lymphocyte counton 07-27-2022 Lymphocytes Auto (Unsp spec) [#/Vol] 2.30 10*3/uL 0.83-4.51 [facility] Work Phone: Basophil percentageon 2021 Basophils/100 WBC (Bld) 0.4 % 0-1 [facility] Work Phone: Eosinophils/100 WBC (Bld) 0.6 % 0-5 [facility] Work Phone: Neutrophils (Bld) [#/Vol] 6.4 10*3/uL 2.0-7.7 [facility] Work Phone: Neutrophils/100 WBC (Bld) 67.1 % 47-70 [facility] Work Phone: WBC (Bld) [#/Vol] 9.5 10*3/uL 4.4-11.0 [facility] Work Phone: Blood erythrocytes count (nu mber/volume)on 07-27-2022 RBC (Bld) [#/Vol] 4.34 10*6/uL 4.2-5.4 [facility] Work Phone: Blood hemoglobin measurement (mass/volume)on 07-27-2022 Hemoglobin (Bld) [Mass/Vol] 13.6 g/dL 12.0-15.0 [facility] Work Phone: Blood lymphocytes/100 leukoc yteson 07-27-2022 Lymphocytes/100 WBC (Bld) 24.2 % 19-41 [facility] Work Phone: Blood monocytes/100 leukocyt eson 07-27-2022 Monocytes/100 WBC (Bld) 7.5 % 0-10 [facility] Work Phone: Blood platelet mean volumeon 07-27-2022 Platelet mean volume (Bld) [Entitic vol] 9.3 fL 6.2-12.0 [facility] Work Phone: Determination of erythrocyte mean corpuscular volume (MCV)on 07-27-2022 MCV (RBC) [Entitic vol] 91.0 fL 81-99 [facility] Work Phone: HIV 1 and HIV-2 antibody ass ay with HIV-1 p24 antigen detectionon 07-27-2022 HIV 1+2 Ab+HIV1 p24 Ag IA Ql Non-Reactive Nonreactive [facility] Work Phone: Hematocrit Auto (Bld) [Volum e fraction]on 07-27-2022 Hematocrit (Bld) [Volume fraction] 39.5 % 37-47 [facility] Work Phone: Laboratory - Hematology and Cell countson 07-27-2022 Erythrocyte distribution width (RBC) [Entitic vol] 39.1 fL 35.1-43.9 [facility] Work Phone: [phone] Erythrocyte distribution width (RBC) [Ratio] 11.7 % 11.6-14.6 [facility] Work Phone: [phone] Immature granulocytes/100 WBC (Bld) 0.200 % 0.0-0.9 [facility] Work Phone: [phone] Comment on above: IG% - Immature Granu locytes (promyelocytes, myelocytes and metamyelocytes) > 1% indicates that a LEFT SHIFT is Present. MCH (RBC) [Entitic mass] 31.3 pg 27.0-32.0 [facility] Work Phone: [phone] Nucleated RBC/100 WBC (Bld) [Ratio] 0 % 0-5 [facility] Work Phone: [phone] MCHC Auto (RBC) [Mass/Vol]on 07-27-2022 MCHC (RBC) [Mass/Vol] 34.4 g/dL 32-36 [facility] Work Phone: [phone] No Panel Informationon 07-27 Miscellaneous Test Comment MAILED SPECIMEN [facility] Work Phone: [phone] Hepatitis B Surface Antigen Non-Reactive Nonreactive [facility] Work Phone: [phone] Hepatitis C Antibody Non-Reactive Nonreactive [facility] Work Phone: [phone] Comment on above: Non Reactive: < 0.8 Equivocal: >/= 0.8 to < 1.0 Reactive: >/= 1.0The CDC recommends that a reactive/equivocal HCV antibody result be followed up by the HCV Nucleic Acid Amplificationtest (488891) Rubella IgG Antibody Non-Reactive Nonreactive [facility] Work Phone: [phone] Comment on above: Antibody Results Int erpretation of Immune Status Non Reactive Presumed Non-Immune Equivocal Equivocal Reactive Presumed Immune Platelets bldon 07-27-2022 Platelets (Bld) [#/Vol] 326 10*3/uL 150-450 [facility] Work Phone: [phone] Serum Treponema species anti body detectionon 07-27-2022 Treponema sp Ab Ql (S) Non-Reactive [facility] Work Phone: Cervical or vagninal specime n microscopic examination by cytology stain (reported ason 07-16-2022 Cytology report Cyto stain Doc (Cvx/Vag) Comment . [facility] Work Phone: Comment on above: The Pap smear is [...] rRNA BRANDON+probe Ql (Unsp spec) Negative Negative [facility] Work Phone: Laboratory - Cytologyon 06-19 Acid Correction Hand Cyto stain Nom (Cvx/Vag) [ID] Comment . [facility] Work Phone: [phone] Comment on above: Laurita Woodruff, Cyto technologist (ASCP) Laboratory - Drug toxicology on 07-16-2022 Amphetamines Ql (U) Negative <1000 ng/mL [facility] Work Phone: [phone] Benzodiazepines Ql (U) Negative < 200 ng/mL [facility] Work Phone: [phone] Cannabinoids Screen Ql (U) Negative < 50 ng/mL [facility] Work Phone: [phone] Cocaine Ql (U) Negative < 300 ng/mL [facility] Work Phone: [phone] [phone] Ql (U) Negative < 300 ng/mL [facility] Work Phone: [phone] Laboratory - Microbiology an d Antimicrobial susceptibilityon 07-16-2022 N. gonorrhoeae DNA BRANDON+probe Ql (Unsp spec) Negative Negative [facility] Work Phone: [phone] Comment on above: Performed at: =[facility] [address] [id number] Director: Serene De Leon MD, Phone: [phone] Laboratory - Miscellaneous t estson 07-16-2022 Service comment (Unsp spec) [Interp] Comment . [facility] Work Phone: Comment on above: This liquid based Th inPrep(R) pap test was screened withthe use of an image guided system. Service comment (Unsp spec) [Interp] . . [facility] Work Phone: No Panel Informationon 07-16 Human Papillomavirus Screen Comment . [facility] Work Phone: Comment on above: The HPV DNA reflex c riteria were not met with this specimenresult therefore, no HPV testing was performed.Performed at: [address] [id number] Director: Serene De Leon MD, Phone: [phone] MDMA (Ecstasy) Screen Negative < 500 ng/mL [facility] Work Phone: Pathology report final diagnosis Narrative Comment . [facility] Work Phone: Comment on above: NEGATIVE FOR INTRAEP ITHELIAL LESION OR MALIGNANCY. 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 [facility] Comment on above: Result Comment: Nega tive for This test was developed and its performance characteristics determined by [facility] [place]. This test has been authorized by FDA under an Emergency Use Authorization (EUA). This test has been validated in accordance with the FDA's Guidance Document Policy for Diagnostics Testing in Laboratories Certified to Perform High Complexity Testing under CLIA prior to Emergency use Authorization for Coronavirus Disease 2019 during the Public Health Emergency issued on January 16, 2020. COVID19 (SARS This test was developed and its performance characteristics determined by [facility] [place]. This test has been authorized by FDA under an Emergency Use Authorization (EUA). This test has been validated in accordance with the FDA's Guidance Document Policy for Diagnostics Testing in Laboratories Certified to Perform High Complexity Testing under CLIA prior to Emergency use Authorization for Coronavirus Disease 2019 during the Public Health Emergency issued on January 16, 2020. CoV2) by PCR. This test was developed and its performance characteristics determined by [facility] [place]. This test has been authorized by FDA under an Emergency Use Authorization (EUA). This test has been validated in accordance with the FDA's Guidance Document Policy for Diagnostics Testing in Laboratories Certified to Perform High Complexity Testing under CLIA prior to Emergency use Authorization for Coronavirus Disease 2019 during the Public Health Emergency issued on January 16, 2020. COVID 19 Source MINER ASSISTANT Normal [facility] Comment on above: Result Comment: Naso pharyngeal Corrected on 05/20 AT 0003: Previously reported as MINER ASSISTANT SWAB Swab Corrected on 05/20 AT 0003: Previously reported as MINER ASSISTANT SWAB Culture, urine Bacteria identified Cx Nom (U) Positive [facility] Work Phone: Vital Signs Date Time Vital Sign Value Performing Clinician Faci lity 06-22-2025 13:08-0400 Body temperature 97.5 [degF] No Primary Care Physician [facility] 06-22-2025 13:08-0400 Diastolic blood pressure 77 mm[Hg] No Primary Care Physician [facility] 06-22-2025 13:08-0400 Heart rate 101 /min No Primary Care Physician [facility] 06-22-2025 13:08-0400 Respiratory rate 16 /min No Primary Care Physician [facility] 06-22-2025 13:08-0400 SaO2% (BldA) [Mass fraction] 98 % No Primary Care Physician [facility] 06-22-2025 13:08-0400 Systolic blood pressure 110 mm[Hg] No Primary Care Physician [facility] 06-20-2025 15:23-0400 Body height 157.48 cm No Primary Care Physician [facility] 06-20-2025 15:23-0400 Body mass index (BMI) [Ratio] 33.5 kg/m2 No Primary Care Physician [facility] 06-20-2025 15:23-0400 Body weight 83 kg No Primary Care Physician [facility] 06-16-2025 10:48-0400 Body height 157.48 cm No Primary Care Physician [facility] 06-16-2025 10:44-0400 Body mass index (BMI) [Ratio] 33.6 kg/m2 No Primary Care Physician [facility] 06-16-2025 10:44-0400 Body weight 83.46 kg No Primary Care Physician [facility] 06-16-2025 10:44-0400 Diastolic blood pressure 73 mm[Hg] No Primary Care Physician [facility] 06-16-2025 10:44-0400 Systolic blood pressure 105 mm[Hg] No Primary Care Physician [facility] 06-09-2025 10:54-0400 Body height 157.48 cm No Primary Care Physician [facility] 06-09-2025 10:53-0400 Body mass index (BMI) [Ratio] 33.7 kg/m2 No Primary Care Physician [facility] 06-09-2025 10:53-0400 Body weight 83.63 kg No Primary Care Physician [facility] 06-09-2025 10:53-0400 Diastolic blood pressure 75 mm[Hg] No Primary Care Physician [facility] 06-09-2025 10:53-0400 Systolic blood pressure 112 mm[Hg] No Primary Care Physician [facility] 06-03-2025 15:07-0400 Body height 157.48 cm No Primary Care Physician [facility] 06-03-2025 15:07-0400 Body mass index (BMI) [Ratio] 33.6 kg/m2 No Primary Care Physician [facility] 06-03-2025 15:07-0400 Body weight 83.51 kg No Primary Care Physician [facility] 06-03-2025 15:07-0400 Diastolic blood pressure 82 mm[Hg] No Primary Care Physician [facility] 06-03-2025 15:07-0400 Systolic blood pressure 122 mm[Hg] No Primary Care Physician [facility] 05-19-2025 10:53-0400 Body height 157.48 cm No Primary Care Physician [facility] 05-19-2025 10:49-0400 Body mass index (BMI) [Ratio] 33 kg/m2 No Primary Care Physician [facility] 05-19-2025 10:49-0400 Body weight 81.87 kg No Primary Care Physician [facility] 05-19-2025 10:49-0400 Diastolic blood pressure 78 mm[Hg] No Primary Care Physician [facility] 05-19-2025 10:49-0400 Systolic blood pressure 111 mm[Hg] No Primary Care Physician [facility] 05-05-2025 11:25-0400 Body height 157.48 cm No Primary Care Physician [facility] 05-05-2025 11:21-0400 Body mass index (BMI) [Ratio] 32.7 kg/m2 No Primary Care Physician [facility] 05-05-2025 11:21-0400 Body weight 81.19 kg No Primary Care Physician [facility] 05-05-2025 11:21-0400 Diastolic blood pressure 74 mm[Hg] No Primary Care Physician [facility] 05-05-2025 11:21-0400 Systolic blood pressure 111 mm[Hg] No Primary Care Physician [facility] 04-21-2025 09:49-0400 Body height 157.48 cm No Primary Care Physician [facility] 04-21-2025 09:49-0400 Body mass index (BMI) [Ratio] 32 kg/m2 No Primary Care Physician [facility] 04-21-2025 09:49-0400 Body weight 79.49 kg No Primary Care Physician [facility] 04-21-2025 09:49-0400 Diastolic blood pressure 71 mm[Hg] No Primary Care Physician [facility] 04-21-2025 09:49-0400 Systolic blood pressure 106 mm[Hg] No Primary Care Physician [facility] 04-05-2025 11:07-0400 Body height 157.48 cm No Primary Care Physician [facility] 04-05-2025 11:07-0400 Body mass index (BMI) [Ratio] 31.3 kg/m2 No Primary Care Physician [facility] 04-05-2025 11:07-0400 Body weight 77.73 kg No Primary Care Physician [facility] 04-05-2025 11:07-0400 Diastolic blood pressure 81 mm[Hg] No Primary Care Physician [facility] 04-05-2025 11:07-0400 Systolic blood pressure 120 mm[Hg] No Primary Care Physician [facility] 02-24-2025 09:49-0400 Body mass index (BMI) [Ratio] 30.3 kg/m2 No Primary Care Physician [facility] 02-24-2025 09:49-0400 Body weight 75.29 kg No Primary Care Physician [facility] 02-24-2025 09:49-0400 Diastolic blood pressure 66 mm[Hg] No Primary Care Physician [facility] 02-24-2025 09:49-0400 Systolic blood pressure 103 mm[Hg] No Primary Care Physician [facility] 01-27-2025 11:35-0400 Body height 157.48 cm No Primary Care Physician [facility] 01-27-2025 11:33-0400 Body mass index (BMI) [Ratio] 28.8 kg/m2 No Primary Care Physician [facility] 01-27-2025 11:33-0400 Body weight 71.44 kg No Primary Care Physician [facility] 01-27-2025 11:33-0400 Diastolic blood pressure 88 mm[Hg] No Primary Care Physician [facility] 01-27-2025 11:33-0400 Systolic blood pressure 127 mm[Hg] No Primary Care Physician [facility] 12-29-2024 13:02-0500 Body mass index (BMI) [Ratio] 28.8 kg/m2 No Primary Care Physician [facility] 12-29-2024 13:02-0500 Body weight 71.44 kg No Primary Care Physician [facility] 12-29-2024 13:02-0500 Diastolic blood pressure 88 mm[Hg] No Primary Care Physician [facility] 12-29-2024 13:02-0500 Systolic blood pressure 127 mm[Hg] No Primary Care Physician [facility] 11-26-2024 12:57-0500 Body mass index (BMI) [Ratio] 28 kg/m2 No Primary Care Physician [facility] 11-26-2024 12:57-0500 Body weight 69.39 kg No Primary Care Physician [facility] 11-26-2024 12:57-0500 Diastolic blood pressure 84 mm[Hg] No Primary Care Physician [facility] 11-26-2024 12:57-0500 Systolic blood pressure 121 mm[Hg] No Primary Care Physician [facility] 02-18-2023 14:00-0400 Body temperature 98.3 [degF] No Primary Care Physician [facility] 02-18-2023 14:00-0400 Diastolic blood pressure 69 mm[Hg] No Primary Care Physician [facility] 02-18-2023 14:00-0400 Heart rate 90 /min No Primary Care Physician [facility] 02-18-2023 14:00-0400 Respiratory rate 16 /min No Primary Care Physician [facility] 02-18-2023 14:00-0400 Systolic blood pressure 113 mm[Hg] No Primary Care Physician [facility] 02-18-2023 03:00-0400 SaO2% (BldA) [Mass fraction] 96 % No Primary Care Physician [facility] 02-16-2023 10:13-0400 Body height 157.48 cm No Primary Care Physician [facility] 02-16-2023 10:13-0400 Body mass index (BMI) [Ratio] 32.9 kg/m2 No Primary Care Physician [facility] 02-16-2023 10:13-0400 Body weight 81.7 kg No Primary Care Physician [facility] 02-12-2023 09:55-0400 Body mass index (BMI) [Ratio] 33.3 kg/m2 No Primary Care Physician [facility] 02-12-2023 09:55-0400 Body weight 82.55 kg No Primary Care Physician [facility] 02-12-2023 09:55-0400 Diastolic blood pressure 86 mm[Hg] No Primary Care Physician [facility] 02-12-2023 09:55-0400 Heart rate 103 /min No Primary Care Physician [facility] 02-12-2023 09:55-0400 Systolic blood pressure 120 mm[Hg] No Primary Care Physician [facility] 02-05-2023 08:53-0400 Body weight 82.55 kg No Primary Care Physician [facility] 02-05-2023 08:53-0400 Diastolic blood pressure 80 mm[Hg] No Primary Care Physician [facility] 02-05-2023 08:53-0400 Systolic blood pressure 117 mm[Hg] No Primary Care Physician [facility] 01-29-2023 10:07-0400 Body height 157.48 cm No Primary Care Physician [facility] 01-29-2023 10:07-0400 Body mass index (BMI) [Ratio] 32 kg/m2 No Primary Care Physician [facility] 01-29-2023 10:07-0400 Body weight 79.37 kg No Primary Care Physician [facility] 01-29-2023 10:07-0400 Diastolic blood pressure 78 mm[Hg] No Primary Care Physician [facility] 01-29-2023 10:07-0400 Heart rate 94 /min No Primary Care Physician [facility] 01-29-2023 10:07-0400 Systolic blood pressure 110 mm[Hg] No Primary Care Physician [facility] 01-22-2023 09:13-0500 Diastolic blood pressure 84 mm[Hg] No Primary Care Physician [facility] 01-22-2023 09:13-0500 Systolic blood pressure 127 mm[Hg] No Primary Care Physician [facility] 01-22-2023 08:55-0500 Body mass index (BMI) [Ratio] 32.5 kg/m2 No Primary Care Physician [facility] 01-22-2023 08:55-0500 Body weight 80.73 kg No Primary Care Physician [facility] 01-10-2023 08:27-0500 Body mass index (BMI) [Ratio] 32.1 kg/m2 No Primary Care Physician [facility] 01-10-2023 08:27-0500 Diastolic blood pressure 80 mm[Hg] No Primary Care Physician [facility] 01-10-2023 08:27-0500 Systolic blood pressure 118 mm[Hg] No Primary Care Physician [facility] 01-10-2023 07:54-0500 Body weight 79.83 kg No Primary Care Physician [facility] 12-25-2022 08:22-0500 Diastolic blood pressure 78 mm[Hg] No Primary Care Physician [facility] 12-25-2022 08:22-0500 Systolic blood pressure 122 mm[Hg] No Primary Care Physician [facility] 12-25-2022 07:59-0500 Body mass index (BMI) [Ratio] 31.6 kg/m2 No Primary Care Physician [facility] 12-25-2022 07:59-0500 Body weight 78.47 kg No Primary Care Physician [facility] 12-25-2022 07:59-0500 Heart rate 90 /min No Primary Care Physician [facility] 12-13-2022 09:58-0500 Body mass index (BMI) [Ratio] 31.4 kg/m2 No Primary Care Physician [facility] 12-13-2022 09:58-0500 Body weight 78.01 kg No Primary Care Physician [facility] 12-13-2022 09:58-0500 Diastolic blood pressure 76 mm[Hg] No Primary Care Physician [facility] 12-13-2022 09:58-0500 Heart rate 80 /min No Primary Care Physician [facility] 12-13-2022 09:58-0500 Systolic blood pressure 110 mm[Hg] No Primary Care Physician [facility] 11-29-2022 15:40-0500 Body height 157.48 cm No Primary Care Physician [facility] 11-29-2022 15:39-0500 Body mass index (BMI) [Ratio] 31.1 kg/m2 No Primary Care Physician [facility] 11-29-2022 15:39-0500 Body weight 77.11 kg No Primary Care Physician [facility] 11-29-2022 15:39-0500 Diastolic blood pressure 83 mm[Hg] No Primary Care Physician [facility] 11-29-2022 15:39-0500 Systolic blood pressure 126 mm[Hg] No Primary Care Physician [facility] 10-29-2022 08:39-0500 Body mass index (BMI) [Ratio] 28.1 kg/m2 No Primary Care Physician [facility] 10-29-2022 08:39-0500 Diastolic blood pressure 72 mm[Hg] No Primary Care Physician [facility] 10-29-2022 08:39-0500 Systolic blood pressure 109 mm[Hg] No Primary Care Physician [facility] 10-23-2022 10:33-0500 Body mass index (BMI) [Ratio] 28.9 kg/m2 No Primary Care Physician [facility] 10-23-2022 10:33-0500 Body weight 71.66 kg No Primary Care Physician [facility] 10-23-2022 10:33-0500 Diastolic blood pressure 79 mm[Hg] No Primary Care Physician [facility] 10-23-2022 10:33-0500 Heart rate 87 /min No Primary Care Physician [facility] 10-23-2022 10:33-0500 Systolic blood pressure 114 mm[Hg] No Primary Care Physician [facility] 10-02-2022 10:23-0500 Body weight 69.85 kg No Primary Care Physician [facility] 10-02-2022 10:23-0500 Heart rate 81 /min No Primary Care Physician [facility] 09-11-2022 13:05-0400 Body height 157.48 cm No Primary Care Physician [facility] Work Phone: 09-11-2022 13:05-0400 Body temperature 99 [degF] No Primary Care Physician [facility] 09-11-2022 13:05-0400 Body weight 68.03 kg No Primary Care Physician [facility] 09-11-2022 13:05-0400 Diastolic blood pressure 80 mm[Hg] No Primary Care Physician [facility] 09-11-2022 13:05-0400 Heart rate 82 /min No Primary Care Physician [facility] 09-11-2022 13:05-0400 Respiratory rate 12 /min No Primary Care Physician [facility] 09-11-2022 13:05-0400 Systolic blood pressure 120 mm[Hg] No Primary Care Physician [facility] 08-14-2022 08:41-0400 Body mass index (BMI) [Ratio] 25.7 kg/m2 No Primary Care Physician [facility] 08-14-2022 08:41-0400 Body weight 63.95 kg No Primary Care Physician [facility] 08-14-2022 08:41-0400 Diastolic blood pressure 76 mm[Hg] No Primary Care Physician [facility] 08-14-2022 08:41-0400 Systolic blood pressure 123 mm[Hg] No Primary Care Physician [facility] 07-16-2022 13:16-0400 Body height 157.48 cm No Primary Care Physician [facility] Work Phone: 07-16-2022 13:16-0400 Body mass index (BMI) [Ratio] 24.5 kg/m2 No Primary Care Physician [facility] Work Phone: 07-16-2022 13:16-0400 Body weight 60.78 kg No Primary Care Physician [facility] Work Phone: 07-16-2022 13:16-0400 Diastolic blood pressure 72 mm[Hg] No Primary Care Physician [facility] Work Phone: 07-16-2022 13:16-0400 Systolic blood pressure 110 mm[Hg] No Primary Care Physician [facility] Work Phone: Encounters Encounter Date Encounter Type Care Provider Facility Start: 06-22-2025 Non-patient / Non-visit Savannah PERAZA [facility] Start: 06-21-2025 Non-patient / Non-visit Eloisa Dobbins [facility] Start: 06-20-2025 Non-patient / Non-visit Eloisa Jan [facility] Start: 06-20-2025 ambulatory No Primary Car e Physician Facility:[facility] Start: 06-20-2025 End: 06-22-2025 Evaluation and management of inpatient [facility]uigi [facility]obb[facility] Work Phone: Start: 06-16-2025 End: 06-16-2025 Patient encounter procedure Natividad Davenport CNM -[facility] @ Start: 06-16-2025 End: 06-16-2025 ambulatory No Primary Care Physician -[facility] @ Start: 06-09-2025 End: 06-09-2025 Patient encounter procedure Natividad Davenport CNM -[facility] @ Start: 06-09-2025 End: 06-09-2025 ambulatory No Primary Care Physician -[facility] @ Start: 06-03-2025 End: 06-03-[address] Rama Grant DO -[facility] Work Phone: Start: 06-03-2025 End: 06-03-2025 ambulatory No Primary Care Physician -[facility] Start: 06-03-2025 End: 06-03-2025 ambulatory Rama Grant Facility:[facility] Start: 05-19-2025 End: 05-19-2025 Patient encounter procedure Natividad ROSEN -[facility] @ Start: 05-19-2025 End: 05-19-2025 ambulatory No Primary Care Physician -[facility] @ Start: 05-05-2025 End: 05-05-2025 ambulatory No Primary Care Physician [facility] Work Phone: Start: 05-05-2025 End: 05-05-2025 Patient encounter procedure Natividad ROSEN -[facility] @ Start: 04-21-2025 End: 04-21-2025 Patient encounter procedure Natividad ROSEN -[facility] @ Start: 04-21-2025 End: 04-21-2025 ambulatory No Primary Care Physician [facility] Work Phone: Start: 04-05-2025 End: 04-05-2025 Patient encounter procedure Natividad ROSEN -[facility] Work Phone: Start: 04-05-2025 End: 04-05-2025 ambulatory No Primary Care Physician [facility] Work Phone: Start: 04-05-2025 End: 04-05-2025 ambulatory No Primary Care Physician Facility:[facility] Start: 02-24-2025 End: 02-24-2025 Patient encounter procedure aNtividad Davenport CNM -[facility] @ Start: 02-24-2025 End: 02-24-2025 ambulatory No Primary Care Physician Facility:[facility] Start: 02-10-2025 End: 02-10-2025 ambulatory No Primary Care Physician [facility] Work Phone: Start: 02-10-2025 End: 02-10-[address] Rama Grant DO -Ultrasound, [facility] Work Phone: Start: 02-10-2025 End: 02-10-2025 ambulatory Rama Grant Facility:[facility] Start: 01-27-2025 End: 01-27-2025 Patient encounter procedure Natividad Davenport CNM -[facility] @ Start: 01-27-2025 End: 01-27-2025 ambulatory No Primary Care Physician Facility:[facility] Start: 12-29-2024 End: 12-29-[address] Petra Lagunas MD -[facility] Work Phone: Start: 12-29-2024 End: 12-29-2024 ambulatory No Primary Care Physician Facility:[facility] Start: 12-07-2024 End: 12-07-2024 Patient encounter procedure Natividad Davenport CNM -Lab, [facility] Start: 12-07-2024 End: 12-07-2024 ambulatory Natividad Davenport Facility:[facility] Start: 11-26-2024 End: 11-26-2024 Patient encounter procedure Natividad Davenport CNM -Laboratory, Specimen Work Phone: Start: 11-26-2024 End: 11-26-2024 Patient encounter procedure Natividad Davenport CNM -[facility] Work Phone: Start: 11-26-2024 End: 11-26-2024 ambulatory No Primary Care Physician Facility:[facility] Start: 11-26-2024 End: 11-26-2024 ambulatory Natividad Davenport Facility:[facility] Start: 11-17-2024 Non-patient / Non-visit Lexi Mendoza RN -[facility] Work Phone: Start: 11-17-2024 ambulatory Lexi Mendoza Facility :[facility] Start: 02-17-2023 Non-patient / Non-visit No Primary Care Physician [facility] Start: 02-16-2023 Non-patient / Non-visit No Primary Care Physician [facility] Start: 02-16-2023 End: 02-18-2023 Evaluation and management of inpatient No Primary Care Physician [facility] Start: 02-12-2023 End: 02-12-2023 Patient encounter procedure No Primary Care Physician [facility] @ Start: 02-05-2023 End: 02-05-2023 Patient encounter procedure No Primary Care Physician [facility] @ Start: 01-29-2023 End: 01-29-2023 ambulatory No Primary Care Physician [facility] Work Phone: Start: 01-29-2023 End: 01-29-2023 Patient encounter procedure No Primary Care Physician [facility]-Laboratory, Specimen Start: 01-29-2023 End: 01-29-2023 Patient encounter procedure No Primary Care Physician [facility] @ Start: 01-22-2023 End: 01-22-2023 Patient encounter procedure No Primary Care Physician [facility] @ Start: 01-10-2023 End: 01-10-2023 Patient encounter procedure No Primary Care Physician [facility] @ Start: 12-25-2022 End: 12-25-2022 Patient encounter procedure No Primary Care Physician [facility] @ Start: 12-13-2022 End: 12-13-2022 Patient encounter procedure No Primary Care Physician [facility] Start: 11-29-2022 End: 11-29-2022 ambulatory No Primary Care Physician [facility] Work Phone: Start: 11-29-2022 End: 11-29-2022 Patient encounter procedure No Primary Care Physician [facility] Start: 10-23-2022 End: 10-23-2022 Patient encounter procedure No Primary Care Physician [facility] @ Start: 10-02-2022 End: 10-02-2022 Patient encounter procedure No Primary Care Physician [facility] @ Start: 09-27-2022 End: 09-27-2022 ambulatory No Primary Care Physician [facility] Work Phone: Start: 09-27-2022 End: 09-27-2022 Patient encounter procedure No Primary Care Physician [facility] Start: 09-11-2022 End: 09-11-2022 Patient encounter procedure No Primary Care Physician [facility] @ Start: 08-14-2022 End: 08-14-2022 Patient encounter procedure No Primary Care Physician [facility] Start: 07-27-2022 End: 07-27-2022 ambulatory No Primary Care Physician [facility] Work Phone: Start: 07-27-2022 End: 07-27-2022 Patient encounter procedure No Primary Care Physician [facility] Start: 07-16-2022 End: 07-16-2022 ambulatory No Primary Care Physician [facility] Work Phone: Start: 07-16-2022 End: 07-16-2022 Patient encounter procedure No Primary Care Physician [facility], Specimen Start: 07-16-2022 End: 07-16-2022 Patient encounter procedure No Primary Care Physician [facility] Start: 05-19-2020 End: 05-19-2020 [facility] Procedures Date Procedure Procedure Detail Performing Clinician Start: 06-20-2025 Serologic test for syphilis No Primary Care Physician Start: 06-20-2025 Measurement of pH in vaginal fluid specimen using nitrazine yellow for detection of rupture of amniotic membrane No Primary Care Physician Comment on above: Amniotic fluid prese nt indicates rupture of Membranes. CRITICAL VALUE CALLED TO PATEL MONK06/20/25 Jonathan Barba.RESULTS READ BACK BY SAME. Start: 06-03-2025 Beta-hemolytic Strep tococcus culture No [...] Treatment Date Care Activity Detail Author Start: 06-22-2025 Patient discharge [facility] Start: 06-21-2025 Documentation procedure [facility] Start: 06-21-2025 Administration of medication [facility] Start: 06-21-2025 Application of ice collar, cap or bag [facility] Start: 06-21-2025 Catheterization of vein [facility] Start: 06-21-2025 Introduction of urinary catheter [facility] Start: 06-21-2025 Measuring intake and output [facility] Start: 06-21-2025 Notification of physician [facility] Start: 06-21-2025 Procedure discontinued [facility] Start: 06-21-2025 Provision of activity privileges [facility] Start: 06-21-2025 Vital signs measurements [facility] Start: 06-21-2025 End: 06-21-2025 [facility] Start: 06-20-2025 Admission procedure [facility] Start: 04-05-2025 CBC W Auto Differential panel - Blood [facility] Start: 04-05-2025 Measurement of glucose 2 hours after glucose challenge for glucose tolerance test [facility] Start: 04-05-2025 Serologic test for syphilis [facility] Start: 04-05-2025 [facility] Start: 02-10-2025 Ultrasonography in first trimester OB Anatomy w/ Transvaginal [facility] Start: 02-18-2023 Patient discharge [facility] Start: 02-16-2023 Administration of medication [facility] Start: 02-16-2023 Application of ice collar, cap or bag [facility] Start: 02-16-2023 Catheterization of vein [facility] Start: 02-16-2023 Introduction of urinary catheter [facility] Start: 02-16-2023 Measuring intake and output [facility] Start: 02-16-2023 Notification of physician [facility] Start: 02-16-2023 Procedure discontinued [facility] Start: 02-16-2023 Provision of activity privileges [facility] Start: 02-16-2023 Vital signs measurements [facility] Start: 02-16-2023 [facility] Start: 02-16-2023 Admission procedure [facility] Start: 07-16-2022 Liquid based cervical cytology screening [facility] Work Phone: CBC W Auto Different ial panel - Blood [facility] Work Phone: CBC W Auto Different ial panel - [facility] Erythrocyte mean corpuscular volume determination [facility] Hematocrit [Volume Fraction] of Blood [facility] Hemoglobin [Mass/vol ume] in Blood [facility] Hepatitis B surface antigen measurement [facility] Work Phone: Hepatitis C antibody measurement [facility] Work Phone: HIV 1+2 Ab+HIV1 p24 Ag [Presence] in Serum or Plasma by Immunoassay [facility] Work Phone: Leukocytes [#/volume ] in Blood [facility] Mean corpuscular hemoglobin concentration determination [facility] Mean corpuscular hemoglobin determination [facility] Neutrophil count [facility] Neutrophil percent differential count [facility] Path report.final Dx Spec [facility] Work Phone: Patient Education [facility] Work Phone: Patient referral [facility] Work Phone: Platelets [#/volume] in Blood [facility] Red blood cell count [facility] Red cell distributio n width determination [facility] Rubella IgG measurement [facility] Work Phone: Streptococcus agalac tiae [Presence] in Unspecified specimen by Organism specific culture [facility] Treponema sp Ab [Pre sence] in Serum [facility] Work Phone: [facility] Payers Date Payer Category Payer Unknown [id number] 2024 Self-pay 2024 Unknown [id number] 2000 Unknown [id number] 2.16.84 [id number] Unknown [id number] Unknown [id number] 2.16.8 [id number] Unknown [id number] 2.16.8 [id number] Unknown [id number] 2.16.8 40.1.253640.3.579.2.462 Unknown [id number] 2.16.8 40.1.240988.3.579.2.462 Unknown [id number] 2.16.8 40.1.245025.3.579.2.462 Unknown [id number] 2.16.8 40.1.392574.3.579.2.462 Unknown [id number] 2.16.8 40.1.812108.3.579.2.462 Unknown [id number] 2.16.8 40.1.398751.3.579.2.462 Unknown [id number] 2.16.8 40.1.374839.3.579.2.462 Unknown [id number] 2.16.8 40.1.346703.3.579.2.462 Unknown [id number] 2.16.8 40.1.318831.3.579.2.462 Unknown [id number] 2.16.8 40.1.627128.3.579.2.462 Unknown [id number] 2.16.8 40.1.752277.3.579.2.462 Unknown [id number] 2.16.8 40.1.466627.3.579.2.462 Unknown [id number] 2.16.8 40.1.026427.3.579.2.462 Unknown [id number] 2.16.8 40.1.332297.3.579.2.462 Unknown [id number] 2.16.8 40.1.609386.3.579.2.462 Unknown [id number] 2.16.8 40.1.517917.3.579.2.462 Unknown [id number] 2.16.8 40.1.927908.3.579.2.462 Unknown [id number] 2.16.8 40.1.874733.3.579.2.462 Unknown [id number] 2.16.8 40.1.686587.3.579.2.462 Social History Date Type Detail Facility Start: 07-16-2022 End: 02-16-2023 Tobacco smoking status GAIS Unknown if ever smoked [facility] Start: 2000 Sex Assigned At Female [facility] Start: 11-17-2024 End: 06-20-2025 Tobacco smoking status NHIS Never smoked tobacco (finding) [facility] Start: 02-14-2025 Sex Female (finding) [facility] Patient currentl y [facility] Goals Date Patient Goal Desired Activity /State Mental Status Date Assessment Result Facility 02-18-2023 Cognitive function Awake;Alert;Appropriat e [facility] Work Phone: Clinical Notes 07-16-2022 to 06-22-2025 Note Date & Type Note Facility 06-22-2025 Progress note Note Date/Time June 22, 2025 7:5 7am [facility] Medical Records Department [place] [address] Progress Note - OBGYN 06/22/255 MR#: [id number] Acct: [id number] Name: DINORAH DOBBINS Rep #:[id number] : 2000 From: Savannah Salazar NP [employer] [facility] PCP: Care Physician,No Primary Status :ADM IN Location: [place] [address] Subjective Subjective Patient doing well without complaints. Tolerating PO. Ambulating and voiding without difficulty. Feeding well. Denies chest pain, shortness of breath, calf pain/swelling, fevers, chills, lightheadedness. Objective Data Objective Data Vital Signs: Vital Signs Temp Pulse Resp BP Pulse Ox O2 Del Method 97.6 F L 78 16 121/78 H 98 Room Air 06/22/25 06:45 06/22/25 06:45 06/22/25 06:45 06/22/25 06:45 06/21/25 20:21 06/22/25 06:45 Oxygen Delivery Method Room Air Weight: 183 lb Body Mass Index (BMI) 33.5 Intake & Output: Intake and Output for Last 24 Hours 06/20/25 06/21/25 06/22/25 23:59 23:59 23:59 Intake Total 1164.94 / 1164.94 1122.56 / 1122.56 Output Total 1000 / 1000 Balance 1164.94 / 1164.94 122.56 / 122.56 Lab / Micro Data 06/20/25 16:50 Physical Exam Const alert and oriented x3 HEENT normocephalic Eyes PERRL Neck full ROM Resp normal respiratory effort GI soft to palpation GI Narrative: FF below U Assessment & Plan (1) Spontaneous vaginal delivery: COMMENT: 06/21/25 Vamshi KM (2) Rubella non-immune status, antepartum: COMMENT: offer MMR pp PLAN: Plan s/p PPD # 1 1. routine post delivery care 2. breast feeding- support given 3. rh positive 4. rubella non immune-offer MMR 5. home today 06/22/25756 <Electronically signed by Savannah Salazar NP [employer]> Cosigner Signature (if applicable): CC: ~ Signed [facility] Work Phone: 1(757) 254-792608-05-2025 Progress note [facility] Medical Records Department [address] [place] [address] Progress Note - OBGYN 06/22/25754 MR#: [id number] Acct: [id number] Name: DINORAH DOBBINS Rep #:[id number] : 2000 24 From: Savannah Salazar NP [employer] PCP: Care Physician,No Primary Status :ADM IN Location: [address] Subjective Subjective Patient doing well without complaints. Tolerating PO. Ambulating and voiding without difficulty. Feeding well. Denies chest pain, shortness of breath, calf pain/swelling, fevers, chills, lightheadedness. Objective Data Objective Data Vital Signs: Vital Signs Temp Pulse Resp BP Pulse Ox O2 Del Method 97.6 F L 78 16 121/78 H 98 Room Air 06/22/25 06:45 06/22/25 06:45 06/22/25 06:45 06/22/25 06:45 06/21/25 20:21 06/22/25 06:45 Oxygen Delivery Method Room Air Weight: 183 lb Body Mass Index (BMI) 33.5 Intake & Output: Intake and Output for Last 24 Hours 06/20/25 06/21/25 06/22/25 23:59 23:59 23:59 Intake Total 1164.94 / 1164.94 1122.56 / 1122.56 Output Total 1000 / 1000 Balance 1164.94 / 1164.94 122.56 / 122.56 Lab / Micro Data 06/20/25 16:50 Physical Exam Const alert and oriented x3 HEENT normocephalic Eyes PERRL Neck full ROM Resp normal respiratory effort GI soft to palpation GI Narrative: FF below U Assessment & Plan (1) Spontaneous vaginal delivery: COMMENT: 06/21/25 Vamshi KM (2) Rubella non-immune status, antepartum: COMMENT: offer MMR pp PLAN: Plan s/p PPD # 1 1. routine post delivery care 2. breast feeding- support given 3. rh positive 4. rubella non immune-offer MMR 5. home today 06/22/25756 Cosigner Signature (if applicable): CC: ~ Signed [facility]08-04-2025 Discharge summary Author Eloisa Dobbins [facility] Note Date/Time June 21, 2025 2:3 3am [facility] Medical Records Department [address] [place] [address] Instructions for Home/Discharge Instructions 06/21/25220 MR#: [id number] Acct: [id number] Name: DINORAH DOBBINS Rep #:[id number] : 2000 From: Eloisa Dobbins CNM PCP: Care Physician,No Primary Status :ADM IN Discharge Instructions DC O2, CPAP, BIPAP needs Home O2 Discharge instructions: No Dressing / Incision Discharge Activity: Return to Normal Activity (Rest!! & Slowly return to normal activities. ) May resume sexual activity in: 4-6 weeks (6 Weeks) Dressing / Incision Call your doctor if you observe: Fever of 101 or Higher, Inability to urinate, Using more than 1 pad per hour, Fainting spells, Chest pain, Increased palpitations (irregular heartbeat), Calf discomfort and Uncontrolled pain Follow Up Care When: 6 weeks Test Results: Test results from this visit will be discussed in further detail at your follow- up appointment, if applicable. Discharge Plan Admission Admit Date/Time: 06/20/25 16:28 Attending Provider: Eloisa Dobbins Primary Care Provider: Care Physician,Wendi Primary Discharge Orders/Prescriptions Prescriptions: No Action vit 10-iron fum-folic 65-1 mg tablet 1 tab PO DAILY Referrals / Follow Up: Juan Physician,No Primary [Primary Care Provider] - 06/21/253<Electronically signed by Eloisa Dobbins CNM>Eloisa Dobbins CNM CC: No Primary Care Physician ~ Signed [facility] Work Phone: 1(715) 120-300708-04-2025 Discharge summary [facility] Medical Records Department [address] [place] [address] Instructions for Home/Discharge Instructions 06/21/25220 MR#: [id number] Acct: [id number] Name: DINORAH DOBBINS Rep #:[id number] : 2000 From: Eloisa Dobbins CNM PCP: Juan Physician,No Primary Status :ADM IN Discharge Instructions DC O2, CPAP, BIPAP needs Home O2 Discharge instructions: No Dressing / Incision Discharge Activity: Return to Normal Activity (Rest!! & Slowly return to normal activities. ) May resume sexual activity in: 4-6 weeks (6 Weeks) Dressing / Incision Call your doctor if you observe: Fever of 101 or Higher, Inability to urinate, Using more than 1 pad per hour, Fainting spells, Chest pain, Increased palpitations (irregular heartbeat), Calf discomfort and Uncontrolled pain Follow Up Care When: 6 weeks Test Results: Test results from this visit will be discussed in further detail at your follow- up appointment, if applicable. Discharge Plan Admission Admit Date/Time: 06/20/25 16:28 Attending Provider: Eloisa Dobbins Primary Care Provider: Juan Physician,Wendi Primary Discharge Orders/Prescriptions Prescriptions: No Action vit 10-iron fum-folic 65-1 mg tablet 1 tab PO DAILY Referrals / Follow Up: Juan Physician,Wendi Primary [Primary Care Provider] - 06/21/25 0233Karash Dobbins CNM CC: No Primary Care Physician ~ Signed [facility]08-04-2025 Procedure note [facility] Medical Records Department [address] [place] [address] OB Vaginal Delivery 06/21/25 0210 MR#: [id number] Acct: [id number] Name: JANDINORAH Rep #:[id number] : 2000 From: Eloisa Dobbins CNM PCP: Juan Physician,No Primary Status :ADM IN Location: [place] [id number] Assessment & Plan (1) Supervision of normal : COMMENT: neg GBS PRR , XUAN 06/30/25, boy Vamshi PC: Ion, : [place] PLAN: KM. KATE, Male, 38 wks 5 days, Vamshi, 2nd degree ML Laceration w/repair (2) Rubella non-immune status, antepartum: COMMENT: offer MMR pp PLAN: Plan Patient began pushing and delivered the head in the DIMITRIOS presentation. The head was delivered atraumatically and a loose nuchal cord ?1 was identified and easily reduced over the 's head. The anterior and posterior shoulders delivered without complication followed by the rest of the andthe infantwas placed on the maternal abdomen. Delayed cord clamping was employed for approximately 3 minutes. Cord was clamped and cut and gentle traction was applied to the cord and the placenta delivered spontaneously immediately following it was noted to be intact with three-vessel cord. The perineum and vagina were inspected and noted to have a shallow 2nd degree midline laceration which was repaired in the usual fashion using 3-0 Vicryl. EBL was 200 cc. Patient and infant tolerated delivery well. Maternal Data Information XUAN Calculator Estimated Delivery Date Method Current WG Current Estimate 06/30/25 LMP (Certain) 38w 5d Other Estimates 06/30/25 Ultrasound #1 38w 5d Gestational age: 38 wks 5 days Vaginal Delivery Maternal Presentation Maternal Presentation: Active Labor and Spontaneous Rupture of Membranes (06/20/25@ 0700, clear, odorless fluid.) Type of Induction: Pitocin (Augmentation) Vaginal Delivery Information Procedure Performed: Spontaneous Vaginal Delivery Surgeon/Practitioner: Eloisa Dobbins Type of anesthesia: Epidural Estimated Blood Loss: 200cc Findings Presentation: Vertex and DIMITRIOS Amniotic Membrane Rupture Type: Spontaneous Amniotic Fluid Description: Clear Placental Delivery Description: Spontaneous (Colby w/3 vessel cord. ) Placenta Disposition: [facility] Cord Vessel Description: 3 Vessels Cord Entanglement: Around neck x 1, loose A Gender: Male (1 minute): 8 (5 minute): 9 Delayed Cord Clamping: Yes Post Vaginal Deli Medications given after delivery: IV Pitocin Laceration: Midline and 2nd degree (Shallow, repaired w/3-0 Vicryl.) Complication Complications: No Multi Select Codes Urinary/Genital Urinary/Genital CPT Codes: 62440 Vaginal Delivery [facility] 06/21/25 0221 Cosigner Signature (if applicable): CC: LOUIS Dobbins; No Primary Care Physician~ Signed [facility]08-03-2025 History and physical note Author Eloisa Dobbins [facility] Note Date/Time June 20, 2025 7:3 9pm [facility] Medical Records Department [address] [place] [address] H&P Exam - PROJECT CONTROLLER 06/20/251914 MR#: [id number] Acct: [id number] Name: DINORAH DOBBINS Rep #:[id number] : 2000 From: Eloisa Dobbins CNM PCP: Care Physician,No Primary Status :ADM IN Location: [facility]-3 HPI - General General Date of Admission: 06/20/25 Chief Complaint: SROM this AM HPI Narrative DINORAH DOBBINS, is a 24 F who presents w/SROM this morning at 0700, clear, odorless fluid. Mild u/c's started ~ 1500 today. Maternal Data Information XUAN Calculator Estimated Delivery Date Method Current WG Current Estimate 06/30/25 LMP (Certain) 38w 4d Other Estimates 06/30/25 Ultrasound #1 38w 4d PFSH PFSH Medical History Supervision of normal first Tick bite of abdomen Spontaneous onset of labor Vaginal delivery care and examination Contraception management Home Medications ?Medication ?Instructions ?Recorded ?Last Taken ?Type vits no.10-ferrous 1 tab PO DAILY 07/11/22 08:00 History fumarate 65 mg iron-folic acid 1 mg tablet Allergy/AdvReac Type Severity Reaction Status Date / Time No Known Allergies Allergy Verified 06/20/25 15:23 Social History adopted: No household members: spouse [...] 1-2 times per week duration: 15-30 minutes/day prabhu/denominational: Denominational seatbelt use: always do you feel safe [...] - full term 7lbs 6oz Male epidural [facility] Natividad Youngblood Delivery Date: 02/26/23 Last Updated by: Lexi Reji, RN See problem list for complications Visit Details Expected Delivery Route/Plan Labor Preferences- CB/BF classes: declines labor support person: mom and Ford labor intervention preferences: [] pain management options preferred: [] cut cord/dad catch: NO : [] PP control planned: [] discussed possible routes of delivery and associated risks: [] special requests: [] Plans Covid status: [] Flu vaccine: [] Tdap vaccine: [] Rhogam: [] LARC form signed: [] Problem list reviewed and updated with the most current plan of care details and appropriate orders placed. Relevant counseling for the gestational age provided. Continue routine care and follow up unless otherwise noted in visit notes/problem list details OB Flowsheet Initial Weight: 153 lb Date -?-?-?-?-?-?-?-?-?-?-?-?- EGA Weight BP Urine Prot -?-?-?-?-?-?-?-?-?-?-?-?- Glucose FHR FuHt Pres Dilation -?-?-?-?-?-?-?-?-?-?-?-?- Effaced St Visit Note 11/26/24 -?-?-?-?-?-?-?-?-?-?-?-?- 9w 1d 153 lb (+0 oz) 121/84 -?-?-?-?-?-?-?-?-?-?-?-?- 176 -?-?-?-?-?-?-?-?-?-?-?-?- KW-CRL cons with dates. accepts NIPT. WOuld like mt hope appts 12/29/24 -?-?-?-?-?-?-?-?-?-?-?-?- 13w 6d 157 lb 8 oz (+4 lb 8 oz) 127/88 Negative -?-?-?-?-?-?-?-?-?-?-?-?- Negative 160 -?-?--?-?-?-?-?-?-?-?-?-?- SM- no vb lof cr amping 01/27/25 [...] 0d 179 lb (+26 lb) 111/74 Trace -?-?-?-?-?-?-?--?-?-?-?-?- Negative 150 32 -?-?-?-?-?-?-?-?-?-?-?-?- KW- no vb/lof/ct [...] a membrane sweep next week if possible NST Assessment Assessment Detail: current tracing: FHT: 135, Moderate variability reactive no decelerations category I tracing [place]: Contractions every 6 to 9 minutes, lasting 55 to 90 seconds, palpates mild. A/P: Latent Labor. Dsc'd length of ROM without active labor along w/risks associated. Pt & Spouse agreeable with Pitocin Augmentation. Questions answered. ROS Constitutional Constitutional: Reports systems reviewed and no addt'l complaints, except as documented Eyes Eyes: Reports systems reviewed and no addt'l complaints, except as documented ENT HEENT: Reports systems reviewed and no addt'l complaints, except as documented Cardiovascular Cardiovascular: Reports systems reviewed and no addt'l complaints, except as documented Respiratory/Chest Respiratory/Chest: Reports systems reviewed and no addt'l complaints, except as documented Gastrointestinal Gastrointestinal: Reports systems reviewed and no addt'l complaints, except as documented Genitourinary Genitourinary: Reports systems reviewed and no addt'l complaints, except as documented Musculoskeletal Musculoskeletal: Reports systems reviewed and no addt'l complaints, except as documented Integumentary Integumentary: Reports systems reviewed and no addt'l complaints, except as documented Neurologic Neurologic: Reports systems reviewed and no addt'l complaints, except as documented Psychiatric Psychiatric: Reports systems reviewed and no addt'l complaints, except as documented Endocrine Endocrinology: Reports systems reviewed and no addt'l complaints, except as documented Allergic/Immunologic Allergic/Immunologic: Reports systems reviewed and no addt'l complaints, except as documented Vital Signs Vital Signs Vital Signs: 06/20/25 15:23 06/20/25 15:23 06/20/25 15:23 Temperature Temperature Source Temporal Pulse Rate Respiratory Rate 16 Blood Pressure BP Systolic BP Diastolic Pulse Ox 95 06/20/25 15:23 06/20/25 15:28 06/20/25 15:28 Temperature 99.0 F Temperature Source Pulse Rate 112 H Respiratory Rate Blood Pressure BP Systolic BP Diastolic Pulse Ox 87 06/20/25 15:29 06/20/25 15:29 06/20/25 15:29 Temperature Temperature Source Pulse Rate 100 Respiratory Rate Blood Pressure 126/73 H BP Systolic 126 BP Diastolic 73 Pulse Ox 94 06/20/25 17:53 06/20/25 17:53 06/20/25 17:53 Temperature Temperature Source Pulse Rate 96 Respiratory Rate Blood Pressure 107/71 BP Systolic 107 BP Diastolic 71 Pulse Ox 94 06/20/25 17:54 06/20/25 17:54 06/20/25 17:54 Temperature Temperature Source Temporal Pulse Rate Respiratory Rate 16 Blood Pressure BP Systolic BP Diastolic Pulse Ox 96 06/20/25 17:54 Temperature 98.4 F Temperature Source Pulse Rate Respiratory Rate Blood Pressure BP Systolic BP Diastolic Pulse Ox Weight Weight: 183 lb Body Mass Index (BMI) 33.5 Physical Exam Const alert, oriented x3 and no apparent distress General Appearance: cooperative and comfortable HEENT normocephalic and moist oral mucous membranes Chest inspection of chest normal Resp normal respiratory effort, no retractions and no use of accessory muscles Resp Narrative: Respirations eased & unlabored. GI soft to palpation, non-tender and non-distended Skin no rashes or lesions noted Neuro moves all extremities Psych mental status grossly normal, affect normal and speech normal Labs Labs Labs: Blood Type A POSITIVE Antibody Screen NEGATIVE Hct 36.4 % (37-47) L Hgb 12.4 g/dL (12.0-15.0) Obstetrics Ultrasound Syphilis Total Ab Nonreactive (Nonreactive) Rubella IgG Antibody Non-Reactive (Nonreactive) Hep Bs Antigen Non-Reactive (Nonreactive) Hepatitis C Antibody Non-Reactive (Nonreactive) Chlamydia DNA (BRANDON) Negative (Negative) N.gonorrhoeae DNA (BRANDON) Negative (Negative) HIV 1&2 Antibody Nonreactive (Nonreactive) Glucose 1 Hr 50 gm 95 mg/dL (70-140) Rhogam given: No Assessment & Plan (1) Supervision of normal : COMMENT: neg GBS PRR , XUAN 06/30/25, boy Vamshi PC: Ion, : [place] (2) Rubella non-immune status, antepartum: COMMENT: offer MMR pp (3) : QUALIFIERS: Weeks of gestation: 38 weeks Qualified Code(s): Z3A.38 - 38 weeks gestation of COMMENT: NIPT low risk (previously done carrier testing) PLAN: Plan Patient presents in latent labor w/SROM, plan expectant management for , pitocin augmentation. Pain management: plans epidural. GBS Negative. Management of any complications:None. I have reviewed the [facility] and made any clinically relevant updates. Charges/Coding Multi Select Codes Urinary/Genital Urinary/Genital CPT Codes: No Charge 06/20/251938 <Electronically signed by Eloisa Dobbins CNM> Cosigner Signature (if applicable): CC: LOUIS Dobbins; No Primary Care Physician~ Signed [facility] Work Phone: 1(950) 289-549908-03-2025 History and physical note [facility] Medical Records Department [address] [place] [address] H&P Exam - PROJECT CONTROLLER 06/20/251914 MR#: [id number] Acct: [id number] Name: DINORAH DOBBINS Rep #:[id number] : 2000 24 From: Eloisa Dobbins CNM PCP: Care Physician,No Primary Status :ADM IN Location: G[facility]000-8 [facility] - General General Date of Admission: 06/20/25 Chief Complaint: SROM this AM HPI Narrative DINORAH DOBBINS, is a 24 F who presents w/SROM this morning at 0700, clear, odorless fluid. Mild u/c's started ~ 1500 today. Maternal Data Information XUAN Calculator Estimated Delivery Date Method Current WG Current Estimate 06/30/25 LMP (Certain) 38w 4d Other Estimates 06/30/25 Ultrasound #1 38w 4d [facility] Medical History Supervision of normal first Tick bite of abdomen Spontaneous onset of labor Vaginal delivery care and examination Contraception management Home Medications ?Medication ?Instructions ?Recorded ?Last Taken ?Type vits no.10-ferrous 1 tab PO DAILY 07/11/22 08:00 History fumarate 65 mg iron-folic acid 1 mg tablet Allergy/AdvReac Type Severity Reaction Status Date / Time No Known Allergies Allergy Verified 06/20/25 15:23 Social History adopted: No household members: spouse [...] 1-2 times per week duration: 15-30 minutes/day prabhu/denominational: Denominational seatbelt use: always do you feel safe at home: Yes 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 Date Name GA/Weeks Outcome Route Bth Weight Infant Gen Labor Lgth Anesthesia Del Locatn Provider FOB 02/26/23 [place] 39 live - full term 7lbs 6oz Male epidural [facility] Natividad Youngblood Delivery Date: 02/26/23 Last Updated by: Lexi Mendoza RN See problem list for complications Visit Details Expected Delivery Route/Plan Labor Preferences- CB/BF classes: declines labor support person: mom and Ford labor intervention preferences: [] pain management options preferred: [] cut cord/dad catch: NO : [] PP control planned: [] discussed possible routes of delivery and associated risks: [] special requests: [] Plans Covid status: [] Flu vaccine: [] Tdap vaccine: [] Rhogam: [] LARC form signed: [] Problem list reviewed and updated with the most current plan of care details and appropriate ordersplaced. Relevant counseling for the gestational age provided. Continue routine care and follow up unless otherwise noted in visit notes/problem list details OB Flowsheet Initial Weight: 153 lb Date -?-?-?-?-?-?-?-?-?-?-?-?- EGA Weight BP Urine Prot -?-?-?-?-?-?-?-?-?-?-?-?- Glucose FHR FuHt Pres Dilation -?-?-?-?-?-?-?-?-?-?-?-?- Effaced St Visit Note 11/26/24 -?-?-?-?-?-?-?-?-?-?-?-?- 9w 1d 153 lb (+0 oz) 121/84 -?-?-?-?-?-?-?-?-?-?-?-?- 176 -?-?-?-?-?-?-?-?-?-?-?-?- KW-CRL cons with dates. accepts NIPT. WOuld like mt hope appts 12/29/24 -?-?-?-?-?-?-?-?-?-?-?-?- 13w 6d 157 lb 8 oz (+4 lb 8 oz) 127/88 Negative -?-?-?-?-?-?-?-?-?-?-?-?- Negative 160 -?-?--?-?-?-?-?-?-?-?-?-?- SM- no vb lof cr amping 01/27/25 [...] 0d 179 lb (+26 lb) 111/74 Trace -?-?-?-?-?-?-?--?-?-?-?-?- Negative 150 32 -?-?-?-?-?-?-?-?-?-?-?-?- KW- no vb/lof/ct [...] a membrane sweep next week if possible NST Assessment Assessment Detail: current tracing: FHT: 135, Moderate variability reactive no decelerations category I tracing [place]: Contractions every 6 to 9 minutes, lasting 55 to 90 seconds, palpates mild. A/P: Latent Labor. Dsc'd length of ROM without active labor along w/risks associated. Pt & Spouse agreeable with Pitocin Augmentation. Questions answered. ROS Constitutional Constitutional: Reports systems reviewed and no addt'l complaints, except as documented Eyes Eyes: Reports systems reviewed and no addt'l complaints, except as documented ENT HEENT: Reports systems reviewed and no addt'l complaints, except as documented Cardiovascular Cardiovascular: Reports systems reviewed and no addt'l complaints, except as documented Respiratory/Chest Respiratory/Chest: Reports systems reviewed and no addt'l complaints, except as documented Gastrointestinal Gastrointestinal: Reports systems reviewed and no addt'l complaints, except as documented Genitourinary Genitourinary: Reports systems reviewed and no addt'l complaints, except as documented Musculoskeletal Musculoskeletal: Reports systems reviewed and no addt'l complaints, except as documented Integumentary Integumentary: Reports systems reviewed and no addt'l complaints, except as documented Neurologic Neurologic: Reports systems reviewed and no addt'l complaints, except as documented Psychiatric Psychiatric: Reports systems reviewed and no addt'l complaints, except as documented Endocrine Endocrinology: Reports systems reviewed and no addt'l complaints, except as documented Allergic/Immunologic Allergic/Immunologic: Reports systems reviewed and no addt'l complaints, except as documented Vital Signs Vital Signs Vital Signs: 06/20/25 15:23 06/20/25 15:23 06/20/25 15:23 Temperature Temperature Source Temporal Pulse Rate Respiratory Rate 16 Blood Pressure BP Systolic BP Diastolic Pulse Ox 95 06/20/25 15:23 06/20/25 15:28 06/20/25 15:28 Temperature 99.0 F Temperature Source Pulse Rate 112 H Respiratory Rate Blood Pressure BP Systolic BP Diastolic Pulse Ox 87 06/20/25 15:29 06/20/25 15:29 06/20/25 15:29 Temperature Temperature Source Pulse Rate 100 Respiratory Rate Blood Pressure 126/73 H BP Systolic 126 BP Diastolic 73 Pulse Ox 94 06/20/25 17:53 06/20/25 17:53 06/20/25 17:53 Temperature Temperature Source Pulse Rate 96 Respiratory Rate Blood Pressure 107/71 BP Systolic 107 BP Diastolic 71 Pulse Ox 94 06/20/25 17:54 06/20/25 17:54 06/20/25 17:54 Temperature Temperature Source Temporal Pulse Rate Respiratory Rate 16 Blood Pressure BP Systolic BP Diastolic Pulse Ox 96 06/20/25 17:54 Temperature 98.4 F Temperature Source Pulse Rate Respiratory Rate Blood Pressure BP Systolic BP Diastolic Pulse Ox Weight Weight: 183 lb Body Mass Index (BMI) 33.5 Physical Exam Const alert, oriented x3 and no apparent distress General Appearance: cooperative and comfortable HEENT normocephalic and moist oral mucous membranes Chest inspection of chest normal Resp normal respiratory effort, no retractions and no use of accessory muscles Resp Narrative: Respirations eased & unlabored. GI soft to palpation, non-tender and non-distended Skin no rashes or lesions noted Neuro moves all extremities Psych mental status grossly normal, affect normal and speech normal Labs Labs Labs: Blood Type A POSITIVE Antibody Screen NEGATIVE Hct 36.4 % (37-47) L Hgb 12.4 g/dL (12.0-15.0) Obstetrics Ultrasound Syphilis Total Ab Nonreactive (Nonreactive) Rubella IgG Antibody Non-Reactive (Nonreactive) Hep Bs Antigen Non-Reactive (Nonreactive) Hepatitis C Antibody Non-Reactive (Nonreactive) Chlamydia DNA (BRANDON) Negative (Negative) N.gonorrhoeae DNA ([place]) Negative (Negative) HIV 1&2 Antibody Nonreactive (Nonreactive) Glucose 1 Hr 50 gm 95 mg/dL (70-140) Rhogam given: No Assessment & Plan (1) Supervision of normal : COMMENT: neg GBS PRR , XUAN 06/30/25, boy Vamshi PC: Ion, : [place] (2) Rubella non-immune status, antepartum: COMMENT: offer MMR pp (3) : QUALIFIERS: Weeks of gestation: 38 weeks Qualified Code(s): Z3A.38 - 38 weeks gestation of COMMENT: NIPT low risk (previously done carrier testing) PLAN: Plan Patient presents in latent labor w/SROM, plan expectant management for , pitocin augmentation. Pain management: plans epidural. GBS Negative. Management of any complications:None. I have reviewed the [facility] and made any clinically relevant updates. Charges/Coding Multi Select Codes Urinary/Genital Urinary/Genital CPT Codes: No Charge 06/20/251938 Cosigner Signature (if applicable): CC: LOUIS Dobbins; No Primary Care Physician~ Signed [facility]07-30-2025 [facility] [address] [place] [address], [address] [place] [address] OFFICE VISIT Date of Service: 06/16/25 MR#: [id number] Acct: [id number] Name: DINORAH DOBBINS Rep #: [id number] : 2000 Provider: LOUIS Davenport Age/Sex: 24/F Location: [facility].W Status: Signed Intake Vital Signs 05/19/25 10:53 06/09/25 10:54 06/16/25 10:44 06/16/25 10:48 Height 5 ft 2 in 5 ft 2 in 5 ft 2 in 5 ft 2 in Weight: 184 lb BMI 33.6 BP 105/73 Intake Visit Reasons: 38 WK OB Physical Chemist Required: No Is patient in pain?: No [...] 1-2 times per week duration: 15-30 minutes/day prabhu/denominational: Denominational seatbelt use: always do you feel safe at home: Yes 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 Date Name GA/Weeks Outcome Route Bth Weight Infant Gen Labor Lgth Anesthesia Del Locatn Provider FOB 02/26/23 [place] 39 live - full term 7lbs 6oz Male epidural [facility] Natividad Youngblood Delivery Date: 02/26/23 Last [...] current plan of care details and appropriate ordersplaced. Relevant counseling for the gestational age provided. Continue routine care and follow up unless otherwise noted in visit notes/problem list details Initial Weight: 153 lb Date -?-?-?-?-?-?-?-?-?-?-?-?- EGA Weight BP Urine Prot -?-?-?-?-?-?-?-?-?-?-?-?- Glucose FHR FuHt Pres Dilation -?-?-?-?-?-?-?-?-?-?-?-?- Effaced St Visit Note 11/26/24 -?-?-?-?-?-?-?-?-?-?-?-?- 9w 1d 153 lb (+0 oz) 121/84 -?-?-?-?-?-?-?-?-?-?-?-?- 176 -?-?-?-?-?-?-?-?-?-?-?-?- KW-CRL cons with dates. accepts NIPT. WOuld like nc hope appts 12/29/24 -?-?-?-?-?-?-?-?-?-?-?-?- 13w 6d 157 [...] fm. normal [place]. gct next [place] in [place]. 04/05/25 -?-?-?-?-?-?-?-?-?-?-?-?- 27w 5d 171 lb 6 [...] of Care, Toxoplasmosis Precations, Use of Any med ications, Sexual activity, Exercise, Dental Care, Sauna/Hot tub [...] information and see below for orders placed atthis visit. [place] appropriate handout given. 06/16/25 1056 s LOUIS> Date Rodrigo Davenport CNM Cosigner Signature: Date (if applicable) CC: ~ [facility]07-23-2025 [facility] [address], [address] [place] [address] OFFICE VISIT Date of Service: 06/09/25 MR#: [id number] Acct: [id number] Name: DINORAH DOBBINS Rep #: [id number] : 2000 Provider: LOUIS Davenport Age/Sex: 24/F Location: [facility] Status: Signed Intake Vital Signs 06/03/25 15:07 06/09/25 10:53 06/09/25 10:54 Height 5 ft 2 in 5 ft 2 in 5 ft 2 in Weight: 184 lb 6 oz BMI 33.7 BP 112/75 Intake Visit Reasons: 37wk ob Physical Chemist Required: No Is patient in pain?: No [...] 1-2 times per week duration: 15-30 minutes/day prabhu/denominational: Denominational seatbelt use: always do you feel safe at home: Yes 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 Date Name GA/Weeks Outcome Route Bth Weight Gen Labor Lgth Anesthesia Del Locatn Provider FOB 02/26/23 Penrose 39 live - full term 7lbs 6oz [...] current plan of care details and appropriate ordersplaced. Relevant counseling for the gestational age provided. [...] dec fm. declines vaginal exam. GBS collected. 07/23/25 -?-?-?-?-?-?-?-?-?-?-?-?- 37w 0d 184 lb 6 oz [...] of Care, Toxoplasmosis Precations, Use of Any med ications, Sexual activity, Exercise, Dental Care, Sauna/Hot tub [...] PRR , XUAN 06/30/25, boy Vamshi PC: Penrose, : Ford (3) : Status: Acute Qualifiers: Weeks of gestation: 37 weeks Qualified Code(s): Z3A.37 - 37 weeks gestation of Comment: NIPT low risk (previously done carrier testing) Orders: Orders POC Urinalysis 2 Dip (Clinic) Today Plan Details Additional Comments: ACOG trimester education reviewed and updated. see problem list details for updated plan management information and see below for orders placed atthis visit. [place] appropriate handout given. 06/09/25 1100 s LOUIS> Date Rodrigo Davenport CNM Cosigner Signature: Date (if applicable) CC: ~ [facility] [id number] [facility] [address], [address] [place] [id number] OFFICE VISIT Date of Service: 05/19/25 MR#: [id number] Acct: [id number] Name: DINORAH DOBBINS Rep #: [id number] : 2000 Provider: LOUIS Davenport Age/Sex: 24/F Location: [facility] Status: Signed Intake Vital Signs 04/05/25 11:07 05/05/25 11:25 05/19/25 10:49 05/19/25 10:53 Height 5 ft 2 in 5 ft 2 in 5 ft 2 in 5 ft 2 in Weight: 180 lb 8 oz BMI 33.0 BP 111/78 Intake Visit Reasons: 32 wk ob Physical Chemist Required: No Is patient in pain?: No [...] 1-2 times per week duration: 15-30 minutes/day prabhu/denominational: Denominational seatbelt use: always do you feel safe at home: Yes 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 Date Name GA/Weeks Outcome Route Bth Weight Gen Labor Lgth Anesthesia Del Locatn Provider FOB 02/26/23 [place] 39 live - full term 7lbs 6oz [...] current plan of care details and appropriate ordersplaced. Relevant counseling for the gestational age provided. [...] of Care, Toxoplasmosis Precations, Use of Any med ications, Sexual activity, Exercise, Dental Care, Sauna/Hot tub [...] information and see below for orders placed atthis visit. [place] appropriate handout given. 05/19/25 1120 s LOUIS> Date _ Natividad Garcia Signature: Date (if applicable) CC: ~ [facility] [id number] [facility] [address] [place] [address], [address] [place] [address] OFFICE VISIT Date of Service: 05/05/25 MR#: [id number] Acct: [id number] Name: DINORAH DOBBINS Rep #: [id number] : 2000 Provider: LOUIS Davenport Age/Sex: 24/F Location: [facility] Status: Signed Intake Vital Signs 04/05/25 11:07 04/21/25 09:49 05/05/25 11:21 05/05/25 11:25 Height 5 ft 2 in 5 ft 2 in 5 ft 2 in 5 ft 2 in Weight: 179 lb BMI 32.7 BP 111/74 Intake Visit Reasons: 30 wk ob Physical Chemist Required: No Is patient in pain?: No [...] 1-2 times per week duration: 15-30 minutes/day prabhu/denominational: Denominational seatbelt use: always do you feel safe at home: Yes 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 Date Name GA/Weeks Outcome Route Bth Weight Gen Labor Lgth Anesthesia Del Locatn Provider FOB 02/26/23 [place] 39 live - full term 7lbs 6oz Male epidural [facility] Natividad Youngblood Delivery Date: 02/26/23 Last Updated by: Lexi Mendoza, MARISELA See problem list for complications HPI 30 [...] current plan of care details and appropriate ordersplaced. Relevant counseling for the gestational age provided. Continue routine care and follow up unless otherwise noted in visit notes/problem list details Initial Weight: 153 lb Date -?-?-?-?-?-?-?-?-?-?-?-?- EGA Weight BP Urine Prot -?-?-?-?-?-?-?-?-?-?-?-?- Glucose FHR FuHt Pres Dilation -?-?-?-?-?-?-?-?-?-?-?-?- Effaced St Visit Note 11/26/24 -?-?-?-?-?-?-?-?-?-?-?-?- 9w 1d 153 lb (+0 oz) 121/84 -?-?-?-?-?-?-?-?-?-?-?-?- 176 -?-?-?-?-?-?-?-?-?-?-?-?- KW-CRL cons with dates. accepts NIPT. WOuld like nc hope appts 12/29/24 -?-?-?-?-?-?-?-?-?-?-?-?- 13w 6d 157 [...] of Care, Toxoplasmosis Precations, Use of Any med ications, Sexual activity, Exercise, Dental Care, Sauna/Hot tub [...] Signs, Cervical Ripening/Labor Induction Counseling, Postterm Counseling, [place] Education, Depression, Depression and Intimate Partner Violence; [...] information and see below for orders placed atthis visit. [place] appropriate handout given. 05/05/25 1138 s LOUIS> Date Rodrigo Davenport CNM Cosigner Signature: Date (if applicable) CC: ~ [facility]06-04-2025 [facility] [address], [address] [place] [address] OFFICE VISIT Date of Service: 04/21/25 MR#: [id number] Acct: [id number] Name: DINORAH DOBBINS Rep #: [id number] : 2000 Provider: LOUIS Davenport Age/Sex: 24/F Location: [facility] Status: Signed Intake Vital Signs 04/05/25 11:07 04/21/25 09:49 Height 5 ft 2 in 5 ft 2 in Weight: 175 lb 4 oz BMI 32.0 BP 106/71 Intake Visit Reasons: 28 wk ob Physical Chemist Required: No Is patient in pain?: No [...] 1-2 times per week duration: 15-30 minutes/day prabhu/denominational: Denominational seatbelt use: always do you feel safe at home: Yes 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 Date Name GA/Weeks Outcome Route Bth Weight Gen Labor Lgth Anesthesia Del Locatn Provider FOB 02/26/23 [place] 39 live - full term 7lbs 6oz Male epidural [facility] Natividad Youngblood Delivery Date: 02/26/23 Last [...] current plan of care details and appropriate ordersplaced. Relevant counseling for the gestational age provided. [...] of Care, Toxoplasmosis Precations, Use of Any med ications, Sexual activity, Exercise, Dental Care, Sauna/Hot tub [...] Acute Comment: PRR , XUAN 06/30/25, PC: [place], : Ford (3) : Status: Acute Qualifiers: Weeks of gestation: 30 weeks Qualified Code(s): Z3A.30 - 30 weeks gestation of Comment: NIPT low risk (previously done carrier testing) Plan Details Additional Comments: ACOG trimester education reviewed and updated. see problem list details for updated plan management information and see below for orders placed atthis visit. [place] appropriate handout given. 04/21/25 1004 s LOUIS> Date Rodrigo Davenport CNM Cosigner Signature: Date (if applicable) CC: ~ [facility]05-19-2025 [facility] [address], [address] [place] [address] OFFICE VISIT Date of Service: 04/05/25 MR#: [id number] Acct: [id number] Name: DINORAH DOBBINS Rep #: [id number] : 2000 Provider: LOUIS Davenport Age/Sex: 24/F Location: 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 Date Name GA/Weeks Outcome Route Bth Weight Gen Labor Lgth Anesthesia Del Locatn Provider FOB 02/26/23 [place] 39 live - full term 7lbs 6oz Male epidural [facility] Natividad Youngblood Delivery Date: 02/26/23 Last [...] current plan of care details and appropriate ordersplaced. Relevant counseling for the gestational age provided. [...] of Care, Toxoplasmosis Precations, Use of Any med ications, Sexual activity, Exercise, Dental Care, Sauna/Hot tub [...] information and see below for orders placed atthis visit. [place] appropriate handout given. 04/05/25 1127 s SILASM> Date _ Natividad Garcia Signature: Date (if applicable) CC: ~ [facility]04-09-2025 Evaluation note* Diagnosis Onset Date Resolution Status [...] normal acut e June 03, 2025 3:02pm [facility] Work Phone: [phone]) [phone] Evaluation note* Diagnosis Onset Date Resolution Status [...] [facility] Work Phone: [phone]) 790-320504-09-2025 Evaluation note* Diagnosis Onset Date Resolution Status [...] normal acut e June 16, 2025 10:41am [facility] Work Phone: [phone] 548-477504-09-2025 Evaluation note* Diagnosis Onset Date Resolution Status [...] normal acut e June 16, 2025 10:41am acute June 20 4:28pm Rubella non-immune status, antepartum acute June 20, 2025 4:28pm Spontaneous vaginal delivery acute June 20, 2025 4:28pm Supervision of normal acut e June 20, 2025 4:28pm [facility] Work Phone: [phone] Evaluation note* Diagnosis Onset Date Resolution Status [...] normal acut e May 05, 2025 11:13am [facility] Work Phone: [phone] Evaluation note* Diagnosis Onset Date Resolution Status [...] normal acut e May 19, 2025 10:45am [facility] Work Phone: [phone] Evaluation note* Diagnosis Onset Date Resolution Status [...] normal acute April 05, 2025 1 1:03am [facility] Work Phone: [phone] Evaluation note* Diagnosis Onset Date Resolution Status [...] normal acute April 21, 2025 9 :26am [facility] Work Phone: [phone] Evaluation note* Diagnosis Onset Date Resolution Status [...] of normal acute January 27, 2025 11:09am [facility] Work Phone: [phone] Progress note Author Natividad Davenport [facility] February 17, 2023 8:24am Note Date/Time February 17, 2023 8:24 am [facility] Medical Records Department [address] [place] [address] Progress Note - OBGYN 02/17/23 0822 MR#: [id number] Acct: [id number] Name: DINORAH DOBBINS Rep #:[id number] : 2000 22 From: Natividad Davenport CNM PCP: Care Physician,No Primary Status :ADM IN Location: AE635-2 Subjective Subjective Patient doing well without complaints. [...] (Auto) 80.5 H, Lymph % (Auto) 12.7 L,[place] % (Auto) 6.2, Eos % (Auto) 0.1, [...] delivery: COMMENT: KW/SM 39.2 Active labor Boy Ion PLAN: s/p PPD # 1 1. routine post delivery care 2. breast feeding- support given 3. rh positive 4. rubella immune Charges/Coding Multi Select Codes Urinary/Genital Urinary/Genital CPT Codes: No Charge 02/17/23 0824 <Electronically signed by Natividad Davenport CNM> Cosigner Signature (if applicable): CC: ~ Signed [facility] Work Phone: 1([phone]) 385-932104-02-2023 Discharge summary Author Natividad Davenport [facility] February 16, 2023 11:50pm Note Date/Time February 16, 2023 11:5 0pm [facility] Medical Records Department [address] [place] [address] Instructions for Home/Discharge Instructions 02/16/23 6467 MR#: [id number] Acct: [id number] Name: DINORAH DOBBINS Rep #:[id number] : 2000 22 From: Natividad Davenport CNM [...] Order can be placed): Home, Self Care 02/16/23 2350<Electronically signed by Natividad Davenport CNM>Natividad Davenport CNM CC: No Primary Care Physician ~ Signed [facility] Work Phone: [phone] 492-596004-01-2023 Procedure [facility] 02-16-2023 Progress note Author Natividad Davenport [facility] February 16, 2023 5:33pm Note Date/Time February 16, 2023 5:33 pm [facility] Medical Records Department [address] [place] [address] Progress Note - OBGYN 02/16/23 1727 MR#: [id number] Acct: [id number] Name: DINORAH DOBBINS Rep #:[id number] : 2000 22 From: Natividad Davenport CNM PCP: Juan Physician,No Primary Status :ADM IN Location: [place] [address] Subjective Subjective Patient comfortable with epidural current tracing: FHT: 145 Moderate variability reactive no decelerations category I tracing [place]: Contractions palpating moderate to strong q 3-5 minutes. AROM at 1503 for meconium SVE 5/90/-1 Pitocin augmentation -4mu reviewed tracing abnormalities since [...] (Auto) 80.5 H, Lymph % (Auto) 12.7 L,[place] % (Auto) 6.2, Eos % (Auto) 0.1, Baso % (Auto) 0.2, Absolute Neuts (auto) 10.7 H, Absolute Lymphs (auto) 1.68, Nucleated RBC % 0 02/16/23 11:20: Blood Type A POSITIVE, Antibody Screen NEGATIVE 02/16/23 11:20: Syphilis Total Ab Non-reactive Charges/Coding Procedures Urinary/Genital 52xxx-59xxx: No Charge 02/16/231732 <Electronically signed by Natividad Davenport CNM> Cosigner Signature (if applicable): CC: ~ Signed [facility] Work Phone: [phone] 166-713304-01-2023 Progress note Author Natividad Davenport [facility] February 16, 2023 3:37pm Note Date/Time February 16, 2023 3:37 pm [facility] Medical Records Department [address] [place] [address] Progress Note - OBGYN 02/16/23 1531 MR#: [id number] Acct: [id number] Name: DINORAH DOBBINS Rep #:[id number] : 2000 22 From: Natividad Davenport CNM PCP: Care Physician,No Primary Status :ADM IN Location: [place] [address] Subjective Subjective Patient comfortable with epidural current tracing: FHT: 135 Moderate variability reactive no decelerations category I tracing [place]: Contractions q 4-6 minutes palpating moderate to strong AROM at 1503 for meconium fluid, peds notified and to be at delivery. 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 02/16/23 1255 MR#: [id number] Acct: [id number] Name: DINORAH DOBBINS Rep #:[id number] : 2000 From: Natividad Davenport CNM PCP: Care Physician,No Primary Status :ADM IN Location: NW272-3 HPI - General General Date of Admission: [...] house current occupational status: employed current occupation: [employer] current occupational exposures/hazards: No pets and animals: [...] 1-2 times per week duration: 15-30 minutes/day prabhu/denominational: None seatbelt use: always do you feel safe at home: Yes additional social history: 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 Reviewed plan with Dr. Lagunas, agrees with plan of care. (2) Supervision of normal first : QUALIFIERS: Trimester: first trimester Qualified Code(s): Z34.01 - Encounter for supervision of normal first , first trimester COMMENT: PRR , XUAN 02/21/23, boy! [place] Spouse Ford (3) : QUALIFIERS: Weeks of gestation: 32 weeks Qualified Code(s): Z3A.32 - 32 weeks gestation of COMMENT: GBS negative. nl anatomy, low risk NIPT & carrier neg. for 274/274 02/16/23 1303 <Electronically signed by Natividad Davenport CNM> Cosigner Signature (if applicable): CC: LOUIS Davenport; No Primary Care Physician~ Signed [facility] Work Phone: [phone] NotePap Smear Specimen AdequacyAugust 2021 3:57pmComment.Satisfactory for evaluation. No endocervical component is identified.An endocervical component is not commonly seen in the patient.[facility] A#[id number] Work Phone: Comment on above:Satisfactory for evaluation. No endocervical component is identified.An endocervical component is not commonly seen in the patient.07-16-2022 NotePap Smear Specimen AdequacyAugust 2021 2:57pmComment.Satisfactory for evaluation. No endocervical component is identified.An endocervical component is not commonly seen in the patient.[facility] A#[id number] [facility] Work Phone: Comment on above:Satisfactory for evaluation. No endocervical component is identified.An endocervical component is not commonly seen in the patient.Evaluation note* Diagnosis Onset Date Resolution Status acute Supervision of normal first acute [facility] Work Phone: Evaluation note* Diagnosis Onset Date Resolution Status acute Supervision of normal first acute acute Supervision of normal first acute acute Supervision of normal first [facility] Work Phone: Evaluation note* Diagnosis Onset Date Resolution Status acute Supervision of normal first acute acute Supervision of normal first acute acute Supervision of normal first acute acute Supervision of normal first acute acute Supervision of normal first [facility] Work Phone: Evaluation note* Diagnosis Onset Date Resolution Status acute Supervision of normal first acute acute Supervision of normal first acute acute Supervision of normal first acute acute Supervision of normal first acute acute Supervision of normal first acute acute Supervision of normal first acute Tick bite of abdomen acute acute Supervision of normal first [facility] Work Phone: Evaluation note* Diagnosis [...] of normal first acute Vaginal delivery acute [facility] Work Phone: Progress note Author Natividad Davenport [facility] Note Date/Time April 05, 2025 11:27 am [facility] [address], [address] [place] [address] OFFICE VISIT Date of Service: 04/05/25 MR#: [id number] Acct: [id number] Name: DINORAH DOBBINS Rep #: [id number] : 2000 Provider: LOUIS Davenport Age/Sex: 24/F Location: 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 Date Name GA/Weeks Outcome Route Bth Weight Gen Labor Lgth Anesthesia Del Locatn Provider FOB 02/26/23 [place] 39 live - full term 7lbs 6oz [...] cons with dates. accepts NIPT. WOuld like nc hope appts 12/29/24 -?-?-?-?-?-?-?-?-?-?-?-?- 13w 6d 157 [...] Signs, Cervical Ripening/Labor Induction Counseling, Postterm Counseling, [place] Education, Depression, Depression and Intimate Partner Violence; [...] Cosigner Signature: Date (if applicable) CC: ~ [facility] Work Phone: Progress note Author Natividad Davenport [facility] Note Date/Time April 21, 2025 10:04 am [facility] [address] [place] [address], [address] [place] [address] OFFICE VISIT Date of Service: 04/21/25 MR#: [id number] Acct: [id number] Name: DINORAH DOBBINS Rep #: [id number] : 2000 Provider: LOUIS Davenport Age/Sex: 24/F Location: [facility] Status: Signed Intake Vital Signs 04/05/25 11:07 04/21/25 09:49 Height 5 ft 2 in 5 ft 2 in Weight: 175 lb 4 oz BMI 32.0 BP 106/71 Intake Visit Reasons: 28 wk ob Physical Chemist Required: No Is patient in pain?: No [...] 1-2 times per week duration: 15-30 minutes/day prabhu/denominational: Denominational seatbelt use: always do you feel safe at home: Yes 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 Date Name GA/Weeks Outcome Route Bth Weight Infant Gen Labor Lgth Anesthesia Del Locatn Provider FOB 02/26/23 [place] 39 live - full term 7lbs 6oz [...] Signs, Cervical Ripening/Labor Induction Counseling, Postterm Counseling, [place] Education, Depression, Depression and Intimate Partner Violence; [...] Cosigner Signature: Date (if applicable) CC: ~ [facility] Work Phone: Progress note Author Natividad Davenport [facility] Note Date/Time May 05, 2025 11:3 8am [facility] [address] [place] [address], [address] [place] [address] OFFICE VISIT Date of Service: 05/05/25 MR#: [id number] Acct: [id number] Name: DINORAH DOBBINS Rep #: [id number] : 2000 Provider: LOUIS Davenport Age/Sex: 24/F Location: [facility] Status: Signed Intake Vital Signs 04/05/25 11:07 04/21/25 09:49 05/05/25 11:21 05/05/25 11:25 Height 5 ft 2 in 5 ft 2 in 5 ft 2 in 5 ft 2 in Weight: 179 lb BMI 32.7 BP 111/74 Intake Visit Reasons: 30 wk ob Physical Chemist Required: No Is patient in pain?: No [...] 1-2 times per week duration: 15-30 minutes/day prabhu/denominational: Denominational seatbelt use: always do you feel safe at home: Yes 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 Date Name GA/Weeks Outcome Route Bth Weight Gen Labor Lgth Anesthesia Del Locatn Provider FOB 02/26/23 [place] 39 live - full term 7lbs 6oz Male epidural [facility] Natividad Youngblood Delivery Date: 02/26/23 Last [...] cons with dates. accepts NIPT. WOuld like nc hope appts 12/29/24 -?-?-?-?-?-?-?-?-?-?-?-?- 13w 6d 157 [...] Signs, Cervical Ripening/Labor Induction Counseling, Postterm Counseling, [place] Education, Depression, Depression and Intimate Partner Violence; [...] Cosigner Signature: Date (if applicable) CC: ~ [facility] Work Phone: Progress note Author Natividad Davenport [facility] [facility] Note Date/Time May 19, 2025 11:20 am [facility] [address] [place] [address], [address] [place] [address] OFFICE VISIT Date of Service: 05/19/25 MR#: [id number] Acct: [id number] Name: DINORAH DOBBINS Rep #: [id number] : 2000 Provider: LOUIS Davenport Age/Sex: 24/F Location: [facility] Status: Signed Intake Vital Signs 04/05/25 11:07 05/05/25 11:25 05/19/25 10:49 05/19/25 10:53 Height 5 ft 2 in 5 ft 2 in 5 ft 2 in 5 ft 2 in Weight: 180 lb 8 oz BMI 33.0 BP 111/78 Intake Visit Reasons: 32 wk ob Physical Chemist Required: No Is patient in pain?: No [...] 1-2 times per week duration: 15-30 minutes/day prabhu/denominational: Denominational seatbelt use: always do you feel safe at home: Yes 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 Date Name GA/Weeks Outcome Route Bth Weight Infant Gen Labor Lgth Anesthesia Del Locatn Provider FOB 02/26/23 [facility] 39 live - full term 7lbs 6oz [...] fm. normal [place]. [place]ct next [place] in [place]. 04/05/25 -?-?-?-?-?-?-?-?-?-?-?-?- 27w 5d 171 lb 6 [...] Cosigner Signature: Date (if applicable) CC: ~ [facility] Work Phone: Progress note Author Natividad Davenport [facility] Note Date/Time June 09, 2025 11:0 0am [facility] [address] [place] [address], [address] [place] [address] OFFICE VISIT Date of Service: 06/09/25 MR#: [id number] Acct: [id number] Name: DINORAH DOBBINS Rep #: [id number] : 2000 Provider: LOUIS Davenport Age/Sex: 24/F Location: [facility] Status: Signed Intake Vital Signs 06/03/25 15:07 06/09/25 10:53 06/09/25 10:54 Height 5 ft 2 in 5 ft 2 in 5 ft 2 in Weight: 184 lb 6 oz BMI 33.7 BP 112/75 Intake Visit Reasons: 37wk ob Physical Chemist Required: No Is patient in pain?: No [...] 1-2 times per week duration: 15-30 minutes/day prabhu/denominational: Denominational seatbelt use: always do you feel safe at home: Yes 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 Date Name GA/Weeks Outcome Route Bth Weight Infant Gen Labor Lgth Anesthesia Del Locatn Provider FOB 02/26/23 [facility] 39 live - full term 7lbs 6oz [...] cons with dates. accepts NIPT. WOuld like nc hope appts 12/29/24 -?-?-?-?-?-?-?-?-?-?-?-?- 13w 6d 157 [...] Cosigner Signature: Date (if applicable) CC: ~ [facility] Work Phone: Progrjhx note Author Natividad Davenport [facility] Note Date/Time June 16, 2025 10:5 6am [facility] [address], [address] [place] [address] OFFICE VISIT Date of Service: 06/16/25 MR#: [id number] Acct: [id number] Name: DINORAH DOBBINS Rep #: [id number] : 2000 Provider: LOUIS Davenport Age/Sex: 24/F Location: [facility] Status: Signed Intake Vital Signs 05/19/25 10:53 06/09/25 10:54 06/16/25 10:44 06/16/25 10:48 Height 5 ft 2 in 5 ft 2 in 5 ft 2 in 5 ft 2 in Weight: 184 lb BMI 33.6 BP 105/73 Intake Visit Reasons: 38 WK OB Physical Chemist Required: No Is patient in pain?: No [...] 1-2 times per week duration: 15-30 minutes/day prabhu/denominational: Denominational seatbelt use: always do you feel safe at home: Yes 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 Date Name GA/Weeks Outcome Route Bth Weight Gen Labor Lgth Anesthesia Del Locatn Provider FOB 02/26/23 [facility] 39 live - full term 7lbs 6oz Male epidural [facility] Natividad Issac [place] Delivery Date: 02/26/23 [...] for referral (narrative)No reason for referral information [facility] Work Phone: Summary Purpose Family History No Family History Records FoundNo Family History Records FoundNo Family History Records FoundNo Family History Records Found Advance Directives No Advanced Directives Records Found Advance Directive Response Recorded Date/ Time Living Will No February 16, 2023 11:47am Power of Supervisor [employer] No February 16 11:47am Advance Directive Response Recorded Date/ Time Do you have a Healthcare Power of Supervisor [employer]? No June 20, 2025 4:31pm Chief Complaint and Reason for Visit Chief [...] New OB, LMP 11/6 XUAN 06/30November 26, 12:43pm 13wk OB December 29, 2024 12:54pm [...] 2025 11: 09am Rubella non-immune status, antepartum [facility] 2024 11:09am Supervision of normal January 272024 11:09am Chief Complaint Admit Date 13wk OB December 29, 2024 12:54pm 18 WK OB January 27, 2025 11: 09am CERVICAL LENGTH/ANATOMY February 10, 2025 3:21pm 22 WEEK OB February 24, 2025 9:34 am 26 wk ob April 05, 2025 11:03 am Reason for Visit Admit Date December 29, 2024 12:54pm Rubella non-immune status, antepartum [facility] 2024 12:54pm Supervision of normal December 29, [...] 11: 09am Rubella non-immune status, antepartum [facility] 2024 11:09am Supervision of normal January [...] February 10, 2025 3:21pm 22 WEEK OB Nolvia 9th, 2025 9:34 am 26 wk ob April 05, 2025 11:03 am 28 wk ob April 21, 2025 9:26a m 30 wk ob May 05, 2025 11:1 3am Reason for Visit Admit Date January 27, 2025 11: 09am Rubella non-immune status, antepartum [facility] 2024 11:09am Supervision of normal January 272024 [...] 11: 09am Rubella non-immune status, antepartum [facility] 2024 11:09am Supervision of normal January [...] 2024 10:41am Supervision of normal May 10:41am Chief Complaint Admit Date 22 WEEK OB [...] WK OB June 16, 2025 10:4 1am LABOR AND DELIVERY June 20, 2025 4:2 8pm LABOR AND DELIVERY June 20, 2025 7:1 5pm LABOR AND DELIVERY June 21, 2025 2:1 0am LABOR AND DELIVERY June 22, 2025 7:5 5am Reason for Visit Admit Date February 24, [...] 2024 10:41am Supervision of normal May 10:41am June 20, 2025 4:2 8pm Rubella non-immune status, antepartum [facility] 2024 4:28pm Spontaneous vaginal delivery June 20, 2025 4:28pm Supervision of normal June 202024 4:28pm Additional Source Comments INFORMATION SOURCE (unrecogn ized section and content) DATE CREATED AUTHOR 06/10/2020 [facility] DATE CREATED AUTHOR AUTHOR'S ORGANIZ ATION 03/07/2023 [facility] DATE CREATED AUTHOR AUTHOR'S ORGANIZ ATION 04/28/2023 [facility] DATE CREATED AUTHOR AUTHOR'S ORGANIZ ATION 06/30/2025 [facility] Goals (unrecognized section and content) Goals may [...] June 16, 2025 End: June 16, 2025 Team Status: Inactive Member Role/Relationship Status Dates No Primary Care Physician Primary Care Provider Active Start: June 20, 2025 End: June 22, 2025 Eloisa Dobbins CNM Admit Provider Active Star t: June 20, 2025 End: June 22, 2025 Eloisa Dobbins CNM Attending Provider Active Start: June 20, 2025 End: June 22, 2025 Team Status: Active Member Role/Relationship Status Dates No Primary Care Physician Primary Care Provider Active Start: June 20, 2025 Eloisa Dobbins CNM Admit Provider Active Star t: June 20, 2025 Eloisa Dobbins CNM Attending Provider Active Start: June 20, 2025 Eloisa Dobbins CNM Other Provider Active Star t: June 20, 2025 Team Status: Active Member Role/Relationship Status Dates No Primary Care Physician Primary Care Provider Active Start: June 21, 2025 Eloisa Dobbins CNM Admit Provider Active Star t: June 21, 2025 Eloisa Dobbins CNM Attending Provider Active Start: June 21, 2025 Eloisa Dobbins CNM Other Provider Active Star t: June 21, 2025 Team Status: Active Member Role/Relationship Status Dates No Primary Care Physician Primary Care Provider Active Start: June 22, 2025 Eloisa Dobbins CNM Admit Provider Active Star t: June 22, 2025 Eloisa Dobbins CNM Other Provider Active Star t: June 22, 2025 Savannah Salazar NP, [employer] Attending Provider Active Start: June 22, 2025 FOR RECORDS PERTAINING TO PATIENTS WHO [...] BE BASED ON THE PRIMARY CLINICAL RECORDS. [facility] [employer] [facility]. provides no warranty or guarantee of the accuracy or completeness of information in this document.
== END | disposition home or self-care (01) ==
LOC: LABSPEC 16:23
PROVIDERS: Visit Provider Nurse Practitioner Women's Health
DX: Z39.2 Encounter for routine postpartum follow-up (principal)
CPT/HCPCS: 88175; G0145